=== PATIENT | male | born 1945 | race Caucasian/White ===

== ENCOUNTER → 2017-09-25 15:46 | Outpatient (CLI) | payer MEDICARE, SELFPAY ==
[2017-09-25 15:59] LABS: Hemoglobin 13.1 g/dl (13.0-16.5); Mean Corp Hgb Conc 33.6 g/gl (32-36); Mean Corpuscular Hgb 29.9 pg (27.0-32.0); Mean Platelet Vol. 9.7 fl (6.2-12.0); Platelet Count 153 K/mm3 (150-450); RBC Distribution Width CV 13.4 % (11.6-14.6); RBC Distribution Width SD 43.8 fl (35.1-43.9); Red Blood Count 4.38 M/mm3 (4.6-6.2); White Blood Count 6.1 K/mm3 (4.4-11.0)
[2017-09-25 16:24] LABS: ALB/GLOB Ratio 1.1 RATIO (0.9-2.4); AST(SGOT) 22 U/L (15-37); Alanine Aminotransfer ALT/SGPT 32 U/L (16-61); Albumin, Serum 3.6 g/dL (3.2-5.0); Alkaline Phosphatase 70 U/L (45-117); Anion Gap 6 (5-15); BUN 23 mg/dL (7-18); BUN/Creat Ratio 16.7 RATIO (10-20); Calcium,Total 8.8 mg/dL (8.5-10.1); Chloride 107 mmol/L (98-107); Cholesterol 154 mg/dL (200); Creatinine, Serum 1.38 mg/dL (0.70-1.30); EST Glomerular Filtration Rate 54 mL/min (>60); Est Glom Filt Rate - Afr Amer 65 mL/min (>60); Globulin 3.4 g/dL (2.2-4.2); Glucose 157 mg/dL (74-106); High Density Lipoprotein 36 mg/dL; Potassium 5.2 mmol/L (3.5-5.1); Sodium Level 140 mmol/L (136-145); Triglycerides 241 mg/dL; Very Low Density Lipoprotein 48 mg/dL (5-40)
[2017-09-25 16:25] LABS: Scan Indicated on CBC? Y/N NO
[2017-09-25 16:30] LABS: Hemoglobin A1c 8.5 % (4.2-6.3)
== END ==
PROVIDERS: Family Provider Family Medicine; PCP Family Medicine; Visit Provider Family Medicine
DX: E11.9 Type 2 diabetes mellitus without complications (principal); Z79.899 Other long term (current) drug therapy; E78.5 Hyperlipidemia, unspecified; I10 Essential (primary) hypertension
CPT/HCPCS: 80053; 80061; 83036; 85027

== ENCOUNTER 2017-11-22 11:16 | Emergency (ER) | payer MEDICARE, SELFPAY ==
[2017-11-22 11:18] VITALS: BP 157/93; PULSE 77; RESP 16; TEMP 37.1; O2SAT 98; BMI 28.3
--- NOTE | 2017-11-22 11:32 | CT_ITS ---
STUDY: CT BRAIN WITHOUT CONTRAST REASON FOR EXAM: Male, 72 years old. Altered mental status. Vertigo. Elevated BP. RADIATION DOSAGE (If Supplied By Facility): CTDIvol = ( 44.99 ) mGy, DLP = ( 762.36 ) mGycm TECHNIQUE: Transaxial CT imaging of the brain was performed without administration of intravenous contrast material. Coronal and sagittal reconstructions were performed. Individualized dose optimization techniques were used for this CT. COMPARISON: None. FINDINGS: Normal soft tissue structures. Normal calvarium. Normal size ventricles and extra-axial spaces for the patient's age. Normal white matter tracts of the cerebral hemispheres. Normal basal ganglia and thalami. Normal brainstem. Normal cerebellum. There is no intracranial hemorrhage. There are no findings of an acute ischemic infarction. Normal visualized paranasal sinuses. CT/Brain/Head without Contrast IMPRESSION: Normal unenhanced CT scan of the brain. Electronically Signed: Lebron Medrano MD at 13:28 EDT , Service support ,
--- NOTE | 2017-11-22 11:32 | EKG12_ITS ---
Test Reason : DIZZINESS Blood Pressure : / mmHG Vent. Rate : 067 BPM Atrial Rate : 067 BPM P-R Int : 204 ms QRS Dur : 134 ms QT Int : 400 ms P-R-T Axes : 045 -19 002 degrees QTc Int : 422 ms Normal sinus rhythm Right bundle branch block Abnormal ECG Confirmed by ARIE JUAREZ ([id number]), editor city SHAY MORE ([id number]) on 11/25/2017 10:23:57 AM Referred By: MANUEL Confirmed By:ARIE JUAREZ
[2017-11-22 11:52] LABS: Absolute Lymphocyte Count 1.07 X10^3/ul (0.83-4.51); Absolute Neutrophil Count 3.1 X10^3/uL (2.0-7.7); Basophil# 0.05 X10^3/uL; Eosinophil# 0.31 X10^3/uL; Eosinophils% 6.3 % (0-5); Hematocrit 37.5 % (40-54); Hemoglobin 13.5 g/dl (13.0-16.5); Lymphocyte # 1.07 X10^3/ul (4.0); Lymphocyte % 21.8 % (19-41); Mean Corpuscular Hgb 31.5 pg (27.0-32.0); Mean Corpuscular Volume 87.6 fL (80-94); Mean Platelet Vol. 9.9 fl (6.2-12.0); Monocyte# 0.36 X10^3/uL; Monocyte% 7.3 % (0-10); Neutrophil % 63.4 % (47-70); Platelet Count 172 K/mm3 (150-450); RBC Distribution Width CV 13.6 % (11.6-14.6); RBC Distribution Width SD 42.5 fl (35.1-43.9); Red Blood Count 4.28 M/mm3 (4.6-6.2); White Blood Count 4.9 K/mm3 (4.4-11.0)
[2017-11-22 11:56] LABS: POSITIVE COUNT NO; POSITIVE DIFFERENTIAL NO; POSITIVE MORPHOLOGY NO
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
[2017-11-22] MEDS: Meclizine HCl 25 MG Tablet PO (12:07)
[2017-11-22 12:08] VITALS: BP 142/100; PULSE 72; RESP 14; O2SAT 96
[2017-11-22 12:09] LABS: Anion Gap 8 (5-15); BUN 31 mg/dL (7-18); Calcium,Total 8.5 mg/dL (8.5-10.1); Chloride 104 mmol/L (98-107); Creatinine, Serum 1.72 mg/dL (0.70-1.30); EST Glomerular Filtration Rate 42 mL/min (>60); Est Glom Filt Rate - Afr Amer 50 mL/min (>60); Estimated Creatinine Clearance 40.13 ml/min; Glucose 245 mg/dL (74-106); Potassium 5.3 mmol/L (3.5-5.1); Sodium Level 138 mmol/L (136-145)
[2017-11-22 12:15] VITALS: BP 157/78; PULSE 71; RESP 15; O2SAT 97
--- NOTE | 2017-11-22 12:22 | ED.RN ---
CALLED DR. CADE'S OFFICE TO HAVE THEM FAX OVER A MEDLIST ON PATIENT.
--- NOTE | 2017-11-22 13:45 | ED.DEP ---
ED Disposition - Plan for ED Patient: Disposition: Home or Assisted Living Chief Complaint: Dizziness Instructions: ED BPV Vertigo Prescriptions: Meclizine HCl [Antivert] 25 mg PO 4X/DAY PRN PRN #20 tab PRN Reason: Dizziness Referrals: Eder Lee MD [Primary Care Provider] -
[2017-11-22 13:59] VITALS: BP 132/76; PULSE 68; RESP 18; O2SAT 96
== END 2017-11-22 13:59 | disposition home or self-care (01) ==
PROVIDERS: Emergency Provider Emergency Medicine; Family Provider Family Medicine; PCP Family Medicine
DX: R42 Dizziness and giddiness (principal); Z89.612 Acquired absence of left leg above knee; E11.9 Type 2 diabetes mellitus without complications; I10 Essential (primary) hypertension; Z79.84 Long term (current) use of oral hypoglycemic drugs; Z79.899 Other long term (current) drug therapy
CPT/HCPCS: 70450; 80048; 84484; 85025; 93005; 99284; J7040; A4216

== ENCOUNTER → 2017-12-27 15:53 | Outpatient (CLI) | payer MEDICARE, SELFPAY ==
[2017-12-27 16:38] LABS: Prothrombin Time (Protime)PT. 22.7 SECONDS (11.7-14.9)
== END ==
PROVIDERS: Family Provider Family Medicine; PCP Family Medicine; Visit Provider Family Medicine
DX: R69 Illness, unspecified (principal)
CPT/HCPCS: 85610

== ENCOUNTER → 2018-04-01 17:41 | Outpatient (CLI) | payer MEDICARE, SELFPAY ==
[2018-04-01 18:04] LABS: ALB/GLOB Ratio 1.1 RATIO (0.9-2.4); AST(SGOT) 19 U/L (15-37); Alanine Aminotransfer ALT/SGPT 26 U/L (16-61); Albumin, Serum 3.7 g/dL (3.2-5.0); Alkaline Phosphatase 76 U/L (45-117); Anion Gap 5 (5-15); BUN 26 mg/dL (7-18); BUN/Creat Ratio 17.6 RATIO (10-20); Calcium,Total 8.9 mg/dL (8.5-10.1); Chloride 104 mmol/L (98-107); Cholesterol 165 mg/dL (200); Creatinine, Serum 1.48 mg/dL (0.70-1.30); EST Glomerular Filtration Rate 49 mL/min (>60); Est Glom Filt Rate - Afr Amer 60 mL/min (>60); Globulin 3.4 g/dL (2.2-4.2); Glucose 182 mg/dL (74-106); Hemoglobin A1c 7.3 % (4.2-6.3); High Density Lipoprotein 36 mg/dL; Potassium 5.2 mmol/L (3.5-5.1); Protein, Total 7.1 g/dL (6.4-8.2); Sodium Level 138 mmol/L (136-145); Triglycerides 189 mg/dL; Very Low Density Lipoprotein 38 mg/dL (5-40)
[2018-04-01 18:42] LABS: Microalbumin:Creatinine Ratio 492.3 mg/g CRE (<30 mg/g CRE)
== END ==
PROVIDERS: Family Provider Family Medicine; PCP Family Medicine; Referring Provider Family Medicine; Visit Provider Family Medicine
DX: Z79.899 Other long term (current) drug therapy (principal)
CPT/HCPCS: 80053; 80061; 82043; 82570; 83036

== ENCOUNTER → 2018-07-07 16:06 | Outpatient (CLI) | payer MEDICARE, SELFPAY ==
[2018-07-07 17:02] LABS: ALB/GLOB Ratio 1.1 RATIO (0.9-2.4); AST(SGOT) 18 U/L (15-37); Alanine Aminotransfer ALT/SGPT 28 U/L (16-61); Albumin, Serum 3.6 g/dL (3.2-5.0); Alkaline Phosphatase 73 U/L (45-117); Anion Gap 9 (5-15); BUN 32 mg/dL (7-18); BUN/Creat Ratio 22.4 RATIO (10-20); Calcium,Total 8.7 mg/dL (8.5-10.1); Chloride 106 mmol/L (98-107); Cholesterol 150 mg/dL (200); Creatinine, Serum 1.43 mg/dL (0.70-1.30); EST Glomerular Filtration Rate 51 mL/min (>60); Est Glom Filt Rate - Afr Amer 62 mL/min (>60); Globulin 3.3 g/dL (2.2-4.2); Glucose 232 mg/dL (74-106); High Density Lipoprotein 34 mg/dL; Potassium 4.6 mmol/L (3.5-5.1); Protein, Total 6.9 g/dL (6.4-8.2); Sodium Level 141 mmol/L (136-145); Triglycerides 284 mg/dL; Very Low Density Lipoprotein 57 mg/dL (5-40)
[2018-07-07 17:08] LABS: Hemoglobin A1c 9.2 % (4.2-6.3)
== END ==
PROVIDERS: Family Provider Family Medicine; PCP Family Medicine; Referring Provider Family Medicine; Visit Provider Family Medicine
DX: E11.9 Type 2 diabetes mellitus without complications (principal); E78.5 Hyperlipidemia, unspecified
CPT/HCPCS: 80053; 80061; 83036

== ENCOUNTER → 2018-10-07 | Outpatient (CLI) | payer MEDICARE, SELFPAY ==
[2018-10-07 13:27] LABS: ALB/GLOB Ratio 1.2 RATIO (0.9-2.4); AST(SGOT) 20 U/L (15-37); Alanine Aminotransfer ALT/SGPT 29 U/L (16-61); Albumin, Serum 3.8 g/dL (3.2-5.0); Alkaline Phosphatase 85 U/L (45-117); Anion Gap 7 (5-15); BUN 26 mg/dL (7-18); BUN/Creat Ratio 17.1 RATIO (10-20); Calcium,Total 8.9 mg/dL (8.5-10.1); Chloride 103 mmol/L (98-107); Cholesterol 178 mg/dL (200); Creatinine, Serum 1.52 mg/dL (0.70-1.30); EST Glomerular Filtration Rate 48 mL/min (>60); Est Glom Filt Rate - Afr Amer 58 mL/min (>60); Globulin 3.3 g/dL (2.2-4.2); Glucose 203 mg/dL (74-106); High Density Lipoprotein 38 mg/dL; Potassium 4.7 mmol/L (3.5-5.1); Protein, Total 7.1 g/dL (6.4-8.2); Sodium Level 139 mmol/L (136-145); Triglycerides 330 mg/dL; Very Low Density Lipoprotein 66 mg/dL (5-40)
[2018-10-07 13:33] LABS: Hemoglobin A1c 8.4 % (4.2-6.3)
[2018-10-07 13:38] LABS: Hematocrit 40.5 % (40-54); Hemoglobin 14.1 g/dl (13.0-16.5); Mean Corp Hgb Conc 34.8 g/gl (32-36); Mean Corpuscular Hgb 29.7 pg (27.0-32.0); Mean Corpuscular Volume 85.3 fL (80-94); Platelet Count 171 K/mm3 (150-450); RBC Distribution Width CV 13.6 % (11.6-14.6); RBC Distribution Width SD 41.7 fl (35.1-43.9); Red Blood Count 4.75 M/mm3 (4.6-6.2); White Blood Count 5.4 K/mm3 (4.4-11.0)
[2018-10-07 13:42] LABS: Scan Indicated on CBC? Y/N NO
== END | disposition home or self-care (01) ==
LOC: LABSPEC 12:48
PROVIDERS: Family Provider Family Medicine; PCP Family Medicine; Referring Provider Family Medicine; Visit Provider Family Medicine
DX: E11.9 Type 2 diabetes mellitus without complications (principal); E78.5 Hyperlipidemia, unspecified; I10 Essential (primary) hypertension
CPT/HCPCS: 80053; 80061; 83036; 85027

== ENCOUNTER → 2019-01-15 | Outpatient (CLI) | payer MEDICARE, SELFPAY ==
[2019-01-15 16:46] LABS: AST(SGOT) 19 U/L (15-37); Alanine Aminotransfer ALT/SGPT 31 U/L (16-61); Albumin, Serum 3.5 g/dL (3.2-5.0); Alkaline Phosphatase 76 U/L (45-117); Anion Gap 6 (5-15); BUN 23 mg/dL (7-18); BUN/Creat Ratio 15.9 RATIO (10-20); Calcium,Total 8.8 mg/dL (8.5-10.1); Chloride 108 mmol/L (98-107); Cholesterol 171 mg/dL (200); Creatinine, Serum 1.45 mg/dL (0.70-1.30); EST Glomerular Filtration Rate 50 mL/min (>60); Est Glom Filt Rate - Afr Amer 61 mL/min (>60); Globulin 3.4 g/dL (2.2-4.2); Glucose 161 mg/dL (74-106); High Density Lipoprotein 39 mg/dL; Potassium 5.5 mmol/L (3.5-5.1); Protein, Total 6.9 g/dL (6.4-8.2); Sodium Level 140 mmol/L (136-145); Triglycerides 307 mg/dL; Very Low Density Lipoprotein 61 mg/dL (5-40)
[2019-01-15 18:00] LABS: Hemoglobin A1c 8.2 % (4.2-6.3)
== END | disposition home or self-care (01) ==
PROVIDERS: Family Provider Family Medicine; PCP Family Medicine; Referring Provider Family Medicine; Visit Provider Family Medicine
DX: E11.9 Type 2 diabetes mellitus without complications (principal); E78.5 Hyperlipidemia, unspecified
CPT/HCPCS: 80053; 80061; 83036

== ENCOUNTER 2019-01-29 15:05 | Outpatient (RCR) | payer MEDICARE, SELFPAY ==
[2019-01-29 15:14] VITALS: BP 163/95; PULSE 16; RESP 16; TEMP 37.3; BMI 29.5
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
== END 2019-01-31 23:59 ==
LOC: WC 15:05
PROVIDERS: Family Provider Family Medicine; PCP Family Medicine; Referring Provider Family Medicine; Visit Provider Nurse Practitioner Family
DX: L89.312 Pressure ulcer of right buttock, stage 2 (principal); L89.322 Pressure ulcer of left buttock, stage 2; E78.1 Pure hyperglyceridemia; E11.622 Type 2 diabetes mellitus with other skin ulcer; E11.22 Type 2 diabetes mellitus with diabetic chronic kidney disease; I12.9 Hypertensive chronic kidney disease with stage 1 through stage 4 chronic kidney disease, or unspecified chronic kidney disease; N18.3 Chronic kidney disease, stage 3 (moderate); Z86.718 Personal history of other venous thrombosis and embolism; Z89.619 Acquired absence of unspecified leg above knee; Z79.01 Long term (current) use of anticoagulants; Z79.4 Long term (current) use of insulin; Z79.899 Other long term (current) drug therapy
CPT/HCPCS: 11042; 99213; G0463

== ENCOUNTER 2019-02-19 15:00 | Outpatient (RCR) | payer MEDICARE, SELFPAY ==
[2019-02-01 01:17] VITALS: BP 163/95; PULSE 16; RESP 16; TEMP 37.3
[2019-02-05 15:00] VITALS: BP 164/87; PULSE 72; RESP 16; TEMP 37; BMI 29.5
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
[2019-02-12 14:42] VITALS: BP 149/79; PULSE 72; RESP 16; TEMP 37.2; BMI 29.5
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
[2019-02-19 13:13] VITALS: BP 153/79; PULSE 69; RESP 16; TEMP 37.4; BMI 29.5
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
== END 2019-03-02 23:59 ==
LOC: WC 15:00
PROVIDERS: Family Provider Family Medicine; PCP Family Medicine; Referring Provider Family Medicine; Visit Provider Nurse Practitioner Family
DX: L89.312 Pressure ulcer of right buttock, stage 2 (principal); E11.622 Type 2 diabetes mellitus with other skin ulcer; L89.322 Pressure ulcer of left buttock, stage 2; Z89.619 Acquired absence of unspecified leg above knee; I12.9 Hypertensive chronic kidney disease with stage 1 through stage 4 chronic kidney disease, or unspecified chronic kidney disease; N18.3 Chronic kidney disease, stage 3 (moderate); E11.22 Type 2 diabetes mellitus with diabetic chronic kidney disease; E78.5 Hyperlipidemia, unspecified; Z86.718 Personal history of other venous thrombosis and embolism; Z79.4 Long term (current) use of insulin
CPT/HCPCS: 11042; 99212; G0463

== ENCOUNTER → 2019-04-22 14:13 | Outpatient (CLI) | payer MEDICARE, SELFPAY ==
[2019-04-22 14:57] LABS: AST(SGOT) 19 U/L (15-37); Alanine Aminotransfer ALT/SGPT 27 U/L (16-61); Albumin, Serum 3.6 g/dL (3.2-5.0); Alkaline Phosphatase 71 U/L (45-117); Anion Gap 3 (5-15); BUN 34 mg/dL (7-18); BUN/Creat Ratio 22.7 RATIO (10-20); Calcium,Total 8.9 mg/dL (8.5-10.1); Chloride 108 mmol/L (98-107); Cholesterol 164 mg/dL (200); EST Glomerular Filtration Rate 48 mL/min (>60); Est Glom Filt Rate - Afr Amer 59 mL/min (>60); Globulin 3.5 g/dL (2.2-4.2); Glucose 146 mg/dL (74-106); High Density Lipoprotein 39 mg/dL; Potassium 4.7 mmol/L (3.5-5.1); Protein, Total 7.1 g/dL (6.4-8.2); Sodium Level 139 mmol/L (136-145); Triglycerides 200 mg/dL; Very Low Density Lipoprotein 40 mg/dL (5-40)
[2019-04-22 15:03] LABS: Hemoglobin A1c 8.3 % (4.2-6.3)
== END ==
PROVIDERS: Family Provider Family Medicine; PCP Family Medicine; Referring Provider Family Medicine; Visit Provider Family Medicine
DX: I10 Essential (primary) hypertension (principal); E11.9 Type 2 diabetes mellitus without complications; E78.5 Hyperlipidemia, unspecified
CPT/HCPCS: 80053; 80061; 83036

== ENCOUNTER 2019-07-02 15:00 | Outpatient (RCR) | payer MEDICARE, SELFPAY ==
[2019-06-11 15:21] VITALS: BP 183/91; PULSE 72; RESP 18; TEMP 36.3; BMI 29.7
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
[2019-06-18 15:19] VITALS: BP 148/81; PULSE 68; RESP 16; TEMP 36.4; BMI 29.7
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
[2019-06-25 15:08] VITALS: BP 162/86; PULSE 68; RESP 16; TEMP 36.9; BMI 29.7
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
[2019-07-02 15:29] VITALS: BP 164/92; PULSE 64; RESP 18; TEMP 36.1; BMI 29.7
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
== END 2019-07-03 23:59 ==
LOC: WC 15:00
PROVIDERS: Family Provider Family Medicine; PCP Family Medicine; Visit Provider Nurse Practitioner Family
DX: L89.312 Pressure ulcer of right buttock, stage 2 (principal); L89.322 Pressure ulcer of left buttock, stage 2; I12.9 Hypertensive chronic kidney disease with stage 1 through stage 4 chronic kidney disease, or unspecified chronic kidney disease; E11.22 Type 2 diabetes mellitus with diabetic chronic kidney disease; N18.3 Chronic kidney disease, stage 3 (moderate); Z86.718 Personal history of other venous thrombosis and embolism; E78.5 Hyperlipidemia, unspecified; Z79.01 Long term (current) use of anticoagulants; Z89.612 Acquired absence of left leg above knee; Z79.899 Other long term (current) drug therapy; Z79.84 Long term (current) use of oral hypoglycemic drugs
CPT/HCPCS: 11042; 15271; 99213; Q4160; G0463

== ENCOUNTER 2019-07-16 15:15 | Outpatient (RCR) | payer MEDICARE, SELFPAY ==
[2019-07-04 01:07] VITALS: BP 164/92; PULSE 64; RESP 18; TEMP 36.1
[2019-07-09 15:17] VITALS: BP 155/84; PULSE 66; RESP 16; TEMP 37.1; BMI 29.7
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
[2019-07-16 15:27] VITALS: BP 187/97; PULSE 74; RESP 18; TEMP 36.3; BMI 29.7
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
== END 2019-08-01 23:59 ==
LOC: WC 15:15
PROVIDERS: Family Provider Family Medicine; PCP Family Medicine; Visit Provider Nurse Practitioner Family
DX: L89.312 Pressure ulcer of right buttock, stage 2 (principal); L89.322 Pressure ulcer of left buttock, stage 2; Z89.619 Acquired absence of unspecified leg above knee; E11.22 Type 2 diabetes mellitus with diabetic chronic kidney disease; I12.9 Hypertensive chronic kidney disease with stage 1 through stage 4 chronic kidney disease, or unspecified chronic kidney disease; N18.3 Chronic kidney disease, stage 3 (moderate); Z86.718 Personal history of other venous thrombosis and embolism; E78.5 Hyperlipidemia, unspecified; Z91.19 Patient's noncompliance with other medical treatment and regimen
CPT/HCPCS: 11042; 99212; G0463

== ENCOUNTER → 2019-07-22 | Outpatient (CLI) | payer MEDICARE, SELFPAY ==
[2019-07-16 15:27] VITALS: BMI 29.7
[2019-07-22 16:40] LABS: AST(SGOT) 14 U/L (15-37); Alanine Aminotransfer ALT/SGPT 29 U/L (16-61); Albumin, Serum 3.4 g/dL (3.2-5.0); Alkaline Phosphatase 80 U/L (45-117); Anion Gap 3 (5-15); BUN 26 mg/dL (7-18); BUN/Creat Ratio 16.5 RATIO (10-20); Calcium,Total 8.8 mg/dL (8.5-10.1); Chloride 109 mmol/L (98-107); Cholesterol 166 mg/dL (200); Creatinine, Serum 1.58 mg/dL (0.70-1.30); EST Glomerular Filtration Rate 46 mL/min (>60); Est Glom Filt Rate - Afr Amer 55 mL/min (>60); Globulin 3.5 g/dL (2.2-4.2); Glucose 180 mg/dL (74-106); High Density Lipoprotein 37 mg/dL; Potassium 5.3 mmol/L (3.5-5.1); Protein, Total 6.9 g/dL (6.4-8.2); Sodium Level 139 mmol/L (136-145); Triglycerides 276 mg/dL; Very Low Density Lipoprotein 55 mg/dL (5-40)
[2019-07-22 17:12] LABS: Hemoglobin A1c 9.1 % (4.2-6.3)
[2019-07-22 18:04] LABS: Microalbumin:Creatinine Ratio 1073.4 mg/g CRE (<30 mg/g CRE)
== END | disposition home or self-care (01) ==
LOC: LABSPEC 16:11
PROVIDERS: PCP Family Medicine; Referring Provider Family Medicine; Visit Provider Family Medicine
DX: E11.9 Type 2 diabetes mellitus without complications (principal); I10 Essential (primary) hypertension; E78.5 Hyperlipidemia, unspecified
CPT/HCPCS: 80053; 80061; 82043; 82570; 83036

== ENCOUNTER 2020-08-09 13:38 | Outpatient (RCR) | payer MEDICARE, SELFPAY ==
[2020-08-09] MEDS: COVID-19 VACC, MRNA(PFIZER)/PF 30 MCG/0.3 ML SYRINGE IM (15:31)
[2020-08-30] MEDS: COVID-19 VACC, MRNA(PFIZER)/PF 30 MCG/0.3 ML SYRINGE IM (15:12)
== END 2020-11-08 23:59 ==
LOC: IMMUN 13:38
PROVIDERS: PCP Family Medicine; Visit Provider Family Medicine
DX: Z23 Encounter for immunization (principal)
CPT/HCPCS: 0001A; 0002A; 91300

== ENCOUNTER → 2020-09-20 | Outpatient (CLI) | payer MEDICARE, SELFPAY ==
[2020-09-20 14:59] LABS: Cholesterol 153 mg/dL (200); High Density Lipoprotein 42 mg/dL; Triglycerides 225 mg/dL; Very Low Density Lipoprotein 45 mg/dL (5-40)
[2020-09-20 15:05] LABS: Hemoglobin A1c 8.3 % (3.8-5.6)
== END | disposition home or self-care (01) ==
LOC: LABSPEC 13:56
PROVIDERS: PCP Family Medicine; Referring Provider Family Medicine; Visit Provider Family Medicine
DX: I10 Essential (primary) hypertension (principal)
CPT/HCPCS: 80061; 82043; 82570; 83036

== ENCOUNTER → 2020-12-27 | Outpatient (CLI) | payer MEDICARE, SELFPAY ==
[2020-12-27 16:10] LABS: Cholesterol 145 mg/dL (200); High Density Lipoprotein 38 mg/dL; Triglycerides 213 mg/dL; Very Low Density Lipoprotein 43 mg/dL (5-40)
[2020-12-27 16:15] LABS: Hemoglobin A1c 8.9 % (3.8-5.6)
== END | disposition home or self-care (01) ==
LOC: LABSPEC 15:23
PROVIDERS: PCP Family Medicine; Visit Provider Family Medicine
DX: E11.22 Type 2 diabetes mellitus with diabetic chronic kidney disease (principal); I12.9 Hypertensive chronic kidney disease with stage 1 through stage 4 chronic kidney disease, or unspecified chronic kidney disease; N18.30 Chronic kidney disease, stage 3 unspecified; E78.5 Hyperlipidemia, unspecified
CPT/HCPCS: 80061; 83036

== ENCOUNTER 2021-01-26 10:30 | Outpatient (RCR) | payer MEDICARE, SELFPAY ==
[2021-01-12 10:25] VITALS: BP 107/83; PULSE 91; TEMP 36.9; BMI 29.7
--- NOTE | 2021-01-12 12:58 | HP.PCM_ITS ---
History of Present Illness Date of Service: 01/12/21 Chief Complaint: Recurrent buttock ulcers History of Wound: Mr. 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 Most recent episode said to have started months ago . Has been applying antibiotic and hemorrhoid ointment without significant improvement. Sits and sleeps in his lift chair. Also history of diabetes mellitus type 2 and his most recent A1c was said to be around 8. Fasting blood sugar this morning at 303. He states that he is working with his PCP to get this under better control. History of AKA. He feels well and denies other concerns at this time. [facility] Medical History (Updated 01/12/21 @ 13:[address] Mundo Dye MD) Decubitus ulcer of left buttock, stage 3 Decubitus ulcer of right buttock, stage 3 Home Medications lisinopril [Zestril] 20 mg PO QHS 11/22/17 [History Last Taken Unknown] metoprolol tartrate 50 mg PO BID 11/22/17 [History Last Taken Unknown] Liraglutide [Victoza 2-Reilly] 0.6 mg SQ DAILY 01/29/19 [History Last Taken Unknown] furosemide 40 mg PO BID 01/29/19 [History Last Taken Unknown] lovastatin 40 mg PO DAILY 01/29/19 [History Last Taken Unknown] metformin 1,000 mg PO BID 01/29/19 [History Last Taken Unknown] warfarin 3 mg PO FR 01/29/19 [History Last Taken Unknown] warfarin 5 mg PO SUMOTUWETH 01/29/19 [History Last Taken Unknown] glipizide 25 mg PO BIDAC 06/11/19 [History Last Taken Unknown] hydrocortisone 1 applic TOPICAL TID PRN PRN 06/11/19 [History Last Taken Unknown] nystatin 15 gm TP BID PRN PRN 06/11/19 [History Last Taken Unknown] amlodipine 5 mg PO DAILY 01/12/21 [History Last Taken Unknown] cyclobenzaprine 10 mg PO TID PRN 01/12/21 [History Last Taken Unknown] meclizine 25 mg PO 4X/DAY 01/12/21 [History Last Taken Unknown] Allergy/AdvReac Type Severity Reaction Status Date / Time amoxicillin Allergy Rash Verified 01/29/19 15:51 Social History Smoking Status: Never smoker ROS Constitutional Constitutional: Denies body ache(s), change in weight, chills, fatigue, fever(s) or frequent falls Eyes Eyes: Denies change in eye color, change in vision, discharge from eye(s), discongugate gaze or double vision ENT HEENT: Denies foreign body in nose, headache(s), hearing loss, mouth pain, nasal congestion or nasal discharge Cardiovascular Cardiovascular: Denies chest pain with activity, claudication, clubbing, cold extremities or dyspnea at rest Respiratory/Chest Respiratory/Chest: Denies difficulty clearing secretions, dry cough, dusky skin, excessive phlegm production, hemoptysis or hoarseness Gastrointestinal Gastrointestinal: Denies belching, bloating, chewing difficulty, coffee ground emesis, cramping or dry heaves Genitourinary Genitourinary: Denies burning urination, change in urinary stream, dribbling, dysuria or genital lesions Musculoskeletal Musculoskeletal: Denies atrophy, muscle spasms, muscle weakness, myalgias or numbness Integumentary Integumentary: Denies hirsutism, jaundice, lesions, nail changes or new lesions Neurologic Neurologic: Denies burning sensations, confusion, convulsions, focal weakness or frequent falls Psychiatric Psychiatric: Denies auditory hallucinations, behavioral changes, hallucinations, homicidal ideation or memory loss Endocrine Endocrinology: Denies flushing, heat intolerance, increase in ring/shoe/hat size, palpitations or polydipsia Hematologic/Lymphatic Hematologic/Lymphatic: Denies easy bleeding, easy bruising or lymphadenopathy Allergic/Immunologic Allergic/Immunologic: Denies tongue swelling, hives, urticaria, eczemia or wheezing Vital Signs Vital Signs Vital Signs: 01/12/21 10:25 Temperature 98.5 F Temperature Source Temporal Pulse Rate 91 Blood Pressure 107/83 H Blood Pressure Mean 91 Blood Pressure Source Monitor Weight Body Mass Index (BMI) 29.7 Physical Exam Const alert, oriented x3 and no apparent distress General Appearance: cooperative and comfortable HEENT normocephalic and head/scalp atraumatic Eyes EOMs intact bilaterally Neck full ROM General: normal visual inspection Resp normal respiratory effort Effort and Inspection: able to speak in complete sentences Cardio Rate: regular rate Rhythm: regular rhythm Heart Sounds: S1 normal and S2 normal Skin Wounds: wounds noted Neuro oriented x3, CN's II-XII intact bilaterally and moves all extremities Psych mental status grossly normal Appearance: grossly normal Attitude: calm Speech: normal speech Debridement Note Debridement Note Post-Debridement Measurements and Additional Note: Post-Debridement Measurements/Treatment WC - Nurse 1 - General Ulcer Assessment Start: 01/12/21 10:19 Freq: Status: Active Protocol: WC.LOWEXT Activity Type Activity Date Activity User E-Sign Co-Sign Detail Recorded Client Recorded Date Recorded By Document 01/12/21 10:25 EFREM [id number] 01/12/21 10:54 EFREM 01/12/21 10:25 - Today's Visit Information Type of service Initial Visit Arrival Mode Ambulatory, Crutches Patient Identification Verified (Name & Yes ) Patient Requires Transmission-Based No Precautions Finger Stick Blood Sugar(mg/dl) (if 303 indicated): Blood Sugar Stated by Patient Height and Weight Body Mass Index (BMI) 29.7 BMI Classification Overweight Vital Signs Temperature (97.8 F-99.1 F) 98.5 F Temperature Source Temporal Pulse Rate (60-100) 91 Pulse Location Monitor Blood Pressure (90/60-120/80) 107/83 H Blood Pressure Mean 91 Source Monitor History Since Last Visit- (Skip if this is Patient's initial visit) Have you changed medications since your No last visit? Any new allergies or adverse reactions No Had a fall/change in ADL's that may No increase risk of falls Signs or symptoms of abuse and/or No neglect since last visit Have you been in the hospital since your No last visit? Has dressing in place as prescribed No Has compression in place as prescribed N/A Has offloadiing in place as prescribed N/A Experienced any changes in pain level or No management Left Footwear Regular Shoe Right Footwear Regular Shoe Communication Assessment Preferred language [place] Able to Read Yes Able to Write Yes Communication Tools None Caregiver Communication Skills No Impairment Impairment Right Hearing Abillity Normal Visual Assistive Devices None Teaching Assessment Preferences Verbal,Written Barriers to Learning None Readiness To Learn Good Willingness to Engage in Self Management Med Activies Readiness to Engage in Self Management Med Activities Anxiety Level Calm Cooperation Cooperative Perception Coherent Interest in Health Problem Asks Questions Does Patient Smoke tobacco or other No substances Smoking Status Never smoker Is Patient Diabetic Yes Culture/Mormonism/Bid Manager Cultural/Mormonism Needs that may affect No Treatment Plan Would you allow our hospital filler wiper to Yes meet you for the purpose of spiritual/ emotional support? Bid Manager to contact place of mandaen No Teaching: Wound Center Discharge Instructions -Person Taught Patient -Teaching Method Discussion -Response to teaching Verbalize understanding Offload: Mattress, Cushion, Reposition -Person Taught Patient -Teaching Method Discussion Dressing Your Wound -Person Taught Patient -Teaching Method Discussion *Welcome to the Wound Center -Person Taught Patient -Teaching Method Discussion WC - Nurse 1 - General Ulcer Measurement Start: 01/12/21 10:19 Freq: Status: Active Protocol: Activity Type Activity Date Activity User E-Sign Co-Sign Detail Recorded Client Recorded Date Recorded By Document 01/12/21 10:25 AK [id number] 01/12/21 10:54 AK 01/12/21 10:25 Wound Center Nurse 1 #6 Left buttock cluster -Current Size (cm) - Length 3.5 -Current Size (cm) - Width 1 -Current Size (cm) - Depth 0.1 -Total Square Cm 3.5 -Photo Taken Yes -Classification - Thickness Full Thickness without Exposed Support Structure -Exudate Amt Medium -Exudate Type Serous -Wound Margin Distinct, Outline Attached -Necrosis Amt Medium (34-66%) -Necrotic Tissue Type Adherent Slough -Structure Exposed N/A -Texture (Dai-wound Skin Appearance) Assessed, Scarring -Moisture (Dai-wound Skin Appearance) Assessed,Dry/ Scaly -Color (Dai-wound Skin Appearance) Assessed,Rubor -Temperature (Dai-wound Skin No Abnormality Appearance) (Pt Warm) -Tenderness on Palpation (Dai-wound Yes Skin Appearance) -Ulcer Cleansing Wound Cleanser -Anesthetic Used 4% Lidocaine Solution #5 Right buttock cluster -Current Size (cm) - Length 4 -Current Size (cm) - Width 3 -Current Size (cm) - Depth 0.2 -Total Square Cm 12 -Date of Last Picture (Recall this 01/12/21 field) -Photo Taken Yes -Classification - Thickness Full Thickness without Exposed Support Structure -Exudate Amt Small -Exudate Type Serous -Wound Margin Distinct, Outline Attached -Granulation Amt Large (67-100%) -Granulation Quality [place] -Necrosis Amt Medium (34-66%) -Necrotic Tissue Type Adherent Slough -Structure Exposed N/A -Texture (Dai-wound Skin Appearance) Assessed, Scarring -Moisture (Dai-wound Skin Appearance) Assessed,Dry/ Scaly -Color (Dai-wound Skin Appearance) Assessed,Rubor -Temperature (Dai-wound Skin No Abnormality Appearance) (Pt Warm) -Tenderness on Palpation (Dai-wound Yes Skin Appearance) -Ulcer Cleansing Wound Cleanser -Foul Odor after Cleansing No -Anesthetic Used 4% Lidocaine Solution WC - Nurse 2 - General Ulcer CM Notes Start: 01/12/21 10:19 Freq: Status: Active Protocol: Activity Type Activity Date Activity User E-Sign Co-Sign Detail Recorded Client Recorded Date Recorded By Document 01/12/21 11:12 MW Desktop 01/12/21 11:21 MW 01/12/21 11:12 Wound Center Nurse 2 #6 Left buttock cluster -Time 11:19 -Correct Patient Yes -Correct Side, Site, Position Yes -Correct Procedure Yes -Procedure Performed Yes -Type of Procedure Debridement -Clinical Debridement Subcutaneous -Tissue Removed Subcutaneous -Post Debridement (cm) - Length 4.0 -Post Debridement (cm) - Width 2.0 -Post Debridement (cm) - Depth 0.1 -Total Square (Post) (cm) 8.00 -Area of Debridement (cm) - Length 4.0 -Area of Debridement (cm) - Width 2.0 -Total Square (Area) (cm) 8.00 -Tunneling No -Undermining/Tunneling No -Circular Undermining No -Wound/Ulcer Outcome Not Healed -Ulcer Cleansing Rinsed/ Irrigated with Saline -Foul Odor after Cleansing No -Bioengineered Tissue No -Bleeding Controlled with Pressure -Offloading No -Treatment Response Procedure Tolerated Well -Debridement - Subq, 1st 20sq cm Yes #5 Right buttock cluster -Time 11:19 -Correct Patient Yes -Correct Side, Site, Position Yes -Correct Procedure Yes -Procedure Performed Yes -Type of Procedure Debridement -Clinical Debridement Subcutaneous -Tissue Removed Subcutaneous -Post Debridement (cm) - Length 4.0 -Post Debridement (cm) - Width 3.5 -Post Debridement (cm) - Depth 0.1 -Total Square (Post) (cm) 14.00 -Area of Debridement (cm) - Length 4.0 -Area of Debridement (cm) - Width 3.5 -Total Square (Area) (cm) 14.00 -Tunneling No -Undermining/Tunneling No -Circular Undermining No -Wound/Ulcer Outcome Not Healed -Ulcer Cleansing Rinsed/ Irrigated with Saline -Foul Odor after Cleansing No -Bioengineered Tissue No -Bleeding Controlled with Pressure -Offloading No -Treatment Response Procedure Tolerated Well -Debridement - Subq, 1st 20sq cm No Pain Scale: 0-10 Numeric Is Patient Pain Free? Yes - Nurse 3 - General Ulcer D/C NN Start: 01/12/21 10:19 Freq: Status: Active Protocol: Activity Type Activity Date Activity User E-Sign Co-Sign Detail Recorded Client Recorded Date Recorded By Document 01/12/21 11:45 SD [id number] 01/12/21 11:47 SD 01/12/21 11:45 Wound Care Nurse 3 #6 Left buttock cluster -Primary Dressing Applied Aquacel Extra, Mepilex Border -Aquacel Extra 1 -Mepilex Border 2 - Visit Discharge Discharge Condition Stable Ambulatory Status Ambulatory Transportation Private Auto Medication Reconcilliation completed & No provided to patient/care provider Clinical Summary of Care Provided Yes Notes: Concerned about how to dress his wound. Wound debrided: Left Buttock Cluster Wound Grade/Stage: Stage III Type of Debridement: Excisional debridement Anesthesia Used: 4% Lidocaine Solution Depth: Down to and including healthy tissue and in the subcutaneous layer Percentage of wound debrided: 100 Instrument Used: 5mm curette Tissue Removed: Slough and devitalized tissue Severity: Fat Layer Exposed Amount of bleeding with debridement: Mild Bleeding Controlled with: Pressure Patient tolerated procedure: Patient tolerated procedure well Additional Wound Wound debrided: Right Buttock Cluster Wound Grade/Stage: Stage III Type of Debridement: Excisional debridement Anesthesia Used: 4% Lidocaine Solution Depth: Down to and including healthy tissue and in the subcutaneous layer Percentage of wound debrided: 100 Instrument Used: 5mm curette Tissue Removed: Slough and devitalized tissue Severity: Fat Layer Exposed Amount of bleeding with debridement: Mild Bleeding Controlled with: Pressure Patient tolerated procedure: Patient tolerated procedure well Charges/Coding Visit Charges Office Visits / Consults: [id number] OV L3 New Procedures Integumentary [id number]: [id number] [place] subq tissue 20 sq cm/< Assessment/Plan Assessment/Plan (1) Decubitus ulcer of right buttock, stage 3: CODE(S): L89.313 - Pressure ulcer of right buttock, stage 3 (2) Decubitus ulcer of left buttock, stage 3: CODE(S): L89.323 - Pressure ulcer of left buttock, stage 3 (3) Type II diabetes mellitus: CODE(S): E11.9 - Type 2 diabetes mellitus without complications PLAN: With current bilateral decubitus ulcers. Current episode said to have been present for months. Debridement done as documented above, procedure was well-tolerated. Strongly advised that he would need a hospital bed for pressure relief/offloading. Prescription sent. Prescription also sent for a gel cushion since he spends most of his time in his lift chair. Optimal diabetes control also very strongly recommended. Cultures taken due to chronicity, location and pain. Aquacel extra moistened with saline and covered with Optifoam. Change daily. He will need home health. Optimal protein intake, vitamin C and zinc also discussed. His questions were answered and he was advised to call with any further questions or concerns. Follow-up for courtesy visit next Saturday and with me in 2 weeks. This note was generated with [employer] dictation software. It may contain incorrect words, spelling, and punctuation that were not noted in checking the note before signing.
[2021-01-20 09:59] VITALS: BP 140/65; PULSE 64; TEMP 36.9; BMI 29.7
--- NOTE | 2021-01-20 13:16 | PCM.WC.PN ---
History of Present Illness Date of Service: 01/20/21 Chief Complaint: Recurrent buttock ulcers History of Wound: Mr. 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 Most recent episode said to have started months ago . Has been applying antibiotic and hemorrhoid ointment without significant improvement. Sits and sleeps in his lift chair. Also history of diabetes mellitus type 2 and his most recent A1c was said to be around 8. Fasting blood sugar this morning at 303. He states that he is working with his PCP to get this under better control. History of AKA. He feels well and denies other concerns at this time. Progress of Wound: Courtesy visit for Dr. Dye. The patient's buttock ulcers have improved in size within the last week. He reports compliance with dressing changes. The patient denies fever, chills, general malaise, or poor appetite. The patient has not had purulent/malodorous drainage from affected area. Objective Data Objective Data Vital Signs: Vital Signs Temp Pulse BP 98.4 F 64 140/65 H 01/20/21 09:59 01/20/21 09:59 01/20/21 09:59 Body Mass Index (BMI) 29.7 Lab / Micro Data Micro: Microbiology 01/12/21 11:10 Wound Abcess - Buttock Gram Stain - Final 01/12/21 11:10 Wound Abcess - Buttock Wound Culture - Final Staphylococcus aureus 01/12/21 11:10 Wound Abcess - Buttock Anaerobic Culture - Final Charges/Coding Procedures Integumentary [id number]: [id number] [place] subq tissue 20 sq cm/< Physical Exam Const alert and no apparent distress General Appearance: cooperative and comfortable HEENT Head and Scalp: normocephalic and atraumatic Neck supple Resp normal respiratory effort, normal air movement and no use of accessory muscles Extremity normal capillary refill Peripheral Pulses: Yes dorsalis pedis pulses present bilateral 2+ Skin Wounds: wounds noted Wound Narrative: Bilateral buttock ulcers with subcutaneous layer exposed. No tunneling, undermining, or probing to bone. Moderate erythema and excoriation of periulcer area. No purulent/malodorous drainage. Neuro Sensorium / Orientation: awake and alert Psych mental status grossly normal, cooperative and affect normal Appearance: grossly normal Debridement Note Debridement Note Post-Debridement Measurements and Additional Note: Post-Debridement Measurements/Treatment WC - Nurse 1 - General Ulcer Assessment Start: 01/12/21 10:19 Freq: Status: Active Protocol: FABY Activity Type Activity Date Activity User E-Sign Co-Sign Detail Recorded Client Recorded Date Recorded By Document 01/12/21 10:25 AK [id number] 01/12/21 10:54 AK Document 01/20/21 09:59 AK [id number] 01/20/21 10:08 AK 01/12/21 01/20/21 10:25 09:59 - Today's Visit Information Type of service Initial Visit Follow-up Visit (Physician/PRECISION DANCER ) Arrival Mode Ambulatory, Ambulatory, Crutches Crutches Patient Identification Verified (Name & Yes Yes ) Patient Requires Transmission-Based No Precautions Finger Stick Blood Sugar(mg/dl) (if 303 indicated): Blood Sugar Stated by Patient Height and Weight Body Mass Index (BMI) 29.7 29.7 BMI Classification Overweight Overweight Vital Signs Temperature (97.8 F-99.1 F) 98.5 F 98.4 F Temperature Source Temporal Temporal Pulse Rate (60-100) 91 64 Pulse Location Monitor Monitor Blood Pressure (90/60-120/80) 107/83 H 140/65 H Blood Pressure Mean (mm Hg) 91 90 Source Monitor Monitor History Since Last Visit- (Skip if this is Patient's initial visit) Have you changed medications since your No No last visit? Any new allergies or adverse reactions No No Had a fall/change in ADL's that may No No increase risk of falls Signs or symptoms of abuse and/or No No neglect since last visit Have you been in the hospital since your No No last visit? Has dressing in place as prescribed No Yes Has compression in place as prescribed N/A N/A Has offloadiing in place as prescribed N/A N/A Experienced any changes in pain level or No management Left Footwear Regular Shoe Regular Shoe Right Footwear Regular Shoe Regular Shoe Communication Assessment Preferred language Bahamian Able to Read Yes Able to Write Yes Communication Tools None Caregiver Communication Skills No Impairment Impairment Right Hearing Abillity Normal Visual Assistive Devices None Teaching Assessment Preferences Verbal,Written Barriers to Learning None Readiness To Learn Good Willingness to Engage in Self Management Med Activies Readiness to Engage in Self Management Med Activities Anxiety Level Calm Cooperation Cooperative Perception Coherent Interest in Health Problem Asks Questions Does Patient Smoke tobacco or other No substances Smoking Status Never smoker Is Patient Diabetic Yes Culture/Pentecostalism/Administrative Assistant Front Desk Cultural/Pentecostalism Needs that may affect No Treatment Plan Would you allow our hospital phlebotomy program coordinator to Yes meet you for the purpose of spiritual/ emotional support? Administrative Assistant Front Desk to contact place of scientology No Teaching: Wound Center Discharge Instructions -Person Taught Patient -Teaching Method Discussion -Response to teaching Verbalize understanding Offload: Mattress, Cushion, Reposition -Person Taught Patient -Teaching Method Discussion Dressing Your Wound -Person Taught Patient -Teaching Method Discussion *Welcome to the Wound Center -Person Taught Patient -Teaching Method Discussion WC - Nurse 1 - General Ulcer Measurement Start: 01/12/21 10:19 Freq: Status: Active Protocol: Activity Type Activity Date Activity User E-Sign Co-Sign Detail Recorded Client Recorded Date Recorded By Document 01/12/21 10:25 AK [id number] 01/12/21 10:54 AK Document 01/20/21 09:59 AK [id number] 01/20/21 10:08 AK 01/12/21 01/20/21 10:25 09:59 Wound Center Nurse 1 #6 Left buttock cluster -Combined with other wound No -Current Size (cm) - Length 3.5 0.1 -Current Size (cm) - Width 1 0.1 -Current Size (cm) - Depth 0.1 0.1 -Total Square Cm 3.5 0.01 -Photo Taken Yes -Tunneling No -Undermining/Tunneling No -Circular Undermining No -Classification - Thickness Full Thickness without Exposed Support Structure -Exudate Amt Medium None Present -Exudate Type Serous -Wound Margin Distinct, Flat & Intact Outline Attached -Slough/Fibrin No -Necrosis Amt Medium (34-66%) None Present (0 %) -Necrotic Tissue Type Adherent Slough -Structure Exposed N/A N/A -Texture (Dai-wound Skin Appearance) Assessed, Assessed,Rash Scarring -Moisture (Dai-wound Skin Appearance) Assessed,Dry/ No Abnormality, Scaly Assessed -Color (Dai-wound Skin Appearance) Assessed,Rubor Assessed,Rubor -Temperature (Dai-wound Skin No Abnormality No Abnormality Appearance) (Pt Warm) (Pt Warm) -Tenderness on Palpation (Dai-wound Yes No Skin Appearance) -Ulcer Cleansing Wound Cleanser soap and water -Anesthetic Used 4% Lidocaine 5% Lidocaine Solution Gel #5 Right buttock cluster -Current Size (cm) - Length 4 0.1 -Current Size (cm) - Width 3 0.1 -Current Size (cm) - Depth 0.2 0.1 -Total Square Cm 12 0.01 -Date of Last Picture (Recall this 01/12/21 field) -Photo Taken Yes -Tunneling No -Undermining/Tunneling No -Circular Undermining No -Classification - Thickness Full Thickness without Exposed Support Structure -Exudate Amt Small None Present -Exudate Type Serous -Wound Margin Distinct, Flat & Intact Outline Attached -Granulation Amt Large (67-100%) None Present (0 %) -Granulation Quality [place] -Slough/Fibrin No -Necrosis Amt Medium (34-66%) None Present (0 %) -Necrotic Tissue Type Adherent Slough -Structure Exposed N/A N/A -Texture (Dai-wound Skin Appearance) Assessed, Assessed,Rash Scarring -Moisture (Dai-wound Skin Appearance) Assessed,Dry/ No Abnormality, Scaly Assessed -Color (Dai-wound Skin Appearance) Assessed,Rubor Assessed,Rubor -Temperature (Dai-wound Skin No Abnormality No Abnormality Appearance) (Pt Warm) (Pt Warm) -Tenderness on Palpation (Dai-wound Yes No Skin Appearance) -Ulcer Cleansing Wound Cleanser soap and water -Foul Odor after Cleansing No -Anesthetic Used 4% Lidocaine 5% Lidocaine Solution Gel WC - Nurse 2 - General Ulcer CM Notes Start: 01/12/21 10:19 Freq: Status: Active Protocol: Activity Type Activity Date Activity User E-Sign Co-Sign Detail Recorded Client Recorded Date Recorded By Document 01/12/21 11:12 MW Desktop 01/12/21 11:21 MW 01/12/21 11:12 Wound Center Nurse 2 #6 Left buttock cluster -Time 11:19 -Correct Patient Yes -Correct Side, Site, Position Yes -Correct Procedure Yes -Procedure Performed Yes -Type of Procedure Debridement -Clinical Debridement Subcutaneous -Tissue Removed Subcutaneous -Post Debridement (cm) - Length 4.0 -Post Debridement (cm) - Width 2.0 -Post Debridement (cm) - Depth 0.1 -Total Square (Post) (cm) 8.00 -Area of Debridement (cm) - Length 4.0 -Area of Debridement (cm) - Width 2.0 -Total Square (Area) (cm) 8.00 -Tunneling No -Undermining/Tunneling No -Circular Undermining No -Wound/Ulcer Outcome Not Healed -Ulcer Cleansing Rinsed/ Irrigated with Saline -Foul Odor after Cleansing No -Bioengineered Tissue No -Bleeding Controlled with Pressure -Offloading No -Treatment Response Procedure Tolerated Well -Debridement - Subq, 1st 20sq cm Yes #5 Right buttock cluster -Time 11:19 -Correct Patient Yes -Correct Side, Site, Position Yes -Correct Procedure Yes -Procedure Performed Yes -Type of Procedure Debridement -Clinical Debridement Subcutaneous -Tissue Removed Subcutaneous -Post Debridement (cm) - Length 4.0 -Post Debridement (cm) - Width 3.5 -Post Debridement (cm) - Depth 0.1 -Total Square (Post) (cm) 14.00 -Area of Debridement (cm) - Length 4.0 -Area of Debridement (cm) - Width 3.5 -Total Square (Area) (cm) 14.00 -Tunneling No -Undermining/Tunneling No -Circular Undermining No -Wound/Ulcer Outcome Not Healed -Ulcer Cleansing Rinsed/ Irrigated with Saline -Foul Odor after Cleansing No -Bioengineered Tissue No -Bleeding Controlled with Pressure -Offloading No -Treatment Response Procedure Tolerated Well -Debridement - Subq, 1st 20sq cm No Pain Scale: 0-10 Numeric Is Patient Pain Free? Yes - Nurse 3 - General Ulcer D/C NN Start: 01/12/21 10:19 Freq: Status: Active Protocol: Activity Type Activity Date Activity User E-Sign Co-Sign Detail Recorded Client Recorded Date Recorded By Document 01/12/21 11:45 [place] [id number] 01/12/21 11:47 [place] Document 01/20/21 11:02 KR [id number] 01/20/21 11:03 KR 01/12/21 01/20/21 11:45 11:02 Wound Care Nurse 3 #6 Left buttock cluster -Ulcer Cleansing Rinsed/ Irrigated with Saline -Primary Dressing Applied Aquacel Extra, Aquacel Extra Mepilex Border -Aquacel Extra 1 1 -Mepilex Border 2 Pain Scale: 0-10 Numeric Is Patient Pain Free? Yes - Visit Discharge Discharge Condition Stable Stable Ambulatory Status Ambulatory Ambulatory, Crutches Transportation Private Auto Private Auto Accompanied by Medication Reconcilliation completed & No provided to patient/care provider Clinical Summary of Care Provided Yes Notes: Concerned about how to dress his wound. Wound debrided: Left buttock cluster Laterality: Left Type of Debridement: Excisional debridement Anesthesia Used: 4% Lidocaine Solution Depth: in the subcutaneous layer Percentage of wound debrided: 100 Instrument Used: 3mm curette Tissue Removed: Slough and devitalized tissue Severity: Fat Layer Exposed Amount of bleeding with debridement: Mild Bleeding Controlled with: Pressure Patient tolerated procedure: Patient tolerated procedure well Additional Wound Wound debrided: Right buttock cluster Laterality: Right Type of Debridement: Excisional debridement Anesthesia Used: 4% Lidocaine Solution Depth: in the subcutaneous layer Percentage of wound debrided: 100 Instrument Used: 3mm curette Tissue Removed: Slough and devitalized tissue Severity: Fat Layer Exposed Amount of bleeding with debridement: Mild Bleeding Controlled with: Pressure Patient tolerated procedure: Patient tolerated procedure well Assessment/Plan Assessment/Plan (1) Decubitus ulcer of right buttock, stage 3: CODE(S): L89.313 - Pressure ulcer of right buttock, stage 3 (2) Decubitus ulcer of left buttock, stage 3: CODE(S): L89.323 - Pressure ulcer of left buttock, stage 3 (3) Type II diabetes mellitus: CODE(S): E11.9 - Type 2 diabetes mellitus without complications PLAN: With current bilateral decubitus ulcers. Current episode said to have been present for months. Debridement done as documented above, procedure was well-tolerated. A hospital bed for pressure relief/offloading was ordered by Dr. Dye. Prescription also sent for a gel cushion since he spends most of his time in his lift chair. Optimal diabetes control also very strongly recommended. Cultures from 01/12/2021 showed rare Staph aureus. Antibiotics deferred for the time being due to no clinical signs of infection today. Aquacel extra moistened with saline and covered with Optifoam. Change daily. He has some periulcer excoriation and was recommended to begin daily use of A&D ointment for barrier protection for moisture. Home health was ordered, though the patient states this has not yet been established. Optimal protein intake, vitamin C and zinc also discussed. His questions were answered and he was advised to call with any further questions or concerns. Follow-up with Dr. Dey in 1 week. Should new or concerning symptoms arise, please contact the wound healing center. Note: [employer] speech recognition applied psychology chair software was used to create portions of this document. Sound-alike and misspelled words, as well as other applied psychology chair errors may be contained in the documentation.
[2021-01-26 10:32] VITALS: BP 156/69; PULSE 65; TEMP 36.3; BMI 29.7
--- NOTE | 2021-01-26 13:12 | PN.PCM_ITS ---
History of Present Illness Date of Service: 01/26/21 Chief Complaint: Recurrent buttock ulcers History of Wound: Mr. 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 Most recent episode said to have started months ago . Has been applying antibiotic and hemorrhoid ointment without significant improvement. Sits and sleeps in his lift chair. Also history of diabetes mellitus type 2 and his most recent A1c was said to be around 8. Fasting blood sugar this morning at 303. He states that he is working with his PCP to get this under better control. History of AKA. He feels well and denies other concerns at this time. Progress of Wound: New periwound erythema. He appears to have had some problems with his wound supplies. Home health is not started as well. No chills, fever or feeling of unwell. Objective Data Objective Data Vital Signs: Vital Signs Temp Pulse BP 97.3 F L 65 156/69 H 01/26/21 10:32 01/26/21 10:32 01/26/21 10:32 Body Mass Index (BMI) 29.7 Lab / Micro Data Micro: Microbiology 01/12/21 11:10 Wound Abcess - Buttock Gram Stain - Final 01/12/21 11:10 Wound Abcess - Buttock Wound Culture - Final Staphylococcus aureus 01/12/21 11:10 Wound Abcess - Buttock Anaerobic Culture - Final Charges/Coding Procedures Integumentary [id number]: [id number] [place] subq tissue 20 sq cm/< Physical Exam Const alert, oriented x3 and no apparent distress General Appearance: cooperative and comfortable HEENT normocephalic and head/scalp atraumatic Eyes EOMs intact bilaterally Neck full ROM General: normal visual inspection Resp normal respiratory effort Effort and Inspection: able to speak in complete sentences Skin Wounds: wounds noted Neuro oriented x3, CN's II-XII intact bilaterally and moves all extremities Psych mental status grossly normal Appearance: grossly normal Attitude: calm Speech: normal speech Debridement Note Debridement Note Post-Debridement Measurements and Additional Note: Post-Debridement Measurements/Treatment ANIA - Nurse 1 - General Ulcer Assessment Start: 01/12/21 10:19 Freq: Status: Active Protocol: FABY Activity Type Activity Date Activity User E-Sign Co-Sign Detail Recorded Client Recorded Date Recorded By Document 01/12/21 10:25 AK [id number] 01/12/21 10:54 AK Document 01/20/21 09:59 AK [id number] 01/20/21 10:08 AK Document 01/26/21 10:32 AK [id number] 01/26/21 10:42 AK 01/12/21 01/20/21 01/26/21 10:25 09:59 10:32 WC - Today's Visit Information Type of service Initial Visit Follow-up Visit Follow-up Visit (Physician/TREE CLIMBER (Physician/TREE CLIMBER ) ) Arrival Mode Ambulatory, Ambulatory, Ambulatory, Crutches Crutches Crutches Patient Identification Verified (Name & Yes Yes Yes ) Patient Requires Transmission-Based No No Precautions Finger Stick Blood Sugar(mg/dl) (if 303 indicated): Blood Sugar Stated by Patient Height and Weight Body Mass Index (BMI) 29.7 29.7 29.7 BMI Classification Overweight Overweight Overweight Vital Signs Temperature (97.8 F-99.1 F) 98.5 F 98.4 F 97.3 F L Temperature Source Temporal Temporal Temporal Pulse Rate (60-100) 91 64 65 Pulse Location Monitor Monitor Monitor Blood Pressure (90/60-120/80) 107/83 H 140/65 H 156/69 H Blood Pressure Mean (mm Hg) 91 90 98 Source Monitor Monitor Monitor History Since Last Visit- (Skip if this is Patient's initial visit) Have you changed medications since your No No No last visit? Any new allergies or adverse reactions No No No Had a fall/change in ADL's that may No No No increase risk of falls Signs or symptoms of abuse and/or No No No neglect since last visit Have you been in the hospital since your No No No last visit? Has dressing in place as prescribed No Yes Yes Has compression in place as prescribed N/A N/A N/A Has offloadiing in place as prescribed N/A N/A N/A Experienced any changes in pain level or No management Left Footwear Regular Shoe Regular Shoe Regular Shoe Right Footwear Regular Shoe Regular Shoe Communication Assessment Preferred language Tanz[place] Able to Read Yes Able to Write Yes Communication Tools None Caregiver Communication Skills No Impairment Impairment Right Hearing Abillity Normal Visual Assistive Devices None Teaching Assessment Preferences Verbal,Written Barriers to Learning None Readiness To Learn Good Willingness to Engage in Self Management Med Activies Readiness to Engage in Self Management Med Activities Anxiety Level Calm Cooperation Cooperative Perception Coherent Interest in Health Problem Asks Questions Does Patient Smoke tobacco or other No substances Smoking Status Never smoker Is Patient Diabetic Yes 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 Lighting Fixtures Decorator to contact place of sikh No Teaching: Wound Center Discharge Instructions -Person Taught Patient -Teaching Method Discussion -Response to teaching Verbalize understanding Offload: Mattress, Cushion, Reposition -Person Taught Patient -Teaching Method Discussion Dressing Your Wound -Person Taught Patient -Teaching Method Discussion *Welcome to the Wound Center -Person Taught Patient -Teaching Method Discussion WC - Nurse 1 - General Ulcer Measurement Start: 01/12/21 10:19 Freq: Status: Active Protocol: Activity Type Activity Date Activity User E-Sign Co-Sign Detail Recorded Client Recorded Date Recorded By Document 01/12/21 10:25 AK [id number] 01/12/21 10:54 AK Document 01/20/21 09:59 AK [id number] 01/20/21 10:08 AK Document 01/26/21 10:32 AK [id number] 01/26/21 10:42 AK 01/12/21 01/20/21 01/26/21 10:25 09:59 10:32 Wound Center Nurse 1 #6 Left buttock cluster -Combined with other wound No No -Current Size (cm) - Length 3.5 0.1 3 -Current Size (cm) - Width 1 0.1 4 -Current Size (cm) - Depth 0.1 0.1 0.1 -Total Square Cm 3.5 0.01 12 -Photo Taken Yes -Tunneling No -Undermining/Tunneling No -Circular Undermining No No -Classification - Thickness Full Thickness without Exposed Support Structure -Exudate Amt Medium None Present -Exudate Type Serous Serosanguineous -Wound Margin Distinct, Flat & Intact Well Defined, Outline Not Attached Attached -Granulation Amt Medium (34-66%) -Granulation Quality [place] -Slough/Fibrin No Yes -Necrosis Amt Medium (34-66%) None Present (0 Medium (34-66%) %) -Necrotic Tissue Type Adherent Slough Adherent Slough -Structure Exposed N/A N/A -Texture (Dai-wound Skin Appearance) Assessed, Assessed,Rash Assessed, Scarring Excoriation -Moisture (Dai-wound Skin Appearance) Assessed,Dry/ No Abnormality, No Abnormality, Scaly Assessed Assessed -Color (Dai-wound Skin Appearance) Assessed,Rubor Assessed,Rubor Assessed,Rubor -Temperature (Dai-wound Skin No Abnormality No Abnormality No Abnormality Appearance) (Pt Warm) (Pt Warm) (Pt Warm) -Tenderness on Palpation (Dai-wound Yes No Yes Skin Appearance) -Ulcer Cleansing Wound Cleanser soap and water Rinsed/ Irrigated with Saline -Anesthetic Used 4% Lidocaine 5% Lidocaine 5% Lidocaine Solution Gel Gel #5 Right buttock cluster -Current Size (cm) - Length 4 0.1 3.5 -Current Size (cm) - Width 3 0.1 3.5 -Current Size (cm) - Depth 0.2 0.1 0.1 -Total Square Cm 12 0.01 12.25 -Date of Last Picture (Recall this 01/12/21 field) -Photo Taken Yes No -Tunneling No No -Undermining/Tunneling No No -Circular Undermining No No -Classification - Thickness Full Thickness without Exposed Support Structure -Exudate Amt Small None Present Medium -Exudate Type Serous Serosanguineous -Wound Margin Distinct, Flat & Intact Well Defined, Outline Not Attached Attached -Granulation Amt Large (67-100%) None Present (0 %) -Granulation Quality [place] -Slough/Fibrin No Yes -Necrosis Amt Medium (34-66%) None Present (0 Medium (34-66%) %) -Necrotic Tissue Type Adherent Slough Adherent Slough -Structure Exposed N/A N/A -Texture (Dai-wound Skin Appearance) Assessed, Assessed,Rash Assessed, Scarring Excoriation -Moisture (Dai-wound Skin Appearance) Assessed,Dry/ No Abnormality, No Abnormality, Scaly Assessed Assessed -Color (Dai-wound Skin Appearance) Assessed,Rubor Assessed,Rubor Assessed,Rubor -Temperature (Dai-wound Skin No Abnormality No Abnormality No Abnormality Appearance) (Pt Warm) (Pt Warm) (Pt Warm) -Tenderness on Palpation (Dai-wound Yes No Yes Skin Appearance) -Ulcer Cleansing Wound Cleanser soap and water Rinsed/ Irrigated with Saline -Foul Odor after Cleansing No No -Anesthetic Used 4% Lidocaine 5% Lidocaine 5% Lidocaine Solution Gel Gel WC - Nurse 2 - General Ulcer CM Notes Start: 01/12/21 10:19 Freq: Status: Active Protocol: Activity Type Activity Date Activity User E-Sign Co-Sign Detail Recorded Client Recorded Date Recorded By Document 01/12/21 11:12 MW Desktop 01/12/21 11:21 MW Document 01/20/21 13:26 PL [id number] 01/20/21 13:28 PL Document 01/26/21 11:03 MW [id number] 01/26/21 11:08 MW 01/12/21 01/20/21 01/26/21 11:12 13:26 11:03 Wound Center Nurse 2 #6 Left buttock cluster -Time 11:19 10:36 11:04 -Correct Patient Yes Yes Yes -Correct Side, Site, Position Yes Yes Yes -Correct Procedure Yes Yes Yes -Procedure Performed Yes Yes Yes -Type of Procedure Debridement Debridement Debridement -Clinical Debridement Subcutaneous Subcutaneous Subcutaneous -Tissue Removed Subcutaneous Subcutaneous Subcutaneous -Post Debridement (cm) - Length 4.0 1.5 2.5 -Post Debridement (cm) - Width 2.0 2.0 2.5 -Post Debridement (cm) - Depth 0.1 0.1 0.1 -Total Square (Post) (cm) 8.00 3.00 6.25 -Area of Debridement (cm) - Length 4.0 1.5 2.5 -Area of Debridement (cm) - Width 2.0 2.0 2.5 -Total Square (Area) (cm) 8.00 3.00 6.25 -Tunneling No No No -Undermining/Tunneling No No No -Circular Undermining No No No -Wound/Ulcer Outcome Not Healed Not Healed Not Healed -Ulcer Cleansing Rinsed/ Rinsed/ Rinsed/ Irrigated with Irrigated with Irrigated with Saline Saline Saline -Foul Odor after Cleansing No No No -Bioengineered Tissue No No No -Bleeding Controlled with Pressure Pressure Pressure -Offloading No No -Treatment Response Procedure Procedure Procedure Tolerated Well Tolerated Well Tolerated Well -Debridement - Subq, 1st 20sq cm Yes Yes Yes -Debridement, SubQ, ea addt'l 20sq cm 1 or part thereof #5 Right buttock cluster -Time 11:19 10:36 11:05 -Correct Patient Yes Yes Yes -Correct Side, Site, Position Yes Yes Yes -Correct Procedure Yes Yes Yes -Procedure Performed Yes Yes Yes -Type of Procedure Debridement Debridement Debridement -Clinical Debridement Subcutaneous Subcutaneous Subcutaneous -Tissue Removed Subcutaneous Subcutaneous Subcutaneous -Post Debridement (cm) - Length 4.0 0.2 6.0 -Post Debridement (cm) - Width 3.5 0.7 4.0 -Post Debridement (cm) - Depth 0.1 0.1 0.1 -Total Square (Post) (cm) 14.00 0.14 24.00 -Area of Debridement (cm) - Length 4.0 0.2 6.0 -Area of Debridement (cm) - Width 3.5 0.7 4.0 -Total Square (Area) (cm) 14.00 0.14 24.00 -Tunneling No No No -Undermining/Tunneling No No No -Circular Undermining No No No -Wound/Ulcer Outcome Not Healed Not Healed Not Healed -Ulcer Cleansing Rinsed/ Rinsed/ Rinsed/ Irrigated with Irrigated with Irrigated with Saline Saline Saline -Foul Odor after Cleansing No No No -Bioengineered Tissue No No No -Bleeding Controlled with Pressure Pressure Pressure -Offloading No No -Treatment Response Procedure Procedure Procedure Tolerated Well Tolerated Well Tolerated Well -Debridement - Subq, 1st 20sq cm No No No Pain Scale: 0-10 Numeric Is Patient Pain Free? Yes Yes WC - Nurse 3 - General Ulcer D/C NN Start: 01/12/21 10:19 Freq: Status: Active Protocol: Activity Type Activity Date Activity User E-Sign Co-Sign Detail Recorded Client Recorded Date Recorded By Document 01/12/21 11:45 MT [id number] 01/12/21 11:47 OK Document 01/20/21 11:02 KR [id number] 01/20/21 11:03 KR Document 01/26/21 11:20 AK [id number] 01/26/21 11:22 AK 01/12/21 01/20/21 01/26/21 11:45 11:02 11:20 Wound Care Nurse 3 #6 Left buttock cluster -Ulcer Cleansing Rinsed/ Rinsed/ Irrigated with Irrigated with Saline Saline -Primary Dressing Applied Aquacel Extra, Aquacel Extra Aquacel Extra Mepilex Border -Other Dressing abd -Primary Dressing Covered/Secured with Secured with Tape -Aquacel Extra 1 1 1 -Mepilex Border 2 #5 Right buttock cluster -Ulcer Cleansing Rinsed/ Irrigated with Saline -Foul Odor after Cleansing No -Negative Pressure Wound Therapy N/A -Primary Dressing Applied Aquacel Extra -Other Dressing abd -Primary Dressing Covered/Secured with Secured with Tape -Aquacel Extra 1 Pain Scale: 0-10 Numeric Is Patient Pain Free? Yes WC - Visit Discharge Discharge Condition Stable Stable Ambulatory Status Ambulatory Ambulatory, Crutches Transportation Private Auto Private Auto Accompanied by Medication Reconcilliation completed & No provided to patient/care provider Clinical Summary of Care Provided Yes Notes: Concerned about how to dress his wound. Wound debrided: Left buttock cluster Type of Debridement: Excisional debridement Anesthesia Used: 4% Lidocaine Solution Depth: Down to and including healthy tissue Percentage of wound debrided: 100 Instrument Used: 3mm curette Tissue Removed: Slough and devitalized tissue Severity: Fat Layer Exposed Amount of bleeding with debridement: Mild Bleeding Controlled with: Pressure Patient tolerated procedure: Patient tolerated procedure well Additional Wound Wound debrided: Right buttock cluster Type of Debridement: Excisional debridement Anesthesia Used: 4% Lidocaine Solution Depth: Down to and including healthy tissue and in the subcutaneous layer Percentage of wound debrided: 100 Instrument Used: 5mm curette Severity: Fat Layer Exposed Amount of bleeding with debridement: Mild Bleeding Controlled with: Pressure Patient tolerated procedure: Patient tolerated procedure well Assessment/Plan Assessment/Plan (1) Decubitus ulcer of right buttock, stage 3: CODE(S): L89.313 - Pressure ulcer of right buttock, stage 3 (2) Decubitus ulcer of left buttock, stage 3: CODE(S): L89.323 - Pressure ulcer of left buttock, stage 3 (3) Type II diabetes mellitus: CODE(S): E11.9 - Type 2 diabetes mellitus without complications PLAN: Increase periwound erythema/irritation. Newly started A&E ointment, he was advised to discontinue. Debridement done as documented above, procedure was well-tolerated. Continue Aquacel extra with ABD over top. Change daily to twice daily depending on drainage or soiling. Consistent use of gel cushion in hospital bed very strongly recommended. Optimal diabetes control also very strongly recommended. Optimal protein intake, vitamin C and zinc also discussed. His questions were answered and he was advised to call with any further questions or concerns. Follow-up in a week. This note was generated with [employer] software. It may contain incorrect words, spelling, and punctuation that were not noted in checking the note before signing.
== END 2021-01-31 23:59 ==
LOC: WC 10:30
PROVIDERS: PCP Family Medicine; Visit Provider Internal Medicine
DX: L89.313 Pressure ulcer of right buttock, stage 3 (principal); L89.323 Pressure ulcer of left buttock, stage 3; E11.9 Type 2 diabetes mellitus without complications; E66.3 Overweight; Z68.29 Body mass index [BMI] 29.0-29.9, adult; Z79.01 Long term (current) use of anticoagulants; Z79.84 Long term (current) use of oral hypoglycemic drugs; Z79.899 Other long term (current) drug therapy
CPT/HCPCS: 11042; 11045; 87070; 87075; 87077; 87186; 87205; 99213; G0463

== ENCOUNTER 2021-03-02 10:30 | Outpatient (RCR) | payer MEDICARE, SELFPAY ==
[2021-02-01 00:42] VITALS: BP 156/69; PULSE 65; TEMP 36.3; BMI 29.7
[2021-02-02 09:59] VITALS: BP 148/69; PULSE 70; TEMP 36.6; BMI 29.7
[2021-02-02 11:05] VITALS: BP 174/56; PULSE 65; RESP 18; TEMP 36.6; BMI 29.7
--- NOTE | 2021-02-02 18:59 | PCM.WC.PN ---
History of Present Illness Date of Service: 02/02/21 Chief Complaint: Recurrent buttock ulcers History of Wound: Mr. 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 Most recent episode said to have started months ago . Has been applying antibiotic and hemorrhoid ointment without significant improvement. Sits and sleeps in his lift chair. Also history of diabetes mellitus type 2 and his most recent A1c was said to be around 8. Fasting blood sugar this morning at 303. He states that he is working with his PCP to get this under better control. History of AKA. He feels well and denies other concerns at this time. Subjective Subjective No new concerns at this time. Ulcers are improving. Objective Data Objective Data Vital Signs: Vital Signs Temp Pulse Resp BP 97.8 F 65 18 174/56 H 02/02/21 11:05 02/02/21 11:05 02/02/21 11:05 02/02/21 11:05 Body Mass Index (BMI) 29.7 Charges/Coding Procedures Integumentary 111xxx-113xx: 43[address] [place] subq tissue 20 sq cm/< Physical Exam Const alert, oriented x3 and no apparent distress General Appearance: cooperative and comfortable HEENT normocephalic and head/scalp atraumatic Eyes EOMs intact bilaterally Neck full ROM General: normal visual inspection Resp normal respiratory effort Effort and Inspection: able to speak in complete sentences Skin Wounds: wounds noted Neuro oriented x3, CN's II-XII intact bilaterally and moves all extremities Psych mental status grossly normal Appearance: grossly normal Attitude: calm Speech: normal speech Debridement Note Debridement Note Wound debrided: Left buttock Type of Debridement: Excisional debridement Anesthesia Used: 4% Lidocaine Solution Depth: Down to and including healthy tissue and in the subcutaneous layer Percentage of wound debrided: 100 Instrument Used: 3mm curette Tissue Removed: Slough and devitalized tissue Severity: Fat Layer Exposed Amount of bleeding with debridement: Mild Bleeding Controlled with: Pressure Patient tolerated procedure: Patient tolerated procedure well Post-Debridement Measurements and Additional Note: Post-Debridement Measurements/Treatment ANIA - Nurse 1 - General Ulcer Assessment Start: 02/02/21 09:59 Freq: Status: Active Protocol: FABY Activity Type Activity Date Activity User E-Sign Co-Sign Detail Recorded Client Recorded Date Recorded By Document 02/02/21 09:59 AK [id number] 02/02/21 10:11 AK Document 02/02/21 11:05 DL [id number] 02/02/21 11:15 DL 02/02/21 02/02/21 09:59 11:05 WC - Today's Visit Information Type of service Follow-up Visit Follow-up Visit (Physician/PARTITION SETTER (Physician/PARTITION SETTER ) ) Arrival Mode Ambulatory, Ambulatory Crutches Transfer Assistance None Patient Identification Verified (Name & Yes Yes ) Patient Requires Transmission-Based No No Precautions Height and Weight Body Mass Index (BMI) 29.7 29.7 BMI Classification Overweight Overweight Vital Signs Temperature (97.8 F-99.1 F) 97.9 F 97.8 F Temperature Source Temporal Temporal Pulse Rate (60-100) 70 65 Pulse Location Monitor Monitor Respiratory Rate (12-18) 18 Respiratory rate source Observation Blood Pressure (90/60-120/80) 148/69 H 174/56 H Blood Pressure Mean (mm Hg) 95 95 Source Monitor Monitor History Since Last Visit- (Skip if this is Patient's initial visit) Have you changed medications since your No No last visit? Any new allergies or adverse reactions No No Had a fall/change in ADL's that may No No increase risk of falls Signs or symptoms of abuse and/or No No neglect since last visit Have you been in the hospital since your No Yes last visit? Has dressing in place as prescribed Yes No Has compression in place as prescribed N/A No Has offloadiing in place as prescribed N/A No Experienced any changes in pain level or No management Left Footwear Regular Shoe Pain Scale: 0-10 Numeric Is Patient Pain Free? Yes - Nurse 1 - General Ulcer Measurement Start: 02/02/21 09:59 Freq: Status: Active Protocol: Activity Type Activity Date Activity User E-Sign Co-Sign Detail Recorded Client Recorded Date Recorded By Document 02/02/21 09:59 AK [id number] 02/02/21 10:11 AK Document 02/02/21 11:05 DL [id number] 02/02/21 11:15 DL 02/02/21 02/02/21 09:59 11:05 Wound Center Nurse 1 #6 Left buttock cluster -Combined with other wound No -Current Size (cm) - Length 7 6.2 -Current Size (cm) - Width 2 1.9 -Current Size (cm) - Depth 0.1 0.2 -Total Square Cm 14 11.78 -Photo Taken No No -Tunneling No -Undermining/Tunneling No -Circular Undermining No -Change in Wound Grade/Stage No -Exudate Amt Large Medium -Exudate Type Serosanguineous Serosanguineous -Wound Margin Distinct, Distinct, Outline Outline Attached Attached -Granulation Amt None Present (0 Medium (34-66%) %) -Granulation Quality N/A Red -Slough/Fibrin No -Necrosis Amt Medium (34-66%) -Necrotic Tissue Type Adherent Slough -Structure Exposed N/A N/A -Texture (Dai-wound Skin Appearance) Assessed, Scarring Excoriation -Moisture (Dai-wound Skin Appearance) Assessed,Dry/ No Abnormality Scaly -Color (Dai-wound Skin Appearance) Assessed, No Abnormality Erythema -Temperature (Dai-wound Skin No Abnormality No Abnormality Appearance) (Pt Warm) (Pt Warm) -Tenderness on Palpation (Dai-wound Yes No Skin Appearance) -Ulcer Cleansing Rinsed/ Wound Cleanser Irrigated with Saline -Foul Odor after Cleansing No -Anesthetic Used 5% Lidocaine 4% Lidocaine Gel Solution #5 Right buttock cluster -Combined with other wound No -Current Size (cm) - Length 6.5 -Current Size (cm) - Width 1.5 -Current Size (cm) - Depth 0.1 -Total Square Cm 9.75 -Photo Taken No -Tunneling No -Undermining/Tunneling No -Circular Undermining No -Exudate Amt Large -Exudate Type Serosanguineous -Wound Margin Distinct, Outline Attached -Granulation Amt None Present (0 %) -Granulation Quality Hyper- granulation -Slough/Fibrin No -Necrosis Amt None Present (0 %) -Structure Exposed N/A -Texture (Dai-wound Skin Appearance) Assessed, Excoriation -Moisture (Dai-wound Skin Appearance) Assessed,Dry/ Scaly -Color (Dai-wound Skin Appearance) Assessed, Erythema -Temperature (Dai-wound Skin No Abnormality Appearance) (Pt Warm) -Tenderness on Palpation (Dai-wound Yes Skin Appearance) -Ulcer Cleansing Rinsed/ Irrigated with Saline -Anesthetic Used 5% Lidocaine Gel WC - Nurse 2 - General Ulcer CM Notes Start: 02/02/21 09:59 Freq: Status: Active Protocol: Activity Type Activity Date Activity User E-Sign Co-Sign Detail Recorded Client Recorded Date Recorded By Document 02/02/21 10:28 [place] [id number] 02/02/21 10:33 [place] 02/02/21 10:28 Wound Center Nurse 2 -Time 10:28 -Correct Patient Yes -Correct Side, Site, Position Yes -Correct Procedure Yes -Procedure Performed Yes -Type of Procedure Debridement -Clinical Debridement Subcutaneous -Tissue Removed Subcutaneous -Post Debridement (cm) - Length 2.5 -Post Debridement (cm) - Width 0.3 -Post Debridement (cm) - Depth 0.1 -Total Square (Post) (cm) 0.75 -Area of Debridement (cm) - Length 2.5 -Area of Debridement (cm) - Width 0.3 -Total Square (Area) (cm) 0.75 -Tunneling No -Undermining/Tunneling No -Circular Undermining No -Wound/Ulcer Outcome Not Healed -Ulcer Cleansing Rinsed/ Irrigated with Saline -Foul Odor after Cleansing No -Bioengineered Tissue No -Bleeding Controlled with Pressure -Treatment Response Procedure Tolerated Well -Debridement - Subq, 1st 20sq cm Yes #5 Right buttock cluster -Time 10:29 -Correct Patient Yes -Correct Side, Site, Position Yes -Correct Procedure Yes -Procedure Performed No -Tunneling No -Undermining/Tunneling No -Circular Undermining No -Wound/Ulcer Outcome Not Healed -Ulcer Cleansing Rinsed/ Irrigated with Saline -Foul Odor after Cleansing No -Bioengineered Tissue No -Bleeding Controlled with Pressure -Treatment Response Procedure Tolerated Well Pain Scale: 0-10 Numeric Is Patient Pain Free? Yes WC - Nurse 3 - General Ulcer D/C NN Start: 02/02/21 09:59 Freq: Status: Active Protocol: Activity Type Activity Date Activity User E-Sign Co-Sign Detail Recorded Client Recorded Date Recorded By Document 02/02/21 10:39 [id number] 02/02/21 10:48 DL 02/02/21 10:39 Wound Care Nurse 3 #6 Left buttock cluster -Ulcer Cleansing Rinsed/ Irrigated with Saline -Foul Odor after Cleansing No -Primary Dressing Applied Aquacel Extra, NonAdherent Contact Layer -Primary Dressing Covered/Secured with Dry Gauze, Secured with Tape -Other Covering abd -Aquacel Extra 1 #5 Right buttock cluster -Ulcer Cleansing Rinsed/ Irrigated with Saline -Foul Odor after Cleansing No -Primary Dressing Applied NonAdherent Contact Layer -Other Dressing xerofrom -Primary Dressing Covered/Secured with Dry Gauze, Secured with Tape Treatment Response Procedure Tolerated Well Pain Scale: 0-10 Numeric Is Patient Pain Free? Yes WC - Visit Discharge Discharge Condition Stable Ambulatory Status Ambulatory, Crutches Transportation Private Auto Assessment/Plan Assessment/Plan (1) Decubitus ulcer of right buttock, stage 3: CODE(S): L89.313 - Pressure ulcer of right buttock, stage 3 (2) Decubitus ulcer of left buttock, stage 3: CODE(S): L89.323 - Pressure ulcer of left buttock, stage 3 (3) Type II diabetes mellitus: CODE(S): E11.9 - Type 2 diabetes mellitus without complications PLAN: Improved. Periwound erythema has also improved. Debridement done as documented above, procedure was well-tolerated. Continue Aquacel to the open areas with ABD over top. Xeroform to the reddened areas. Change daily to twice daily depending on drainage or soiling. Consistent use of gel cushion and hospital bed very strongly recommended. Optimal diabetes control also very strongly recommended. Optimal protein intake, vitamin C and zinc also discussed. His questions were answered and he was advised to call with any further questions or concerns. Follow-up in a week. This note was generated with [employer] software. It may contain incorrect words, spelling, and punctuation that were not noted in checking the note before signing.
[2021-02-09 09:53] VITALS: BP 147/67; PULSE 66; TEMP 35.9; BMI 29.7
--- NOTE | 2021-02-09 10:30 | PN.PCM_ITS ---
History of Present Illness Date of Service: 02/09/21 Chief Complaint: Recurrent buttock ulcers History of Wound: Mr. 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 Most recent episode said to have started months ago . Has been applying antibiotic and hemorrhoid ointment without significant improvement. Sits and sleeps in his lift chair. Also history of diabetes mellitus type 2 and his most recent A1c was said to be around 8. Fasting blood sugar this morning at 303. He states that he is working with his PCP to get this under better control. History of AKA. He feels well and denies other concerns at this time. Subjective Subjective Having a lot of difficulty with his wound dressing. Declined home health. Now applying A&D ointment again and today presents with worsening decubitus ulcers. Increased surrounding erythema. He feels well otherwise. Objective Data Objective Data Vital Signs: Vital Signs Temp Pulse Resp BP 96.7 F L 66 18 147/67 H 02/09/21 09:53 02/09/21 09:53 02/02/21 11:05 02/09/21 09:53 Body Mass Index (BMI) 29.7 Charges/Coding Procedures Integumentary 111xxx-113xx: [address] [place] subq tissue 20 sq cm/< Physical Exam Const alert, oriented x3 and no apparent distress General Appearance: cooperative and comfortable HEENT normocephalic and head/scalp atraumatic Eyes EOMs intact bilaterally Neck full ROM General: normal visual inspection Resp normal respiratory effort Effort and Inspection: able to speak in complete sentences Skin Wounds: wounds noted Neuro oriented x3, CN's II-XII intact bilaterally and moves all extremities Psych mental status grossly normal Appearance: grossly normal Attitude: calm Speech: normal speech Debridement Note Debridement Note Wound debrided: Left buttock Type of Debridement: Excisional debridement Anesthesia Used: 4% Lidocaine Solution Depth: Down to and including healthy tissue and in the subcutaneous layer Percentage of wound debrided: 100 Instrument Used: 5mm curette Severity: Fat Layer Exposed Amount of bleeding with debridement: Mild Bleeding Controlled with: Pressure Patient tolerated procedure: Patient tolerated procedure well Post-Debridement Measurements and Additional Note: Post-Debridement Measurements/Treatment WC - Nurse 1 - General Ulcer Assessment Start: 02/02/21 09:59 Freq: Status: Active Protocol: WC.LOWEXT Activity Type Activity Date Activity User E-Sign Co-Sign Detail Recorded Client Recorded Date Recorded By Document 02/02/21 09:59 AK [id number] 02/02/21 10:11 AK Document 02/02/21 11:05 DL [id number] 02/02/21 11:15 DL Document 02/09/21 09:53 AK [id number] 02/09/21 09:59 AK 02/02/21 02/02/21 02/09/21 09:59 11:05 09:53 - Today's Visit Information Type of service Follow-up Visit Follow-up Visit Follow-up Visit (Physician/SUPERVISOR RECEIVING AND PROCESSING (Physician/SUPERVISOR RECEIVING AND PROCESSING (Physician/SUPERVISOR RECEIVING AND PROCESSING ) ) ) Arrival Mode Ambulatory, Ambulatory Ambulatory, Crutches Crutches Transfer Assistance None Patient Identification Verified (Name & Yes Yes Yes ) Patient Requires Transmission-Based No No Precautions Height and Weight Body Mass Index (BMI) 29.7 29.7 29.7 BMI Classification Overweight Overweight Overweight Vital Signs Temperature (97.8 F-99.1 F) 97.9 F 97.8 F 96.7 F L Temperature Source Temporal Temporal Temporal Pulse Rate (60-100) 70 65 66 Pulse Location Monitor Monitor Monitor Respiratory Rate (12-18) 18 Respiratory rate source Observation Blood Pressure (90/60-120/80) 148/69 H 174/56 H 147/67 H Blood Pressure Mean (mm Hg) 95 95 93 Source Monitor Monitor Monitor Position Semi-Fowlers Blood Pressure Location Right Arm History Since Last Visit- (Skip if this is Patient's initial visit) Have you changed medications since your No No No last visit? Any new allergies or adverse reactions No No No Had a fall/change in ADL's that may No No No increase risk of falls Signs or symptoms of abuse and/or No No No neglect since last visit Have you been in the hospital since your No Yes No last visit? Has dressing in place as prescribed Yes No Yes Has compression in place as prescribed N/A No N/A Has offloadiing in place as prescribed N/A No N/A Experienced any changes in pain level or No No management Left Footwear Regular Shoe Regular Shoe Right Footwear Regular Shoe Pain Scale: 0-10 Numeric Is Patient Pain Free? Yes Yes - Nurse 1 - General Ulcer Measurement Start: 02/02/21 09:59 Freq: Status: Active Protocol: Activity Type Activity Date Activity User E-Sign Co-Sign Detail Recorded Client Recorded Date Recorded By Document 02/02/21 09:59 AK [id number] 02/02/21 10:11 AK Document 02/02/21 11:05 DL [id number] 02/02/21 11:15 DL Document 02/09/21 09:53 AK [id number] 02/09/21 09:59 AK Edit Result 02/09/21 09:53 AK (1) [id number] 02/09/21 10:02 KR (1) #6 Left buttock cluster - Current Size (cm) - Length => 3 - Current Size (cm) - Width => 2 - Current Size (cm) - Depth => 0.1 - Total Square Cm => 6 - Exudate Amt => Small - Exudate Type => Serous - Granulation Amt => Large (67-100%) - Granulation Quality => Red #5 Right buttock cluster - Current Size (cm) - Length => 4 - Current Size (cm) - Width => 3 - Current Size (cm) - Depth => 0.1 - Total Square Cm => 12 - Granulation Amt => Large (67-100%) - Granulation Quality => Red - Necrosis Amt => None Present (0%) 02/02/21 02/02/21 02/09/21 09:59 11:05 09:53 Wound Center Nurse 1 #6 Left buttock cluster -Combined with other wound No -Current Size (cm) - Length 7 6.2 3 -Current Size (cm) - Width 2 1.9 2 -Current Size (cm) - Depth 0.1 0.2 0.1 -Total Square Cm 14 11.78 6 -Photo Taken No No -Tunneling No -Undermining/Tunneling No -Circular Undermining No -Change in Wound Grade/Stage No -Exudate Amt Large Medium Small -Exudate Type Serosanguineous Serosanguineous Serous -Wound Margin Distinct, Distinct, Distinct, Outline Outline Outline Attached Attached Attached -Granulation Amt None Present (0 Medium (34-66%) Large (67-100%) %) -Granulation Quality N/A Red Red -Slough/Fibrin No -Necrosis Amt Medium (34-66%) -Necrotic Tissue Type Adherent Slough -Structure Exposed N/A N/A -Texture (Dai-wound Skin Appearance) Assessed, Scarring Assessed, Excoriation Scarring -Moisture (Dai-wound Skin Appearance) Assessed,Dry/ No Abnormality No Ab normality, Scaly Assessed -Color (Dai-wound Skin Appearance) Assessed, No Abnormality No Abnormality, Erythema Assessed -Temperature (Dai-wound Skin No Abnormality No Abnormality No Abnormality Appearance) (Pt Warm) (Pt Warm) (Pt Warm) -Tenderness on Palpation (Dai-wound Yes No No Skin Appearance) -Ulcer Cleansing Rinsed/ Wound Cleanser Rinsed/ Irrigated with Irrigated with Saline Saline -Foul Odor after Cleansing No No -Anesthetic Used 5% Lidocaine 4% Lidocaine 4% Lidocaine Gel Solution Solution #5 Right buttock cluster -Combined with other wound No -Current Size (cm) - Length 6.5 4 -Current Size (cm) - Width 1.5 3 -Current Size (cm) - Depth 0.1 0.1 -Total Square Cm 9.75 12 -Photo Taken No -Tunneling No -Undermining/Tunneling No -Circular Undermining No -Exudate Amt Large -Exudate Type Serosanguineous -Wound Margin Distinct, Distinct, Outline Outline Attached Attached -Granulation Amt None Present (0 Large (67-100%) %) -Granulation Quality Hyper- Red granulation -Slough/Fibrin No -Necrosis Amt None Present (0 None Present (0 %) %) -Structure Exposed N/A N/A -Texture (Dai-wound Skin Appearance) Assessed, Assessed, Excoriation Scarring -Moisture (Dai-wound Skin Appearance) Assessed,Dry/ No Abnormality, Scaly Assessed -Color (Dai-wound Skin Appearance) Assessed, No Abnormality, Erythema Assessed -Temperature (Dai-wound Skin No Abnormality No Abnormality Appearance) (Pt Warm) (Pt Warm) -Tenderness on Palpation (Dai-wound Yes No Skin Appearance) -Ulcer Cleansing Rinsed/ Rinsed/ Irrigated with Irrigated with Saline Saline -Foul Odor after Cleansing No -Anesthetic Used 5% Lidocaine 4% Lidocaine Gel Solution WC - Nurse 2 - General Ulcer CM Notes Start: 02/02/21 09:59 Freq: Status: Active Protocol: Activity Type Activity Date Activity User E-Sign Co-Sign Detail Recorded Client Recorded Date Recorded By Document 02/02/21 10:28 AL [id number] 02/02/21 10:33 MT Document 02/09/21 10:11 AL [id number] 02/09/21 10:20 AL 02/02/21 02/09/21 10:28 10:11 Wound Center Nurse 2 #6 Left buttock cluster -Time 10: 10:12 -Correct Patient Yes Yes -Correct Side, Site, Position Yes Yes -Correct Procedure Yes Yes -Procedure Performed Yes Yes -Type of Procedure Debridement Debridement -Clinical Debridement Subcutaneous Subcutaneous -Tissue Removed Subcutaneous Subcutaneous -Post Debridement (cm) - Length 2.5 4 -Post Debridement (cm) - Width 0.3 2 -Post Debridement (cm) - Depth 0.1 1 -Total Square (Post) (cm) 0.75 8 -Area of Debridement (cm) - Length 2.5 4 -Area of Debridement (cm) - Width 0.3 2 -Total Square (Area) (cm) 0.75 8 -Tunneling No No -Undermining/Tunneling No No -Circular Undermining No No -Wound/Ulcer Outcome Not Healed Not Healed -Ulcer Cleansing Rinsed/ Rinsed/ Irrigated with Irrigated with Saline Saline -Foul Odor after Cleansing No No -Bioengineered Tissue No No -Bleeding Controlled with Pressure Pressure -Offloading No -Treatment Response Procedure Tolerated Well -Debridement - Subq, 1st 20sq cm Yes Yes #5 Right buttock cluster -Time 10:29 10:12 -Correct Patient Yes Yes -Correct Side, Site, Position Yes Yes -Correct Procedure Yes Yes -Procedure Performed No No -Type of Procedure Debridement -Clinical Debridement Subcutaneous -Tissue Removed Subcutaneous -Post Debridement (cm) - Length 5 -Post Debridement (cm) - Width 4 -Post Debridement (cm) - Depth 0.1 -Total Square (Post) (cm) 20 -Area of Debridement (cm) - Length 5 -Area of Debridement (cm) - Width 4 -Total Square (Area) (cm) 20 -Tunneling No No -Undermining/Tunneling No No -Circular Undermining No No -Wound/Ulcer Outcome Not Healed Not Healed -Ulcer Cleansing Rinsed/ Rinsed/ Irrigated with Irrigated with Saline Saline -Foul Odor after Cleansing No No -Bioengineered Tissue No No -Bleeding Controlled with Pressure Pressure -Offloading No -Treatment Response Procedure Procedure Tolerated Well Tolerated Well -Debridement - Subq, 1st 20sq cm No Pain Scale: 0-10 Numeric Is Patient Pain Free? Yes WC - Nurse 3 - General Ulcer D/C NN Start: 02/02/21 09:59 Freq: Status: Active Protocol: Activity Type Activity Date Activity User E-Sign Co-Sign Detail Recorded Client Recorded Date Recorded By Document 02/02/21 10:39 DL [id number] 02/02/21 10:48 DL 02/02/21 10:39 Wound Care Nurse 3 #6 Left buttock cluster -Ulcer Cleansing Rinsed/ Irrigated with Saline -Foul Odor after Cleansing No -Primary Dressing Applied Aquacel Extra, NonAdherent Contact Layer -Primary Dressing Covered/Secured with Dry Gauze, Secured with Tape -Other Covering abd -Aquacel Extra 1 #5 Right buttock cluster -Ulcer Cleansing Rinsed/ Irrigated with Saline -Foul Odor after Cleansing No -Primary Dressing Applied NonAdherent Contact Layer -Other Dressing xerofrom -Primary Dressing Covered/Secured with Dry Gauze, Secured with Tape Treatment Response Procedure Tolerated Well Pain Scale: 0-10 Numeric Is Patient Pain Free? Yes - Visit Discharge Discharge Condition Stable Ambulatory Status Ambulatory, Crutches Transportation Private Auto Additional Wound Wound debrided: Right buttock cluster Type of Debridement: Excisional debridement Anesthesia Used: 4% Lidocaine Solution Depth: in the subcutaneous layer Percentage of wound debrided: 100 Instrument Used: 5mm curette Tissue Removed: Slough and devitalized tissue Severity: Fat Layer Exposed Amount of bleeding with debridement: Mild Bleeding Controlled with: Pressure Patient tolerated procedure: Patient tolerated procedure well Assessment/Plan Assessment/Plan (1) Decubitus ulcer of right buttock, stage 3: CODE(S): L89.313 - Pressure ulcer of right buttock, stage 3 (2) Decubitus ulcer of left buttock, stage 3: CODE(S): L89.323 - Pressure ulcer of left buttock, stage 3 (3) Type II diabetes mellitus: CODE(S): E11.9 - Type 2 diabetes mellitus without complications PLAN: Restarted use of A&E ointment and now worsening periwound erythema. Some worsening of the ulcer also noted. Debridement done as documented above, procedure was well-tolerated. Strongly advised to discontinue use of A&E ointment. Continue Aquacel to the open areas with ABD over top. Xeroform to the reddened areas. Change daily to twice daily depending on drainage or soiling. Consistent use of gel cushion and hospital bed very strongly recommended. Optimal diabetes control also very strongly recommended. Optimal protein intake, vitamin C and zinc also discussed. His questions were answered and he was advised to call with any further questions or concerns. Follow-up on Saturday for nurse visit due to difficulty with dressing himself and with me in a week. This note was generated with [employer] dictation software. It may contain incorrect words, spelling, and punctuation that were not noted in checking the note before signing.
[2021-02-13 15:38] VITALS: BP 149/75; PULSE 70; TEMP 36.2; BMI 29.7
[2021-02-16 10:35] VITALS: BP 135/69; PULSE 62; RESP 16; TEMP 36.2; BMI 29.7
--- NOTE | 2021-02-16 13:47 | PN.PCM_ITS ---
History of Present Illness Date of Service: 02/16/21 Chief Complaint: Recurrent buttock ulcers History of Wound: Mr. 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 Most recent episode said to have started months ago . Has been applying antibiotic and hemorrhoid ointment without significant improvement. Sits and sleeps in his lift chair. Also history of diabetes mellitus type 2 and his most recent A1c was said to be around 8. Fasting blood sugar this morning at 303. He states that he is working with his PCP to get this under better control. History of AKA. He feels well and denies other concerns at this time. Subjective Subjective He denies any new concerns at this time. Has been applying Aquacel to open areas and Xeroform over top. He states that his dressings are staying better. Objective Data Objective Data Vital Signs: Vital Signs Temp Pulse Resp BP 97.2 F L 62 16 135/69 H 02/16/21 10:35 02/16/21 10:35 02/16/21 10:35 02/16/21 10:35 Oxygen Delivery Method Room Air Body Mass Index (BMI) 29.7 Charges/Coding Procedures Integumentary 111xxx-113xx: [id number] Debride infected skin (Superficial bilateral buttock ulcers) Physical Exam Const alert, oriented x3 and no apparent distress General Appearance: cooperative and comfortable HEENT normocephalic and head/scalp atraumatic Eyes EOMs intact bilaterally Neck full ROM General: normal visual inspection Resp normal respiratory effort Effort and Inspection: able to speak in complete sentences Skin Wounds: wounds noted Neuro oriented x3, CN's II-XII intact bilaterally and moves all extremities Psych mental status grossly normal Appearance: grossly normal Attitude: calm Speech: normal speech Debridement Note Debridement Note Wound debrided: Left buttock cluster Type of Debridement: Selective debridement Anesthesia Used: 4% Lidocaine Solution Depth: Down to and including healthy tissue Percentage of wound debrided: 100 Instrument Used: 5mm curette Tissue Removed: Devitalized tissue Severity: Limited To Skin Breakdown Amount of bleeding with debridement: None Patient tolerated procedure: Patient tolerated procedure well Post-Debridement Measurements and Additional Note: Post-Debridement Measurements/Treatment ANIA - Nurse 1 - General Ulcer Assessment Start: 02/02/21 09:59 Freq: Status: Active Protocol: WC.LOWEXT Activity Type Activity Date Activity User E-Sign Co-Sign Detail Recorded Client Recorded Date Recorded By Document 02/02/21 09:59 AK [id number] 02/02/21 10:11 AK Document 02/02/21 11:05 DL [id number] 02/02/21 11:15 DL Document 02/09/21 09:53 AK [id number] 02/09/21 09:59 AK Document 02/13/21 15:38 AK [id number] 02/13/21 15:41 AK Document 02/16/21 10:35 BMF [id number] 02/16/21 10:45 BMF 02/02/21 02/02/21 02/09/21 09:59 11:05 09:53 WC - Today's Visit Information Type of service Follow-up Visit Follow-up Visit Follow-up Visit (Physician/ICT SALES REPRESENTATIVE (Physician/ICT SALES REPRESENTATIVE (Physician/ICT SALES REPRESENTATIVE ) ) ) Arrival Mode Ambulatory, Ambulatory Ambulatory, Crutches Crutches Transfer Assistance None Patient Identification Verified (Name & Yes Yes Yes ) Patient Requires Transmission-Based No No Precautions Safety Precautions Height and Weight Body Mass Index (BMI) 29.7 29.7 29.7 BMI Classification Overweight Overweight Overweight Vital Signs Temperature (97.8 F-99.1 F) 97.9 F 97.8 F 96.7 F L Temperature Source Temporal Temporal Temporal Pulse Rate (60-100) 70 65 66 Pulse Location Monitor Monitor Monitor Respiratory Rate (12-18) 18 Respiratory rate source Observation Oxygen Delivery Method Blood Pressure (90/60-120/80) 148/69 H 174/56 H 147/67 H Blood Pressure Mean (mm Hg) 95 95 93 Source Monitor Monitor Monitor Position Semi-Fowlers Blood Pressure Location Right Arm History Since Last Visit- (Skip if this is Patient's initial visit) Have you changed medications since your No No No last visit? Any new allergies or adverse reactions No No No Had a fall/change in ADL's that may No No No increase risk of falls Signs or symptoms of abuse and/or No No No neglect since last visit Have you been in the hospital since your No Yes No last visit? Has dressing in place as prescribed Yes No Yes Has compression in place as prescribed N/A No N/A Has offloadiing in place as prescribed N/A No N/A Experienced any changes in pain level or No No management Left Footwear Regular Shoe Regular Shoe Right Footwear Regular Shoe Other Footwear Pain Scale: 0-10 Numeric Is Patient Pain Free? Yes Yes 02/13/21 02/16/21 15:38 10:35 - Today's Visit Information Type of service Nurse-only Follow-up Visit Visit (Physician/ICT SALES REPRESENTATIVE ) Arrival Mode Ambulatory, Ambulatory, Crutches Crutches Transfer Assistance None Patient Identification Verified (Name & Yes Yes ) Patient Requires Transmission-Based No No Precautions Safety Precautions NA Height and Weight Body Mass Index (BMI) 29.7 29.7 BMI Classification Overweight Overweight Vital Signs Temperature (97.8 F-99.1 F) 97.1 F L 97.2 F L Temperature Source Temporal Temporal Pulse Rate (60-100) 70 62 Pulse Location Monitor Monitor Respiratory Rate (12-18) 16 Respiratory rate source Observation Oxygen Delivery Method Room Air Blood Pressure (90/60-120/80) 149/75 H 135/69 H Blood Pressure Mean (mm Hg) 99 91 Source Monitor Monitor Position Sitting Blood Pressure Location Right Arm History Since Last Visit- (Skip if this is Patient's initial visit) Have you changed medications since your No No last visit? Any new allergies or adverse reactions No No Had a fall/change in ADL's that may No No increase risk of falls Signs or symptoms of abuse and/or No No neglect since last visit Have you been in the hospital since your No No last visit? Has dressing in place as prescribed Yes Yes Has compression in place as prescribed No N/A Has offloadiing in place as prescribed No N/A Experienced any changes in pain level or No No management Left Footwear Regular Shoe No Footwear Right Footwear Regular Shoe Other Footwear L AKA Pain Scale: 0-10 Numeric Is Patient Pain Free? Yes - Nurse 1 - General Ulcer Measurement Start: 02/02/21 09:59 Freq: Status: Active Protocol: Activity Type Activity Date Activity User E-Sign Co-Sign Detail Recorded Client Recorded Date Recorded By Document 02/02/21 09:59 AK [id number] 02/02/21 10:11 AK Document 02/02/21 11:05 DL [id number] 02/02/21 11:15 DL Document 02/09/21 09:53 AK [id number] 02/09/21 09:59 AK Edit Result 02/09/21 09:53 AK (1) [id number] 02/09/21 10:02 KR Document 02/16/21 10:35 BMF [id number] 02/16/21 10:45 BMF (1) #6 Left buttock cluster - Current Size (cm) - Length => 3 - Current Size (cm) - Width => 2 - Current Size (cm) - Depth => 0.1 - Total Square Cm => 6 - Exudate Amt => Small - Exudate Type => Serous - Granulation Amt => Large (67-100%) - Granulation Quality => Red #5 Right buttock cluster - Current Size (cm) - Length => 4 - Current Size (cm) - Width => 3 - Current Size (cm) - Depth => 0.1 - Total Square Cm => 12 - Granulation Amt => Large (67-100%) - Granulation Quality => Red - Necrosis Amt => None Present (0%) 02/02/21 02/02/21 02/09/21 09:59 11:05 09:53 Wound Center Nurse 1 #6 Left buttock cluster -Combined with other wound No -Current Size (cm) - Length 7 6.2 3 -Current Size (cm) - Width 2 1.9 2 -Current Size (cm) - Depth 0.1 0.2 0.1 -Total Square Cm 14 11.78 6 -Date of Last Picture (Recall this field) -Photo Taken No No -Epithelialization -Tunneling No -Undermining/Tunneling No -Circular Undermining No -Change in Wound Grade/Stage No -Exudate Amt Large Medium Small -Exudate Type Serosanguineous Serosanguineous Serous -Wound Margin Distinct, Distinct, Distinct, Outline Outline Outline Attached Attached Attached -Granulation Amt None Present (0 Medium (34-66%) Large (67-100%) %) -Granulation Quality N/A Red Red -Slough/Fibrin No -Necrosis Amt Medium (34-66%) -Necrotic Tissue Type Adherent Slough -Structure Exposed N/A N/A -Texture (Dai-wound Skin Appearance) Assessed, Scarring Assessed, Excoriation Scarring -Moisture (Dai-wound Skin Appearance) Assessed,Dry/ No Abnormality No Abnormality, Scaly Assessed -Color (Dai-wound Skin Appearance) Assessed, No Abnormality No Abnormality, Erythema Assessed -Temperature (Dai-wound Skin No Abnormality No Abnormality No Abnormality Appearance) (Pt Warm) (Pt Warm) (Pt Warm) -Tenderness on Palpation (Dai-wound Yes No No Skin Appearance) -Ulcer Cleansing Rinsed/ Wound Cleanser Rinsed/ Irrigated with Irrigated with Saline Saline -Foul Odor after Cleansing No No -Anesthetic Used 5% Lidocaine 4% Lidocaine 4% Lidocaine Gel Solution Solution #5 Right buttock cluster -Combined with other wound No -Current Size (cm) - Length 6.5 4 -Current Size (cm) - Width 1.5 3 -Current Size (cm) - Depth 0.1 0.1 -Total Square Cm 9.75 12 -Date of Last Picture (Recall this field) -Photo Taken No -Epithelialization -Tunneling No -Undermining/Tunneling No -Circular Undermining No -Exudate Amt Large -Exudate Type Serosanguineous -Wound Margin Distinct, Distinct, Outline Outline Attached Attached -Granulation Amt None Present (0 Large (67-100%) %) -Granulation Quality Hyper- Red granulation -Slough/Fibrin No -Necrosis Amt None Present (0 None Present (0 %) %) -Necrotic Tissue Type -Structure Exposed N/A N/A -Texture (Dai-wound Skin Appearance) Assessed, Assessed, Excoriation Scarring -Moisture (Dai-wound Skin Appearance) Assessed,Dry/ No Abnormality, Scaly Assessed -Color (Dai-wound Skin Appearance) Assessed, No Abnormality, Erythema Assessed -Temperature (Dai-wound Skin No Abnormality No Abnormality Appearance) (Pt Warm) (Pt Warm) -Tenderness on Palpation (Dai-wound Yes No Skin Appearance) -Ulcer Cleansing Rinsed/ Rinsed/ Irrigated with Irrigated with Saline Saline -Foul Odor after Cleansing No -Anesthetic Used 5% Lidocaine 4% Lidocaine Gel Solution 02/16/21 10:35 Wound Center Nurse 1 #6 Left buttock cluster -Combined with other wound No -Current Size (cm) - Length 5.4 -Current Size (cm) - Width 3 -Current Size (cm) - Depth 0.1 -Total Square Cm 16.2 -Date of Last Picture (Recall this 02/16/21 field) -Photo Taken Yes -Epithelialization None Present -Tunneling No -Undermining/Tunneling No -Circular Undermining No -Change in Wound Grade/Stage -Exudate Amt Medium -Exudate Type Serosanguineous -Wound Margin Distinct, Outline Attached -Granulation Amt Large (67-100%) -Granulation Quality Red -Slough/Fibrin Yes -Necrosis Amt Small (1-33%) -Necrotic Tissue Type Adherent Slough -Structure Exposed -Texture (Dai-wound Skin Appearance) Assessed, Scarring -Moisture (Dai-wound Skin Appearance) Assessed,Dry/ Scaly -Color (Dai-wound Skin Appearance) Assessed, Erythema -Temperature (Dai-wound Skin No Abnormality Appearance) (Pt Warm) -Tenderness on Palpation (Dai-wound No Skin Appearance) -Ulcer Cleansing Rinsed/ Irrigated with Saline -Foul Odor after Cleansing No -Anesthetic Used 5% Lidocaine Gel #5 Right buttock cluster -Combined with other wound No -Current Size (cm) - Length 2 -Current Size (cm) - Width 1.1 -Current Size (cm) - Depth 0.1 -Total Square Cm 2.2 -Date of Last Picture (Recall this 02/16/21 field) -Photo Taken Yes -Epithelialization None Present -Tunneling No -Undermining/Tunneling No -Circular Undermining -Exudate Amt Medium -Exudate Type Serosanguineous -Wound Margin Distinct, Outline Attached -Granulation Amt Large (67-100%) -Granulation Quality Red -Slough/Fibrin Yes -Necrosis Amt Small (1-33%) -Necrotic Tissue Type Adherent Slough -Structure Exposed -Texture (Dai-wound Skin Appearance) Assessed,Rash -Moisture (Dai-wound Skin Appearance) Assessed,Dry/ Scaly -Color (Dai-wound Skin Appearance) Assessed, Erythema -Temperature (Dai-wound Skin No Abnormality Appearance) (Pt Warm) -Tenderness on Palpation (Dai-wound No Skin Appearance) -Ulcer Cleansing Rinsed/ Irrigated with Saline -Foul Odor after Cleansing No -Anesthetic Used 5% Lidocaine Gel WC - Nurse 2 - General Ulcer CM Notes Start: 02/02/21 09:59 Freq: Status: Active Protocol: Activity Type Activity Date Activity User E-Sign Co-Sign Detail Recorded Client Recorded Date Recorded By Document 02/02/21 10:28 OK [id number] 02/02/21 10:33 OK Document 02/09/21 10:11 OK [id number] 02/09/21 10:20 OK Document 02/16/21 10:52 MW [id number] 02/16/21 10:58 MW 02/02/21 02/09/21 02/16/21 10:28 10:11 10:52 Wound Center Nurse 2 #6 Left buttock cluster -Time 10: 10:12 10:53 -Correct Patient Yes Yes Yes -Correct Side, Site, Position Yes Yes Yes -Correct Procedure Yes Yes Yes -Procedure Performed Yes Yes Yes -Type of Procedure Debridement Debridement Debridement -Clinical Debridement Subcutaneous Subcutaneous Epidermis / Dermis -Tissue Removed Subcutaneous Subcutaneous Epidermis -Post Debridement (cm) - Length 2.5 4 5.0 -Post Debridement (cm) - Width 0.3 2 2.0 -Post Debridement (cm) - Depth 0.1 1 0.1 -Total Square (Post) (cm) 0.75 8 10.00 -Area of Debridement (cm) - Length 2.5 4 5.0 -Area of Debridement (cm) - Width 0.3 2 2.0 -Total Square (Area) (cm) 0.75 8 10.00 -Tunneling No No No -Undermining/Tunneling No No No -Circular Undermining No No No -Wound/Ulcer Outcome Not Healed Not Healed Not Healed -Ulcer Cleansing Rinsed/ Rinsed/ Rinsed/ Irrigated with Irrigated with Irrigated with Saline Saline Saline -Foul Odor after Cleansing No No No -Bioengineered Tissue No No No -Bleeding Controlled with Pressure Pressure Pressure -Offloading No No -Treatment Response Procedure Procedure Tolerated Well Tolerated Well -Debridement - Open, 1st 20sq cm Yes -Debridement, Open, ea addt'l 20sq cm 1 or part thereof -Debridement - Subq, 1st 20sq cm Yes Yes #5 Right buttock cluster -Time 10: 10:12 10:53 -Correct Patient Yes Yes Yes -Correct Side, Site, Position Yes Yes Yes -Correct Procedure Yes Yes Yes -Procedure Performed No No Yes -Type of Procedure Debridement Debridement -Clinical Debridement Subcutaneous Epidermis / Dermis -Tissue Removed Subcutaneous Epidermis -Post Debridement (cm) - Length 5 6.0 -Post Debridement (cm) - Width 4 3.0 -Post Debridement (cm) - Depth 0.1 0.1 -Total Square (Post) (cm) 20 18.00 -Area of Debridement (cm) - Length 5 6.0 -Area of Debridement (cm) - Width 4 3.0 -Total Square (Area) (cm) 20 18.00 -Tunneling No No No -Undermining/Tunneling No No No -Circular Undermining No No No -Wound/Ulcer Outcome Not Healed Not Healed Not Healed -Ulcer Cleansing Rinsed/ Rinsed/ Rinsed/ Irrigated with Irrigated with Irrigated with Saline Saline Saline -Foul Odor after Cleansing No No No -Bioengineered Tissue No No No -Bleeding Controlled with Pressure Pressure Pressure -Offloading No No -Treatment Response Procedure Procedure Procedure Tolerated Well Tolerated Well Tolerated Well -Debridement - Open, 1st 20sq cm No -Debridement - Subq, 1st 20sq cm No Pain Scale: 0-10 Numeric Is Patient Pain Free? Yes Yes WC - Nurse 3 - General Ulcer D/C NN Start: 02/02/21 09:59 Freq: Status: Active Protocol: Activity Type Activity Date Activity User E-Sign Co-Sign Detail Recorded Client Recorded Date Recorded By Document 02/02/21 10:39 DL [id number] 02/02/21 10:48 DL Document 02/09/21 10:52 AK [id number] 02/09/21 10:54 AK Document 02/13/21 15:38 AK [id number] 02/13/21 15:41 AK Document 02/16/21 11:19 AK [id number] 02/16/21 11:21 AK 02/02/21 02/09/21 02/13/21 10:39 10:52 15:38 Wound Care Nurse 3 #6 Left buttock cluster -Ulcer Cleansing Rinsed/ Rinsed/ Rinsed/ Irrigated with Irrigated with Irrigated with Saline Saline Saline -Foul Odor after Cleansing No No No -Negative Pressure Wound Therapy N/A N/A -Primary Dressing Applied Aquacel Extra, Aquacel Extra Aquacel Extra NonAdherent Contact Layer -Other Dressing ABD xeroform -Primary Dressing Covered/Secured with Dry Gauze, Secured with Secured with Secured with Tape Tape Tape -Other Covering abd ABD -Aquacel Extra 1 1 1 #5 Right buttock cluster -Ulcer Cleansing Rinsed/ Rinsed/ Rinsed/ Irrigated with Irrigated with Irrigated with Saline Saline Saline -Foul Odor after Cleansing No No No -Negative Pressure Wound Therapy N/A N/A -Primary Dressing Applied NonAdherent Aquacel Extra Aquacel Extra Contact Layer -Other Dressing xerofrom zeroform -Primary Dressing Covered/Secured with Dry Gauze, Secured with Secured with Secured with Tape Tape Tape -Other Covering ABD ABD -Aquacel Extra 0 0 Treatment Response Procedure Tolerated Well Vital Signs Temperature (97.8 F-99.1 F) 97.1 F L Temperature Source Temporal Pulse Rate (60-100) 70 Pulse Location Monitor Blood Pressure (90/60-120/80) 149/75 H Blood Pressure Mean (mm Hg) 99 Source Monitor Pain Scale: 0-10 Numeric Is Patient Pain Free? Yes WC - Visit Discharge Discharge Condition Stable Stable Stable Ambulatory Status Ambulatory, Ambulatory, Ambulatory, Crutches Crutches Crutches Transportation Private Auto Private Auto Private Auto Medication Reconcilliation completed & No No provided to patient/care provider Clinical Summary of Care Provided Yes Yes 02/16/21 11:19 Wound Care Nurse 3 #6 Left buttock cluster -Ulcer Cleansing Rinsed/ Irrigated with Saline -Foul Odor after Cleansing No -Negative Pressure Wound Therapy N/A -Primary Dressing Applied -Other Dressing xeroform ABD -Primary Dressing Covered/Secured with Secured with Tape -Other Covering -Aquacel Extra #5 Right buttock cluster -Ulcer Cleansing Rinsed/ Irrigated with Saline -Foul Odor after Cleansing No -Negative Pressure Wound Therapy N/A -Primary Dressing Applied -Other Dressing Xeroform ABD -Primary Dressing Covered/Secured with Secured with Tape -Other Covering -Aquacel Extra Treatment Response Vital Signs Temperature (97.8 F-99.1 F) Temperature Source Pulse Rate (60-100) Pulse Location Blood Pressure (90/60-120/80) Blood Pressure Mean (mm Hg) Source Pain Scale: 0-10 Numeric Is Patient Pain Free? WC - Visit Discharge Discharge Condition Stable Ambulatory Status Ambulatory, Crutches Transportation Private Auto Medication Reconcilliation completed & No provided to patient/care provider Clinical Summary of Care Provided Yes Additional Wound Wound debrided: Right buttock cluster Type of Debridement: Selective debridement Anesthesia Used: 4% Lidocaine Solution Depth: Down to and including healthy tissue Percentage of wound debrided: 100 Instrument Used: 5mm curette Tissue Removed: Devitalized tissue Severity: Limited To Skin Breakdown Patient tolerated procedure: Patient tolerated procedure well Assessment/Plan Assessment/Plan (1) Decubitus ulcer of right buttock, stage 3: CODE(S): L89.313 - Pressure ulcer of right buttock, stage 3 (2) Decubitus ulcer of left buttock, stage 3: CODE(S): L89.323 - Pressure ulcer of left buttock, stage 3 (3) Type II diabetes mellitus: CODE(S): E11.9 - Type 2 diabetes mellitus without complications PLAN: Ulcers and more superficial. Erythema with some improvement. Debridement done as documented above, procedure was well-tolerated. Xeroform to the reddened areas. Change daily to twice daily depending on drainage or soiling. Consistent use of gel cushion and hospital bed very strongly recommended. Optimal diabetes control also very strongly recommended. Optimal protein intake, vitamin C and zinc also discussed. His questions were answered and he was advised to call with any further questions or concerns. Follow-up on Saturday for nurse visit due to difficulty with dressing himself and with me in a week. This note was generated with [employer] dictation software. It may contain incorrect words, spelling, and punctuation that were not noted in checking the note before signing.
[2021-02-23 10:47] VITALS: BP 162/84; PULSE 66; TEMP 36.1; BMI 29.7
--- NOTE | 2021-02-23 13:06 | PN.PCM_ITS ---
History of Present Illness Date of Service: 02/23/21 Chief Complaint: Recurrent buttock ulcers History of Wound: Mr. 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 Most recent episode said to have started months ago . Has been applying antibiotic and hemorrhoid ointment without significant improvement. Sits and sleeps in his lift chair. Also history of diabetes mellitus type 2 and his most recent A1c was said to be around 8. Fasting blood sugar this morning at 303. He states that he is working with his PCP to get this under better control. History of AKA. He feels well and denies other concerns at this time. Subjective Subjective No new concerns at this time. Has been applying Xeroform as discussed. Denies drainage, chills, fever or feeling unwell. Objective Data Objective Data Vital Signs: Vital Signs Temp Pulse Resp BP 96.9 F L 66 16 162/84 H 02/23/21 10:47 02/23/21 10:47 02/16/21 10:35 02/23/21 10:47 Oxygen Delivery Method Room Air Body Mass Index (BMI) 29.7 Charges/Coding Visit Charges Office Visits / Consults: 55581 OV L3 Est Physical Exam Const alert, oriented x3 and no apparent distress General Appearance: cooperative and comfortable HEENT normocephalic and head/scalp atraumatic Eyes EOMs intact bilaterally Neck full ROM General: normal visual inspection Resp normal respiratory effort Effort and Inspection: able to speak in complete sentences Skin Wounds: wounds noted Neuro oriented x3, CN's II-XII intact bilaterally and moves all extremities Psych mental status grossly normal Appearance: grossly normal Attitude: calm Speech: normal speech Debridement Note Debridement Note Post-Debridement Measurements and Additional Note: Post-Debridement Measurements/Treatment ANIA - Nurse 1 - General Ulcer Assessment Start: 02/02/21 09:59 Freq: Status: Active Protocol: FABY Activity Type Activity Date Activity User E-Sign Co-Sign Detail Recorded Client Recorded Date Recorded By Document 02/02/21 09:59 AK [id number] 02/02/21 10:11 AK Document 02/02/21 11:05 DL [id number] 02/02/21 11:15 DL Document 02/09/21 09:53 AK [id number] 02/09/21 09:59 AK Document 02/13/21 15:38 AK [id number] 02/13/21 15:41 NH Document 02/16/21 10:35 [facility] [id number] 02/16/21 10:45 [facility] Document 02/23/21 10:47 NH [id number] 02/23/21 10:56 NH 02/02/21 02/02/21 02/09/21 09:59 11:05 09:53 WC - Today's Visit Information Type of service Follow-up Visit Follow-up Visit Follow-up Visit (Physician/[employer] (Physician/[employer]CHITECT (Physician/[employer]CHITECT ) ) ) Arrival Mode Ambulatory, Ambulatory Ambulatory, Crutches Crutches Transfer Assistance None Patient Identification Verified (Name & Yes Yes Yes ) Patient Requires Transmission-Based No No Precautions Safety Precautions Height and Weight Body Mass Index (BMI) 29.7 29.7 29.7 BMI Classification Overweight Overweight Overweight Vital Signs Temperature (97.8 F-99.1 F) 97.9 F 97.8 F 96.7 F L Temperature Source Temporal Temporal Temporal Pulse Rate (60-100) 70 65 66 Pulse Location Monitor Monitor Monitor Respiratory Rate (12-18) 18 Respiratory rate source Observation Oxygen Delivery Method Blood Pressure (90/60-120/80) 148/69 H 174/56 H 147/67 H Blood Pressure Mean (mm Hg) 95 95 93 Source Monitor Monitor Monitor Position Semi-Fowlers Blood Pressure Location Right Arm History Since Last Visit- (Skip if this is Patient's initial visit) Have you changed medications since your No No No last visit? Any new allergies or adverse reactions No No No Had a fall/change in ADL's that may No No No increase risk of falls Signs or symptoms of abuse and/or No No No neglect since last visit Have you been in the hospital since your No Yes No last visit? Has dressing in place as prescribed Yes No Yes Has compression in place as prescribed N/A No N/A Has offloadiing in place as prescribed N/A No N/A Experienced any changes in pain level or No No management Left Footwear Regular Shoe Regular Shoe Right Footwear Regular Shoe Other Footwear Pain Scale: 0-10 Numeric Is Patient Pain Free? Yes Yes 02/13/21 02/16/21 02/23/21 15:38 10:35 10:47 WC - Today's Visit Information Type of service Nurse-only Follow-up Visit Follow-up Visit Visit (Physician/[employer]CH[employer]ECT (Physician/[employer]CHITECT ) ) Arrival Mode Ambulatory, Ambulatory, Ambulatory, Crutches Crutches Walker Transfer Assistance None Patient Identification Verified (Name & Yes Yes Yes ) Patient Requires Transmission-Based No No No Precautions Safety Precautions NA Height and Weight Body Mass Index (BMI) 29.7 29.7 29.7 BMI Classification Overweight Overweight Overweight Vital Signs Temperature (97.8 F-99.1 F) 97.1 F L 97.2 F L 96.9 F L Temperature Source Temporal Temporal Temporal Pulse Rate (60-100) 70 62 66 Pulse Location Monitor Monitor Monitor Respiratory Rate (12-18) 16 Respiratory rate source Observation Oxygen Delivery Method Room Air Blood Pressure (90/60-120/80) 149/75 H 135/69 H 162/84 H Blood Pressure Mean (mm Hg) 99 91 110 Source Monitor Monitor Monitor Position Sitting Blood Pressure Location Right Arm History Since Last Visit- (Skip if this is Patient's initial visit) Have you changed medications since your No No No last visit? Any new allergies or adverse reactions No No No Had a fall/change in ADL's that may No No No increase risk of falls Signs or symptoms of abuse and/or No No No neglect since last visit Have you been in the hospital since your No No No last visit? Has dressing in place as prescribed Yes Yes Yes Has compression in place as prescribed No N/A No Has offloadiing in place as prescribed No N/A N/A Experienced any changes in pain level or No No No management Left Footwear Regular Shoe No Footwear Regular Shoe Right Footwear Regular Shoe Slipper Other Footwear L AKA Pain Scale: 0-10 Numeric Is Patient Pain Free? Yes WC - Nurse 1 - General Ulcer Measurement Start: 02/02/21 09:59 Freq: Status: Active Protocol: Activity Type Activity Date Activity User E-Sign Co-Sign Detail Recorded Client Recorded Date Recorded By Document 02/02/21 09:59 AK [id number] 02/02/21 10:11 AK Document 02/02/21 11:05 DL [id number] 02/02/21 11:15 DL Document 02/09/21 09:53 AK [id number] 02/09/21 09:59 AK Edit Result 02/09/21 09:53 AK (1) [id number] 02/09/21 10:02 KR Document 02/16/21 10:35 BMF [id number] 02/16/21 10:45 BMF Document 02/23/21 10:47 AK [id number] 02/23/21 10:56 AK (1) #6 Left buttock cluster - Current Size (cm) - Length => 3 - Current Size (cm) - Width => 2 - Current Size (cm) - Depth => 0.1 - Total Square Cm => 6 - Exudate Amt => Small - Exudate Type => Serous - Granulation Amt => Large (67-100%) - Granulation Quality => Red #5 Right buttock cluster - Current Size (cm) - Length => 4 - Current Size (cm) - Width => 3 - Current Size (cm) - Depth => 0.1 - Total Square Cm => 12 - Granulation Amt => Large (67-100%) - Granulation Quality => Red - Necrosis Amt => None Present (0%) 02/02/21 02/02/21 02/09/21 09:59 11:05 09:53 Wound Center Nurse 1 #6 Left buttock cluster -Combined with other wound No -Current Size (cm) - Length 7 6.2 3 -Current Size (cm) - Width 2 1.9 2 -Current Size (cm) - Depth 0.1 0.2 0.1 -Total Square Cm 14 11.78 6 -Date of Last Picture (Recall this field) -Photo Taken No No -Epithelialization -Tunneling No -Undermining/Tunneling No -Circular Undermining No -Change in Wound Grade/Stage No -Exudate Amt Large Medium Small -Exudate Type Serosanguineous Serosanguineous Serous -Wound Margin Distinct, Distinct, Distinct, Outline Outline Outline Attached Attached Attached -Granulation Amt None Present (0 Medium (34-66%) Large (67-100%) %) -Granulation Quality N/A Red Red -Slough/Fibrin No -Necrosis Amt Medium (34-66%) -Necrotic Tissue Type Adherent Slough -Structure Exposed N/A N/A -Texture (Dai-wound Skin Appearance) Assessed, Scarring Assessed, Excoriation Scarring -Moisture (Dai-wound Skin Appearance) Assessed,Dry/ No Abnormality No Abnormality, Scaly Assessed -Color (Dai-wound Skin Appearance) Assessed, No Abnormality No Abnormality, Erythema Assessed -Temperature (Dai-wound Skin No Abnormality No Abnormality No Abnormality Appearance) (Pt Warm) (Pt Warm) (Pt Warm) -Tenderness on Palpation (Dai-wound Yes No No Skin Appearance) -Ulcer Cleansing Rinsed/ Wound Cleanser Rinsed/ Irrigated with Irrigated with Saline Saline -Foul Odor after Cleansing No No -Anesthetic Used 5% Lidocaine 4% Lidocaine 4% Lidocaine Gel Solution Solution #5 Right buttock cluster -Combined with other wound No -Current Size (cm) - Length 6.5 4 -Current Size (cm) - Width 1.5 3 -Current Size (cm) - Depth 0.1 0.1 -Total Square Cm 9.75 12 -Date of Last Picture (Recall this field) -Photo Taken No -Epithelialization -Tunneling No -Undermining/Tunneling No -Circular Undermining No -Exudate Amt Large -Exudate Type Serosanguineous -Wound Margin Distinct, Distinct, Outline Outline Attached Attached -Granulation Amt None Present (0 Large (67-100%) %) -Granulation Quality Hyper- Red granulation -Slough/Fibrin No -Necrosis Amt None Present (0 None Present (0 %) %) -Necrotic Tissue Type -Structure Exposed N/A N/A -Texture (Dai-wound Skin Appearance) Assessed, Assessed, Excoriation Scarring -Moisture (Dai-wound Skin Appearance) Assessed,Dry/ No Abnormality, Scaly Assessed -Color (Dai-wound Skin Appearance) Assessed, No Abnormality, Erythema Assessed -Temperature (Dai-wound Skin No Abnormality No Abnormality Appearance) (Pt Warm) (Pt Warm) -Tenderness on Palpation (Dai-wound Yes No Skin Appearance) -Ulcer Cleansing Rinsed/ Rinsed/ Irrigated with Irrigated with Saline Saline -Foul Odor after Cleansing No -Anesthetic Used 5% Lidocaine 4% Lidocaine Gel Solution 02/16/21 02/23/21 10:35 10:47 Wound Center Nurse 1 #6 Left buttock cluster -Combined with other wound No -Current Size (cm) - Length 5.4 4 -Current Size (cm) - Width 3 1 -Current Size (cm) - Depth 0.1 0.1 -Total Square Cm 16.2 4 -Date of Last Picture (Recall this 02/16/21 field) -Photo Taken Yes No -Epithelialization None Present -Tunneling No No -Undermining/Tunneling No No -Circular Undermining No No -Change in Wound Grade/Stage No -Exudate Amt Medium None Present -Exudate Type Serosanguineous -Wound Margin Distinct, Distinct, Outline Outline Attached Attached -Granulation Amt Large (67-100%) Medium (34-66%) -Granulation Quality Red Red -Slough/Fibrin Yes No -Necrosis Amt Small (1-33%) None Present (0 %) -Necrotic Tissue Type Adherent Slough -Structure Exposed N/A -Texture (Dai-wound Skin Appearance) Assessed, No Abnormality, Scarring Assessed -Moisture (Dai-wound Skin Appearance) Assessed,Dry/ No Abnormality, Scaly Assessed -Color (Dai-wound Skin Appearance) Assessed, No Abnormality, Erythema Assessed -Temperature (Dai-wound Skin No Abnormality No Abnormality Appearance) (Pt Warm) (Pt Warm) -Tenderness on Palpation (Dai-wound No No Skin Appearance) -Ulcer Cleansing Rinsed/ Rinsed/ Irrigated with Irrigated with Saline Saline -Foul Odor after Cleansing No No -Anesthetic Used 5% Lidocaine 4% Lidocaine Gel Solution #5 Right buttock cluster -Combined with other wound No No -Current Size (cm) - Length 2 2.5 -Current Size (cm) - Width 1.1 3.5 -Current Size (cm) - Depth 0.1 0.1 -Total Square Cm 2.2 8.75 -Date of Last Picture (Recall this 02/16/21 field) -Photo Taken Yes No -Epithelialization None Present None Present -Tunneling No No -Undermining/Tunneling No No -Circular Undermining No -Exudate Amt Medium None Present -Exudate Type Serosanguineous -Wound Margin Distinct, Distinct, Outline Outline Attached Attached -Granulation Amt Large (67-100%) None Present (0 %) -Granulation Quality Red N/A -Slough/Fibrin Yes No -Necrosis Amt Small (1-33%) None Present (0 %) -Necrotic Tissue Type Adherent Slough -Structure Exposed N/A -Texture (Dai-wound Skin Appearance) Assessed,Rash No Abnormality, Assessed -Moisture (Dai-wound Skin Appearance) Assessed,Dry/ No Abnormality, Scaly Assessed -Color (Dai-wound Skin Appearance) Assessed, No Abnormality, Erythema Assessed -Temperature (Dai-wound Skin No Abnormality No Abnormality Appearance) (Pt Warm) (Pt Warm) -Tenderness on Palpation (Dai-wound No No Skin Appearance) -Ulcer Cleansing Rinsed/ Rinsed/ Irrigated with Irrigated with Saline Saline -Foul Odor after Cleansing No No -Anesthetic Used 5% Lidocaine 4% Lidocaine Gel Solution WC - Nurse 2 - General Ulcer CM Notes Start: 02/02/21 09:59 Freq: Status: Active Protocol: Activity Type Activity Date Activity User E-Sign Co-Sign Detail Recorded Client Recorded Date Recorded By Document 02/02/21 10:28 MT [id number] 02/02/21 10:33 MT Document 02/09/21 10:11 MT [id number] 02/09/21 10:20 MT Document 02/16/21 10:52 MW [id number] 02/16/21 10:58 MW Document 02/23/21 11:00 MW [id number] 02/23/21 11:05 MW 02/02/21 02/09/21 02/16/21 10:28 10:11 10:52 Wound Center Nurse 2 #6 Left buttock cluster -Time 10:28 10:12 10:53 -Correct Patient Yes Yes Yes -Correct Side, Site, Position Yes Yes Yes -Correct Procedure Yes Yes Yes -Procedure Performed Yes Yes Yes -Type of Procedure Debridement Debridement Debridement -Clinical Debridement Subcutaneous Subcutaneous Epidermis / Dermis -Tissue Removed Subcutaneous Subcutaneous Epidermis -Post Debridement (cm) - Length 2.5 4 5.0 -Post Debridement (cm) - Width 0.3 2 2.0 -Post Debridement (cm) - Depth 0.1 1 0.1 -Total Square (Post) (cm) 0.75 8 10.00 -Area of Debridement (cm) - Length 2.5 4 5.0 -Area of Debridement (cm) - Width 0.3 2 2.0 -Total Square (Area) (cm) 0.75 8 10.00 -Tunneling No No No -Undermining/Tunneling No No No -Circular Undermining No No No -Wound/Ulcer Outcome Not Healed Not Healed Not Healed -Ulcer Cleansing Rinsed/ Rinsed/ Rinsed/ Irrigated with Irrigated with Irrigated with Saline Saline Saline -Foul Odor after Cleansing No No No -Bioengineered Tissue No No No -Bleeding Controlled with Pressure Pressure Pressure -Offloading No No -Treatment Response Procedure Procedure Tolerated Well Tolerated Well -Debridement - Open, 1st 20sq cm Yes -Debridement, Open, ea addt'l 20sq cm 1 or part thereof -Debridement - Subq, 1st 20sq cm Yes Yes #5 Right buttock cluster -Time 10:29 10:12 10:53 -Correct Patient Yes Yes Yes -Correct Side, Site, Position Yes Yes Yes -Correct Procedure Yes Yes Yes -Procedure Performed No No Yes -Type of Procedure Debridement Debridement -Clinical Debridement Subcutaneous Epidermis / Dermis -Tissue Removed Subcutaneous Epidermis -Post Debridement (cm) - Length 5 6.0 -Post Debridement (cm) - Width 4 3.0 -Post Debridement (cm) - Depth 0.1 0.1 -Total Square (Post) (cm) 20 18.00 -Area of Debridement (cm) - Length 5 6.0 -Area of Debridement (cm) - Width 4 3.0 -Total Square (Area) (cm) 20 18.00 -Tunneling No No No -Undermining/Tunneling No No No -Circular Undermining No No No -Wound/Ulcer Outcome Not Healed Not Healed Not Healed -Ulcer Cleansing Rinsed/ Rinsed/ Rinsed/ Irrigated with Irrigated with Irrigated with Saline Saline Saline -Foul Odor after Cleansing No No No -Bioengineered Tissue No No No -Bleeding Controlled with Pressure Pressure Pressure -Offloading No No -Treatment Response Procedure Procedure Procedure Tolerated Well Tolerated Well Tolerated Well -Debridement - Open, 1st 20sq cm No -Debridement - Subq, 1st 20sq cm No Pain Scale: 0-10 Numeric Is Patient Pain Free? Yes Yes 02/23/21 11:00 Wound Center Nurse 2 #6 Left buttock cluster -Time 11:04 -Correct Patient Yes -Correct Side, Site, Position Yes -Correct Procedure Yes -Procedure Performed No -Type of Procedure -Clinical Debridement -Tissue Removed -Post Debridement (cm) - Length 0.1 -Post Debridement (cm) - Width 0.1 -Post Debridement (cm) - Depth 0.1 -Total Square (Post) (cm) 0.01 -Area of Debridement (cm) - Length -Area of Debridement (cm) - Width -Total Square (Area) (cm) -Tunneling No -Undermining/Tunneling No -Circular Undermining No -Wound/Ulcer Outcome Not Healed -Ulcer Cleansing -Foul Odor after Cleansing -Bioengineered Tissue -Bleeding Controlled with -Offloading -Treatment Response -Debridement - Open, 1st 20sq cm -Debridement, Open, ea addt'l 20sq cm or part thereof -Debridement - Subq, 1st 20sq cm #5 Right buttock cluster -Time 11:04 -Correct Patient Yes -Correct Side, Site, Position Yes -Correct Procedure Yes -Procedure Performed No -Type of Procedure -Clinical Debridement -Tissue Removed -Post Debridement (cm) - Length 0.1 -Post Debridement (cm) - Width 0.1 -Post Debridement (cm) - Depth 0.1 -Total Square (Post) (cm) 0.01 -Area of Debridement (cm) - Length -Area of Debridement (cm) - Width -Total Square (Area) (cm) -Tunneling No -Undermining/Tunneling No -Circular Undermining No -Wound/Ulcer Outcome Not Healed -Ulcer Cleansing Rinsed/ Irrigated with Saline -Foul Odor after Cleansing No -Bioengineered Tissue No -Bleeding Controlled with NA -Offloading No -Treatment Response -Debridement - Open, 1st 20sq cm -Debridement - Subq, 1st 20sq cm Pain Scale: 0-10 Numeric Is Patient Pain Free? Yes WC - Nurse 3 - General Ulcer D/C NN Start: 02/02/21 09:59 Freq: Status: Active Protocol: Activity Type Activity Date Activity User E-Sign Co-Sign Detail Recorded Client Recorded Date Recorded By Document 02/02/21 10:39 DL [id number] 02/02/21 10:48 DL Document 02/09/21 10:52 AK [id number] 02/09/21 10:54 AK Document 02/13/21 15:38 AK [id number] 02/13/21 15:41 AK Document 02/16/21 11:19 AK [id number] 02/16/21 11:21 AK Document 02/23/21 11:55 KR [id number] 02/23/21 11:56 KR 02/02/21 02/09/21 02/13/21 10:39 10:52 15:38 Wound Care Nurse 3 #6 Left buttock cluster -Ulcer Cleansing Rinsed/ Rinsed/ Rinsed/ Irrigated with Irrigated with Irrigated with Saline Saline Saline -Foul Odor after Cleansing No No No -Negative Pressure Wound Therapy N/A N/A -Primary Dressing Applied Aquacel Extra, Aquacel Extra Aquacel Extra NonAdherent Contact Layer -Other Dressing ABD xeroform -Primary Dressing Covered/Secured with Dry Gauze, Secured with Secured with Secured with Tape Tape Tape -Other Covering abd ABD -Aquacel Extra 1 1 1 #5 Right buttock cluster -Ulcer Cleansing Rinsed/ Rinsed/ Rinsed/ Irrigated with Irrigated with Irrigated with Saline Saline Saline -Foul Odor after Cleansing No No No -Negative Pressure Wound Therapy N/A N/A -Primary Dressing Applied NonAdherent Aquacel Extra Aquacel Extra Contact Layer -Other Dressing xerofrom zeroform -Primary Dressing Covered/Secured with Dry Gauze, Secured with Secured with Secured with Tape Tape Tape -Other Covering ABD ABD -Aquacel Extra 0 0 Treatment Response Procedure Tolerated Well Vital Signs Temperature (97.8 F-99.1 F) 97.1 F L Temperature Source Temporal Pulse Rate (60-100) 70 Pulse Location Monitor Blood Pressure (90/60-120/80) 149/75 H Blood Pressure Mean (mm Hg) 99 Source Monitor Pain Scale: 0-10 Numeric Is Patient Pain Free? Yes WC - Visit Discharge Discharge Condition Stable Stable Stable Ambulatory Status Ambulatory, Ambulatory, Ambulatory, Crutches Crutches Crutches Transportation Private Auto Private Auto Private Auto Accompanied by Medication Reconcilliation completed & No No provided to patient/care provider Clinical Summary of Care Provided Yes Yes 02/16/21 02/23/21 11:19 11:55 Wound Care Nurse 3 #6 Left buttock cluster -Ulcer Cleansing Rinsed/ Irrigated with Saline -Foul Odor after Cleansing No -Negative Pressure Wound Therapy N/A -Primary Dressing Applied -Other Dressing xeroform ABD xeroform -Primary Dressing Covered/Secured with Secured with Dry Gauze, Tape Secured with Tape -Other Covering -Aquacel Extra #5 Right buttock cluster -Ulcer Cleansing Rinsed/ Irrigated with Saline -Foul Odor after Cleansing No -Negative Pressure Wound Therapy N/A -Primary Dressing Applied -Other Dressing Xeroform ABD xeroform -Primary Dressing Covered/Secured with Secured with Dry Gauze, Tape Secured with Tape -Other Covering -Aquacel Extra Treatment Response Vital Signs Temperature (97.8 F-99.1 F) Temperature Source Pulse Rate (60-100) Pulse Location Blood Pressure (90/60-120/80) Blood Pressure Mean (mm Hg) Source Pain Scale: 0-10 Numeric Is Patient Pain Free? Yes WC - Visit Discharge Discharge Condition Stable Stable Ambulatory Status Ambulatory, Crutches Crutches Transportation Private Auto Private Auto Accompanied by self Medication Reconcilliation completed & No provided to patient/care provider Clinical Summary of Care Provided Yes Assessment/Plan Assessment/Plan (1) Decubitus ulcer of right buttock, stage 3: CODE(S): L89.313 - Pressure ulcer of right buttock, stage 3 (2) Decubitus ulcer of left buttock, stage 3: CODE(S): L89.323 - Pressure ulcer of left buttock, stage 3 (3) Type II diabetes mellitus: CODE(S): E11.9 - Type 2 diabetes mellitus without complications PLAN: Ulcers remain superficial. No debridement done today. Zinc oxide cream bilaterally with Xeroform to the reddened areas. Change daily to twice daily depending on drainage or soiling. Consistent use of gel cushion and hospital bed very strongly recommended. Optimal diabetes control also very strongly recommended. Optimal protein intake, vitamin C and zinc also discussed. His questions were answered and he was advised to call with any further questions or concerns. Follow-up on Saturday for nurse visit due to difficulty with dressing himself and with me in a week. This note was generated with [employer] software. It may contain incorrect words, spelling, and punctuation that were not noted in checking the note before signing.
[2021-02-27 11:11] VITALS: BP 156/71; PULSE 61; RESP 16; TEMP 36.6; BMI 29.7
[2021-03-02 10:59] VITALS: BP 155/80; PULSE 65; TEMP 36.8; BMI 29.7
--- NOTE | 2021-03-02 13:39 | PCM.WC.PN ---
History of Present Illness Date of Service: 03/02/21 Chief Complaint: Recurrent buttock ulcers History of Wound: Mr. 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 Most recent episode said to have started months ago . Has been applying antibiotic and hemorrhoid ointment without significant improvement. Sits and sleeps in his lift chair. Also history of diabetes mellitus type 2 and his most recent A1c was said to be around 8. Fasting blood sugar this morning at 303. He states that he is working with his PCP to get this under better control. History of AKA. He feels well and denies other concerns at this time. Subjective Subjective He reports increased burning since starting use of Desitin. He also reports increased bleeding. Still remains largely superficial now. Objective Data Objective Data Vital Signs: Vital Signs Temp Pulse Resp BP 98.3 F 65 16 155/80 H 03/02/21 10:59 03/02/21 10:59 02/27/21 11:11 03/02/21 10:59 Oxygen Delivery Method Room Air Body Mass Index (BMI) 29.7 Charges/Coding Procedures Integumentary 111xxx-113xx: 11595 Debride infected skin (Superficial debridement done.) Add On Codes: 09793 [place] subq tissue add-on (Superficial debridement and on.) Physical Exam Const alert, oriented x3 and no apparent distress General Appearance: cooperative and comfortable HEENT normocephalic and head/scalp atraumatic Eyes EOMs intact bilaterally Neck full ROM General: normal visual inspection Resp normal respiratory effort Effort and Inspection: able to speak in complete sentences Skin Wounds: wounds noted Neuro oriented x3, CN's II-XII intact bilaterally and moves all extremities Psych mental status grossly normal Appearance: grossly normal Attitude: calm Speech: normal speech Debridement Note Debridement Note Wound debrided: Left buttock cluster Type of Debridement: Selective debridement Depth: Down to and including healthy tissue Percentage of wound debrided: 100 Tissue Removed: Devitalized tissue Severity: Limited To Skin Breakdown Amount of bleeding with debridement: Mild Bleeding Controlled with: Pressure Patient tolerated procedure: Patient tolerated procedure well Post-Debridement Measurements and Additional Note: Post-Debridement Measurements/Treatment ANIA - Nurse 1 - General Ulcer Assessment Start: 02/02/21 09:59 Freq: Status: Active Protocol: WC.LOWEXT Activity Type Activity Date Activity User E-Sign Co-Sign Detail Recorded Client Recorded Date Recorded By Document 02/02/21 09:59 AK [id number] 02/02/21 10:11 AK Document 02/02/21 11:05 DL [id number] 02/02/21 11:15 DL Document 02/09/21 09:53 AK [id number] 02/09/21 09:59 AK Document 02/13/21 15:38 AK [id number] 02/13/21 15:41 AK Document 02/16/21 10:35 BM [id number] 02/16/21 10:45 BM Document 02/23/21 10:47 AK [id number] 02/23/21 10:56 AK Document 02/27/21 11:11 BMF [id number] 02/27/21 11:24 BM Document 03/02/21 10:59 AK [id number] 03/02/21 11:02 AK 02/02/21 02/02/21 02/09/21 09:59 11:05 09:53 WC - Today's Visit Information Type of service Follow-up Visit Follow-up Visit Follow-up Visit (Physician/SIDE STITCHING MACHINE OPERATOR (Physician/SIDE STITCHING MACHINE OPERATOR (Physician/SIDE STITCHING MACHINE OPERATOR ) ) ) Arrival Mode Ambulatory, Ambulatory Ambulatory, Crutches Crutches Transfer Assistance None Patient Identification Verified (Name & Yes Yes Yes ) Patient Requires Transmission-Based No No Precautions Safety Precautions Height and Weight Body Mass Index (BMI) 29.7 29.7 29.7 BMI Classification Overweight Overweight Overweight Vital Signs Temperature (97.8 F-99.1 F) 97.9 F 97.8 F 96.7 F L Temperature Source Temporal Temporal Temporal Pulse Rate (60-100) 70 65 66 Pulse Location Monitor Monitor Monitor Respiratory Rate (12-18) 18 Respiratory rate source Observation Oxygen Delivery Method Blood Pressure (90/60-120/80) 148/69 H 174/56 H 147/67 H Blood Pressure Mean (mm Hg) 95 95 93 Source Monitor Monitor Monitor Position Semi-Fowlers Blood Pressure Location Right Arm History Since Last Visit- (Skip if this is Patient's initial visit) Have you changed medications since your No No No last visit? Any new allergies or adverse reactions No No No Had a fall/change in ADL's that may No No No increase risk of falls Signs or symptoms of abuse and/or No No No neglect since last visit Have you been in the hospital since your No Yes No last visit? Has dressing in place as prescribed Yes No Yes Has compression in place as prescribed N/A No N/A Has offloadiing in place as prescribed N/A No N/A Experienced any changes in pain level or No No management Left Footwear Regular Shoe Regular Shoe Right Footwear Regular Shoe Other Footwear Pain Scale: 0-10 Numeric Is Patient Pain Free? Yes Yes 02/13/21 02/16/21 02/23/21 15:38 10:35 10:47 WC - Today's Visit Information Type of service Nurse-only Follow-up Visit Follow-up Visit Visit (Physician/SIDE STITCHING MACHINE OPERATOR (Physician/SIDE STITCHING MACHINE OPERATOR ) ) Arrival Mode Ambulatory, Ambulatory, Ambulatory, Crutches Crutches Walker Transfer Assistance None Patient Identification Verified (Name & Yes Yes Yes ) Patient Requires Transmission-Based No No No Precautions Safety Precautions NA Height and Weight Body Mass Index (BMI) 29.7 29.7 29.7 BMI Classification Overweight Overweight Overweight Vital Signs Temperature (97.8 F-99.1 F) 97.1 F L 97.2 F L 96.9 F L Temperature Source Temporal Temporal Temporal Pulse Rate (60-100) 70 62 66 Pulse Location Monitor Monitor Monitor Respiratory Rate (12-18) 16 Respiratory rate source Observation Oxygen Delivery Method Room Air Blood Pressure (90/60-120/80) 149/75 H 135/69 H 162/84 H Blood Pressure Mean (mm Hg) 99 91 110 Source Monitor Monitor Monitor Position Sitting Blood Pressure Location Right Arm History Since Last Visit- (Skip if this is Patient's initial visit) Have you changed medications since your No No No last visit? Any new allergies or adverse reactions No No No Had a fall/change in ADL's that may No No No increase risk of falls Signs or symptoms of abuse and/or No No No neglect since last visit Have you been in the hospital since your No No No last visit? Has dressing in place as prescribed Yes Yes Yes Has compression in place as prescribed No N/A No Has offloadiing in place as prescribed No N/A N/A Experienced any changes in pain level or No No No management Left Footwear Regular Shoe No Footwear Regular Shoe Right Footwear Regular Shoe Slipper Other Footwear L AKA Pain Scale: 0-10 Numeric Is Patient Pain Free? Yes 02/27/21 03/02/21 11:11 10:59 WC - Today's Visit Information Type of service Nurse-only Follow-up Visit Visit (Physician/SIDE STITCHING MACHINE OPERATOR ) Arrival Mode Ambulatory, Ambulatory, Crutches Crutches Transfer Assistance None Patient Identification Verified (Name & Yes Yes ) Patient Requires Transmission-Based No No Precautions Safety Precautions NA Height and Weight Body Mass Index (BMI) 29.7 29.7 BMI Classification Overweight Overweight Vital Signs Temperature (97.8 F-99.1 F) 98 F 98.3 F Temperature Source Temporal Temporal Pulse Rate (60-100) 61 65 Pulse Location Monitor Monitor Respiratory Rate (12-18) 16 Respiratory rate source Observation Oxygen Delivery Method Room Air Blood Pressure (90/60-120/80) 156/71 H 155/80 H Blood Pressure Mean (mm Hg) 99 105 Source Monitor Monitor Position Sitting Blood Pressure Location Right Arm History Since Last Visit- (Skip if this is Patient's initial visit) Have you changed medications since your No No last visit? Any new allergies or adverse reactions No No Had a fall/change in ADL's that may No No increase risk of falls Signs or symptoms of abuse and/or No No neglect since last visit Have you been in the hospital since your No No last visit? Has dressing in place as prescribed No Yes Has compression in place as prescribed N/A N/A Has offloadiing in place as prescribed N/A Yes Experienced any changes in pain level or No No management Left Footwear Right Footwear Regular Shoe Other Footwear Pain Scale: 0-10 Numeric Is Patient Pain Free? WC - Nurse 1 - General Ulcer Measurement Start: 02/02/21 09:59 Freq: Status: Active Protocol: Activity Type Activity Date Activity User E-Sign Co-Sign Detail Recorded Client Recorded Date Recorded By Document 02/02/21 09:59 AK [id number] 02/02/21 10:11 AK Document 02/02/21 11:05 DL [id number] 02/02/21 11:15 DL Document 02/09/21 09:53 AK [id number] 02/09/21 09:59 AK Edit Result 02/09/21 09:53 AK (1) [id number] 02/09/21 10:02 KR Document 02/16/21 10:35 F [id number] 02/16/21 10:45 BMF Document 02/23/21 10:47 AK [id number] 02/23/21 10:56 AK Document 03/02/21 10:59 AK [id number] 03/02/21 11:02 AK (1) #6 Left buttock cluster - Current Size (cm) - Length => 3 - Current Size (cm) - Width => 2 - Current Size (cm) - Depth => 0.1 - Total Square Cm => 6 - Exudate Amt => Small - Exudate Type => Serous - Granulation Amt => Large (67-100%) - Granulation Quality => Red #5 Right buttock cluster - Current Size (cm) - Length => 4 - Current Size (cm) - Width => 3 - Current Size (cm) - Depth => 0.1 - Total Square Cm => 12 - Granulation Amt => Large (67-100%) - Granulation Quality => Red - Necrosis Amt => None Present (0%) 02/02/21 02/02/21 02/09/21 09:59 11:05 09:53 Wound Center Nurse 1 #6 Left buttock cluster -Combined with other wound No -Current Size (cm) - Length 7 6.2 3 -Current Size (cm) - Width 2 1.9 2 -Current Size (cm) - Depth 0.1 0.2 0.1 -Total Square Cm 14 11.78 6 -Date of Last Picture (Recall this field) -Photo Taken No No -Epithelialization -Tunneling No -Undermining/Tunneling No -Circular Undermining No -Classification - Thickness -Change in Wound Grade/Stage No -Exudate Amt Large Medium Small -Exudate Type Serosanguineous Serosanguineous Serous -Wound Margin Distinct, Distinct, Distinct, Outline Outline Outline Attached Attached Attached -Granulation Amt None Present (0 Medium (34-66%) Large (67-100%) %) -Granulation Quality N/A Red Red -Slough/Fibrin No -Necrosis Amt Medium (34-66%) -Necrotic Tissue Type Adherent Slough -Structure Exposed N/A N/A -Texture (Dai-wound Skin Appearance) Assessed, Scarring Assessed, Excoriation Scarring -Moisture (Dai-wound Skin Appearance) Assessed,Dry/ No Abnormality No Abnormality, Scaly Assessed -Color (Dai-wound Skin Appearance) Assessed, No Abnormality No Abnormality, Erythema Assessed -Temperature (Dai-wound Skin No Abnormality No Abnormality No Abnormality Appearance) (Pt Warm) (Pt Warm) (Pt Warm) -Tenderness on Palpation (Dai-wound Yes No No Skin Appearance) -Ulcer Cleansing Rinsed/ Wound Cleanser Rinsed/ Irrigated with Irrigated with Saline Saline -Foul Odor after Cleansing No No -Anesthetic Used 5% Lidocaine 4% Lidocaine 4% Lidocaine Gel Solution Solution #5 Right buttock cluster -Combined with other wound No -Current Size (cm) - Length 6.5 4 -Current Size (cm) - Width 1.5 3 -Current Size (cm) - Depth 0.1 0.1 -Total Square Cm 9.75 12 -Date of Last Picture (Recall this field) -Photo Taken No -Epithelialization -Tunneling No -Undermining/Tunneling No -Circular Undermining No -Classification - Thickness -Change in Wound Grade/Stage -Exudate Amt Large -Exudate Type Serosanguineous -Wound Margin Distinct, Distinct, Outline Outline Attached Attached -Granulation Amt None Present (0 Large (67-100%) %) -Granulation Quality Hyper- Red granulation -Slough/Fibrin No -Necrosis Amt None Present (0 None Present (0 %) %) -Necrotic Tissue Type -Structure Exposed N/A N/A -Texture (Dai-wound Skin Appearance) Assessed, Assessed, Excoriation Scarring -Moisture (Dai-wound Skin Appearance) Assessed,Dry/ No Abnormality, Scaly Assessed -Color (Dai-wound Skin Appearance) Assessed, No Abnormality, Erythema Assessed -Temperature (Dai-wound Skin No Abnormality No Abnormality Appearance) (Pt Warm) (Pt Warm) -Tenderness on Palpation (Dai-wound Yes No Skin Appearance) -Ulcer Cleansing Rinsed/ Rinsed/ Irrigated with Irrigated with Saline Saline -Foul Odor after Cleansing No -Anesthetic Used 5% Lidocaine 4% Lidocaine Gel Solution 02/16/21 02/23/21 03/02/21 10:35 10:47 10:59 Wound Center Nurse 1 #6 Left buttock cluster -Combined with other wound No No -Current Size (cm) - Length 5.4 4 4 -Current Size (cm) - Width 3 1 3 -Current Size (cm) - Depth 0.1 0.1 0.1 -Total Square Cm 16.2 4 12 -Date of Last Picture (Recall this 02/16/21 field) -Photo Taken Yes No No -Epithelialization None Present None Present -Tunneling No No No -Undermining/Tunneling No No No -Circular Undermining No No No -Classification - Thickness Partial Thickness -Change in Wound Grade/Stage No No -Exudate Amt Medium None Present Medium -Exudate Type Serosanguineous Serosanguineous -Wound Margin Distinct, Distinct, Well Defined, Outline Outline Not Attached Attached Attached -Granulation Amt Large (67-100%) Medium (34-66%) -Granulation Quality Red Red -Slough/Fibrin Yes No Yes -Necrosis Amt Small (1-33%) None Present (0 Small (1-33%) %) -Necrotic Tissue Type Adherent Slough Adherent Slough -Structure Exposed N/A N/A -Texture (Dai-wound Skin Appearance) Assessed, No Abnormality, Assessed, Scarring Assessed Excoriation -Moisture (Dai-wound Skin Appearance) Assessed,Dry/ No Abnormality, No Abnormality, Scaly Assessed Assessed -Color (Dai-wound Skin Appearance) Assessed, No Abnormality, Assessed,Rubor Erythema Assessed -Temperature (Dai-wound Skin No Abnormality No Abnormality No Abnormality Appearance) (Pt Warm) (Pt Warm) (Pt Warm) -Tenderness on Palpation (Dai-wound No No Yes Skin Appearance) -Ulcer Cleansing Rinsed/ Rinsed/ Soap and Water Irrigated with Irrigated with Saline Saline -Foul Odor after Cleansing No No No -Anesthetic Used 5% Lidocaine 4% Lidocaine 4% Lidocaine Gel Solution Solution #5 Right buttock cluster -Combined with other wound No No No -Current Size (cm) - Length 2 2.5 5 -Current Size (cm) - Width 1.1 3.5 4 -Current Size (cm) - Depth 0.1 0.1 0.1 -Total Square Cm 2.2 8.75 20 -Date of Last Picture (Recall this 02/16/21 field) -Photo Taken Yes No No -Epithelialization None Present None Present -Tunneling No No No -Undermining/Tunneling No No No -Circular Undermining No No -Classification - Thickness Partial Thickness -Change in Wound Grade/Stage No -Exudate Amt Medium None Present Small -Exudate Type Serosanguineous Serosanguineous -Wound Margin Distinct, Distinct, Well Defined, Outline Outline Not Attached Attached Attached -Granulation Amt Large (67-100%) None Present (0 %) -Granulation Quality Red N/A -Slough/Fibrin Yes No Yes -Necrosis Amt Small (1-33%) None Present (0 Small (1-33%) %) -Necrotic Tissue Type Adherent Slough Adherent Slough -Structure Exposed N/A N/A -Texture (Dai-wound Skin Appearance) Assessed,Rash No Abnormality, Assessed, Assessed Excoriation -Moisture (Dai-wound Skin Appearance) Assessed,Dry/ No Abnormality, No Abnormality, Scaly Assessed Assessed -Color (Dai-wound Skin Appearance) Assessed, No Abnormality, Assessed,Rubor Erythema Assessed -Temperature (Dai-wound Skin No Abnormality No Abnormality No Abnormality Appearance) (Pt Warm) (Pt Warm) (Pt Warm) -Tenderness on Palpation (Dai-wound No No No Skin Appearance) -Ulcer Cleansing Rinsed/ Rinsed/ Soap and Water Irrigated with Irrigated with Saline Saline -Foul Odor after Cleansing No No No -Anesthetic Used 5% Lidocaine 4% Lidocaine 4% Lidocaine Gel Solution Solution WC - Nurse 2 - General Ulcer CM Notes Start: 02/02/21 09:59 Freq: Status: Active Protocol: Activity Type Activity Date Activity User E-Sign Co-Sign Detail Recorded Client Recorded Date Recorded By Document 02/02/21 10:28 MT [id number] 02/02/21 10:33 MT Document 02/09/21 10:11 MT [id number] 02/09/21 10:20 MT Document 02/16/21 10:52 MW [id number] 02/16/21 10:58 MW Document 02/23/21 11:00 MW [id number] 02/23/21 11:05 MW Document 03/02/21 11:36 MW [id number] 03/02/21 11:45 MW 02/02/21 02/09/21 02/16/21 10:28 10:11 10:52 Wound Center Nurse 2 #6 Left buttock cluster -Time 10:28 10:12 10:53 -Correct Patient Yes Yes Yes -Correct Side, Site, Position Yes Yes Yes -Correct Procedure Yes Yes Yes -Procedure Performed Yes Yes Yes -Type of Procedure Debridement Debridement Debridement -Clinical Debridement Subcutaneous Subcutaneous Epidermis / Dermis -Tissue Removed Subcutaneous Subcutaneous Epidermis -Post Debridement (cm) - Length 2.5 4 5.0 -Post Debridement (cm) - Width 0.3 2 2.0 -Post Debridement (cm) - Depth 0.1 1 0.1 -Total Square (Post) (cm) 0.75 8 10.00 -Area of Debridement (cm) - Length 2.5 4 5.0 -Area of Debridement (cm) - Width 0.3 2 2.0 -Total Square (Area) (cm) 0.75 8 10.00 -Tunneling No No No -Undermining/Tunneling No No No -Circular Undermining No No No -Wound/Ulcer Outcome Not Healed Not Healed Not Healed -Ulcer Cleansing Rinsed/ Rinsed/ Rinsed/ Irrigated with Irrigated with Irrigated with Saline Saline Saline -Foul Odor after Cleansing No No No -Bioengineered Tissue No No No -Bleeding Controlled with Pressure Pressure Pressure -Offloading No No -Treatment Response Procedure Procedure Tolerated Well Tolerated Well -Debridement - Open, 1st 20sq cm Yes -Debridement, Open, ea addt'l 20sq cm 1 or part thereof -Debridement - Subq, 1st 20sq cm Yes Yes #5 Right buttock cluster -Time 10:29 10:12 10:53 -Correct Patient Yes Yes Yes -Correct Side, Site, Position Yes Yes Yes -Correct Procedure Yes Yes Yes -Procedure Performed No No Yes -Type of Procedure Debridement Debridement -Clinical Debridement Subcutaneous Epidermis / Dermis -Tissue Removed Subcutaneous Epidermis -Post Debridement (cm) - Length 5 6.0 -Post Debridement (cm) - Width 4 3.0 -Post Debridement (cm) - Depth 0.1 0.1 -Total Square (Post) (cm) 20 18.00 -Area of Debridement (cm) - Length 5 6.0 -Area of Debridement (cm) - Width 4 3.0 -Total Square (Area) (cm) 20 18.00 -Tunneling No No No -Undermining/Tunneling No No No -Circular Undermining No No No -Wound/Ulcer Outcome Not Healed Not Healed Not Healed -Ulcer Cleansing Rinsed/ Rinsed/ Rinsed/ Irrigated with Irrigated with Irrigated with Saline Saline Saline -Foul Odor after Cleansing No No No -Bioengineered Tissue No No No -Bleeding Controlled with Pressure Pressure Pressure -Offloading No No -Treatment Response Procedure Procedure Procedure Tolerated Well Tolerated Well Tolerated Well -Debridement - Open, 1st 20sq cm No -Debridement - Subq, 1st 20sq cm No Pain Scale: 0-10 Numeric Is Patient Pain Free? Yes Yes 02/23/21 03/02/21 11:00 11:36 Wound Center Nurse 2 #6 Left buttock cluster -Time 11:04 11:36 -Correct Patient Yes Yes -Correct Side, Site, Position Yes Yes -Correct Procedure Yes Yes -Procedure Performed No Yes -Type of Procedure Debridement -Clinical Debridement Epidermis / Dermis -Tissue Removed Epidermis -Post Debridement (cm) - Length 0.1 6.5 -Post Debridement (cm) - Width 0.1 3.0 -Post Debridement (cm) - Depth 0.1 0.1 -Total Square (Post) (cm) 0.01 19.50 -Area of Debridement (cm) - Length 6.5 -Area of Debridement (cm) - Width 3.0 -Total Square (Area) (cm) 19.50 -Tunneling No No -Undermining/Tunneling No No -Circular Undermining No No -Wound/Ulcer Outcome Not Healed Not Healed -Ulcer Cleansing Rinsed/ Irrigated with Saline -Foul Odor after Cleansing No -Bioengineered Tissue No -Bleeding Controlled with Pressure -Offloading No -Treatment Response Procedure Tolerated Well -Debridement - Open, 1st 20sq cm Yes -Debridement, Open, ea addt'l 20sq cm or part thereof -Debridement - Subq, 1st 20sq cm #5 Right buttock cluster -Time 11:04 11:37 -Correct Patient Yes Yes -Correct Side, Site, Position Yes Yes -Correct Procedure Yes Yes -Procedure Performed No Yes -Type of Procedure Debridement -Clinical Debridement Epidermis / Dermis -Tissue Removed Epidermis -Post Debridement (cm) - Length 0.1 7.5 -Post Debridement (cm) - Width 0.1 5.0 -Post Debridement (cm) - Depth 0.1 0.1 -Total Square (Post) (cm) 0.01 37.50 -Area of Debridement (cm) - Length 7.5 -Area of Debridement (cm) - Width 5.0 -Total Square (Area) (cm) 37.50 -Tunneling No No -Undermining/Tunneling No No -Circular Undermining No No -Wound/Ulcer Outcome Not Healed Not Healed -Ulcer Cleansing Rinsed/ Rinsed/ Irrigated with Irrigated with Saline Saline -Foul Odor after Cleansing No No -Bioengineered Tissue No No -Bleeding Controlled with NA Pressure -Offloading No No -Treatment Response Procedure Tolerated Well -Debridement - Open, 1st 20sq cm No -Debridement - Subq, 1st 20sq cm Pain Scale: 0-10 Numeric Is Patient Pain Free? Yes Yes WC - Nurse 3 - General Ulcer D/C NN Start: 02/02/21 09:59 Freq: Status: Active Protocol: Activity Type Activity Date Activity User E-Sign Co-Sign Detail Recorded Client Recorded Date Recorded By Document 02/02/21 10:39 DL [id number] 02/02/21 10:48 DL Document 02/09/21 10:52 AK [id number] 02/09/21 10:54 AK Document 02/13/21 15:38 AK [id number] 02/13/21 15:41 AK Document 02/16/21 11:19 AK [id number] 02/16/21 11:21 AK Document 02/23/21 11:55 KR [id number] 02/23/21 11:56 KR Document 02/27/21 11:11 BMF [id number] 02/27/21 11:24 BMF Document 03/02/21 11:50 AK [id number] 03/02/21 11:54 AK 02/02/21 02/09/21 02/13/21 10:39 10:52 15:38 Wound Care Nurse 3 #6 Left buttock cluster -Ulcer Cleansing Rinsed/ Rinsed/ Rinsed/ Irrigated with Irrigated with Irrigated with Saline Saline Saline -Foul Odor after Cleansing No No No -Negative Pressure Wound Therapy N/A N/A -Primary Dressing Applied Aquacel Extra, Aquacel Extra Aquacel Extra NonAdherent Contact Layer -Other Dressing ABD xeroform -Primary Dressing Covered/Secured with Dry Gauze, Secured with Secured with Secured with Tape Tape Tape -Other Covering abd ABD -Aquacel Extra 1 1 1 #5 Right buttock cluster -Ulcer Cleansing Rinsed/ Rinsed/ Rinsed/ Irrigated with Irrigated with Irrigated with Saline Saline Saline -Foul Odor after Cleansing No No No -Negative Pressure Wound Therapy N/A N/A -Primary Dressing Applied NonAdherent Aquacel Extra Aquacel Extra Contact Layer -Other Dressing xerofrom zeroform -Primary Dressing Covered/Secured with Dry Gauze, Secured with Secured with Secured with Tape Tape Tape -Other Covering ABD ABD -Aquacel Extra 0 0 Treatment Response Procedure Tolerated Well Vital Signs Temperature (97.8 F-99.1 F) 97.1 F L Temperature Source Temporal Pulse Rate (60-100) 70 Pulse Location Monitor Respiratory Rate (12-18) Respiratory rate source Oxygen Delivery Method Blood Pressure (90/60-120/80) 149/75 H Blood Pressure Mean (mm Hg) 99 Source Monitor Position Blood Pressure Location Pain Scale: 0-10 Numeric Is Patient Pain Free? Yes WC - Visit Discharge Discharge Condition Stable Stable Stable Ambulatory Status Ambulatory, Ambulatory, Ambulatory, Crutches Crutches Crutches Transportation Private Auto Private Auto Private Auto Accompanied by Medication Reconcilliation completed & No No provided to patient/care provider Clinical Summary of Care Provided Yes Yes 02/16/21 02/23/21 02/27/21 11:19 11:55 11:11 Wound Care Nurse 3 #6 Left buttock cluster -Ulcer Cleansing Rinsed/ Rinsed/ Irrigated with Irrigated with Saline Saline -Foul Odor after Cleansing No No -Negative Pressure Wound Therapy N/A -Primary Dressing Applied NonAdherent Contact Layer -Other Dressing xeroform ABD xeroform xeroform -Primary Dressing Covered/Secured with Secured with Dry Gauze, Secured with Tape Secured with Tape,Other Tape -Other Covering abd, pt did not bring desetin -Aquacel Extra #5 Right buttock cluster -Ulcer Cleansing Rinsed/ Rinsed/ Irrigated with Irrigated with Saline Saline -Foul Odor after Cleansing No No -Negative Pressure Wound Therapy N/A -Primary Dressing Applied NonAdherent Contact Layer -Other Dressing Xeroform ABD xeroform xeroform -Primary Dressing Covered/Secured with Secured with Dry Gauze, Secured with Tape Secured with Tape,Other Tape -Other Covering abd, pt did not bring desetin -Aquacel Extra Treatment Response Procedure Tolerated Well Vital Signs Temperature (97.8 F-99.1 F) 98 F Temperature Source Temporal Pulse Rate (60-100) 61 Pulse Location Monitor Respiratory Rate (12-18) 16 Respiratory rate source Observation Oxygen Delivery Method Room Air Blood Pressure (90/60-120/80) 156/71 H Blood Pressure Mean (mm Hg) 99 Source Monitor Position Sitting Blood Pressure Location Right Arm Pain Scale: 0-10 Numeric Is Patient Pain Free? Yes WC - Visit Discharge Discharge Condition Stable Stable Stable Ambulatory Status Ambulatory, Crutches Ambulatory, Crutches Crutches Transportation Private Auto Private Auto Accompanied by self Medication Reconcilliation completed & No provided to patient/care provider Clinical Summary of Care Provided Yes 03/02/21 11:50 Wound Care Nurse 3 #6 Left buttock cluster -Ulcer Cleansing Rinsed/ Irrigated with Saline -Foul Odor after Cleansing No -Negative Pressure Wound Therapy N/A -Primary Dressing Applied Aquacel Extra, NonAdherent Contact Layer -Other Dressing abd -Primary Dressing Covered/Secured with Secured with Tape -Other Covering -Aquacel Extra 1 #5 Right buttock cluster -Ulcer Cleansing Rinsed/ Irrigated with Saline -Foul Odor after Cleansing No -Negative Pressure Wound Therapy N/A -Primary Dressing Applied Aquacel Extra -Other Dressing abd -Primary Dressing Covered/Secured with Secured with Tape -Other Covering -Aquacel Extra 0 Treatment Response Vital Signs Temperature (97.8 F-99.1 F) Temperature Source Pulse Rate (60-100) Pulse Location Respiratory Rate (12-18) Respiratory rate source Oxygen Delivery Method Blood Pressure (90/60-120/80) Blood Pressure Mean (mm Hg) Source Position Blood Pressure Location Pain Scale: 0-10 Numeric Is Patient Pain Free? WC - Visit Discharge Discharge Condition Stable Ambulatory Status Ambulatory, Crutches Transportation Private Auto Accompanied by Medication Reconcilliation completed & No provided to patient/care provider Clinical Summary of Care Provided Yes Additional Wound Wound debrided: Right buttock cluster Type of Debridement: Selective debridement Anesthesia Used: 4% Lidocaine Solution Depth: Down to and including healthy tissue Percentage of wound debrided: 100 Tissue Removed: Devitalized tissue Severity: Limited To Skin Breakdown Amount of bleeding with debridement: Mild Bleeding Controlled with: Pressure Patient tolerated procedure: Patient tolerated procedure well Assessment/Plan Assessment/Plan (1) Decubitus ulcer of right buttock, stage 3: CODE(S): L89.313 - Pressure ulcer of right buttock, stage 3 (2) Decubitus ulcer of left buttock, stage 3: CODE(S): L89.323 - Pressure ulcer of left buttock, stage 3 (3) Type II diabetes mellitus: CODE(S): E11.9 - Type 2 diabetes mellitus without complications PLAN: Ulcers remain superficial. Debridement done as documented above, procedure was well-tolerated. Discontinue Desitin use for now. Aquacel extra to open areas with Adaptic over top. Change daily to twice daily depending on drainage or soiling. Consistent use of gel cushion and hospital bed very strongly recommended. Optimal diabetes control also very strongly recommended. Optimal protein intake, vitamin C and zinc also discussed. His questions were answered and he was advised to call with any further questions or concerns. Follow-up on Saturday for nurse visit due to difficulty with dressing himself and with me in a week. This note was generated with [employer] software. It may contain incorrect words, spelling, and punctuation that were not noted in checking the note before signing.
== END 2021-03-02 23:59 ==
LOC: WC 10:30
PROVIDERS: PCP Family Medicine; Visit Provider Internal Medicine
DX: L89.313 Pressure ulcer of right buttock, stage 3 (principal); L89.323 Pressure ulcer of left buttock, stage 3; E11.9 Type 2 diabetes mellitus without complications; E66.3 Overweight; Z68.29 Body mass index [BMI] 29.0-29.9, adult; Z79.01 Long term (current) use of anticoagulants; Z79.84 Long term (current) use of oral hypoglycemic drugs; Z79.899 Other long term (current) drug therapy
CPT/HCPCS: 11042; 97597; 97598; 99212; 99213; G0463

== ENCOUNTER 2021-03-03 18:07 | Emergency (ER) | payer MEDICARE, SELFPAY ==
[2021-03-03 18:09] VITALS: BP 145/86; PULSE 70; RESP 16; TEMP 36.8; O2SAT 99; BMI 28.7
[2021-03-03 18:13] VITALS: O2SAT 99
--- NOTE | 2021-03-03 18:44 | RAD_ITS ---
STUDY: X-RAY CHEST REASON FOR EXAM: Male, 75 years old. CHEST PAIN left rib cage injury TECHNIQUE: XR Chest 2 Views COMPARISON: 11/28/2012 FINDINGS: There is no demonstrated pleural abnormality. Normal size heart. Normal mediastinum and sadaf. Normal visualized pulmonary arteries. There is atherosclerotic calcification of the aortic arch with tortuosity. There are diffuse degenerative changes of the visualized thoracic spine. There is degenerative osteoarthritis of the bilateral shoulders. There is no demonstrated abnormality of the visualized soft tissue structures of the upper abdomen. RAD/Chest PA and Lateral IMPRESSION: There are no acute findings. Electronically Signed: Sha Guevara MD at 19:29 EDT , Service support ,
--- NOTE | 2021-03-03 18:45 | EX.ED.GENINJ ---
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 Patient states he was cleaning up the floor at his home he slipped on his crutches fell injuring his left rib cage and hitting the back of his head. Denies LOC. Denies any neck pain or other complaints. Prior similar symptoms: Yes Recent Illness/Hospitalization: No PFSH PFSH Medical History Decubitus ulcer of left buttock, stage 3 Decubitus ulcer of right buttock, stage 3 Home Medications lisinopril [Zestril] 20 mg PO QHS 11/22/17 [History Last Taken Unknown] metoprolol tartrate 50 mg PO BID 11/22/17 [History Last Taken Unknown] Liraglutide [Victoza 2-Reilly] 0.6 mg SQ DAILY 01/29/19 [History Last Taken Unknown] furosemide 40 mg PO BID 01/29/19 [History Last Taken Unknown] lovastatin 40 mg PO DAILY 01/29/19 [History Last Taken Unknown] metformin 1,000 mg PO BID 01/29/19 [History Last Taken Unknown] warfarin 3 mg PO MO 01/29/19 [History Last Taken Unknown] warfarin 5 mg PO SUTUWETHFR 01/29/19 [History Last Taken Unknown] glipizide 25 mg PO BIDAC 06/11/19 [History Last Taken Unknown] hydrocortisone 1 applic TOPICAL TID PRN PRN 06/11/19 [History Last Taken Unknown] nystatin 15 gm TP BID PRN PRN 06/11/19 [History Last Taken Unknown] amlodipine 5 mg PO DAILY 01/12/21 [History Last Taken Unknown] cyclobenzaprine 10 mg PO TID PRN 01/12/21 [History Last Taken Unknown] meclizine 25 mg PO 4X/DAY 01/12/21 [History Last Taken Unknown] Allergy/AdvReac Type Severity Reaction Status Date / Time amoxicillin Allergy Rash Verified 03/03/21 18:15 Social History Smoking Status: Never smoker ROS ROS ED ROS Narrative Denies recent illness. Loose stools today. Review of Systems ROS Unobtainable: Denies due to encephalopathy Constitutional Constitutional ED: Denies chills or fever(s) Eyes Eyes: Denies change in vision ENT ENT ED: Denies ear pain or sore throat Cardiovascular Cardiovascular: Denies chest pain Respiratory/Chest Respiratory/Chest: Denies cough or dyspnea Gastrointestinal Gastrointestinal: Reports diarrhea; Denies abdominal pain, nausea or vomiting Genitourinary Genitourinary ED: Denies dysuria Musculoskeletal Musculoskeletal: Denies myalgias Integumentary Denies rash Neurologic Neurologic: Denies headache(s) Psychiatric Psychiatric: Denies depression Endocrine Endocrinology: Denies polyuria Hematologic/Lymphatic Hematologic/Lymphatic: Denies easy bruising Allergic/Immunologic Allergic/Immunologic ED: Denies urticaria EXAM Physical Exam Narrative Exam Narrative: Male no acute distress vital signs stable afebrile. Pulse is 99 % room air no signs hypoxia. HEENT exam posterior scalp he does have a quarter sized hematoma. No laceration. Mildly tender. Pupils round reactive light no facial trauma. C-spine nontender trachea midline. Lungs clear to auscultation bilaterally. Left lower lateral posterior rib centrifugal casting machine tender. No ecchymosis or bruising no subcu air crepitance. Heart regular rhythm no murmur. Anterior chest were nontender. Abdomen soft obese nontender normal bowel sounds no peritoneal signs. Pelvic girdle intact. Left lower extremity amputation. Right lower extremity nontender normal range of motion. No deformity. Upper extremities are nontender. Neurologically awake and alert with no focal motor deficits. Acting appropriately. Const Vital Signs: 03/03/21 18:09 03/03/21 18:13 Temperature 98.2 F Temperature Source Oral Pulse Rate 70 Respiratory Rate 16 Respiratory Effort Normal Non-Labored Respiratory Depth Normal Respiratory Pattern Normal Blood Pressure 145/86 H Blood Pressure Mean 105 Pulse Ox 99 99 Oxygen Delivery Method Room Air Room Air Positive well nourished, well developed and obese; Negative for cachectic, contractures or unkempt General Appearance ED: well developed and NAD; Negative for unkempt, cachectic or contractures Nutritional Appearance: obese; Negative for cachectic HEENT HEENT Narrative: Contusion posterior scalp. Tender. No laceration. trauma and tenderness; Negative for atraumatic Eyes PERRL Neck full ROM General: Negative for tenderness Chest Wall inspection of chest normal and palpation of chest normal Chest Narrative: Left posterior lateral ribs tender patient. No crepitance. No subcu air. Currently no bruising. Resp normal respiratory effort and clear to auscultation bilaterally Auscultation: Negative for rales, rhonchi or wheezes Cardio regular rhythm, S1 normal heart sound, S2 normal heart sound and no murmurs Rate: regular rate GI normal to inspection, nondistended, normoactive bowel sounds, non-tender, non-distended and no masses Inspection: Negative for abdominal distention Auscultation: normoactive bowel sounds Palpation: soft; Negative for tender, guarding or rebound tenderness present Back/Spine normal to inspection and no thoracic nor lumbar tenderness Back/Spine Narrative: Tender in his left posterior lateral ribs. General Back: Negative for CVA tenderness Thoracic Spine / Upper Back: Negative for thoracic spinal tenderness Extremity normal to inspection and full ROM General Extremety ED: Negative for deformity, edema or tenderness General Extremity: Negative for deformity or edema Neuro oriented x3, moves all extremities and no focal motor deficits Sensorium / Orientation: alert, oriented to person, oriented to place and oriented to time; Negative for orientation impaired, lethargic or stuporous Motor Exam: strength 5/5 throughout Psych mental status grossly normal Appearance: Negative for unkempt Skin no wounds MDM MDM MDM Narrative Medical decision making narrative: 75-year-old male on Coumadin slipped and fell on his crutches due to a wet spot on the floor hit his head and left posterior neck stage. He has scan, INR and chest x-ray pending. Repeat exam patient is doing well at 10 PM will be discharged home. Lab Data Attestation: I reviewed the patient's lab results. Lab results narrative: INR 2.0. Labs: Laboratory Results - last 24 hr 03/03/21 19:00 PT 21.7 H INR 2.0 Radiography Diagnostic Testing: Radiology Impression Chest X-Ray 03/03/21 18:44 IMPRESSION: There are no acute findings. Electronically Signed: Sha Guevara MD at 19:29 EDT , Service support , Brain CT 03/03/21 19:06 IMPRESSION: There are no acute intracranial findings. Electronically Signed: Sha Guevara MD at 19:23 EDT , Service support , Chest x-ray single view no acute abnormality. No obvious rib fractures. CAT scans read by the radiologist and reviewed by me showed no acute abnormality. Discharge Plan Triage Chief Complaint: Fall ED Provider: Miguel Angel Ram Dx/Rx/DC Orders Clinical Impression: Fall, Head injury, Contusion of rib Instructions: ED Head Injury (Adult), ED Rib Contusion or Minor Fracture Prescriptions: No Action lisinopril [Zestril] 20 MG tablet 20 mg PO QHS RF: 0 metoprolol tartrate 50 MG tablet 50 mg PO BID RF: 0 lovastatin 40 MG tablet 40 mg PO DAILY RF: 0 warfarin 3 MG tablet 3 mg PO MO RF: 0 metformin 1,000 MG tablet 1,000 mg PO BID RF: 0 warfarin 5 MG tablet 5 mg PO SUTUWETHFR RF: 0 furosemide 20 MG tablet 40 mg PO BID RF: 0 Liraglutide [Victoza 2-Reilly] 0.6 MG/0.1 ML Ml 0.6 mg SQ DAILY RF: 0 glipizide 10 MG tablet 25 mg PO BIDAC RF: 0 nystatin 15 GM cream 15 gm TP BID PRN PRN (Reason: Rash/Topical Irritation) RF: 0 hydrocortisone 1 APPLIC cream 1 applic topical TID PRN PRN (Reason: Rash/Topical Irritation) RF: 0 cyclobenzaprine 10 mg Tablet 10 mg PO TID PRN (Reason: Muscle Pain) RF: 0 amlodipine 5 mg Tablet 5 mg PO DAILY RF: 0 meclizine 25 mg Tablet 25 mg PO 4X/DAY RF: 0 Primary Care Provider: Eder Lee Referrals: Eder Lee MD [Primary Care Provider] - 1 Week if not improving Activity Restrictions/Additional Instructions: Ice all sore areas including your back your head injury rib cage. Tylenol for pain. Follow-up with your doctor if not improving. Both your CAT scan was unremarkable and your chest x-ray showed no obvious rib fractures. You could have a small cracks in your ribs that were not picked up on the x-ray. Use a pillow to brace the rib cage. Disposition Disposition: Home, Self Care
--- NOTE | 2021-03-03 19:06 | CT_ITS ---
STUDY: CT BRAIN WITHOUT CONTRAST REASON FOR EXAM: Male, 75 years old. HEADACHE head trauma TECHNIQUE: Transaxial CT imaging of the brain was performed without administration of intravenous contrast material. Individualized dose optimization techniques were used for this CT. COMPARISON: 11.22.17 FINDINGS: Normal soft tissues. Normal calvarium. There is moderate cerebral atrophy with widening of the extra-axial spaces and ventricular dilatation. There are areas of decreased attenuation within the white matter tracts of the supratentorial brain, consistent with microvascular disease changes. Normal basal ganglia and thalami. Normal brainstem. Normal cerebellum. There is no intracranial hemorrhage. There are no findings of an acute ischemic infarction. Normal visualized paranasal sinuses. ASPECTS 10 CT/Brain/Head without Contrast IMPRESSION: There are no acute intracranial findings. Electronically Signed: Sha Guevara MD at 19:23 EDT , Service support ,
[2021-03-03 19:41] LABS: Prothrombin Time (Protime)PT. 21.7 SECONDS (11.7-14.9)
[2021-03-03 22:07] VITALS: BP 124/77; PULSE 82; RESP 16; O2SAT 97
[2021-03-03] MEDS: HYDROcodone Bitartrate/Apap 5/325 Tablet PO (22:13)
[2021-03-03 22:14] VITALS: BP 148/81; PULSE 73; RESP 16; O2SAT 98
== END 2021-03-03 22:28 | disposition home or self-care (01) ==
PROVIDERS: Emergency Provider Emergency Medicine; PCP Family Medicine
DX: S00.03XA Contusion of scalp, initial encounter (principal); S20.219A Contusion of unspecified front wall of thorax, initial encounter; W01.0XXA Fall on same level from slipping, tripping and stumbling without subsequent striking against object, initial encounter; Y93.9 Activity, unspecified; Y92.009 Unspecified place in unspecified non-institutional (private) residence as the place of occurrence of the external cause; E11.9 Type 2 diabetes mellitus without complications; I48.91 Unspecified atrial fibrillation; Z89.612 Acquired absence of left leg above knee; Z86.718 Personal history of other venous thrombosis and embolism; Z86.711 Personal history of pulmonary embolism; Z79.01 Long term (current) use of anticoagulants; Z79.84 Long term (current) use of oral hypoglycemic drugs; Z79.899 Other long term (current) drug therapy
CPT/HCPCS: 36415; 70450; 71046; 85610; 99284

== ENCOUNTER 2021-03-30 10:00 | Outpatient (RCR) | payer MEDICARE, SELFPAY ==
[2021-03-03 00:32] VITALS: BP 155/80; PULSE 65; RESP 16; TEMP 36.8; BMI 29.7
[2021-03-16 11:29] VITALS: BP 145/79; PULSE 64; TEMP 36.3; BMI 29.7
--- NOTE | 2021-03-16 13:50 | PCM.WC.PN ---
History of Present Illness Date of Service: 03/16/21 Chief Complaint: Recurrent buttock ulcers History of Wound: Mr. 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 Most recent episode said to have started months ago . Has been applying antibiotic and hemorrhoid ointment without significant improvement. Sits and sleeps in his lift chair. Also history of diabetes mellitus type 2 and his most recent A1c was said to be around 8. Fasting blood sugar this morning at 303. He states that he is working with his PCP to get this under better control. History of AKA. He feels well and denies other concerns at this time. Subjective Subjective No significant change. Patient has been applying different things including hemorrhoid cream to his buttocks because he states that it helps it feel better. He states that he sits a lot because that is all he can do. Objective Data Objective Data Vital Signs: Vital Signs Temp Pulse Resp BP 97.4 F L 64 16 145/79 H 03/16/21 11:29 03/16/21 11:29 03/03/21 00:32 03/16/21 11:29 Body Mass Index (BMI) 29.7 Charges/Coding Visit Charges Office Visits / Consults: [id number] OV L3 Est Physical Exam Const alert, oriented x3 and no apparent distress General Appearance: cooperative and comfortable HEENT normocephalic and head/scalp atraumatic Eyes EOMs intact bilaterally Neck full ROM General: normal visual inspection Resp normal respiratory effort Effort and Inspection: able to speak in complete sentences Skin Wounds: wounds noted Neuro oriented x3, CN's II-XII intact bilaterally and moves all extremities Psych mental status grossly normal Appearance: grossly normal Attitude: calm Speech: normal speech Debridement Note Debridement Note Post-Debridement Measurements and Additional Note: Post-Debridement Measurements/Treatment ANIA - Nurse 1 - General Ulcer Assessment Start: 03/16/21 11:28 Freq: Status: Active Protocol: FABY Activity Type Activity Date Activity User E-Sign Co-Sign Detail Recorded Client Recorded Date Recorded By Document 03/16/21 11:29 BIBI [id number] 03/16/21 11:41 BIBI 03/16/21 11:29 - Today's Visit Information Type of service 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 Any new allergies or adverse reactions No Had a fall/change in ADL's that may Yes increase risk of falls Signs or symptoms of abuse and/or No neglect since last visit Have you been in the hospital since your No last visit? Has dressing in place as prescribed Yes Has compression in place as prescribed N/A Has offloadiing in place as prescribed N/A Experienced any changes in pain level or No management Left Footwear Regular Shoe Right Footwear Regular Shoe Pain Scale: 0-10 Numeric Is Patient Pain Free? Yes WC - Nurse 1 - General Ulcer Measurement Start: 03/16/21 11:28 Freq: Status: Active Protocol: Activity Type Activity Date Activity User E-Sign Co-Sign Detail Recorded Client Recorded Date Recorded By Document 03/16/21 11:29 BIBI [id number] 03/16/21 11:41 BIBI 03/16/21 11:29 Wound Center Nurse 1 #6 Left buttock cluster -Current Size (cm) - Length 6 -Current Size (cm) - Width 3 -Current Size (cm) - Depth 0.1 -Total Square Cm 18 -Exudate Amt Small -Exudate Type Serosanguineous -Wound Margin Distinct, Outline Attached -Granulation Amt Medium (34-66%) -Granulation Quality Red -Texture (Dai-wound Skin Appearance) Assessed, Scarring -Moisture (Dai-wound Skin Appearance) Assessed,Dry/ Scaly -Color (Dai-wound Skin Appearance) No Abnormality, Assessed -Temperature (Dai-wound Skin No Abnormality Appearance) (Pt Warm) -Tenderness on Palpation (Dai-wound No Skin Appearance) -Ulcer Cleansing Soap and Water -Foul Odor after Cleansing No -Anesthetic Used 5% Lidocaine Gel #5 Right buttock cluster -Current Size (cm) - Length 6 -Current Size (cm) - Width 3 -Current Size (cm) - Depth 0.1 -Total Square Cm 18 -Exudate Amt Small -Exudate Type Serosanguineous -Wound Margin Distinct, Outline Attached -Granulation Amt Medium (34-66%) -Granulation Quality Red -Texture (Dai-wound Skin Appearance) Assessed, Scarring -Moisture (Dai-wound Skin Appearance) Assessed,Dry/ Scaly -Color (Dai-wound Skin Appearance) No Abnormality, Assessed -Temperature (Dai-wound Skin No Abnormality Appearance) (Pt Warm) -Tenderness on Palpation (Dai-wound No Skin Appearance) -Ulcer Cleansing Soap and Water -Anesthetic Used 5% Lidocaine Gel WC - Nurse 2 - General Ulcer CM Notes Start: 03/16/21 11:28 Freq: Status: Active Protocol: Activity Type Activity Date Activity User E-Sign Co-Sign Detail Recorded Client Recorded Date Recorded By Document 03/16/21 11:59 MW [id number] 03/16/21 12:07 MW 03/16/21 11:59 Wound Center Nurse 2 #6 Left buttock cluster -Time 12:02 -Correct Patient Yes -Correct Side, Site, Position Yes -Correct Procedure Yes -Procedure Performed No -Post Debridement (cm) - Length 6.0 -Post Debridement (cm) - Width 3.0 -Post Debridement (cm) - Depth 0.1 -Total Square (Post) (cm) 18.00 -Tunneling No -Undermining/Tunneling No -Circular Undermining No -Wound/Ulcer Outcome Not Healed #5 Right buttock cluster -Time 12:02 -Correct Patient Yes -Correct Side, Site, Position Yes -Correct Procedure Yes -Procedure Performed No -Post Debridement (cm) - Length 6.0 -Post Debridement (cm) - Width 3.0 -Post Debridement (cm) - Depth 0.1 -Total Square (Post) (cm) 18.00 -Tunneling No -Undermining/Tunneling No -Circular Undermining No -Wound/Ulcer Outcome Not Healed -Ulcer Cleansing Rinsed/ Irrigated with Saline -Foul Odor after Cleansing No -Bioengineered Tissue No -Bleeding Controlled with NA -Offloading No -Treatment Response Procedure Tolerated Well Pain Scale: 0-10 Numeric Is Patient Pain Free? Yes WC - Nurse 3 - General Ulcer D/C NN Start: 03/16/21 11:28 Freq: Status: Active Protocol: Activity Type Activity Date Activity User E-Sign Co-Sign Detail Recorded Client Recorded Date Recorded By Document 03/16/21 12:14 BIBI [id number] 03/16/21 12:15 BIBI 03/16/21 12:14 Wound Care Nurse 3 #6 Left buttock cluster -Primary Dressing Applied Aquacel Extra -Other Dressing abd -Primary Dressing Covered/Secured with Secured with Tape -Aquacel Extra 2 #5 Right buttock cluster -Other Dressing abd -Primary Dressing Covered/Secured with Secured with Tape Pain Scale: 0-10 Numeric Is Patient Pain Free? Yes WC - Visit Discharge Discharge Condition Stable Ambulatory Status Ambulatory, Crutches Transportation Private Auto Assessment/Plan Assessment/Plan (1) Decubitus ulcer of right buttock, stage 3: CODE(S): L89.313 - Pressure ulcer of right buttock, stage 3 (2) Decubitus ulcer of left buttock, stage 3: CODE(S): L89.323 - Pressure ulcer of left buttock, stage 3 (3) Type II diabetes mellitus: CODE(S): E11.9 - Type 2 diabetes mellitus without complications PLAN: No change. Has not been here in about 2 weeks. Not doing dressings as discussed/recommended. As above, sitting a lot as well. Continue Aquacel extra to open areas with Adaptic over top. Change 3-4 times daily depending on drainage/soilage. Consistent use of gel cushion and hospital bed very strongly recommended. Offloading again discussed. Optimal diabetes control also very strongly recommended. Optimal protein intake, vitamin C and zinc also discussed. His questions were answered and he was advised to call with any further questions or concerns. Order for home health signed. Patient is unable to care for himself adequately. This note was generated with [employer] software. It may contain incorrect words, spelling, and punctuation that were not noted in checking the note before signing.
[2021-03-23 09:30] VITALS: BP 140/69; PULSE 75; TEMP 36.9; BMI 29.7
--- NOTE | 2021-03-23 11:17 | PCM.WC.PN ---
History of Present Illness Date of Service: 03/23/21 Chief Complaint: Recurrent buttock ulcers History of Wound: Mr. 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 Most recent episode said to have started months ago . Has been applying antibiotic and hemorrhoid ointment without significant improvement. Sits and sleeps in his lift chair. Also history of diabetes mellitus type 2 and his most recent A1c was said to be around 8. Fasting blood sugar this morning at 303. He states that he is working with his PCP to get this under better control. History of AKA. He feels well and denies other concerns at this time. Subjective Subjective No significant change, still sleeps in the recliner. Also sits a lot. Objective Data Objective Data Vital Signs: Vital Signs Temp Pulse Resp BP 98.5 F 75 16 140/69 H 03/23/21 09:30 03/23/21 09:30 03/03/21 00:32 03/23/21 09:30 Body Mass Index (BMI) 29.7 Charges/Coding Procedures Integumentary 111xxx-113xx: [id number] [place] subq tissue 20 sq cm/< Physical Exam Const alert, oriented x3 and no apparent distress General Appearance: cooperative and comfortable HEENT normocephalic and head/scalp atraumatic Eyes EOMs intact bilaterally Neck full ROM General: normal visual inspection Resp normal respiratory effort Effort and Inspection: able to speak in complete sentences Skin Wounds: wounds noted Neuro oriented x3, CN's II-XII intact bilaterally and moves all extremities Psych mental status grossly normal Appearance: grossly normal Attitude: calm Speech: normal speech Debridement Note Debridement Note Wound debrided: Right buttock cluster Type of Debridement: Excisional debridement Anesthesia Used: 4% Lidocaine Solution Depth: Down to and including healthy tissue Percentage of wound debrided: 100 Instrument Used: 5mm curette Tissue Removed: Slough and devitalized tissue Severity: Fat Layer Exposed Amount of bleeding with debridement: Mild Bleeding Controlled with: Pressure Patient tolerated procedure: Patient tolerated procedure well Post-Debridement Measurements and Additional Note: Post-Debridement Measurements/Treatment ANIA - Nurse 1 - General Ulcer Assessment Start: 03/16/21 11:28 Freq: Status: Active Protocol: FABY Activity Type Activity Date Activity User E-Sign Co-Sign Detail Recorded Client Recorded Date Recorded By Document 10/14/21 11:29 KR [id number] 03/16/21 11:41 KR Document 03/23/21 09:30 KR [id number] 03/23/21 09:35 KR 03/16/21 03/23/21 11:29 09:30 - Today's Visit Information Type of service Follow-up Visit Follow-up Visit (Physician/TERRITORY SERVICE REPRESENTATIVE (Physician/TERRITORY SERVICE REPRESENTATIVE ) ) Arrival Mode Ambulatory Crutches Patient Identification Verified (Name & Yes Yes ) Height and Weight Body Mass Index (BMI) 29.7 29.7 BMI Classification Overweight Overweight Vital Signs Temperature (97.8 F-99.1 F) 97.4 F L 98.5 F Temperature Source Temporal Temporal Pulse Rate (60-100) 64 75 Pulse Location Monitor Monitor Blood Pressure (90/60-120/80) 145/79 H 140/69 H Blood Pressure Mean (mm Hg) 101 92 Source Monitor Monitor Position Semi-Fowlers Semi-Fowlers Blood Pressure Location Right Arm Right Arm History Since Last Visit- (Skip if this is Patient's initial visit) Have you changed medications since your No No last visit? Any new allergies or adverse reactions No No Had a fall/change in ADL's that may Yes No increase risk of falls Signs or symptoms of abuse and/or No No neglect since last visit Have you been in the hospital since your No No last visit? Has dressing in place as prescribed Yes Yes Has compression in place as prescribed N/A N/A Has offloadiing in place as prescribed N/A N/A Experienced any changes in pain level or No No management Left Footwear Regular Shoe Regular Shoe Right Footwear Regular Shoe Regular Shoe Pain Scale: 0-10 Numeric Is Patient Pain Free? Yes Yes - Nurse 1 - General Ulcer Measurement Start: 03/16/21 11:28 Freq: Status: Active Protocol: Activity Type Activity Date Activity User E-Sign Co-Sign Detail Recorded Client Recorded Date Recorded By Document 03/16/21 11:29 KR [id number] 03/16/21 11:41 KR Document 03/23/21 09:30 KR [id number] 03/23/21 09:35 KR 03/16/21 03/23/21 11:29 09:30 Wound Center Nurse 1 #6 Left buttock cluster -Current Size (cm) - Length 6 3.5 -Current Size (cm) - Width 3 1.6 -Current Size (cm) - Depth 0.1 0.1 -Total Square Cm 18 5.60 -Exudate Amt Small Small -Exudate Type Serosanguineous Serosanguineous -Wound Margin Distinct, Distinct, Outline Outline Attached Attached -Granulation Amt Medium (34-66%) Medium (34-66%) -Granulation Quality Red Red -Slough/Fibrin No -Necrosis Amt None Present (0 %) -Texture (Dai-wound Skin Appearance) Assessed, Assessed, Scarring Scarring -Moisture (Dai-wound Skin Appearance) Assessed,Dry/ Assessed,Dry/ Scaly Scaly -Color (Dai-wound Skin Appearance) No Abnormality, No Abnormality, Assessed Assessed -Temperature (Dai-wound Skin No Abnormality No Abnormality Appearance) (Pt Warm) (Pt Warm) -Tenderness on Palpation (Dai-wound No No Skin Appearance) -Ulcer Cleansing Soap and Water Rinsed/ Irrigated with Saline -Foul Odor after Cleansing No No -Anesthetic Used 5% Lidocaine 5% Lidocaine Gel Gel #5 Right buttock cluster -Current Size (cm) - Length 6 6.5 -Current Size (cm) - Width 3 3 -Current Size (cm) - Depth 0.1 0.1 -Total Square Cm 18 19.5 -Exudate Amt Small Small -Exudate Type Serosanguineous Serosanguineous -Wound Margin Distinct, Distinct, Outline Outline Attached Attached -Granulation Amt Medium (34-66%) Medium (34-66%) -Granulation Quality Red Red -Necrosis Amt None Present (0 %) -Texture (Dai-wound Skin Appearance) Assessed, Assessed, Scarring Scarring -Moisture (Dai-wound Skin Appearance) Assessed,Dry/ Assessed,Dry/ Scaly Scaly -Color (Dai-wound Skin Appearance) No Abnormality, No Abnormality, Assessed Assessed -Temperature (Dai-wound Skin No Abnormality No Abnormality Appearance) (Pt Warm) (Pt Warm) -Tenderness on Palpation (Dai-wound No No Skin Appearance) -Ulcer Cleansing Soap and Water Rinsed/ Irrigated with Saline -Foul Odor after Cleansing No -Anesthetic Used 5% Lidocaine 5% Lidocaine Gel Gel WC - Nurse 2 - General Ulcer CM Notes Start: 03/16/21 11:28 Freq: Status: Active Protocol: Activity Type Activity Date Activity User E-Sign Co-Sign Detail Recorded Client Recorded Date Recorded By Document 03/16/21 11:59 MW [id number] 03/16/21 12:07 MW Document 03/23/21 09:59 MW [id number] 03/23/21 10:03 MW 03/16/21 03/23/21 11:59 09:59 Wound Center Nurse 2 #6 Left buttock cluster -Time 12:02 09:59 -Correct Patient Yes Yes -Correct Side, Site, Position Yes Yes -Correct Procedure Yes Yes -Procedure Performed No Yes -Type of Procedure Debridement -Clinical Debridement Subcutaneous -Tissue Removed Subcutaneous -Post Debridement (cm) - Length 6.0 3.5 -Post Debridement (cm) - Width 3.0 1.0 -Post Debridement (cm) - Depth 0.1 0.1 -Total Square (Post) (cm) 18.00 3.50 -Area of Debridement (cm) - Length 3.5 -Area of Debridement (cm) - Width 1.0 -Total Square (Area) (cm) 3.50 -Tunneling No No -Undermining/Tunneling No No -Circular Undermining No No -Wound/Ulcer Outcome Not Healed Not Healed -Ulcer Cleansing Rinsed/ Irrigated with Saline -Foul Odor after Cleansing No -Bioengineered Tissue No -Bleeding Controlled with Pressure -Offloading No -Treatment Response Procedure Tolerated Well -Debridement - Subq, 1st 20sq cm Yes -Debridement, SubQ, ea addt'l 20sq cm 1 or part thereof #5 Right buttock cluster -Time 12:02 10:01 -Correct Patient Yes Yes -Correct Side, Site, Position Yes Yes -Correct Procedure Yes Yes -Procedure Performed No Yes -Type of Procedure Debridement -Clinical Debridement Subcutaneous -Tissue Removed Subcutaneous -Post Debridement (cm) - Length 6.0 7.5 -Post Debridement (cm) - Width 3.0 4.0 -Post Debridement (cm) - Depth 0.1 0.1 -Total Square (Post) (cm) 18.00 30.00 -Area of Debridement (cm) - Length 7.5 -Area of Debridement (cm) - Width 4.0 -Total Square (Area) (cm) 30.00 -Tunneling No No -Undermining/Tunneling No No -Circular Undermining No No -Wound/Ulcer Outcome Not Healed Not Healed -Ulcer Cleansing Rinsed/ Rinsed/ Irrigated with Irrigated with Saline Saline -Foul Odor after Cleansing No No -Bioengineered Tissue No No -Bleeding Controlled with NA Pressure -Offloading No No -Treatment Response Procedure Procedure Tolerated Well Tolerated Well -Debridement - Subq, 1st 20sq cm No Pain Scale: 0-10 Numeric Is Patient Pain Free? Yes Yes - Nurse 3 - General Ulcer D/C NN Start: 03/16/21 11:28 Freq: Status: Active Protocol: Activity Type Activity Date Activity User E-Sign Co-Sign Detail Recorded Client Recorded Date Recorded By Document 03/16/21 12:14 KR [id number] 03/16/21 12:15 KR Document 03/23/21 10:13 DL [id number] 03/23/21 10:14 DL 03/16/21 03/23/21 12:14 10:13 Wound Care Nurse 3 #6 Left buttock cluster -Ulcer Cleansing Rinsed/ Irrigated with Saline -Foul Odor after Cleansing No -Primary Dressing Applied Aquacel Extra Aquacel Extra, NonAdherent Contact Layer -Other Dressing abd -Primary Dressing Covered/Secured with Secured with Dry Gauze, Tape Secured with Tape -Aquacel Extra 2 1 #5 Right buttock cluster -Ulcer Cleansing Rinsed/ Irrigated with Saline -Foul Odor after Cleansing No -Primary Dressing Applied NonAdherent Contact Layer -Other Dressing abd aqaucel Extra -Primary Dressing Covered/Secured with Secured with Dry Gauze, Tape Secured with Tape Treatment Response Procedure Tolerated Well Pain Scale: 0-10 Numeric Is Patient Pain Free? Yes Yes - Visit Discharge Discharge Condition Stable Stable Ambulatory Status Ambulatory, Ambulatory Crutches Transportation Private Auto Private Auto Additional Wound Wound debrided: Left buttock cluster Type of Debridement: Excisional debridement Anesthesia Used: 4% Lidocaine Solution Depth: Down to and including healthy tissue and in the subcutaneous layer Percentage of wound debrided: 100 Instrument Used: 5mm curette Tissue Removed: Slough and devitalized tissue Severity: Fat Layer Exposed Amount of bleeding with debridement: Mild Bleeding Controlled with: Pressure Patient tolerated procedure: Patient tolerated procedure well Assessment/Plan Assessment/Plan (1) Decubitus ulcer of right buttock, stage 3: CODE(S): L89.313 - Pressure ulcer of right buttock, stage 3 (2) Decubitus ulcer of left buttock, stage 3: CODE(S): L89.323 - Pressure ulcer of left buttock, stage 3 (3) Type II diabetes mellitus: CODE(S): E11.9 - Type 2 diabetes mellitus without complications PLAN: Debridement done as documented above, procedure was well-tolerated. As above, sleeping in his recliner and sitting a lot as well. He does not appear ready to make changes. Not been able to find home health that accepts his insurance. Continue Aquacel extra to open areas with Adaptic over top. Change 3-4 times daily depending on drainage/soilage. Consistent use of gel cushion and hospital bed very strongly recommended. Offloading again discussed. Optimal diabetes control also very strongly recommended. Optimal protein intake, vitamin C and zinc also discussed. His questions were answered and he was advised to call with any further questions or concerns. Follow-up in a week. This note was generated with [employer] dictation software. It may contain incorrect words, spelling, and punctuation that were not noted in checking the note before signing.
[2021-03-30 10:05] VITALS: BP 147/80; PULSE 75; RESP 18; TEMP 36.9; BMI 29.7
--- NOTE | 2021-03-30 13:21 | PCM.WC.PN ---
History of Present Illness Date of Service: 03/30/21 Chief Complaint: Recurrent buttock ulcers History of Wound: Mr. 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 Most recent episode said to have started months ago . Has been applying antibiotic and hemorrhoid ointment without significant improvement. Sits and sleeps in his lift chair. Also history of diabetes mellitus type 2 and his most recent A1c was said to be around 8. Fasting blood sugar this morning at 303. He states that he is working with his PCP to get this under better control. History of AKA. He feels well and denies other concerns at this time. Subjective Subjective No new concerns at this time. No significant change, still sleeps in the recliner. Also sits a lot. Objective Data Objective Data Vital Signs: Vital Signs Temp Pulse Resp BP 98.4 F 75 18 147/80 H 03/30/21 10:05 03/30/21 10:05 03/30/21 10:05 03/30/21 10:05 Body Mass Index (BMI) 29.7 Charges/Coding Procedures Integumentary 111xxx-113xx: 11364 [place] subq tissue 20 sq cm/< Physical Exam Const alert, oriented x3 and no apparent distress General Appearance: cooperative and comfortable HEENT normocephalic and head/scalp atraumatic Eyes EOMs intact bilaterally Neck full ROM General: normal visual inspection Resp normal respiratory effort Effort and Inspection: able to speak in complete sentences Skin Wounds: wounds noted Neuro oriented x3, CN's II-XII intact bilaterally and moves all extremities Psych mental status grossly normal Appearance: grossly normal Attitude: calm Speech: normal speech Debridement Note Debridement Note Wound debrided: Left buttock cluster Type of Debridement: Excisional debridement Anesthesia Used: 4% Lidocaine Solution Depth: Down to and including healthy tissue and in the subcutaneous layer Percentage of wound debrided: 100 Instrument Used: 5mm curette Severity: Fat Layer Exposed Amount of bleeding with debridement: Mild Bleeding Controlled with: Pressure Patient tolerated procedure: Patient tolerated procedure well Post-Debridement Measurements and Additional Note: Post-Debridement Measurements/Treatment ANIA - Nurse 1 - General Ulcer Assessment Start: 03/16/21 11:28 Freq: Status: Active Protocol: FABY Activity Type Activity Date Activity User E-Sign Co-Sign Detail Recorded Client Recorded Date Recorded By Document 03/16/21 11:29 KR [id number] 03/16/21 11:41 KR Document 03/23/21 09:30 KR [id number] 03/23/21 09:35 KR Document 03/30/21 10:05 AK [id number] 03/30/21 10:12 AK 03/16/21 03/23/21 03/30/21 11:29 09:30 10:05 WC - Today's Visit Information Type of service Follow-up Visit Follow-up Visit Follow-up Visit (Physician/ASSOCIATE AUTOMATION ENGINEER (Physician/ASSOCIATE AUTOMATION ENGINEER (Physician/ASSOCIATE AUTOMATION ENGINEER ) ) ) Arrival Mode Ambulatory Crutches Ambulatory, Crutches Transfer Assistance None Patient Identification Verified (Name & Yes Yes Yes ) Patient Requires Transmission-Based No Precautions Safety Precautions NA Height and Weight Body Mass Index (BMI) 29.7 29.7 29.7 BMI Classification Overweight Overweight Overweight Vital Signs Temperature (97.8 F-99.1 F) 97.4 F L 98.5 F 98.4 F Temperature Source Temporal Temporal Temporal Pulse Rate (60-100) 64 75 75 Pulse Location Monitor Monitor Monitor Respiratory Rate (12-18) 18 Respiratory rate source Observation Blood Pressure (90/60-120/80) 145/79 H 140/69 H 147/80 H Blood Pressure Mean (mm Hg) 101 92 102 Source Monitor Monitor Monitor Position Semi-Fowlers Semi-Fowlers Sitting Blood Pressure Location Right Arm Right Arm Left Arm History Since Last Visit- (Skip if this is Patient's initial visit) Have you changed medications since your No No No last visit? Any new allergies or adverse reactions No No No Had a fall/change in ADL's that may Yes No No increase risk of falls Signs or symptoms of abuse and/or No No No neglect since last visit Have you been in the hospital since your No No No last visit? Has dressing in place as prescribed Yes Yes Yes Has compression in place as prescribed N/A N/A N/A Has offloadiing in place as prescribed N/A N/A N/A Experienced any changes in pain level or No No No management Left Footwear Regular Shoe Regular Shoe No Footwear Right Footwear Regular Shoe Regular Shoe Regular Shoe Pain Scale: 0-10 Numeric Is Patient Pain Free? Yes Yes Yes WC - Nurse 1 - General Ulcer Measurement Start: 03/16/21 11:28 Freq: Status: Active Protocol: Activity Type Activity Date Activity User E-Sign Co-Sign Detail Recorded Client Recorded Date Recorded By Document 03/16/21 11:29 KR [id number] 03/16/21 11:41 KR Document 03/23/21 09:30 KR [id number] 03/23/21 09:35 KR Document 03/30/21 10:05 AK [id number] 03/30/21 10:12 AK 03/16/21 03/23/21 03/30/21 11:29 09:30 10:05 Wound Center Nurse 1 #6 Left buttock cluster -Current Size (cm) - Length 6 3.5 7 -Current Size (cm) - Width 3 1.6 2.5 -Current Size (cm) - Depth 0.1 0.1 0.1 -Total Square Cm 18 5.60 17.5 -Exudate Amt Small Small Medium -Exudate Type Serosanguineous Serosanguineous Serosanguineous -Wound Margin Distinct, Distinct, Distinct, Outline Outline Outline Attached Attached Attached -Granulation Amt Medium (34-66%) Medium (34-66%) Medium (34-66%) -Granulation Quality Red Red -Slough/Fibrin No Yes -Necrosis Amt None Present (0 Medium (34-66%) %) -Texture (Dai-wound Skin Appearance) Assessed, Assessed, Assessed Scarring Scarring -Moisture (Dai-wound Skin Appearance) Assessed,Dry/ Assessed,Dry/ Scaly Scaly -Color (Dai-wound Skin Appearance) No Abnormality, No Abnormality, Assessed, Assessed Assessed Erythema -Temperature (Dai-wound Skin No Abnormality No Abnormality Appearance) (Pt Warm) (Pt Warm) -Tenderness on Palpation (Dai-wound No No Skin Appearance) -Ulcer Cleansing Soap and Water Rinsed/ Soap and Water Irrigated with Saline -Foul Odor after Cleansing No No No -Anesthetic Used 5% Lidocaine 5% Lidocaine 4% Lidocaine Gel Gel Solution #5 Right buttock cluster -Current Size (cm) - Length 6 6.5 4.4 -Current Size (cm) - Width 3 3 3.5 -Current Size (cm) - Depth 0.1 0.1 0.1 -Total Square Cm 18 19.5 15.40 -Exudate Amt Small Small Medium -Exudate Type Serosanguineous Serosanguineous Serosanguineous -Wound Margin Distinct, Distinct, Distinct, Outline Outline Outline Attached Attached Attached -Granulation Amt Medium (34-66%) Medium (34-66%) Medium (34-66%) -Granulation Quality Red Red -Necrosis Amt None Present (0 Medium (34-66%) %) -Necrotic Tissue Type Adherent Slough -Texture (Dai-wound Skin Appearance) Assessed, Assessed, Assessed Scarring Scarring -Moisture (Dai-wound Skin Appearance) Assessed,Dry/ Assessed,Dry/ Assessed Scaly Scaly -Color (Dai-wound Skin Appearance) No Abnormality, No Abnormality, Erythema Assessed Assessed -Temperature (Dai-wound Skin No Abnormality No Abnormality No Abnormality Appearance) (Pt Warm) (Pt Warm) (Pt Warm) -Tenderness on Palpation (Dai-wound No No No Skin Appearance) -Ulcer Cleansing Soap and Water Rinsed/ Soap and Water Irrigated with Saline -Foul Odor after Cleansing No No -Anesthetic Used 5% Lidocaine 5% Lidocaine 4% Lidocaine Gel Gel Solution WC - Nurse 2 - General Ulcer CM Notes Start: 03/16/21 11:28 Freq: Status: Active Protocol: Activity Type Activity Date Activity User E-Sign Co-Sign Detail Recorded Client Recorded Date Recorded By Document 03/16/21 11:59 MW [id number] 03/16/21 12:07 MW Document 03/23/21 09:59 MW [id number] 03/23/21 10:03 MW Document 03/30/21 10:45 MW [id number] 03/30/21 10:50 MW 03/16/21 03/23/21 03/30/21 11:59 09:59 10:45 Wound Center Nurse 2 #6 Left buttock cluster -Time 12:02 09:59 10:46 -Correct Patient Yes Yes Yes -Correct Side, Site, Position Yes Yes Yes -Correct Procedure Yes Yes Yes -Procedure Performed No Yes Yes -Type of Procedure Debridement Debridement -Clinical Debridement Subcutaneous Subcutaneous -Tissue Removed Subcutaneous Subcutaneous -Post Debridement (cm) - Length 6.0 3.5 3.0 -Post Debridement (cm) - Width 3.0 1.0 1.5 -Post Debridement (cm) - Depth 0.1 0.1 0.1 -Total Square (Post) (cm) 18.00 3.50 4.50 -Area of Debridement (cm) - Length 3.5 3.0 -Area of Debridement (cm) - Width 1.0 1.5 -Total Square (Area) (cm) 3.50 4.50 -Tunneling No No No -Undermining/Tunneling No No No -Circular Undermining No No No -Wound/Ulcer Outcome Not Healed Not Healed -Ulcer Cleansing Rinsed/ Rinsed/ Irrigated with Irrigated with Saline Saline -Foul Odor after Cleansing No No -Bioengineered Tissue No No -Bleeding Controlled with Pressure Pressure -Offloading No No -Treatment Response Procedure Procedure Tolerated Well Tolerated Well -Debridement - Subq, 1st 20sq cm Yes Yes -Debridement, SubQ, ea addt'l 20sq cm 1 or part thereof #5 Right buttock cluster -Time 12:02 10:01 10:46 -Correct Patient Yes Yes Yes -Correct Side, Site, Position Yes Yes Yes -Correct Procedure Yes Yes Yes -Procedure Performed No Yes Yes -Type of Procedure Debridement Debridement -Clinical Debridement Subcutaneous Subcutaneous -Tissue Removed Subcutaneous Subcutaneous -Post Debridement (cm) - Length 6.0 7.5 2.0 -Post Debridement (cm) - Width 3.0 4.0 3.0 -Post Debridement (cm) - Depth 0.1 0.1 0.1 -Total Square (Post) (cm) 18.00 30.00 6.00 -Area of Debridement (cm) - Length 7.5 2.0 -Area of Debridement (cm) - Width 4.0 3.0 -Total Square (Area) (cm) 30.00 6.00 -Tunneling No No No -Undermining/Tunneling No No No -Circular Undermining No No No -Wound/Ulcer Outcome Not Healed Not Healed Not Healed -Ulcer Cleansing Rinsed/ Rinsed/ Rinsed/ Irrigated with Irrigated with Irrigated with Saline Saline Saline -Foul Odor after Cleansing No No No -Bioengineered Tissue No No No -Bleeding Controlled with NA Pressure Pressure -Offloading No No No -Treatment Response Procedure Procedure Procedure Tolerated Well Tolerated Well Tolerated Well -Debridement - Subq, 1st 20sq cm No No Pain Scale: 0-10 Numeric Is Patient Pain Free? Yes Yes Yes WC - Nurse 3 - General Ulcer D/C NN Start: 03/16/21 11:28 Freq: Status: Active Protocol: Activity Type Activity Date Activity User E-Sign Co-Sign Detail Recorded Client Recorded Date Recorded By Document 03/16/21 12:14 KR [id number] 03/16/21 12:15 KR Document 03/23/21 10:13 DL [id number] 03/23/21 10:14 DL Document 03/30/21 11:11 AK [id number] 03/30/21 11:12 AK 03/16/21 03/23/21 03/30/21 12:14 10:13 11:11 Wound Care Nurse 3 #6 Left buttock cluster -Ulcer Cleansing Rinsed/ Rinsed/ Irrigated with Irrigated with Saline Saline -Foul Odor after Cleansing No -Primary Dressing Applied Aquacel Extra Aquacel Extra, Aquacel AG 4x4, NonAdherent NonAdherent Contact Layer Contact Layer -Other Dressing abd ABD -Primary Dressing Covered/Secured with Secured with Dry Gauze, Secured with Tape Secured with Tape Tape -Aquacel Extra 2 1 -Aquacel AG 4x4 1 #5 Right buttock cluster -Ulcer Cleansing Rinsed/ Rinsed/ Irrigated with Irrigated with Saline Saline -Foul Odor after Cleansing No No -Negative Pressure Wound Therapy N/A -Primary Dressing Applied NonAdherent Aquacel AG 4x4, Contact Layer NonAdherent Contact Layer -Other Dressing abd aqaucel Extra ABD -Primary Dressing Covered/Secured with Secured with Dry Gauze, Secured with Tape Secured with Tape Tape -Aquacel AG 4x4 0 Treatment Response Procedure Tolerated Well Pain Scale: 0-10 Numeric Is Patient Pain Free? Yes Yes WC - Visit Discharge Discharge Condition Stable Stable Stable Ambulatory Status Ambulatory, Ambulatory Ambulatory, Crutches Crutches Transportation Private Auto Private Auto Private Auto Medication Reconcilliation completed & No provided to patient/care provider Clinical Summary of Care Provided Yes Additional Wound Wound debrided: Right buttock cluster Type of Debridement: Excisional debridement Anesthesia Used: 4% Lidocaine Solution Depth: Down to and including healthy tissue and in the subcutaneous layer Percentage of wound debrided: 100 Instrument Used: 5mm curette Tissue Removed: Slough and devitalized tissue Severity: Fat Layer Exposed Amount of bleeding with debridement: Mild Bleeding Controlled with: Pressure Patient tolerated procedure: Patient tolerated procedure well Assessment/Plan Assessment/Plan (1) Decubitus ulcer of right buttock, stage 3: CODE(S): L89.313 - Pressure ulcer of right buttock, stage 3 (2) Decubitus ulcer of left buttock, stage 3: CODE(S): L89.323 - Pressure ulcer of left buttock, stage 3 (3) Type II diabetes mellitus: CODE(S): E11.9 - Type 2 diabetes mellitus without complications PLAN: Debridement done as documented above, procedure was well-tolerated. As above, sleeping in his recliner and sitting a lot as well. He does not appear ready to make changes. Not been able to find home health that accepts his insurance. We will attempt again. Continue Aquacel extra to open areas with Adaptic over top. Change 3-4 times daily depending on drainage/soilage. Consistent use of gel cushion and hospital bed very strongly recommended. Offloading again discussed. Optimal diabetes control also very strongly recommended. Optimal protein intake, vitamin C and zinc also discussed. His questions were answered and he was advised to call with any further questions or concerns. Follow-up in a week. This note was generated with [employer] dictation software. It may contain incorrect words, spelling, and punctuation that were not noted in checking the note before signing.
== END 2021-04-02 23:59 ==
LOC: WC 10:00
PROVIDERS: PCP Family Medicine; Visit Provider Internal Medicine
DX: L89.313 Pressure ulcer of right buttock, stage 3 (principal); L89.323 Pressure ulcer of left buttock, stage 3; E11.9 Type 2 diabetes mellitus without complications; E66.3 Overweight; Z68.29 Body mass index [BMI] 29.0-29.9, adult; Z79.01 Long term (current) use of anticoagulants; Z79.84 Long term (current) use of oral hypoglycemic drugs; Z89.619 Acquired absence of unspecified leg above knee
CPT/HCPCS: 11042; 11045; 99213; G0463

== ENCOUNTER → 2021-03-31 | Outpatient (CLI) | payer MEDICARE, SELFPAY ==
[2021-03-31 12:13] LABS: International Normalized Ratio 2.1; Prothrombin Time (Protime)PT. 22.9 SECONDS (11.7-14.9)
== END | disposition home or self-care (01) ==
PROVIDERS: PCP Family Medicine; Referring Provider Family Medicine; Visit Provider Family Medicine
DX: I48.20 Chronic atrial fibrillation, unspecified (principal)
CPT/HCPCS: 85610

== ENCOUNTER 2021-04-20 08:30 | Outpatient (RCR) | payer MEDICARE, SELFPAY ==
[2021-04-03 00:26] VITALS: BP 147/80; PULSE 75; RESP 18; TEMP 36.9; BMI 29.7
[2021-04-06 10:42] VITALS: BP 146/71; PULSE 64; RESP 18; TEMP 36.7; BMI 29.7
--- NOTE | 2021-04-06 12:49 | PCM.WC.PN ---
History of Present Illness Date of Service: 04/06/21 Chief Complaint: Recurrent buttock ulcers History of Wound: Mr. 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 Most recent episode said to have started months ago . Has been applying antibiotic and hemorrhoid ointment without significant improvement. Sits and sleeps in his lift chair. Also history of diabetes mellitus type 2 and his most recent A1c was said to be around 8. Fasting blood sugar this morning at 303. He states that he is working with his PCP to get this under better control. History of AKA. He feels well and denies other concerns at this time. Progress of Wound: No new concerns at this time. Some improvement noted. Patient declined home health. Subjective Subjective He denies any new concerns. Objective Data Objective Data Vital Signs: Vital Signs Temp Pulse Resp BP 98.1 F 64 18 146/71 H 04/06/21 10:42 04/06/21 10:42 04/06/21 10:42 04/06/21 10:42 Body Mass Index (BMI) 29.7 Charges/Coding Procedures Integumentary 111xxx-113xx: 407[address] [place] subq tissue 20 sq cm/< Physical Exam Const alert, oriented x3 and no apparent distress General Appearance: cooperative and comfortable HEENT normocephalic and head/scalp atraumatic Eyes EOMs intact bilaterally Neck full ROM General: normal visual inspection Resp normal respiratory effort Effort and Inspection: able to speak in complete sentences Skin Wounds: wounds noted Neuro oriented x3, CN's II-XII intact bilaterally and moves all extremities Psych mental status grossly normal Appearance: grossly normal Attitude: calm Speech: normal speech Debridement Note Debridement Note Wound debrided: Right buttock Type of Debridement: Excisional debridement Anesthesia Used: 4% Lidocaine Solution Depth: Down to and including healthy tissue and in the subcutaneous layer Percentage of wound debrided: 100 Instrument Used: 3mm curette Tissue Removed: Slough and devitalized tissue Severity: Fat Layer Exposed Amount of bleeding with debridement: Mild Bleeding Controlled with: Pressure Patient tolerated procedure: Patient tolerated procedure well Post-Debridement Measurements and Additional Note: Post-Debridement Measurements/Treatment ANIA - Nurse 1 - General Ulcer Assessment Start: 04/06/21 10:42 Freq: Status: Active Protocol: WC.LOWEXT Activity Type Activity Date Activity User E-Sign Co-Sign Detail Recorded Client Recorded Date Recorded By Document 04/06/21 10:42 HAO [id number] 04/06/21 10:47 DL 04/06/21 10:42 WC - Today's Visit Information Type of service Follow-up Visit (Physician/CONTINUOUS PROCESS TANNER R[employer]ARY DRUM ) Arrival Mode Ambulatory, Crutches Transfer Assistance None Patient Identification Verified (Name & Yes ) Patient Requires Transmission-Based No Precautions Height and Weight Body Mass Index (BMI) 29.7 BMI Classification Overweight Vital Signs Temperature (97.8 F-99.1 F) 98.1 F Temperature Source Temporal Pulse Rate (60-100) 64 Pulse Location Monitor Respiratory Rate (12-18) 18 Respiratory rate source Observation Blood Pressure (90/60-120/80) 146/71 H Blood Pressure Mean (mm Hg) 96 Source Monitor History Since Last Visit- (Skip if this is Patient's initial visit) Have you changed medications since your No last visit? Any new allergies or adverse reactions No Had a fall/change in ADL's that may No increase risk of falls Signs or symptoms of abuse and/or No neglect since last visit Have you been in the hospital since your No last visit? Has dressing in place as prescribed Yes Has compression in place as prescribed N/A Has offloadiing in place as prescribed Yes Experienced any changes in pain level or No management Pain Scale: 0-10 Numeric Is Patient Pain Free? Yes - Nurse 1 - General Ulcer Measurement Start: 04/06/21 10:42 Freq: Status: Active Protocol: Activity Type Activity Date Activity User E-Sign Co-Sign Detail Recorded Client Recorded Date Recorded By Document 04/06/21 10:42 HAO [id number] 04/06/21 10:47 DL 04/06/21 10:42 Wound Center Nurse 1 #6 Left buttock cluster -Current Size (cm) - Length 1.9 -Current Size (cm) - Width 0.3 -Current Size (cm) - Depth 0.1 -Total Square Cm 0.57 -Photo Taken No -Exudate Amt None Present -Wound Margin Indistinct, Non -Visible -Granulation Amt Large (67-100%) -Granulation Quality [place] -Necrosis Amt None Present (0 %) -Structure Exposed N/A -Texture (Dai-wound Skin Appearance) Scarring -Moisture (Dai-wound Skin Appearance) Dry/Scaly -Color (Dai-wound Skin Appearance) No Abnormality -Temperature (Dai-wound Skin No Abnormality Appearance) (Pt Warm) -Tenderness on Palpation (Dai-wound No Skin Appearance) -Ulcer Cleansing Soap and Water -Foul Odor after Cleansing No -Anesthetic Used 4% Lidocaine Solution #5 Right buttock cluster -Current Size (cm) - Length 0.8 -Current Size (cm) - Width 2.1 -Current Size (cm) - Depth 0.1 -Total Square Cm 1.68 -Photo Taken No -Exudate Amt None Present -Wound Margin Indistinct, Non -Visible -Granulation Amt Large (67-100%) -Granulation Quality [place] -Necrosis Amt None Present (0 %) -Structure Exposed N/A -Texture (Dai-wound Skin Appearance) Scarring -Moisture (Dai-wound Skin Appearance) Dry/Scaly -Color (Dai-wound Skin Appearance) Assessed -Temperature (Dai-wound Skin No Abnormality Appearance) (Pt Warm) -Ulcer Cleansing Soap and Water -Foul Odor after Cleansing No -Anesthetic Used 4% Lidocaine Solution WC - Nurse 2 - General Ulcer CM Notes Start: 04/06/21 10:42 Freq: Status: Active Protocol: Activity Type Activity Date Activity User E-Sign Co-Sign Detail Recorded Client Recorded Date Recorded By Document 04/06/21 12:10 KRISTA [id number] 04/06/21 12:13 KRISTA 04/06/21 12:10 Wound Center Nurse 2 #6 Left buttock cluster -Time 10:45 -Correct Patient Yes -Correct Side, Site, Position Yes -Correct Procedure Yes -Procedure Performed Yes -Type of Procedure Debridement -Clinical Debridement Subcutaneous -Tissue Removed Subcutaneous -Post Debridement (cm) - Length 2.3 -Post Debridement (cm) - Width 0.3 -Post Debridement (cm) - Depth 0.1 -Total Square (Post) (cm) 0.69 -Area of Debridement (cm) - Length 2.3 -Area of Debridement (cm) - Width 0.3 -Total Square (Area) (cm) 0.69 -Tunneling No -Undermining/Tunneling No -Circular Undermining No -Wound/Ulcer Outcome Not Healed -Ulcer Cleansing Rinsed/ Irrigated with Saline -Foul Odor after Cleansing No -Bioengineered Tissue No -Bleeding Controlled with Pressure -Treatment Response Procedure Tolerated Well -Debridement - Subq, 1st 20sq cm Yes #5 Right buttock cluster -Time 10:45 -Correct Patient Yes -Correct Side, Site, Position Yes -Correct Procedure Yes -Procedure Performed Yes -Type of Procedure Debridement -Clinical Debridement Subcutaneous -Tissue Removed Subcutaneous -Post Debridement (cm) - Length 0.6 -Post Debridement (cm) - Width 2.3 -Post Debridement (cm) - Depth 0.1 -Total Square (Post) (cm) 1.38 -Area of Debridement (cm) - Length 0.6 -Area of Debridement (cm) - Width 2.3 -Total Square (Area) (cm) 1.38 -Tunneling No -Undermining/Tunneling No -Circular Undermining No -Wound/Ulcer Outcome Not Healed -Ulcer Cleansing Rinsed/ Irrigated with Saline -Foul Odor after Cleansing No -Bioengineered Tissue No -Bleeding Controlled with Pressure -Treatment Response Procedure Tolerated Well -Debridement - Subq, 1st 20sq cm No WC - Nurse 3 - General Ulcer D/C NN Start: 04/06/21 10:42 Freq: Status: Active Protocol: Activity Type Activity Date Activity User E-Sign Co-Sign Detail Recorded Client Recorded Date Recorded By Document 04/06/21 11:45 BIBI [id number] 04/06/21 11:46 BIBI 04/06/21 11:45 Wound Care Nurse 3 #6 Left buttock cluster -Primary Dressing Applied Aquacel AG 4x4, Mepilex Border, NonAdherent Contact Layer -Aquacel AG 4x4 1 -Mepilex Border 1 #5 Right buttock cluster -Primary Dressing Applied Mepilex Border -Mepilex Border 1 Pain Scale: 0-10 Numeric Is Patient Pain Free? Yes WC - Visit Discharge Discharge Condition Stable Ambulatory Status Ambulatory, Crutches Transportation Private Auto Additional Wound Wound debrided: Left buttock Type of Debridement: Excisional debridement Anesthesia Used: 4% Lidocaine Solution Depth: Down to and including healthy tissue and in the subcutaneous layer Percentage of wound debrided: 100 Instrument Used: 3mm curette Tissue Removed: Slough and devitalized tissue Severity: Fat Layer Exposed Amount of bleeding with debridement: Mild Bleeding Controlled with: Pressure Patient tolerated procedure: Patient tolerated procedure well Assessment/Plan Assessment/Plan (1) Decubitus ulcer of right buttock, stage 3: CODE(S): L89.313 - Pressure ulcer of right buttock, stage 3 (2) Decubitus ulcer of left buttock, stage 3: CODE(S): L89.323 - Pressure ulcer of left buttock, stage 3 (3) Type II diabetes mellitus: CODE(S): E11.9 - Type 2 diabetes mellitus without complications PLAN: Debridement done as documented above, procedure was well-tolerated. Some improvement noted this week. Patient declined home health. Continue Aquacel extra to open areas with Adaptic over top. Change 3-4 times daily depending on drainage/soilage. Consistent use of gel cushion and hospital bed very strongly recommended. Offloading again discussed. Optimal diabetes control also very strongly recommended. Optimal protein intake, vitamin C and zinc also discussed. His questions were answered and he was advised to call with any further questions or concerns. Follow-up in a week. This note was generated with [employer] dictation software. It may contain incorrect words, spelling, and punctuation that were not noted in checking the note before signing.
[2021-04-13 10:17] VITALS: BP 150/74; PULSE 68; TEMP 36.7; BMI 29.7
--- NOTE | 2021-04-13 10:43 | PN.PCM_ITS ---
History of Present Illness Date of Service: 04/13/21 Chief Complaint: Recurrent buttock ulcers History of Wound: Mr. 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 Most recent episode said to have started months ago . Has been applying antibiotic and hemorrhoid ointment without significant improvement. Sits and sleeps in his lift chair. Also history of diabetes mellitus type 2 and his most recent A1c was said to be around 8. Fasting blood sugar this morning at 303. He states that he is working with his PCP to get this under better control. History of AKA. He feels well and denies other concerns at this time. Progress of Wound: No new changes today. Applying Aquacel and Adaptic Subjective Subjective He denies any new concerns. Objective Data Objective Data Vital Signs: Vital Signs Temp Pulse Resp BP 98.0 F 68 18 150/74 H 04/13/21 10:17 04/13/21 10:17 04/06/21 10:42 04/13/21 10:17 Body Mass Index (BMI) 29.7 Charges/Coding Procedures Integumentary 111xxx-113xx: [id number] [place] subq tissue 20 sq cm/< Physical Exam Const alert, oriented x3 and no apparent distress General Appearance: cooperative and comfortable HEENT normocephalic and head/scalp atraumatic Eyes EOMs intact bilaterally Neck full ROM General: normal visual inspection Resp normal respiratory effort Effort and Inspection: able to speak in complete sentences Skin Wounds: wounds noted Neuro oriented x3, CN's II-XII intact bilaterally and moves all extremities Psych mental status grossly normal Appearance: grossly normal Attitude: calm Speech: normal speech Debridement Note Debridement Note Wound debrided: Left Buttock Type of Debridement: Excisional debridement Anesthesia Used: 4% Lidocaine Solution Depth: Down to and including healthy tissue and in the subcutaneous layer Percentage of wound debrided: 100 Instrument Used: 3mm curette Tissue Removed: Slough and devitalized tissue Severity: Fat Layer Exposed Amount of bleeding with debridement: Mild Bleeding Controlled with: Pressure Patient tolerated procedure: Patient tolerated procedure well Post-Debridement Measurements and Additional Note: Post-Debridement Measurements/Treatment ANIA - Nurse 1 - General Ulcer Assessment Start: 04/06/21 10:42 Freq: Status: Active Protocol: FABY Activity Type Activity Date Activity User E-Sign Co-Sign Detail Recorded Client Recorded Date Recorded By Document 04/06/21 10:42 DL [id number] 04/06/21 10:47 DL Document 04/13/21 10:17 KR [id number] 04/13/21 10:19 KR 04/06/21 04/13/21 10:42 10:17 - Today's Visit Information Type of service Follow-up Visit Follow-up Visit (Physician/FLIGHT DIRECTOR (Physician/FLIGHT DIRECTOR ) ) Arrival Mode Ambulatory, Ambulatory, Crutches Crutches Transfer Assistance None Patient Identification Verified (Name & Yes Yes ) Patient Requires Transmission-Based No Precautions Height and Weight Body Mass Index (BMI) 29.7 29.7 BMI Classification Overweight Overweight Vital Signs Temperature (97.8 F-99.1 F) 98.1 F 98.0 F Temperature Source Temporal Temporal Pulse Rate (60-100) 64 68 Pulse Location Monitor Monitor Respiratory Rate (12-18) 18 Respiratory rate source Observation Blood Pressure (90/60-120/80) 146/71 H 150/74 H Blood Pressure Mean (mm Hg) 96 99 Source Monitor Monitor Position Semi-Fowlers Blood Pressure Location Right Arm History Since Last Visit- (Skip if this is Patient's initial visit) Have you changed medications since your No No last visit? Any new allergies or adverse reactions No No Had a fall/change in ADL's that may No No increase risk of falls Signs or symptoms of abuse and/or No No neglect since last visit Have you been in the hospital since your No No last visit? Has dressing in place as prescribed Yes Yes Has compression in place as prescribed N/A N/A Has offloadiing in place as prescribed Yes N/A Experienced any changes in pain level or No No management Left Footwear Regular Shoe Right Footwear Regular Shoe Pain Scale: 0-10 Numeric Is Patient Pain Free? Yes Yes - Nurse 1 - General Ulcer Measurement Start: 04/06/21 10:42 Freq: Status: Active Protocol: Activity Type Activity Date Activity User E-Sign Co-Sign Detail Recorded Client Recorded Date Recorded By Document 04/06/21 10:42 DL [id number] 04/06/21 10:47 DL Document 04/13/21 10:17 KR [id number] 04/13/21 10:19 KR 04/06/21 04/13/21 10:42 10:17 Wound Center Nurse 1 #6 Left buttock cluster -Current Size (cm) - Length 1.9 0.3 -Current Size (cm) - Width 0.3 0.2 -Current Size (cm) - Depth 0.1 0.1 -Total Square Cm 0.57 0.06 -Photo Taken No -Exudate Amt None Present None Present -Wound Margin Indistinct, Non Distinct, -Visible Outline Attached -Granulation Amt Large (67-100%) Small (1-33%) -Granulation Quality [place] Red -Necrosis Amt None Present (0 None Present (0 %) %) -Structure Exposed N/A -Texture (Dai-wound Skin Appearance) Scarring Assessed, Excoriation, Scarring -Moisture (Dai-wound Skin Appearance) Dry/Scaly Assessed,Dry/ Scaly -Color (Dai-wound Skin Appearance) No Abnormality No Abnormality, Assessed -Temperature (Dai-wound Skin No Abnormality No Abnormality Appearance) (Pt Warm) (Pt Warm) -Tenderness on Palpation (Dai-wound No No Skin Appearance) -Ulcer Cleansing Soap and Water Soap and Water -Foul Odor after Cleansing No No -Anesthetic Used 4% Lidocaine 4% Lidocaine Solution Solution #5 Right buttock cluster -Current Size (cm) - Length 0.8 0.7 -Current Size (cm) - Width 2.1 2.3 -Current Size (cm) - Depth 0.1 0.1 -Total Square Cm 1.68 1.61 -Photo Taken No -Exudate Amt None Present -Wound Margin Indistinct, Non Distinct, -Visible Outline Attached -Granulation Amt Large (67-100%) Small (1-33%) -Granulation Quality [place] Red -Necrosis Amt None Present (0 None Present (0 %) %) -Structure Exposed N/A -Texture (Dai-wound Skin Appearance) Scarring Assessed, Excoriation, Scarring -Moisture (Dai-wound Skin Appearance) Dry/Scaly Assessed,Dry/ Scaly -Color (Dai-wound Skin Appearance) Assessed No Abnormality, Assessed -Temperature (Dai-wound Skin No Abnormality No Abnormality Appearance) (Pt Warm) (Pt Warm) -Tenderness on Palpation (Dai-wound No Skin Appearance) -Ulcer Cleansing Soap and Water Soap and Water -Foul Odor after Cleansing No No -Anesthetic Used 4% Lidocaine 4% Lidocaine Solution Solution WC - Nurse 2 - General Ulcer CM Notes Start: 04/06/21 10:42 Freq: Status: Active Protocol: Activity Type Activity Date Activity User E-Sign Co-Sign Detail Recorded Client Recorded Date Recorded By Document 04/06/21 12:10 PL [id number] 04/06/21 12:13 PL Document 04/13/21 10:27 MW [id number] 04/13/21 10:30 MW 04/06/21 04/13/21 12:10 10:27 Wound Center Nurse 2 #6 Left buttock cluster -Time 10:45 10:27 -Correct Patient Yes Yes -Correct Side, Site, Position Yes Yes -Correct Procedure Yes Yes -Procedure Performed Yes Yes -Type of Procedure Debridement Debridement -Clinical Debridement Subcutaneous Subcutaneous -Tissue Removed Subcutaneous Subcutaneous -Post Debridement (cm) - Length 2.3 2.0 -Post Debridement (cm) - Width 0.3 1.0 -Post Debridement (cm) - Depth 0.1 0.1 -Total Square (Post) (cm) 0.69 2.00 -Area of Debridement (cm) - Length 2.3 2.0 -Area of Debridement (cm) - Width 0.3 1.0 -Total Square (Area) (cm) 0.69 2.00 -Tunneling No No -Undermining/Tunneling No No -Circular Undermining No No -Wound/Ulcer Outcome Not Healed Not Healed -Ulcer Cleansing Rinsed/ Rinsed/ Irrigated with Irrigated with Saline Saline -Foul Odor after Cleansing No No -Bioengineered Tissue No No -Bleeding Controlled with Pressure Pressure -Offloading No -Treatment Response Procedure Procedure Tolerated Well Tolerated Well -Debridement - Subq, 1st 20sq cm Yes Yes #5 Right buttock cluster -Time 10:45 10:28 -Correct Patient Yes Yes -Correct Side, Site, Position Yes Yes -Correct Procedure Yes Yes -Procedure Performed Yes Yes -Type of Procedure Debridement Debridement -Clinical Debridement Subcutaneous Subcutaneous -Tissue Removed Subcutaneous Subcutaneous -Post Debridement (cm) - Length 0.6 2.5 -Post Debridement (cm) - Width 2.3 2.2 -Post Debridement (cm) - Depth 0.1 0.1 -Total Square (Post) (cm) 1.38 5.50 -Area of Debridement (cm) - Length 0.6 2.5 -Area of Debridement (cm) - Width 2.3 2.2 -Total Square (Area) (cm) 1.38 5.50 -Tunneling No No -Undermining/Tunneling No No -Circular Undermining No No -Wound/Ulcer Outcome Not Healed Not Healed -Ulcer Cleansing Rinsed/ Rinsed/ Irrigated with Irrigated with Saline Saline -Foul Odor after Cleansing No No -Bioengineered Tissue No No -Bleeding Controlled with Pressure Pressure -Offloading No -Treatment Response Procedure Procedure Tolerated Well Tolerated Well -Debridement - Subq, 1st 20sq cm No No Pain Scale: 0-10 Numeric Is Patient Pain Free? Yes - Nurse 3 - General Ulcer D/C NN Start: 04/06/21 10:42 Freq: Status: Active Protocol: Activity Type Activity Date Activity User E-Sign Co-Sign Detail Recorded Client Recorded Date Recorded By Document 04/06/21 11:45 BIBI [id number] 04/06/21 11:46 BIBI Document 04/13/21 10:37 ANTONIO [id number] 04/13/21 10:38 ANTONIO 04/06/21 04/13/21 11:45 10:37 Wound Care Nurse 3 #6 Left buttock cluster -Ulcer Cleansing Rinsed/ Irrigated with Saline -Foul Odor after Cleansing No -Primary Dressing Applied Aquacel AG 4x4, Aquacel Extra, Mepilex Border, NonAdherent NonAdherent Contact Layer Contact Layer -Primary Dressing Covered/Secured with Dry Gauze, Secured with Tape -Aquacel Extra 0 -Aquacel AG 4x4 1 -Mepilex Border 1 #5 Right buttock cluster -Ulcer Cleansing Rinsed/ Irrigated with Saline -Foul Odor after Cleansing No -Primary Dressing Applied Mepilex Border Aquacel Extra, NonAdherent Contact Layer -Primary Dressing Covered/Secured with Dry Gauze, Secured with Tape -Aquacel Extra 1 -Mepilex Border 1 Pain Scale: 0-10 Numeric Is Patient Pain Free? Yes Yes WC - Visit Discharge Discharge Condition Stable Stable Ambulatory Status Ambulatory, Ambulatory, Crutches Crutches Transportation Private Auto Private Auto Medication Reconcilliation completed & Yes provided to patient/care provider Clinical Summary of Care Provided Yes Additional Wound Wound debrided: Right Buttock Type of Debridement: Excisional debridement Anesthesia Used: 4% Lidocaine Solution Depth: Down to and including healthy tissue and in the subcutaneous layer Percentage of wound debrided: 100 Instrument Used: 3mm curette Tissue Removed: Slough and devitalized Severity: Fat Layer Exposed Amount of bleeding with debridement: Mild Bleeding Controlled with: Pressure Patient tolerated procedure: Patient tolerated procedure well Assessment/Plan Assessment/Plan (1) Decubitus ulcer of right buttock, stage 3: CODE(S): L89.313 - Pressure ulcer of right buttock, stage 3 (2) Decubitus ulcer of left buttock, stage 3: CODE(S): L89.323 - Pressure ulcer of left buttock, stage 3 (3) Type II diabetes mellitus: CODE(S): E11.9 - Type 2 diabetes mellitus without complications PLAN: Debridement done as documented above, procedure was well-tolerated. Some improvement noted this week. Patient declined home health. Continue Aquacel extra to open areas with Adaptic over top. Change 3-4 times daily depending on drainage/soilage. Consistent use of gel cushion and hospital bed very strongly recommended. Offloading again discussed. Optimal diabetes control also very strongly recommended. Optimal protein intake, vitamin C and zinc also discussed. His questions were answered and he was advised to call with any further questions or concerns. Follow-up in a week. This note was generated with [employer] dictation software. It may contain incorrect words, spelling, and punctuation that were not noted in checking the note before signing.
[2021-04-20 08:38] VITALS: BP 150/72; PULSE 68; RESP 20; TEMP 36.6; BMI 29.7
--- NOTE | 2021-04-20 08:58 | PN.PCM_ITS ---
History of Present Illness Date of Service: 04/20/21 Chief Complaint: Recurrent buttock ulcers History of Wound: Mr. 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 Most recent episode said to have started months ago . Has been applying antibiotic and hemorrhoid ointment without significant improvement. Sits and sleeps in his lift chair. Also history of diabetes mellitus type 2 and his most recent A1c was said to be around 8. Fasting blood sugar this morning at 303. He states that he is working with his PCP to get this under better control. History of AKA. He feels well and denies other concerns at this time. Progress of Wound: Some improvement noted. has been applying Aquacel and adaptic. Appears more superficial Subjective Subjective No new concerns at this time. Objective Data Objective Data Vital Signs: Vital Signs Temp Pulse Resp BP 97.9 F 68 20 H 150/72 H 04/20/21 08:38 04/20/21 08:38 04/20/21 08:38 04/20/21 08:38 Body Mass Index (BMI) 29.7 Charges/Coding Visit Charges Office Visits / Consults: [id number] OV L3 Est Physical Exam Const alert, oriented x3 and no apparent distress General Appearance: cooperative and comfortable HEENT normocephalic and head/scalp atraumatic Eyes EOMs intact bilaterally Neck full ROM General: normal visual inspection Resp normal respiratory effort Effort and Inspection: able to speak in complete sentences Skin Wounds: wounds noted Neuro oriented x3, CN's II-XII intact bilaterally and moves all extremities Psych mental status grossly normal Appearance: grossly normal Attitude: calm Speech: normal speech Debridement Note Debridement Note Post-Debridement Measurements and Additional Note: Post-Debridement Measurements/Treatment WC - Nurse 1 - General Ulcer Assessment Start: 04/06/21 10:42 Freq: Status: Active Protocol: FABY Activity Type Activity Date Activity User E-Sign Co-Sign Detail Recorded Client Recorded Date Recorded By Document 04/06/21 10:42 DL [id number] 04/06/21 10:47 DL Document 04/13/21 10:17 KR [id number] 04/13/21 10:19 KR Document 04/20/21 08:38 DL [id number] 04/20/21 08:46 DL 04/06/21 04/13/21 04/20/21 10:42 10:17 08:38 WC - Today's Visit Information Type of service Follow-up Visit Follow-up Visit Follow-up Visit (Physician/TRAIN MASTER (Physician/TRAIN MASTER (Physician/TRAIN MASTER ) ) ) Arrival Mode Ambulatory, Ambulatory, Ambulatory, Crutches Crutches Crutches Transfer Assistance None None Patient Identification Verified (Name & Yes Yes Yes ) Patient Requires Transmission-Based No No Precautions Finger Stick Blood Sugar(mg/dl) (if didnt check indicated): Blood Sugar Stated by Patient Height and Weight Body Mass Index (BMI) 29.7 29.7 29.7 BMI Classification Overweight Overweight Overweight Vital Signs Temperature (97.8 F-99.1 F) 98.1 F 98.0 F 97.9 F Temperature Source Temporal Temporal Temporal Pulse Rate (60-100) 64 68 68 Pulse Location Monitor Monitor Monitor Respiratory Rate (12-18) 18 20 H Respiratory rate source Observation Blood Pressure (90/60-120/80) 146/71 H 150/74 H 150/72 H Blood Pressure Mean (mm Hg) 96 99 98 Source Monitor Monitor Monitor Position Semi-Fowlers Blood Pressure Location Right Arm History Since Last Visit- (Skip if this is Patient's initial visit) Have you changed medications since your No No No last visit? Any new allergies or adverse reactions No No No Had a fall/change in ADL's that may No No No increase risk of falls Signs or symptoms of abuse and/or No No No neglect since last visit Have you been in the hospital since your No No No last visit? Has dressing in place as prescribed Yes Yes Yes Has compression in place as prescribed N/A N/A N/A Has offloadiing in place as prescribed Yes N/A Yes Experienced any changes in pain level or No No No management Left Footwear Regular Shoe Right Footwear Regular Shoe Pain Scale: 0-10 Numeric Is Patient Pain Free? Yes Yes Yes - Nurse 1 - General Ulcer Measurement Start: 04/06/21 10:42 Freq: Status: Active Protocol: Activity Type Activity Date Activity User E-Sign Co-Sign Detail Recorded Client Recorded Date Recorded By Document 04/06/21 10:42 DL [id number] 04/06/21 10:47 DL Document 04/13/21 10:17 KR [id number] 04/13/21 10:19 KR Document 04/20/21 08:38 DL [id number] 04/20/21 08:46 DL 04/06/21 04/13/21 04/20/21 10:42 10:17 08:38 Wound Center Nurse 1 #6 Left buttock cluster -Current Size (cm) - Length 1.9 0.3 4.2 -Current Size (cm) - Width 0.3 0.2 0.8 -Current Size (cm) - Depth 0.1 0.1 0.1 -Total Square Cm 0.57 0.06 3.36 -Photo Taken No No -Exudate Amt None Present None Present Small -Exudate Type Serosanguineous -Wound Margin Indistinct, Non Distinct, Indistinct, Non -Visible Outline -Visible Attached -Granulation Amt Large (67-100%) Small (1-33%) Large (67-100%) -Granulation Quality [place] Red [place],Red -Necrosis Amt None Present (0 None Present (0 None Present (0 %) %) %) -Structure Exposed N/A N/A -Texture (Dai-wound Skin Appearance) Scarring Assessed, Scarring Excoriation, Scarring -Moisture (Dai-wound Skin Appearance) Dry/Scaly Assessed,Dry/ Dry/Scaly Scaly -Color (Dai-wound Skin Appearance) No Abnormality No Abnormality, Rubor Assessed -Temperature (Dai-wound Skin No Abnormality No Abnormality No Abnormality Appearance) (Pt Warm) (Pt Warm) (Pt Warm) -Tenderness on Palpation (Dai-wound No No No Skin Appearance) -Ulcer Cleansing Soap and Water Soap and Water Rinsed/ Irrigated with Saline -Foul Odor after Cleansing No No No -Anesthetic Used 4% Lidocaine 4% Lidocaine 4% Lidocaine Solution Solution Solution #5 Right buttock cluster -Current Size (cm) - Length 0.8 0.7 0.8 -Current Size (cm) - Width 2.1 2.3 0.8 -Current Size (cm) - Depth 0.1 0.1 0.1 -Total Square Cm 1.68 1.61 0.64 -Photo Taken No No -Exudate Amt None Present None Present -Wound Margin Indistinct, Non Distinct, Indistinct, Non -Visible Outline -Visible Attached -Granulation Amt Large (67-100%) Small (1-33%) Large (67-100%) -Granulation Quality [place] -Necrosis Amt None Present (0 None Present (0 None Present (0 %) %) %) -Structure Exposed N/A N/A -Texture (Dai-wound Skin Appearance) Scarring Assessed, Scarring Excoriation, Scarring -Moisture (Dai-wound Skin Appearance) Dry/Scaly Assessed,Dry/ No Abnormality Scaly -Color (Dai-wound Skin Appearance) Assessed No Abnormality, Rubor Assessed -Temperature (Dai-wound Skin No Abnormality No Abnormality No Abnormality Appearance) (Pt Warm) (Pt Warm) (Pt Warm) -Tenderness on Palpation (Dai-wound No No Skin Appearance) -Ulcer Cleansing Soap and Water Soap and Water Rinsed/ Irrigated with Saline -Foul Odor after Cleansing No No No -Anesthetic Used 4% Lidocaine 4% Lidocaine 4% Lidocaine Solution Solution Solution WC - Nurse 2 - General Ulcer CM Notes Start: 04/06/21 10:42 Freq: Status: Active Protocol: Activity Type Activity Date Activity User E-Sign Co-Sign Detail Recorded Client Recorded Date Recorded By Document 04/06/21 12:10 PL [id number] 04/06/21 12:13 PL Document 04/13/21 10:27 MW [id number] 04/13/21 10:30 MW 04/06/21 04/13/21 12:10 10:27 Wound Center Nurse 2 #6 Left buttock cluster -Time 10:45 10:27 -Correct Patient Yes Yes -Correct Side, Site, Position Yes Yes -Correct Procedure Yes Yes -Procedure Performed Yes Yes -Type of Procedure Debridement Debridement -Clinical Debridement Subcutaneous Subcutaneous -Tissue Removed Subcutaneous Subcutaneous -Post Debridement (cm) - Length 2.3 2.0 -Post Debridement (cm) - Width 0.3 1.0 -Post Debridement (cm) - Depth 0.1 0.1 -Total Square (Post) (cm) 0.69 2.00 -Area of Debridement (cm) - Length 2.3 2.0 -Area of Debridement (cm) - Width 0.3 1.0 -Total Square (Area) (cm) 0.69 2.00 -Tunneling No No -Undermining/Tunneling No No -Circular Undermining No No -Wound/Ulcer Outcome Not Healed Not Healed -Ulcer Cleansing Rinsed/ Rinsed/ Irrigated with Irrigated with Saline Saline -Foul Odor after Cleansing No No -Bioengineered Tissue No No -Bleeding Controlled with Pressure Pressure -Offloading No -Treatment Response Procedure Procedure Tolerated Well Tolerated Well -Debridement - Subq, 1st 20sq cm Yes Yes #5 Right buttock cluster -Time 10:45 10:28 -Correct Patient Yes Yes -Correct Side, Site, Position Yes Yes -Correct Procedure Yes Yes -Procedure Performed Yes Yes -Type of Procedure Debridement Debridement -Clinical Debridement Subcutaneous Subcutaneous -Tissue Removed Subcutaneous Subcutaneous -Post Debridement (cm) - Length 0.6 2.5 -Post Debridement (cm) - Width 2.3 2.2 -Post Debridement (cm) - Depth 0.1 0.1 -Total Square (Post) (cm) 1.38 5.50 -Area of Debridement (cm) - Length 0.6 2.5 -Area of Debridement (cm) - Width 2.3 2.2 -Total Square (Area) (cm) 1.38 5.50 -Tunneling No No -Undermining/Tunneling No No -Circular Undermining No No -Wound/Ulcer Outcome Not Healed Not Healed -Ulcer Cleansing Rinsed/ Rinsed/ Irrigated with Irrigated with Saline Saline -Foul Odor after Cleansing No No -Bioengineered Tissue No No -Bleeding Controlled with Pressure Pressure -Offloading No -Treatment Response Procedure Procedure Tolerated Well Tolerated Well -Debridement - Subq, 1st 20sq cm No No Pain Scale: 0-10 Numeric Is Patient Pain Free? Yes WC - Nurse 3 - General Ulcer D/C NN Start: 04/06/21 10:42 Freq: Status: Active Protocol: Activity Type Activity Date Activity User E-Sign Co-Sign Detail Recorded Client Recorded Date Recorded By Document 04/06/21 11:45 BIBI [id number] 04/06/21 11:46 KR Document 04/13/21 10:37 ANTONIO [id number] 04/13/21 10:38 ANTONIO 04/06/21 04/13/21 11:45 10:37 Wound Care Nurse 3 #6 Left buttock cluster -Ulcer Cleansing Rinsed/ Irrigated with Saline -Foul Odor after Cleansing No -Primary Dressing Applied Aquacel AG 4x4, Aquacel Extra, Mepilex Border, NonAdherent NonAdherent Contact Layer Contact Layer -Primary Dressing Covered/Secured with Dry Gauze, Secured with Tape -Aquacel Extra 0 -Aquacel AG 4x4 1 -Mepilex Border 1 #5 Right buttock cluster -Ulcer Cleansing Rinsed/ Irrigated with Saline -Foul Odor after Cleansing No -Primary Dressing Applied Mepilex Border Aquacel Extra, NonAdherent Contact Layer -Primary Dressing Covered/Secured with Dry Gauze, Secured with Tape -Aquacel Extra 1 -Mepilex Border 1 Pain Scale: 0-10 Numeric Is Patient Pain Free? Yes Yes WC - Visit Discharge Discharge Condition Stable Stable Ambulatory Status Ambulatory, Ambulatory, Crutches Crutches Transportation Private Auto Private Auto Medication Reconcilliation completed & Yes provided to patient/care provider Clinical Summary of Care Provided Yes Assessment/Plan Assessment/Plan (1) Decubitus ulcer of right buttock, stage 3: CODE(S): L89.313 - Pressure ulcer of right buttock, stage 3 (2) Decubitus ulcer of left buttock, stage 3: CODE(S): L89.323 - Pressure ulcer of left buttock, stage 3 (3) Type II diabetes mellitus: CODE(S): E11.9 - Type 2 diabetes mellitus without complications PLAN: No debridement completed this week. Some improvement noted. Continue Aquacel extra to open areas with Adaptic over top. Change 3-4 times daily depending on drainage/soilage. Consistent use of gel cushion and hospital bed very strongly recommended. Offloading again discussed. Optimal diabetes control also very strongly recommended. Optimal protein intake, vitamin C and zinc also discussed. His questions were answered and he was advised to call with any further questions or concerns. Follow-up in a week. This note was generated with [employer] dictation software. It may contain incorrect words, spelling, and punctuation that were not noted in checking the note before signing.
== END 2021-05-02 23:59 ==
LOC: WC 08:30
PROVIDERS: PCP Family Medicine; Visit Provider Internal Medicine
DX: L89.313 Pressure ulcer of right buttock, stage 3 (principal); L89.323 Pressure ulcer of left buttock, stage 3; E11.9 Type 2 diabetes mellitus without complications; E66.3 Overweight; Z68.29 Body mass index [BMI] 29.0-29.9, adult; Z79.01 Long term (current) use of anticoagulants; Z79.84 Long term (current) use of oral hypoglycemic drugs
CPT/HCPCS: 11042; 99213; G0463

== ENCOUNTER 2021-06-01 10:00 | Outpatient (RCR) | payer MEDICARE, SELFPAY ==
[2021-05-03 00:30] VITALS: BP 150/72; PULSE 68; RESP 20; TEMP 36.6; BMI 29.7
[2021-05-04 10:06] VITALS: BP 142/70; PULSE 70; TEMP 36.9; BMI 29.7
--- NOTE | 2021-05-04 12:47 | PCM.WC.PN ---
History of Present Illness Date of Service: 05/04/21 Chief Complaint: Recurrent buttock ulcers History of Wound: Mr. 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 Most recent episode said to have started months ago . Has been applying antibiotic and hemorrhoid ointment without significant improvement. Sits and sleeps in his lift chair. Also history of diabetes mellitus type 2 and his most recent A1c was said to be around 8. Fasting blood sugar this morning at 303. He states that he is working with his PCP to get this under better control. History of AKA. He feels well and denies other concerns at this time. Progress of Wound: Over all stable, no new concerns at this time. Subjective Subjective No new concerns at this time. Objective Data Objective Data Vital Signs: Vital Signs Temp Pulse Resp BP 98.5 F 70 20 H 142/70 H 05/04/21 10:06 05/04/21 10:06 05/03/21 00:30 05/04/21 10:06 Body Mass Index (BMI) 29.7 Charges/Coding Procedures Integumentary 111xxx-113xx: 36022 [place] subq tissue 20 sq cm/< Physical Exam Const alert, oriented x3 and no apparent distress General Appearance: cooperative and comfortable HEENT normocephalic and head/scalp atraumatic Eyes EOMs intact bilaterally Neck full ROM General: normal visual inspection Resp normal respiratory effort Effort and Inspection: able to speak in complete sentences Skin Wounds: wounds noted Neuro oriented x3, CN's II-XII intact bilaterally and moves all extremities Psych mental status grossly normal Appearance: grossly normal Attitude: calm Speech: normal speech Debridement Note Debridement Note Wound debrided: Left Buttock Cluster Type of Debridement: Excisional debridement Anesthesia Used: 4% Lidocaine Solution Depth: Down to and including healthy tissue and in the subcutaneous layer Percentage of wound debrided: 100 Instrument Used: 3mm curette Tissue Removed: Slough and devitalized tissue Severity: Fat Layer Exposed Amount of bleeding with debridement: Mild Bleeding Controlled with: Pressure Patient tolerated procedure: Patient tolerated procedure well Post-Debridement Measurements and Additional Note: Post-Debridement Measurements/Treatment ANIA - Nurse 1 - General Ulcer Assessment Start: 05/04/21 10:06 Freq: Status: Active Protocol: FABY Activity Type Activity Date Activity User E-Sign Co-Sign Detail Recorded Client Recorded Date Recorded By Document 05/04/21 10:06 BIBI [id number] 05/04/21 10:12 BIBI 05/04/21 10:06 - Today's Visit Information Type of service Follow-up Visit (Physician/MANAGER OF SELECTION AND ASSESSMENT ) Arrival Mode Ambulatory,Cane Patient Identification Verified (Name & Yes ) Height and Weight Body Mass Index (BMI) 29.7 BMI Classification Overweight Vital Signs Temperature (97.8 F-99.1 F) 98.5 F Temperature Source Temporal Pulse Rate (60-100) 70 Pulse Location Monitor Blood Pressure (90/60-120/80) 142/70 H Blood Pressure Mean (mm Hg) 94 Source Monitor Position Semi-Fowlers Blood Pressure Location Left Arm History Since Last Visit- (Skip if this is Patient's initial visit) Have you changed medications since your No last visit? Any new allergies or adverse reactions No Had a fall/change in ADL's that may No increase risk of falls Signs or symptoms of abuse and/or No neglect since last visit Have you been in the hospital since your No last visit? Has dressing in place as prescribed Yes Has compression in place as prescribed N/A Has offloadiing in place as prescribed N/A Experienced any changes in pain level or No management Left Footwear Regular Shoe Right Footwear Regular Shoe Pain Scale: 0-10 Numeric Is Patient Pain Free? Yes - Nurse 1 - General Ulcer Measurement Start: 05/04/21 10:06 Freq: Status: Active Protocol: Activity Type Activity Date Activity User E-Sign Co-Sign Detail Recorded Client Recorded Date Recorded By Document 05/04/21 10:06 BIBI [id number] 05/04/21 10:12 BIBI 05/04/21 10:06 Wound Center Nurse 1 #6 Left buttock cluster -Current Size (cm) - Length 0.1 -Current Size (cm) - Width 0.1 -Current Size (cm) - Depth 0.1 -Total Square Cm 0.01 -Wound Margin Distinct, Outline Attached -Granulation Amt Small (1-33%) -Granulation Quality Red -Necrosis Amt None Present (0 %) -Texture (Dai-wound Skin Appearance) Assessed, Scarring -Moisture (Dai-wound Skin Appearance) Assessed,Dry/ Scaly -Color (Dai-wound Skin Appearance) No Abnormality, Assessed -Temperature (Dai-wound Skin No Abnormality Appearance) (Pt Warm) -Tenderness on Palpation (Dai-wound No Skin Appearance) -Ulcer Cleansing Rinsed/ Irrigated with Saline -Foul Odor after Cleansing No -Anesthetic Used 4% Lidocaine Solution #5 Right buttock cluster -Current Size (cm) - Length 0.1 -Current Size (cm) - Width 0.1 -Current Size (cm) - Depth 0.1 -Total Square Cm 0.01 -Exudate Amt Small -Exudate Type Serosanguineous -Wound Margin Distinct, Outline Attached -Granulation Amt Small (1-33%) -Granulation Quality Red -Necrosis Amt None Present (0 %) -Texture (Dai-wound Skin Appearance) Assessed, Scarring -Moisture (Dai-wound Skin Appearance) Assessed,Dry/ Scaly -Color (Dai-wound Skin Appearance) No Abnormality, Assessed -Temperature (Dai-wound Skin No Abnormality Appearance) (Pt Warm) -Tenderness on Palpation (Dai-wound No Skin Appearance) -Ulcer Cleansing Rinsed/ Irrigated with Saline -Foul Odor after Cleansing No -Anesthetic Used 4% Lidocaine Solution WC - Nurse 2 - General Ulcer CM Notes Start: 05/04/21 10:06 Freq: Status: Active Protocol: Activity Type Activity Date Activity User E-Sign Co-Sign Detail Recorded Client Recorded Date Recorded By Document 05/04/21 10:37 MW [id number] 05/04/21 10:41 MW 05/04/21 10:37 Wound Center Nurse 2 #6 Left buttock cluster -Time 10:37 -Correct Patient Yes -Correct Side, Site, Position Yes -Correct Procedure Yes -Procedure Performed Yes -Type of Procedure Debridement -Clinical Debridement Subcutaneous -Tissue Removed Subcutaneous -Post Debridement (cm) - Length 3.0 -Post Debridement (cm) - Width 2.5 -Post Debridement (cm) - Depth 0.1 -Total Square (Post) (cm) 7.50 -Area of Debridement (cm) - Length 3.0 -Area of Debridement (cm) - Width 2.5 -Total Square (Area) (cm) 7.50 -Tunneling No -Undermining/Tunneling No -Circular Undermining No -Wound/Ulcer Outcome Not Healed -Ulcer Cleansing Rinsed/ Irrigated with Saline -Foul Odor after Cleansing No -Bioengineered Tissue No -Bleeding Controlled with Pressure -Offloading No -Treatment Response Procedure Tolerated Well -Debridement - Subq, 1st 20sq cm Yes #5 Right buttock cluster -Time 10:37 -Correct Patient Yes -Correct Side, Site, Position Yes -Correct Procedure Yes -Procedure Performed Yes -Type of Procedure Debridement -Clinical Debridement Subcutaneous -Tissue Removed Subcutaneous -Post Debridement (cm) - Length 1.0 -Post Debridement (cm) - Width 2.0 -Post Debridement (cm) - Depth 0.1 -Total Square (Post) (cm) 2.00 -Area of Debridement (cm) - Length 1.0 -Area of Debridement (cm) - Width 2.0 -Total Square (Area) (cm) 2.00 -Tunneling No -Undermining/Tunneling No -Circular Undermining No -Wound/Ulcer Outcome Not Healed -Ulcer Cleansing Rinsed/ Irrigated with Saline -Foul Odor after Cleansing No -Bioengineered Tissue No -Bleeding Controlled with Pressure -Offloading No -Treatment Response Procedure Tolerated Well -Debridement - Subq, 1st 20sq cm No Pain Scale: 0-10 Numeric Is Patient Pain Free? Yes - Nurse 3 - General Ulcer D/C NN Start: 05/04/21 10:06 Freq: Status: Active Protocol: Activity Type Activity Date Activity User E-Sign Co-Sign Detail Recorded Client Recorded Date Recorded By Document 05/04/21 10:44 ANTONIO [id number] 05/04/21 10:45 ANTONIO 05/04/21 10:44 Wound Care Nurse 3 #6 Left buttock cluster -Ulcer Cleansing Rinsed/ Irrigated with Saline -Foul Odor after Cleansing No -Primary Dressing Applied Aquacel Extra, NonAdherent Contact Layer -Primary Dressing Covered/Secured with Dry Gauze, Secured with Tape -Aquacel Extra 1 #5 Right buttock cluster -Ulcer Cleansing Rinsed/ Irrigated with Saline -Foul Odor after Cleansing No -Primary Dressing Applied Aquacel Extra, NonAdherent Contact Layer -Primary Dressing Covered/Secured with Dry Gauze, Secured with Tape -Aquacel Extra 0 Pain Scale: 0-10 Numeric Is Patient Pain Free? Yes - Visit Discharge Discharge Condition Stable Ambulatory Status Ambulatory, Crutches Transportation Private Auto Medication Reconcilliation completed & Yes provided to patient/care provider Clinical Summary of Care Provided Yes Additional Wound Wound debrided: Right Buttock Cluster Type of Debridement: Excisional debridement Anesthesia Used: 4% Lidocaine Solution Depth: Down to and including healthy tissue and in the subcutaneous layer Percentage of wound debrided: 100 Instrument Used: 3mm curette Tissue Removed: Slough and devitalized tissue Severity: Fat Layer Exposed Amount of bleeding with debridement: Mild Bleeding Controlled with: Pressure Patient tolerated procedure: Patient tolerated procedure well Assessment/Plan Assessment/Plan (1) Decubitus ulcer of right buttock, stage 3: CODE(S): L89.313 - Pressure ulcer of right buttock, stage 3 (2) Decubitus ulcer of left buttock, stage 3: CODE(S): L89.323 - Pressure ulcer of left buttock, stage 3 (3) Type II diabetes mellitus: CODE(S): E11.9 - Type 2 diabetes mellitus without complications PLAN: Debridement done as documented above, procedure was well-tolerated. Continue Aquacel extra to open areas with Adaptic over top. Change 3-4 times daily depending on drainage/soilage. Consistent use of gel cushion and hospital bed very strongly recommended. Offloading again discussed. Optimal diabetes control also very strongly recommended. Optimal protein intake, vitamin C and zinc also discussed. His questions were answered and he was advised to call with any further questions or concerns. Follow-up in 2 weeks. This note was generated with [employer] dictation software. It may contain incorrect words, spelling, and punctuation that were not noted in checking the note before signing.
[2021-05-18 10:12] VITALS: BP 140/72; PULSE 64; RESP 16; TEMP 37.1; BMI 29.7
--- NOTE | 2021-05-18 12:41 | PCM.WC.PN ---
History of Present Illness Date of Service: 05/18/21 Chief Complaint: Recurrent buttock ulcers History of Wound: Mr. 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 Most recent episode said to have started months ago . Has been applying antibiotic and hemorrhoid ointment without significant improvement. Sits and sleeps in his lift chair. Also history of diabetes mellitus type 2 and his most recent A1c was said to be around 8. Fasting blood sugar this morning at 303. He states that he is working with his PCP to get this under better control. History of AKA. He feels well and denies other concerns at this time. Progress of Wound: Left Buttock is healed. Right Improving. No new concerns. Subjective Subjective No new concerns at this time. Objective Data Objective Data Vital Signs: Vital Signs Temp Pulse Resp BP 98.8 F 64 16 140/72 H 05/18/21 10:12 05/18/21 10:12 05/18/21 10:12 05/18/21 10:12 Body Mass Index (BMI) 29.7 Charges/Coding Procedures Integumentary 111xxx-113xx: 36[address] [place] subq tissue 20 sq cm/< Physical Exam Const alert, oriented x3 and no apparent distress General Appearance: cooperative and comfortable HEENT normocephalic and head/scalp atraumatic Eyes EOMs intact bilaterally Neck full ROM General: normal visual inspection Resp normal respiratory effort Effort and Inspection: able to speak in complete sentences Skin Wounds: wounds noted Neuro oriented x3, CN's II-XII intact bilaterally and moves all extremities Psych mental status grossly normal Appearance: grossly normal Attitude: calm Speech: normal speech Debridement Note Debridement Note Wound debrided: Right Buttock Type of Debridement: Excisional debridement Anesthesia Used: 4% Lidocaine Solution Depth: Down to and including healthy tissue and in the subcutaneous layer Percentage of wound debrided: 100 Instrument Used: 3mm curette Tissue Removed: Slough and devitalized tissue Severity: Fat Layer Exposed Amount of bleeding with debridement: Mild Bleeding Controlled with: Pressure Patient tolerated procedure: Patient tolerated procedure well Post-Debridement Measurements and Additional Note: Post-Debridement Measurements/Treatment ANIA - Nurse 1 - General Ulcer Assessment Start: 05/04/21 10:06 Freq: Status: Active Protocol: FABY Activity Type Activity Date Activity User E-Sign Co-Sign Detail Recorded Client Recorded Date Recorded By Document 05/04/21 10:06 BIBI [id number] 05/04/21 10:12 BIBI Document 05/18/21 10:12 ANTONIO [id number] 05/18/21 10:20 ANTONIO 05/04/21 05/18/21 10:06 10:12 - Today's Visit Information Type of service Follow-up Visit Follow-up Visit (Physician/STATION INSTALLATION SUPERVISOR (Physician/STATION INSTALLATION SUPERVISOR ) ) Arrival Mode Ambulatory,Cane Ambulatory, Crutches Patient Identification Verified (Name & Yes Yes ) Patient Requires Transmission-Based No Precautions Finger Stick Blood Sugar(mg/dl) (if 112 indicated): Blood Sugar Stated by Patient Height and Weight Body Mass Index (BMI) 29.7 29.7 BMI Classification Overweight Overweight Vital Signs Temperature (97.8 F-99.1 F) 98.5 F 98.8 F Temperature Source Temporal Temporal Pulse Rate (60-100) 70 64 Pulse Location Monitor Monitor Respiratory Rate (12-18) 16 Respiratory rate source Observation Blood Pressure (90/60-120/80) 142/70 H 140/72 H Blood Pressure Mean (mm Hg) 94 94 Source Monitor Monitor Position Semi-Fowlers Sitting Blood Pressure Location Left Arm Left Arm History Since Last Visit- (Skip if this is Patient's initial visit) Have you changed medications since your No No last visit? Any new allergies or adverse reactions No No Had a fall/change in ADL's that may No No increase risk of falls Signs or symptoms of abuse and/or No No neglect since last visit Have you been in the hospital since your No No last visit? Has dressing in place as prescribed Yes Yes Has compression in place as prescribed N/A N/A Has offloadiing in place as prescribed N/A N/A Experienced any changes in pain level or No No management Left Footwear Regular Shoe No Footwear Right Footwear Regular Shoe Regular Shoe Pain Scale: 0-10 Numeric Is Patient Pain Free? Yes Yes - Nurse 1 - General Ulcer Measurement Start: 05/04/21 10:06 Freq: Status: Active Protocol: Activity Type Activity Date Activity User E-Sign Co-Sign Detail Recorded Client Recorded Date Recorded By Document 05/04/21 10:06 BIBI [id number] 05/04/21 10:12 KR Document 05/18/21 10:12 [id number] 05/18/21 10:20 JF 05/04/21 05/18/21 10:06 10:12 Wound Center Nurse 1 #6 Left buttock cluster -Combined with other wound No -Current Size (cm) - Length 0.1 0 -Current Size (cm) - Width 0.1 0 -Current Size (cm) - Depth 0.1 0 -Total Square Cm 0.01 0 -Photo Taken Yes -Epithelialization Large 67-100% -Tunneling No -Undermining/Tunneling No -Circular Undermining No -Wound Margin Distinct, Outline Attached -Granulation Amt Small (1-33%) -Granulation Quality Red -Necrosis Amt None Present (0 %) -Texture (Dai-wound Skin Appearance) Assessed, Scarring -Moisture (Dai-wound Skin Appearance) Assessed,Dry/ Scaly -Color (Dai-wound Skin Appearance) No Abnormality, Assessed -Temperature (Dai-wound Skin No Abnormality Appearance) (Pt Warm) -Tenderness on Palpation (Dai-wound No Skin Appearance) -Ulcer Cleansing Rinsed/ Irrigated with Saline -Foul Odor after Cleansing No -Anesthetic Used 4% Lidocaine Solution #5 Right buttock cluster -Combined with other wound No -Current Size (cm) - Length 0.1 3.8 -Current Size (cm) - Width 0.1 1 -Current Size (cm) - Depth 0.1 0.1 -Total Square Cm 0.01 3.8 -Photo Taken No -Epithelialization Medium 34-66% -Tunneling No -Circular Undermining No -Exudate Amt Small Small -Exudate Type Serosanguineous Serosanguineous -Wound Margin Distinct, Flat & Intact Outline Attached -Granulation Amt Small (1-33%) Large (67-100%) -Granulation Quality Red Red -Slough/Fibrin Yes -Necrosis Amt None Present (0 Small (1-33%) %) -Necrotic Tissue Type Adherent Slough -Structure Exposed N/A -Texture (Dai-wound Skin Appearance) Assessed, Assessed, Scarring Excoriation -Moisture (Dai-wound Skin Appearance) Assessed,Dry/ Assessed,Dry/ Scaly Scaly -Color (Dai-wound Skin Appearance) No Abnormality, Assessed Assessed -Temperature (Dai-wound Skin No Abnormality No Abnormality Appearance) (Pt Warm) (Pt Warm) -Tenderness on Palpation (Dai-wound No No Skin Appearance) -Ulcer Cleansing Rinsed/ Rinsed/ Irrigated with Irrigated with Saline Saline -Foul Odor after Cleansing No No -Anesthetic Used 4% Lidocaine 5% Lidocaine Solution Gel Lower Limb Edema Present NA WC - Nurse 2 - General Ulcer CM Notes Start: 05/04/21 10:06 Freq: Status: Active Protocol: Activity Type Activity Date Activity User E-Sign Co-Sign Detail Recorded Client Recorded Date Recorded By Document 05/04/21 10:37 MW [id number] 05/04/21 10:41 MW Document 05/18/21 10:26 MW [id number] 05/18/21 10:30 MW 05/04/21 05/18/21 10:37 10:26 Wound Center Nurse 2 #6 Left buttock cluster -Time 10:37 10:27 -Correct Patient Yes Yes -Correct Side, Site, Position Yes Yes -Correct Procedure Yes Yes -Procedure Performed Yes No -Type of Procedure Debridement -Clinical Debridement Subcutaneous -Tissue Removed Subcutaneous -Post Debridement (cm) - Length 3.0 0 -Post Debridement (cm) - Width 2.5 0 -Post Debridement (cm) - Depth 0.1 0 -Total Square (Post) (cm) 7.50 0 -Area of Debridement (cm) - Length 3.0 -Area of Debridement (cm) - Width 2.5 -Total Square (Area) (cm) 7.50 -Tunneling No -Undermining/Tunneling No -Circular Undermining No -Wound/Ulcer Outcome Not Healed Healed- Epithelialized -Ulcer Cleansing Rinsed/ Irrigated with Saline -Foul Odor after Cleansing No -Bioengineered Tissue No -Bleeding Controlled with Pressure -Offloading No -Treatment Response Procedure Tolerated Well -Debridement - Subq, 1st 20sq cm Yes #5 Right buttock cluster -Time 10:37 10:28 -Correct Patient Yes Yes -Correct Side, Site, Position Yes Yes -Correct Procedure Yes Yes -Procedure Performed Yes Yes -Type of Procedure Debridement Debridement -Clinical Debridement Subcutaneous Subcutaneous -Tissue Removed Subcutaneous Subcutaneous -Post Debridement (cm) - Length 1.0 3.5 -Post Debridement (cm) - Width 2.0 3.5 -Post Debridement (cm) - Depth 0.1 0.1 -Total Square (Post) (cm) 2.00 12.25 -Area of Debridement (cm) - Length 1.0 3.5 -Area of Debridement (cm) - Width 2.0 3.5 -Total Square (Area) (cm) 2.00 12.25 -Tunneling No No -Undermining/Tunneling No No -Circular Undermining No No -Wound/Ulcer Outcome Not Healed Not Healed -Ulcer Cleansing Rinsed/ Rinsed/ Irrigated with Irrigated with Saline Saline -Foul Odor after Cleansing No No -Bioengineered Tissue No No -Bleeding Controlled with Pressure Pressure -Offloading No No -Treatment Response Procedure Procedure Tolerated Well Tolerated Well -Debridement - Subq, 1st 20sq cm No Yes Pain Scale: 0-10 Numeric Is Patient Pain Free? Yes Yes - Nurse 3 - General Ulcer D/C NN Start: 05/04/21 10:06 Freq: Status: Active Protocol: Activity Type Activity Date Activity User E-Sign Co-Sign Detail Recorded Client Recorded Date Recorded By Document 05/04/21 10:44 [id number] 05/04/21 10:45 Document 05/18/21 10:39 [id number] 05/18/21 10:40 05/04/21 05/18/21 10:44 10:39 Wound Care Nurse 3 #6 Left buttock cluster -Ulcer Cleansing Rinsed/ Irrigated with Saline -Foul Odor after Cleansing No -Primary Dressing Applied Aquacel Extra, NonAdherent Contact Layer -Primary Dressing Covered/Secured with Dry Gauze, Secured with Tape -Aquacel Extra 1 #5 Right buttock cluster -Ulcer Cleansing Rinsed/ Rinsed/ Irrigated with Irrigated with Saline Saline -Foul Odor after Cleansing No No -Primary Dressing Applied Aquacel Extra, Aquacel Extra, NonAdherent NonAdherent Contact Layer Contact Layer -Primary Dressing Covered/Secured with Dry Gauze, Dry Gauze, Secured with Secured with Tape Tape -Aquacel Extra 0 1 Pain Scale: 0-10 Numeric Is Patient Pain Free? Yes Yes - Visit Discharge Discharge Condition Stable Stable Ambulatory Status Ambulatory, Ambulatory,Cane Crutches Transportation Private Auto Private Auto Medication Reconcilliation completed & Yes Yes provided to patient/care provider Clinical Summary of Care Provided Yes Yes Assessment/Plan Assessment/Plan (1) Decubitus ulcer of right buttock, stage 3: CODE(S): L89.313 - Pressure ulcer of right buttock, stage 3 (2) Decubitus ulcer of left buttock, stage 3: CODE(S): L89.323 - Pressure ulcer of left buttock, stage 3 (3) Type II diabetes mellitus: CODE(S): E11.9 - Type 2 diabetes mellitus without complications PLAN: Debridement done as documented above, procedure was well-tolerated. Continue Aquacel extra to open areas with Adaptic over top. Change 3-4 times daily depending on drainage/soilage. Consistent use of gel cushion and hospital bed very strongly recommended. Offloading again discussed. Optimal diabetes control also very strongly recommended. Optimal protein intake, vitamin C and zinc also discussed. His questions were answered and he was advised to call with any further questions or concerns. Follow-up in 2 weeks. This note was generated with [employer] dictation software. It may contain incorrect words, spelling, and punctuation that were not noted in checking the note before signing.
[2021-06-01 10:01] VITALS: RESP 16; TEMP 36.7; BMI 29.7
--- NOTE | 2021-06-01 11:15 | PN.PCM_ITS ---
History of Present Illness Date of Service: 06/01/21 Chief Complaint: Recurrent buttock ulcers History of Wound: Mr. 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 Most recent episode said to have started months ago . Has been applying antibiotic and hemorrhoid ointment without significant improvement. Sits and sleeps in his lift chair. Also history of diabetes mellitus type 2 and his most recent A1c was said to be around 8. Fasting blood sugar this morning at 303. He states that he is working with his PCP to get this under better control. History of AKA. He feels well and denies other concerns at this time. Progress of Wound: Left buttock remains slightly healed however right with significant worsening. Patient states that he has been sitting a lot more over the last couple of weeks. Subjective Subjective No new/ acute concerns at this time. Objective Data Objective Data Vital Signs: Vital Signs Temp Pulse Resp BP 98.1 F 64 16 140/72 H 06/01/21 10:01 05/18/21 10:12 06/01/21 10:01 05/18/21 10:12 Body Mass Index (BMI) 29.7 Charges/Coding Procedures Integumentary 111xxx-113xx: 52870 [place] subq tissue 20 sq cm/< Add On Codes: 88829 [place] subq tissue add-on (x1. Additional square centimeter debrided, please return to clinic.) Physical Exam Const alert, oriented x3 and no apparent distress General Appearance: cooperative and comfortable HEENT normocephalic and head/scalp atraumatic Eyes EOMs intact bilaterally Neck full ROM General: normal visual inspection Resp normal respiratory effort Effort and Inspection: able to speak in complete sentences Skin Wounds: wounds noted Neuro oriented x3, CN's II-XII intact bilaterally and moves all extremities Psych mental status grossly normal Appearance: grossly normal Attitude: calm Speech: normal speech Debridement Note Debridement Note Wound debrided: Right Buttock ( Cluster ) Type of Debridement: Excisional debridement Anesthesia Used: 4% Lidocaine Solution Depth: Down to and including healthy tissue and in the subcutaneous layer Percentage of wound debrided: 100 Instrument Used: 3mm curette Tissue Removed: Slough and devitalized tissue Severity: Fat Layer Exposed Amount of bleeding with debridement: Mild Bleeding Controlled with: Pressure Patient tolerated procedure: Patient tolerated procedure well Post-Debridement Measurements and Additional Note: Post-Debridement Measurements/Treatment WC - Nurse 1 - General Ulcer Assessment Start: 05/04/21 10:06 Freq: Status: Active Protocol: FABY Activity Type Activity Date Activity User E-Sign Co-Sign Detail Recorded Client Recorded Date Recorded By Document 05/04/21 10:06 KR [id number] 05/04/21 10:12 KR Document 05/18/21 10:12 JF [id number] 05/18/21 10:20 JF Document 06/01/21 10:01 AK [id number] 06/01/21 10:06 AK 05/04/21 05/18/21 06/01/21 10:06 10:12 10:01 WC - Today's Visit Information Type of service Follow-up Visit Follow-up Visit Follow-up Visit (Physician/RESEARCH PROJECT MANAGER (Physician/RESEARCH PROJECT MANAGER (Physician/RESEARCH PROJECT MANAGER ) ) ) Arrival Mode Ambulatory,Cane Ambulatory, Ambulatory, Crutches Crutches Patient Identification Verified (Name & Yes Yes Yes ) Patient Requires Transmission-Based No No Precautions Finger Stick Blood Sugar(mg/dl) (if 112 indicated): Blood Sugar Stated by Patient Height and Weight Body Mass Index (BMI) 29.7 29.7 29.7 BMI Classification Overweight Overweight Overweight Vital Signs Temperature (97.8 F-99.1 F) 98.5 F 98.8 F 98.1 F Temperature Source Temporal Temporal Temporal Pulse Rate (60-100) 70 64 Pulse Location Monitor Monitor Respiratory Rate (12-18) 16 16 Respiratory rate source Observation Observation Blood Pressure (90/60-120/80) 142/70 H 140/72 H Blood Pressure Mean (mm Hg) 94 94 Source Monitor Monitor Position Semi-Fowlers Sitting Blood Pressure Location Left Arm Left Arm History Since Last Visit- (Skip if this is Patient's initial visit) Have you changed medications since your No No No last visit? Any new allergies or adverse reactions No No No Had a fall/change in ADL's that may No No No increase risk of falls Signs or symptoms of abuse and/or No No No neglect since last visit Have you been in the hospital since your No No No last visit? Has dressing in place as prescribed Yes Yes Yes Has compression in place as prescribed N/A N/A N/A Has offloadiing in place as prescribed N/A N/A Yes Experienced any changes in pain level or No No No management Left Footwear Regular Shoe No Footwear No Footwear Right Footwear Regular Shoe Regular Shoe Regular Shoe Pain Scale: 0-10 Numeric Is Patient Pain Free? Yes Yes Yes WC - Nurse 1 - General Ulcer Measurement Start: 05/04/21 10:06 Freq: Status: Active Protocol: Activity Type Activity Date Activity User E-Sign Co-Sign Detail Recorded Client Recorded Date Recorded By Document 05/04/21 10:06 KR [id number] 05/04/21 10:12 KR Document 05/18/21 10:12 JF [id number] 05/18/21 10:20 JF Document 06/01/21 10:01 AK [id number] 06/01/21 10:06 AK 05/04/21 05/18/21 06/01/21 10:06 10:12 10:01 Wound Center Nurse 1 #6 Left buttock cluster -Combined with other wound No -Current Size (cm) - Length 0.1 0 -Current Size (cm) - Width 0.1 0 -Current Size (cm) - Depth 0.1 0 -Total Square Cm 0.01 0 -Photo Taken Yes -Epithelialization Large 67-100% -Tunneling No -Undermining/Tunneling No -Circular Undermining No -Wound Margin Distinct, Outline Attached -Granulation Amt Small (1-33%) -Granulation Quality Red -Necrosis Amt None Present (0 %) -Texture (Dai-wound Skin Appearance) Assessed, Scarring -Moisture (Dai-wound Skin Appearance) Assessed,Dry/ Scaly -Color (Dai-wound Skin Appearance) No Abnormality, Assessed -Temperature (Dai-wound Skin No Abnormality Appearance) (Pt Warm) -Tenderness on Palpation (Dai-wound No Skin Appearance) -Ulcer Cleansing Rinsed/ Irrigated with Saline -Foul Odor after Cleansing No -Anesthetic Used 4% Lidocaine Solution #5 Right buttock cluster -Combined with other wound No No -Current Size (cm) - Length 0.1 3.8 4 -Current Size (cm) - Width 0.1 1 1 -Current Size (cm) - Depth 0.1 0.1 0.1 -Total Square Cm 0.01 3.8 4 -Photo Taken No No -Epithelialization Medium 34-66% None Present -Tunneling No No -Undermining/Tunneling No -Circular Undermining No No -Change in Wound Grade/Stage No -Exudate Amt Small Small Medium -Exudate Type Serosanguineous Serosanguineous Serosanguineous -Wound Margin Distinct, Flat & Intact Distinct, Outline Outline Attached Attached -Granulation Amt Small (1-33%) Large (67-100%) Medium (34-66%) -Granulation Quality Red Red Red -Slough/Fibrin Yes No -Necrosis Amt None Present (0 Small (1-33%) None Present (0 %) %) -Necrotic Tissue Type Adherent Slough -Structure Exposed N/A N/A -Texture (Dai-wound Skin Appearance) Assessed, Assessed, Assessed, Scarring Excoriation Excoriation -Moisture (Dai-wound Skin Appearance) Assessed,Dry/ Assessed,Dry/ No Abnormality, Scaly Scaly Assessed -Color (Dai-wound Skin Appearance) No Abnormality, Assessed No Abnormality, Assessed Assessed -Temperature (Dai-wound Skin No Abnormality No Abnormality No Abnormality Appearance) (Pt Warm) (Pt Warm) (Pt Warm) -Tenderness on Palpation (Dai-wound No No Yes Skin Appearance) -Ulcer Cleansing Rinsed/ Rinsed/ Rinsed/ Irrigated with Irrigated with Irrigated with Saline Saline Saline -Foul Odor after Cleansing No No No -Anesthetic Used 4% Lidocaine 5% Lidocaine 4% Lidocaine Solution Gel Solution Lower Limb Edema Present NA NA WC - Nurse 2 - General Ulcer CM Notes Start: 05/04/21 10:06 Freq: Status: Active Protocol: Activity Type Activity Date Activity User E-Sign Co-Sign Detail Recorded Client Recorded Date Recorded By Document 05/04/21 10:37 MW [id number] 05/04/21 10:41 MW Document 05/18/21 10:26 MW [id number] 05/18/21 10:30 MW Document 06/01/21 10:18 MW [id number] 06/01/21 10:22 MW 05/04/21 05/18/21 06/01/21 10:37 10:26 10:18 Wound Center Nurse 2 #6 Left buttock cluster -Time 10:37 10:27 -Correct Patient Yes Yes -Correct Side, Site, Position Yes Yes -Correct Procedure Yes Yes -Procedure Performed Yes No -Type of Procedure Debridement -Clinical Debridement Subcutaneous -Tissue Removed Subcutaneous -Post Debridement (cm) - Length 3.0 0 -Post Debridement (cm) - Width 2.5 0 -Post Debridement (cm) - Depth 0.1 0 -Total Square (Post) (cm) 7.50 0 -Area of Debridement (cm) - Length 3.0 -Area of Debridement (cm) - Width 2.5 -Total Square (Area) (cm) 7.50 -Tunneling No -Undermining/Tunneling No -Circular Undermining No -Wound/Ulcer Outcome Not Healed Healed- Epithelialized -Ulcer Cleansing Rinsed/ Irrigated with Saline -Foul Odor after Cleansing No -Bioengineered Tissue No -Bleeding Controlled with Pressure -Offloading No -Treatment Response Procedure Tolerated Well -Debridement - Subq, 1st 20sq cm Yes #5 Right buttock cluster -Time 10:37 10:28 10:19 -Correct Patient Yes Yes Yes -Correct Side, Site, Position Yes Yes Yes -Correct Procedure Yes Yes Yes -Procedure Performed Yes Yes Yes -Type of Procedure Debridement Debridement Debridement -Clinical Debridement Subcutaneous Subcutaneous Subcutaneous -Tissue Removed Subcutaneous Subcutaneous Subcutaneous -Post Debridement (cm) - Length 1.0 3.5 7.0 -Post Debridement (cm) - Width 2.0 3.5 5.0 -Post Debridement (cm) - Depth 0.1 0.1 0.1 -Total Square (Post) (cm) 2.00 12.25 35.00 -Area of Debridement (cm) - Length 1.0 3.5 7.0 -Area of Debridement (cm) - Width 2.0 3.5 5.0 -Total Square (Area) (cm) 2.00 12.25 35.00 -Tunneling No No No -Undermining/Tunneling No No No -Circular Undermining No No No -Wound/Ulcer Outcome Not Healed Not Healed Not Healed -Ulcer Cleansing Rinsed/ Rinsed/ Rinsed/ Irrigated with Irrigated with Irrigated with Saline Saline Saline -Foul Odor after Cleansing No No No -Bioengineered Tissue No No No -Bleeding Controlled with Pressure Pressure Pressure -Offloading No No No -Treatment Response Procedure Procedure Procedure Tolerated Well Tolerated Well Tolerated Well -Debridement - Subq, 1st 20sq cm No Yes Yes -Debridement, SubQ, ea addt'l 20sq cm 1 or part thereof Pain Scale: 0-10 Numeric Is Patient Pain Free? Yes Yes Yes - Nurse 3 - General Ulcer D/C NN Start: 05/04/21 10:06 Freq: Status: Active Protocol: Activity Type Activity Date Activity User E-Sign Co-Sign Detail Recorded Client Recorded Date Recorded By Document 05/04/21 10:44 [id number] 05/04/21 10:45 Document 05/18/21 10:39 [id number] 05/18/21 10:40 Document 06/01/21 10:33 [id number] 06/01/21 10:34 05/04/21 05/18/21 06/01/21 10:44 10:39 10:33 Wound Care Nurse 3 #6 Left buttock cluster -Ulcer Cleansing Rinsed/ Irrigated with Saline -Foul Odor after Cleansing No -Primary Dressing Applied Aquacel Extra, NonAdherent Contact Layer -Primary Dressing Covered/Secured with Dry Gauze, Secured with Tape -Aquacel Extra 1 #5 Right buttock cluster -Ulcer Cleansing Rinsed/ Rinsed/ Rinsed/ Irrigated with Irrigated with Irrigated with Saline Saline Saline -Foul Odor after Cleansing No No No -Primary Dressing Applied Aquacel Extra, Aquacel Extra, Aquacel Extra, NonAdherent NonAdherent NonAdherent Contact Layer Contact Layer Contact Layer -Primary Dressing Covered/Secured with Dry Gauze, Dry Gauze, Secured with Secured with Tape Tape -Other Covering abd pad -Aquacel Extra 0 1 1 Pain Scale: 0-10 Numeric Is Patient Pain Free? Yes Yes Yes - Visit Discharge Discharge Condition Stable Stable Stable Ambulatory Status Ambulatory, Ambulatory,Cane Ambulatory, Crutches Crutches Transportation Private Auto Private Auto Private Auto Medication Reconcilliation completed & Yes Yes Yes provided to patient/care provider Clinical Summary of Care Provided Yes Yes Yes Assessment/Plan Assessment/Plan (1) Decubitus ulcer of right buttock, stage 3: CODE(S): L89.313 - Pressure ulcer of right buttock, stage 3 (2) Decubitus ulcer of left buttock, stage 3: CODE(S): L89.323 - Pressure ulcer of left buttock, stage 3 (3) Type II diabetes mellitus: CODE(S): E11.9 - Type 2 diabetes mellitus without complications PLAN: Worsening noted.Clustered. Debridement done as documented above, procedure was well-tolerated. Continue Aquacel extra to open areas with Adaptic over top. Change 3-4 times daily depending on drainage/soilage. Lengthy discussion had with patient, he is not compliant with offloading. Consistent use of gel cushion and hospital bed very strongly recommended. Offloading again discussed. Optimal diabetes control also very strongly recommended. Optimal protein intake, vitamin C and zinc also discussed. His questions were answered and he was advised to call with any further questions or concerns. Follow-up in 1 week. This note was generated with [employer] dictation software. It may contain incorrect words, spelling, and punctuation that were not noted in checking the note before signing.
== END 2021-06-02 23:59 ==
LOC: WC 10:00
PROVIDERS: PCP Family Medicine; Visit Provider Internal Medicine
DX: L89.313 Pressure ulcer of right buttock, stage 3 (principal); L89.323 Pressure ulcer of left buttock, stage 3; E11.9 Type 2 diabetes mellitus without complications; E66.3 Overweight; Z68.29 Body mass index [BMI] 29.0-29.9, adult; Z79.84 Long term (current) use of oral hypoglycemic drugs; Z79.01 Long term (current) use of anticoagulants; Z79.899 Other long term (current) drug therapy; Z89.619 Acquired absence of unspecified leg above knee
CPT/HCPCS: 11042; 11045

== ENCOUNTER 2021-06-29 10:15 | Outpatient (RCR) | payer MEDICARE, SELFPAY ==
[2021-06-03 00:28] VITALS: BP 140/72; PULSE 64; RESP 16; TEMP 36.7; BMI 29.7
[2021-06-08 10:23] VITALS: BP 144/80; PULSE 67; TEMP 35.9; BMI 29.7
--- NOTE | 2021-06-08 12:56 | PCM.WC.PN ---
History of Present Illness Date of Service: 06/08/21 Chief Complaint: Recurrent buttock ulcers History of Wound: Mr. 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 Most recent episode said to have started months ago . Has been applying antibiotic and hemorrhoid ointment without significant improvement. Sits and sleeps in his lift chair. Also history of diabetes mellitus type 2 and his most recent A1c was said to be around 8. Fasting blood sugar this morning at 303. He states that he is working with his PCP to get this under better control. History of AKA. He feels well and denies other concerns at this time. Progress of Wound: Overall stable. Right buttock with some improvement this week however still has a lot of periulcer erythema. Subjective Subjective No new/ acute concerns at this time. Objective Data Objective Data Vital Signs: Vital Signs Temp Pulse Resp BP 96.7 F L 67 16 144/80 H 06/08/21 10:23 06/08/21 10:23 06/03/21 00:28 06/08/21 10:23 Body Mass Index (BMI) 29.7 Charges/Coding Procedures Integumentary 111xxx-113xx: 01685 [place] subq tissue 20 sq cm/< Physical Exam Const alert, oriented x3 and no apparent distress General Appearance: cooperative and comfortable HEENT normocephalic and head/scalp atraumatic Eyes EOMs intact bilaterally Neck full ROM General: normal visual inspection Resp normal respiratory effort Effort and Inspection: able to speak in complete sentences Skin Wounds: wounds noted Neuro oriented x3, CN's II-XII intact bilaterally and moves all extremities Psych mental status grossly normal Appearance: grossly normal Attitude: calm Speech: normal speech Debridement Note Debridement Note Wound debrided: Right Buttock Type of Debridement: Excisional debridement Anesthesia Used: 4% Lidocaine Solution Depth: Down to and including healthy tissue and in the subcutaneous layer Percentage of wound debrided: 100 Instrument Used: 3mm curette Tissue Removed: Slough and devitalized tissue Severity: Fat Layer Exposed Amount of bleeding with debridement: Mild Bleeding Controlled with: Pressure Patient tolerated procedure: Patient tolerated procedure well Post-Debridement Measurements and Additional Note: Post-Debridement Measurements/Treatment ANIA - Nurse 1 - General Ulcer Assessment Start: 06/08/21 10:23 Freq: Status: Active Protocol: NAINAStephen Activity Type Activity Date Activity User E-Sign Co-Sign Detail Recorded Client Recorded Date Recorded By Document 06/08/21 10:23 BIBI [id number] 06/08/21 10:26 BIBI 06/08/21 10:23 - Today's Visit Information Type of service Follow-up Visit (Physician/DRUG SAFETY DATA MANAGEMENT SPECIALIST ) Arrival Mode Ambulatory, Crutches Patient Identification Verified (Name & Yes ) Height and Weight Body Mass Index (BMI) 29.7 BMI Classification Overweight Vital Signs Temperature (97.8 F-99.1 F) 96.7 F L Temperature Source Temporal Pulse Rate (60-100) 67 Pulse Location Monitor Blood Pressure (90/60-120/80) 144/80 H Blood Pressure Mean (mm Hg) 101 Source Monitor Position Sitting Blood Pressure Location Right Arm History Since Last Visit- (Skip if this is Patient's initial visit) Have you changed medications since your No last visit? Any new allergies or adverse reactions No Had a fall/change in ADL's that may No increase risk of falls Signs or symptoms of abuse and/or No neglect since last visit Have you been in the hospital since your No last visit? Has dressing in place as prescribed Yes Has compression in place as prescribed N/A Has offloadiing in place as prescribed N/A Experienced any changes in pain level or No management Left Footwear Regular Shoe Pain Scale: 0-10 Numeric Is Patient Pain Free? Yes - Nurse 1 - General Ulcer Measurement Start: 06/08/21 10:23 Freq: Status: Active Protocol: Activity Type Activity Date Activity User E-Sign Co-Sign Detail Recorded Client Recorded Date Recorded By Document 06/08/21 10:23 BIBI [id number] 06/08/21 10:26 BIBI 06/08/21 10:23 Wound Center Nurse 1 #5 Right buttock cluster -Current Size (cm) - Length 2.7 -Current Size (cm) - Width 2 -Current Size (cm) - Depth 0.1 -Total Square Cm 5.4 -Exudate Amt Small -Exudate Type Serosanguineous -Wound Margin Distinct, Outline Attached -Granulation Amt Medium (34-66%) -Granulation Quality Red -Necrosis Amt Small (1-33%) -Necrotic Tissue Type Adherent Slough -Texture (Dai-wound Skin Appearance) Assessed, Scarring -Moisture (Dai-wound Skin Appearance) Assessed,Dry/ Scaly -Color (Dai-wound Skin Appearance) Assessed -Temperature (Dai-wound Skin No Abnormality Appearance) (Pt Warm) -Tenderness on Palpation (Dai-wound No Skin Appearance) -Ulcer Cleansing Rinsed/ Irrigated with Saline -Foul Odor after Cleansing No -Anesthetic Used 5% Lidocaine Gel WC - Nurse 2 - General Ulcer CM Notes Start: 06/08/21 10:23 Freq: Status: Active Protocol: Activity Type Activity Date Activity User E-Sign Co-Sign Detail Recorded Client Recorded Date Recorded By Document 06/08/21 10:36 MW [id number] 06/08/21 10:48 MW 06/08/21 10:36 Wound Center Nurse 2 -Time 10:37 -Correct Patient Yes -Correct Side, Site, Position Yes -Correct Procedure Yes -Procedure Performed Yes -Type of Procedure Debridement -Clinical Debridement Subcutaneous -Tissue Removed Subcutaneous -Post Debridement (cm) - Length 1.0 -Post Debridement (cm) - Width 1.5 -Post Debridement (cm) - Depth 0.1 -Total Square (Post) (cm) 1.50 -Area of Debridement (cm) - Length 1.0 -Area of Debridement (cm) - Width 1.5 -Total Square (Area) (cm) 1.50 -Tunneling No -Undermining/Tunneling No -Circular Undermining No -Wound/Ulcer Outcome Not Healed -Ulcer Cleansing Rinsed/ Irrigated with Saline -Foul Odor after Cleansing No -Bioengineered Tissue No -Bleeding Controlled with Pressure -Offloading No -Treatment Response Procedure Tolerated Well -Debridement - Subq, 1st 20sq cm Yes Pain Scale: 0-10 Numeric Is Patient Pain Free? Yes WC - Nurse 3 - General Ulcer D/C NN Start: 06/08/21 10:23 Freq: Status: Active Protocol: Activity Type Activity Date Activity User E-Sign Co-Sign Detail Recorded Client Recorded Date Recorded By Document 06/08/21 10:52 KR [id number] 06/08/21 10:52 BIBI 06/08/21 10:52 Wound Care Nurse 3 #5 Right buttock cluster -Primary Dressing Applied Aquacel Extra -Aquacel Extra 1 Pain Scale: 0-10 Numeric Is Patient Pain Free? Yes WC - Visit Discharge Discharge Condition Stable Ambulatory Status Crutches Transportation Private Auto Assessment/Plan Assessment/Plan (1) Decubitus ulcer of right buttock, stage 3: CODE(S): L89.313 - Pressure ulcer of right buttock, stage 3 (2) Decubitus ulcer of left buttock, stage 3: CODE(S): L89.323 - Pressure ulcer of left buttock, stage 3 (3) Type II diabetes mellitus: CODE(S): E11.9 - Type 2 diabetes mellitus without complications PLAN: Better this week. Debridement done as documented above, procedure was well-tolerated. Continue Aquacel extra to open areas with Adaptic over top. Change 3-4 times daily depending on drainage/soilage. Lengthy discussion had with patient, he is not compliant with offloading. Consistent use of gel cushion and hospital bed very strongly recommended. Offloading again discussed. Optimal diabetes control also very strongly recommended. Optimal protein intake, vitamin C and zinc also discussed. His questions were answered and he was advised to call with any further questions or concerns. Follow-up in 1 week. This note was generated with [employer] dictation software. It may contain incorrect words, spelling, and punctuation that were not noted in checking the note before signing.
[2021-06-15 09:53] VITALS: BP 141/71; PULSE 68; RESP 18; TEMP 36.6; BMI 29.7
--- NOTE | 2021-06-15 10:29 | PCM.WC.PN ---
History of Present Illness Date of Service: 06/15/21 Chief Complaint: Recurrent buttock ulcers History of Wound: Mr. 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 Most recent episode said to have started months ago . Has been applying antibiotic and hemorrhoid ointment without significant improvement. Sits and sleeps in his lift chair. Also history of diabetes mellitus type 2 and his most recent A1c was said to be around 8. Fasting blood sugar this morning at 303. He states that he is working with his PCP to get this under better control. History of AKA. He feels well and denies other concerns at this time. Progress of Wound: Overall stable. Again, still has a lot of periosteal erythema/stage I ulceration. Subjective Subjective No new/ acute concerns at this time. Objective Data Objective Data Vital Signs: Vital Signs Temp Pulse Resp BP 97.8 F 68 18 141/71 H 06/15/21 09:53 06/15/21 09:53 06/15/21 09:53 06/15/21 09:53 Body Mass Index (BMI) 29.7 Charges/Coding Procedures Integumentary 111xxx-113xx: 59215 [place] subq tissue 20 sq cm/< Physical Exam Const alert, oriented x3 and no apparent distress General Appearance: cooperative and comfortable HEENT normocephalic and head/scalp atraumatic Eyes EOMs intact bilaterally Neck full ROM General: normal visual inspection Resp normal respiratory effort Effort and Inspection: able to speak in complete sentences Skin Wounds: wounds noted Neuro oriented x3, CN's II-XII intact bilaterally and moves all extremities Psych mental status grossly normal Appearance: grossly normal Attitude: calm Speech: normal speech Debridement Note Debridement Note Wound debrided: Right Buttock Type of Debridement: Excisional debridement Anesthesia Used: 4% Lidocaine Solution Depth: Down to and including healthy tissue and in the subcutaneous layer Percentage of wound debrided: 100 Instrument Used: 5mm curette Tissue Removed: Slough and devitalized tissue Severity: Fat Layer Exposed Amount of bleeding with debridement: Mild Bleeding Controlled with: Pressure Patient tolerated procedure: Patient tolerated procedure well Post-Debridement Measurements and Additional Note: Post-Debridement Measurements/Treatment ANIA - Nurse 1 - General Ulcer Assessment Start: 06/08/21 10:23 Freq: Status: Active Protocol: FABY Activity Type Activity Date Activity User E-Sign Co-Sign Detail Recorded Client Recorded Date Recorded By Document 06/08/21 10:23 BIBI [id number] 06/08/21 10:26 BIBI Document 06/15/21 09:53 ANTONIO [id number] 06/15/21 10:00 ANTONIO 06/08/21 06/15/21 10:23 09:53 WC - Today's Visit Information Type of service Follow-up Visit Follow-up Visit (Physician/ELECTRICAL SYSTEMS DESIGN ENGINEER (Physician/ELECTRICAL SYSTEMS DESIGN ENGINEER ) ) Arrival Mode Ambulatory, Ambulatory, Crutches Crutches Patient Identification Verified (Name & Yes No ) Patient Requires Transmission-Based No Precautions Height and Weight Body Mass Index (BMI) 29.7 29.7 BMI Classification Overweight Overweight Vital Signs Temperature (97.8 F-99.1 F) 96.7 F L 97.8 F Temperature Source Temporal Temporal Pulse Rate (60-100) 67 68 Pulse Location Monitor Monitor Respiratory Rate (12-18) 18 Respiratory rate source Observation Blood Pressure (90/60-120/80) 144/80 H 141/71 H Blood Pressure Mean (mm Hg) 101 94 Source Monitor Monitor Position Sitting Sitting Blood Pressure Location Right Arm Right Arm History Since Last Visit- (Skip if this is Patient's initial visit) Have you changed medications since your No No last visit? Any new allergies or adverse reactions No No Had a fall/change in ADL's that may No No increase risk of falls Signs or symptoms of abuse and/or No No neglect since last visit Have you been in the hospital since your No No last visit? Has dressing in place as prescribed Yes Yes Has compression in place as prescribed N/A N/A Has offloadiing in place as prescribed N/A N/A Experienced any changes in pain level or No management Left Footwear Regular Shoe No Footwear Right Footwear Regular Shoe Pain Scale: 0-10 Numeric Is Patient Pain Free? Yes Yes - Nurse 1 - General Ulcer Measurement Start: 06/08/21 10:23 Freq: Status: Active Protocol: Activity Type Activity Date Activity User E-Sign Co-Sign Detail Recorded Client Recorded Date Recorded By Document 06/08/21 10:23 BIBI [id number] 06/08/21 10:26 BIBI Document 06/15/21 09:53 [id number] 06/15/21 10:00 JF 06/08/21 06/15/21 10:23 09:53 Wound Center Nurse 1 #5 Right buttock cluster -Combined with other wound No -Current Size (cm) - Length 2.7 0.3 -Current Size (cm) - Width 2 0.4 -Current Size (cm) - Depth 0.1 0.1 -Total Square Cm 5.4 0.12 -Photo Taken No -Epithelialization Medium 34-66% -Tunneling No -Undermining/Tunneling No -Circular Undermining No -Exudate Amt Small Small -Exudate Type Serosanguineous Serosanguineous -Wound Margin Distinct, Flat & Intact Outline Attached -Granulation Amt Medium (34-66%) Medium (34-66%) -Granulation Quality Red Red -Slough/Fibrin Yes -Necrosis Amt Small (1-33%) Medium (34-66%) -Necrotic Tissue Type Adherent Slough Adherent Slough -Structure Exposed N/A -Texture (Dai-wound Skin Appearance) Assessed, Assessed, Scarring Excoriation -Moisture (Dai-wound Skin Appearance) Assessed,Dry/ Assessed,Dry/ Scaly Scaly -Color (Dai-wound Skin Appearance) Assessed Assessed -Temperature (Dai-wound Skin No Abnormality No Abnormality Appearance) (Pt Warm) (Pt Warm) -Tenderness on Palpation (Dai-wound No No Skin Appearance) -Ulcer Cleansing Rinsed/ Rinsed/ Irrigated with Irrigated with Saline Saline -Foul Odor after Cleansing No No -Anesthetic Used 5% Lidocaine 5% Lidocaine Gel Gel Lower Limb Edema Present NA WC - Nurse 2 - General Ulcer CM Notes Start: 06/08/21 10:23 Freq: Status: Active Protocol: Activity Type Activity Date Activity User E-Sign Co-Sign Detail Recorded Client Recorded Date Recorded By Document 06/08/21 10:36 MW [id number] 06/08/21 10:48 MW Document 06/15/21 10:06 MW [id number] 06/15/21 10:14 MW 06/08/21 06/15/21 10:36 10:06 Wound Center Nurse 2 #7 left buttock -Time 10:12 -Correct Patient Yes -Correct Side, Site, Position Yes -Correct Procedure Yes -Procedure Performed Yes -Type of Procedure Debridement -Clinical Debridement Subcutaneous -Tissue Removed Subcutaneous -Post Debridement (cm) - Length 1.0 -Post Debridement (cm) - Width 1.5 -Post Debridement (cm) - Depth 0.1 -Total Square (Post) (cm) 1.50 -Area of Debridement (cm) - Length 1.0 -Area of Debridement (cm) - Width 1.5 -Total Square (Area) (cm) 1.50 -Tunneling No -Undermining/Tunneling No -Circular Undermining No -Wound/Ulcer Outcome Not Healed -Ulcer Cleansing Rinsed/ Irrigated with Saline -Foul Odor after Cleansing No -Bioengineered Tissue No -Bleeding Controlled with Pressure -Offloading No -Treatment Response Procedure Tolerated Well -Debridement - Subq, 1st 20sq cm No #5 Right buttock cluster -Time 10:37 10:07 -Correct Patient Yes Yes -Correct Side, Site, Position Yes Yes -Correct Procedure Yes Yes -Procedure Performed Yes Yes -Type of Procedure Debridement Debridement -Clinical Debridement Subcutaneous Subcutaneous -Tissue Removed Subcutaneous Subcutaneous -Post Debridement (cm) - Length 1.0 0.7 -Post Debridement (cm) - Width 1.5 0.5 -Post Debridement (cm) - Depth 0.1 0.1 -Total Square (Post) (cm) 1.50 0.35 -Area of Debridement (cm) - Length 1.0 0.7 -Area of Debridement (cm) - Width 1.5 0.5 -Total Square (Area) (cm) 1.50 0.35 -Tunneling No No -Undermining/Tunneling No No -Circular Undermining No No -Wound/Ulcer Outcome Not Healed Not Healed -Ulcer Cleansing Rinsed/ Rinsed/ Irrigated with Irrigated with Saline Saline -Foul Odor after Cleansing No No -Bioengineered Tissue No No -Bleeding Controlled with Pressure Pressure -Offloading No No -Treatment Response Procedure Procedure Tolerated Well Tolerated Well -Debridement - Subq, 1st 20sq cm Yes Yes Pain Scale: 0-10 Numeric Is Patient Pain Free? Yes Yes WC - Nurse 3 - General Ulcer D/C NN Start: 06/08/21 10:23 Freq: Status: Active Protocol: Activity Type Activity Date Activity User E-Sign Co-Sign Detail Recorded Client Recorded Date Recorded By Document 06/08/21 10:52 [id number] 06/08/21 10:52 KR Document 06/15/21 10:26 [id number] 06/15/21 10:26 06/08/21 06/15/21 10:52 10:26 Wound Care Nurse 3 #7 left buttock -Ulcer Cleansing Rinsed/ Irrigated with Saline -Foul Odor after Cleansing No -Other Dressing vaseline -Primary Dressing Covered/Secured with Dry Gauze, Secured with Tape #5 Right buttock cluster -Ulcer Cleansing Rinsed/ Irrigated with Saline -Foul Odor after Cleansing No -Primary Dressing Applied Aquacel Extra -Other Dressing vaseline -Primary Dressing Covered/Secured with Dry Gauze, Secured with Tape -Aquacel Extra 1 Pain Scale: 0-10 Numeric Is Patient Pain Free? Yes Yes WC - Visit Discharge Discharge Condition Stable Stable Ambulatory Status Crutches Ambulatory, Crutches Transportation Private Auto Private Auto Medication Reconcilliation completed & Yes provided to patient/care provider Clinical Summary of Care Provided Yes Additional Wound Wound debrided: Left Buttock Type of Debridement: Excisional debridement Anesthesia Used: 4% Lidocaine Solution Depth: Down to and including healthy tissue and in the subcutaneous layer Percentage of wound debrided: 100 Instrument Used: 5mm curette Tissue Removed: Slough and devitalized tissue Severity: Fat Layer Exposed Amount of bleeding with debridement: Mild Bleeding Controlled with: Pressure Patient tolerated procedure: Patient tolerated procedure well Assessment/Plan Assessment/Plan (1) Decubitus ulcer of right buttock, stage 3: CODE(S): L89.313 - Pressure ulcer of right buttock, stage 3 (2) Decubitus ulcer of left buttock, stage 3: CODE(S): L89.323 - Pressure ulcer of left buttock, stage 3 (3) Type II diabetes mellitus: CODE(S): E11.9 - Type 2 diabetes mellitus without complications PLAN: Stage III ulcerations on both buttocks are minimal, has a lot of surrounding erythema/stage I ulceration. Hold off Aquacel for this week, switch to Vaseline. He was advised to apply copious amount of Vaseline/petroleum jelly 2-3 times daily. Cover with ABD. Consistent use of gel cushion and hospital bed very strongly recommended. Offloading again discussed. Optimal diabetes control also very strongly recommended. Optimal protein intake, vitamin C and zinc also discussed. His questions were answered and he was advised to call with any further questions or concerns. Follow-up in 1 week. This note was generated with [employer] dictation software. It may contain incorrect words, spelling, and punctuation that were not noted in checking the note before signing.
[2021-06-22 10:23] VITALS: TEMP 36.2; BMI 29.7
--- NOTE | 2021-06-22 12:12 | PN.PCM_ITS ---
History of Present Illness Date of Service: 06/22/21 Chief Complaint: Recurrent buttock ulcers History of Wound: Mr. 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 Most recent episode said to have started months ago . Has been applying antibiotic and hemorrhoid ointment without significant improvement. Sits and sleeps in his lift chair. Also history of diabetes mellitus type 2 and his most recent A1c was said to be around 8. Fasting blood sugar this morning at 303. He states that he is working with his PCP to get this under better control. History of AKA. He feels well and denies other concerns at this time. Progress of Wound: Left Buttock is stable and largely a stage 1. Right buttock with some worsening this week. Subjective Subjective No new/ acute concerns at this time. Objective Data Objective Data Vital Signs: Vital Signs Temp Pulse Resp BP 97.2 F L 68 18 141/71 H 06/22/21 10:23 06/15/21 09:53 06/15/21 09:53 06/15/21 09:53 Body Mass Index (BMI) 29.7 Charges/Coding Procedures Integumentary 111xxx-113xx: 620[address] [place] subq tissue 20 sq cm/< Physical Exam Const alert, oriented x3 and no apparent distress General Appearance: cooperative and comfortable HEENT normocephalic and head/scalp atraumatic Eyes EOMs intact bilaterally Neck full ROM General: normal visual inspection Resp normal respiratory effort Effort and Inspection: able to speak in complete sentences Skin Wounds: wounds noted Neuro oriented x3, CN's II-XII intact bilaterally and moves all extremities Psych mental status grossly normal Appearance: grossly normal Attitude: calm Speech: normal speech Debridement Note Debridement Note Wound debrided: Right Buttock Type of Debridement: Excisional debridement Anesthesia Used: 4% Lidocaine Solution Depth: Down to and including healthy tissue and in the subcutaneous layer Percentage of wound debrided: 100 Instrument Used: 3mm curette Tissue Removed: Slough and devitalized tissue Severity: Fat Layer Exposed Amount of bleeding with debridement: Mild Bleeding Controlled with: Pressure Patient tolerated procedure: Patient tolerated procedure well Post-Debridement Measurements and Additional Note: Post-Debridement Measurements/Treatment WC - Nurse 1 - General Ulcer Assessment Start: 06/08/21 10:23 Freq: Status: Active Protocol: WC.LOWEXT Activity Type Activity Date Activity User E-Sign Co-Sign Detail Recorded Client Recorded Date Recorded By Document 06/08/21 10:23 KR [id number] 06/08/21 10:26 KR Document 06/15/21 09:53 ANTONIO [id number] 06/15/21 10:00 JF Document 06/22/21 10:23 AK [id number] 06/22/21 10:30 AK 06/08/21 06/15/21 06/22/21 10:23 09:53 10:23 WC - Today's Visit Information Type of service Follow-up Visit Follow-up Visit Follow-up Visit (Physician/SR. STRATEGIC SOURCING MANAGER (Physician/SR. STRATEGIC SOURCING MANAGER (Physician/SR. STRATEGIC SOURCING MANAGER ) ) ) Arrival Mode Ambulatory, Ambulatory, Ambulatory, Crutches Crutches Crutches Patient Identification Verified (Name & Yes No Yes ) Patient Requires Transmission-Based No No Precautions Safety Precautions NA Height and Weight Body Mass Index (BMI) 29.7 29.7 29.7 BMI Classification Overweight Overweight Overweight Vital Signs Temperature (97.8 F-99.1 F) 96.7 F L 97.8 F 97.2 F L Temperature Source Temporal Temporal Temporal Pulse Rate (60-100) 67 68 Pulse Location Monitor Monitor Respiratory Rate (12-18) 18 Respiratory rate source Observation Blood Pressure (90/60-120/80) 144/80 H 141/71 H Blood Pressure Mean (mm Hg) 101 94 Source Monitor Monitor Position Sitting Sitting Blood Pressure Location Right Arm Right Arm History Since Last Visit- (Skip if this is Patient's initial visit) Have you changed medications since your No No No last visit? Any new allergies or adverse reactions No No No Had a fall/change in ADL's that may No No No increase risk of falls Signs or symptoms of abuse and/or No No No neglect since last visit Have you been in the hospital since your No No No last visit? Has dressing in place as prescribed Yes Yes Yes Has compression in place as prescribed N/A N/A N/A Has offloadiing in place as prescribed N/A N/A N/A Experienced any changes in pain level or No No management Left Footwear Regular Shoe No Footwear Regular Shoe Right Footwear Regular Shoe Pain Scale: 0-10 Numeric Is Patient Pain Free? Yes Yes Yes - Nurse 1 - General Ulcer Measurement Start: 06/08/21 10:23 Freq: Status: Active Protocol: Activity Type Activity Date Activity User E-Sign Co-Sign Detail Recorded Client Recorded Date Recorded By Document 06/08/21 10:23 KR [id number] 06/08/21 10:26 KR Document 06/15/21 09:53 JF [id number] 06/15/21 10:00 JF Document 06/22/21 10:23 AK [id number] 06/22/21 10:30 AK 06/08/21 06/15/21 06/22/21 10:23 09:53 10:23 Wound Center Nurse 1 #7 left buttock -Combined with other wound No -Current Size (cm) - Length 0.1 -Current Size (cm) - Width 0.1 -Current Size (cm) - Depth 0.1 -Total Square Cm 0.01 -Photo Taken No -Tunneling No -Undermining/Tunneling No -Circular Undermining No -Classification - Thickness Partial Thickness -Exudate Amt Small -Exudate Type Serosanguineous -Granulation Amt None Present (0 %) -Granulation Quality N/A -Slough/Fibrin No -Necrosis Amt None Present (0 %) -Structure Exposed N/A -Texture (Dai-wound Skin Appearance) Assessed, Excoriation -Moisture (Dai-wound Skin Appearance) Assessed,Dry/ Scaly -Color (Dai-wound Skin Appearance) No Abnormality, Assessed -Temperature (Dai-wound Skin No Abnormality Appearance) (Pt Warm) -Tenderness on Palpation (Dai-wound No Skin Appearance) -Ulcer Cleansing Rinsed/ Irrigated with Saline -Foul Odor after Cleansing No -Anesthetic Used 4% Lidocaine Solution #5 Right buttock cluster -Combined with other wound No No -Current Size (cm) - Length 2.7 0.3 0.4 -Current Size (cm) - Width 2 0.4 0.5 -Current Size (cm) - Depth 0.1 0.1 0.1 -Total Square Cm 5.4 0.12 0.20 -Photo Taken No No -Epithelialization Medium 34-66% -Tunneling No No -Undermining/Tunneling No No -Circular Undermining No No -Change in Wound Grade/Stage No -Exudate Amt Small Small None Present -Exudate Type Serosanguineous Serosanguineous -Wound Margin Distinct, Flat & Intact Outline Attached -Granulation Amt Medium (34-66%) Medium (34-66%) None Present (0 %) -Granulation Quality Red Red N/A -Slough/Fibrin Yes No -Necrosis Amt Small (1-33%) Medium (34-66%) None Present (0 %) -Necrotic Tissue Type Adherent Slough Adherent Slough -Structure Exposed N/A N/A -Texture (Dai-wound Skin Appearance) Assessed, Assessed, Assessed, Scarring Excoriation Excoriation -Moisture (Dai-wound Skin Appearance) Assessed,Dry/ Assessed,Dry/ Assessed,Dry/ Scaly Scaly Scaly -Color (Dai-wound Skin Appearance) Assessed Assessed No Abnormality, Assessed -Temperature (Dai-wound Skin No Abnormality No Abnormality No Abnormality Appearance) (Pt Warm) (Pt Warm) (Pt Warm) -Tenderness on Palpation (Dai-wound No No No Skin Appearance) -Ulcer Cleansing Rinsed/ Rinsed/ Rinsed/ Irrigated with Irrigated with Irrigated with Saline Saline Saline -Foul Odor after Cleansing No No -Anesthetic Used 5% Lidocaine 5% Lidocaine 4% Lidocaine Gel Gel Solution Lower Limb Edema Present NA WC - Nurse 2 - General Ulcer CM Notes Start: 06/08/21 10:23 Freq: Status: Active Protocol: Activity Type Activity Date Activity User E-Sign Co-Sign Detail Recorded Client Recorded Date Recorded By Document 06/08/21 10:36 MW [id number] 06/08/21 10:48 MW Document 06/15/21 10:06 MW [id number] 06/15/21 10:14 MW Document 06/22/21 10:46 MW [id number] 06/22/21 10:54 MW 06/08/21 06/15/21 06/22/21 10:36 10:06 10:46 Wound Center Nurse 2 #7 left buttock -Time 10:12 10:48 -Correct Patient Yes Yes -Correct Side, Site, Position Yes Yes -Correct Procedure Yes Yes -Procedure Performed Yes Yes -Type of Procedure Debridement Debridement -Clinical Debridement Subcutaneous Subcutaneous -Tissue Removed Subcutaneous Subcutaneous -Post Debridement (cm) - Length 1.0 0.1 -Post Debridement (cm) - Width 1.5 0.1 -Post Debridement (cm) - Depth 0.1 0.1 -Total Square (Post) (cm) 1.50 0.01 -Area of Debridement (cm) - Length 1.0 0.1 -Area of Debridement (cm) - Width 1.5 0.1 -Total Square (Area) (cm) 1.50 0.01 -Tunneling No No -Undermining/Tunneling No No -Circular Undermining No No -Wound/Ulcer Outcome Not Healed Not Healed -Ulcer Cleansing Rinsed/ Rinsed/ Irrigated with Irrigated with Saline Saline -Foul Odor after Cleansing No No -Bioengineered Tissue No No -Bleeding Controlled with Pressure Pressure -Offloading No No -Treatment Response Procedure Procedure Tolerated Well Tolerated Well -Debridement - Subq, 1st 20sq cm No No #5 Right buttock cluster -Time 10:37 10:07 10:48 -Correct Patient Yes Yes Yes -Correct Side, Site, Position Yes Yes Yes -Correct Procedure Yes Yes Yes -Procedure Performed Yes Yes Yes -Type of Procedure Debridement Debridement Debridement -Clinical Debridement Subcutaneous Subcutaneous Subcutaneous -Tissue Removed Subcutaneous Subcutaneous Subcutaneous -Post Debridement (cm) - Length 1.0 0.7 1.2 -Post Debridement (cm) - Width 1.5 0.5 0.7 -Post Debridement (cm) - Depth 0.1 0.1 0.1 -Total Square (Post) (cm) 1.50 0.35 0.84 -Area of Debridement (cm) - Length 1.0 0.7 1.2 -Area of Debridement (cm) - Width 1.5 0.5 0.7 -Total Square (Area) (cm) 1.50 0.35 0.84 -Tunneling No No No -Undermining/Tunneling No No No -Circular Undermining No No No -Wound/Ulcer Outcome Not Healed Not Healed Not Healed -Ulcer Cleansing Rinsed/ Rinsed/ Rinsed/ Irrigated with Irrigated with Irrigated with Saline Saline Saline -Foul Odor after Cleansing No No No -Bioengineered Tissue No No No -Bleeding Controlled with Pressure Pressure Pressure -Offloading No No No -Treatment Response Procedure Procedure Procedure Tolerated Well Tolerated Well Tolerated Well -Debridement - Subq, 1st 20sq cm Yes Yes Yes Pain Scale: 0-10 Numeric Is Patient Pain Free? Yes Yes Yes WC - Nurse 3 - General Ulcer D/C NN Start: 06/08/21 10:23 Freq: Status: Active Protocol: Activity Type Activity Date Activity User E-Sign Co-Sign Detail Recorded Client Recorded Date Recorded By Document 06/08/21 10:52 BIBI [id number] 06/08/21 10:52 KR Document 06/15/21 10:26 JF [id number] 06/15/21 10:26 JF Document 06/22/21 11:07 AK [id number] 06/22/21 11:09 AK 06/08/21 06/15/21 06/22/21 10:52 10:26 11:07 Wound Care Nurse 3 #7 left buttock -Ulcer Cleansing Rinsed/ Rinsed/ Irrigated with Irrigated with Saline Saline -Foul Odor after Cleansing No No -Negative Pressure Wound Therapy N/A -Other Dressing vaseline bacitracin ABD -Primary Dressing Covered/Secured with Dry Gauze, Secured with Secured with Tape Tape #5 Right buttock cluster -Ulcer Cleansing Rinsed/ Rinsed/ Irrigated with Irrigated with Saline Saline -Foul Odor after Cleansing No No -Negative Pressure Wound Therapy N/A -Primary Dressing Applied Aquacel Extra Aquacel Extra -Other Dressing vaseline bacitracin ABD -Primary Dressing Covered/Secured with Dry Gauze, Secured with Secured with Tape Tape -Aquacel Extra 1 2 Pain Scale: 0-10 Numeric Is Patient Pain Free? Yes Yes Yes - Visit Discharge Discharge Condition Stable Stable Stable Ambulatory Status Crutches Ambulatory, Ambulatory, Crutches Crutches Transportation Private Auto Private Auto Private Auto Medication Reconcilliation completed & Yes No provided to patient/care provider Clinical Summary of Care Provided Yes Yes Assessment/Plan Assessment/Plan (1) Decubitus ulcer of right buttock, stage 3: CODE(S): L89.313 - Pressure ulcer of right buttock, stage 3 (2) Decubitus ulcer of left buttock, stage 3: CODE(S): L89.323 - Pressure ulcer of left buttock, stage 3 (3) Type II diabetes mellitus: CODE(S): E11.9 - Type 2 diabetes mellitus without complications PLAN: Stage III ulcerations on left remains minimal however, right buttock with some worsening. Still has a lot of surrounding erythema/stage I ulceration. Aquacel extra to ope area on the right. Continue Vaseline to other areas on the left and right. He was advised to apply copious amount of Vaselin e/petroleum jelly 2-3 times daily. Cover with ABD. Consistent use of gel cushion and hospital bed very strongly recommended. Offloading again discussed. Optimal diabetes control also very strongly recommended. Optimal protein intake, vitamin C and zinc also discussed. He declined home health again. I do not believe he is able to apply wound care to the area adequately due to location. He has no family members to help. His questions were answered and he was advised to call with any further questions or concerns. Follow-up in 1 week. This note was generated with [employer] dictation software. It may contain incorrect words, spelling, and punctuation that were not noted in checking the note before signing.
[2021-06-29 10:31] VITALS: BP 136/65; PULSE 60; TEMP 36.4; BMI 29.7
--- NOTE | 2021-06-29 11:46 | PN.PCM_ITS ---
History of Present Illness Date of Service: 06/29/21 Chief Complaint: Recurrent buttock ulcers History of Wound: Mr. 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 Most recent episode said to have started months ago . Has been applying antibiotic and hemorrhoid ointment without significant improvement. Sits and sleeps in his lift chair. Also history of diabetes mellitus type 2 and his most recent A1c was said to be around 8. Fasting blood sugar this morning at 303. He states that he is working with his PCP to get this under better control. History of AKA. He feels well and denies other concerns at this time. Progress of Wound: New open areas on the left. Right with no significant change. Subjective Subjective No new/ acute concerns at this time. Objective Data Objective Data Vital Signs: Vital Signs Temp Pulse Resp BP 97.6 F L 60 18 136/65 H 06/29/21 10:31 06/29/21 10:31 06/15/21 09:53 06/29/21 10:31 Body Mass Index (BMI) 29.7 Charges/Coding Procedures Integumentary 111xxx-113xx: [id number] [place] subq tissue 20 sq cm/< Physical Exam Const alert, oriented x3 and no apparent distress General Appearance: cooperative and comfortable HEENT normocephalic and head/scalp atraumatic Eyes EOMs intact bilaterally Neck full ROM General: normal visual inspection Resp normal respiratory effort Effort and Inspection: able to speak in complete sentences Skin Wounds: wounds noted Neuro oriented x3, CN's II-XII intact bilaterally and moves all extremities Psych mental status grossly normal Appearance: grossly normal Attitude: calm Speech: normal speech Debridement Note Debridement Note Wound debrided: Left buttock cluster Type of Debridement: Excisional debridement Anesthesia Used: 4% Lidocaine Solution Depth: Down to and including healthy tissue and in the subcutaneous layer Percentage of wound debrided: 100 Instrument Used: 3mm curette Tissue Removed: Slough and devitalized tissue Severity: Fat Layer Exposed Amount of bleeding with debridement: Mild Bleeding Controlled with: Pressure Patient tolerated procedure: Patient tolerated procedure well Post-Debridement Measurements and Additional Note: Post-Debridement Measurements/Treatment ANIA - Nurse 1 - General Ulcer Assessment Start: 06/08/21 10:23 Freq: Status: Active Protocol: WC.LOWEXT Activity Type Activity Date Activity User E-Sign Co-Sign Detail Recorded Client Recorded Date Recorded By Document 06/08/21 10:23 KR [id number] 06/08/21 10:26 KR Document 06/15/21 09:53 ANTONIO [id number] 06/15/21 10:00 JF Document 06/22/21 10:23 AK [id number] 06/22/21 10:30 AK Document 06/29/21 10:31 AK [id number] 06/29/21 10:34 AK 06/08/21 06/15/21 06/22/21 10:23 09:53 10:23 WC - Today's Visit Information Type of service Follow-up Visit Follow-up Visit Follow-up Visit (Physician/YOUNG ADULT LIBRARIAN (Physician/YOUNG ADULT LIBRARIAN (Physician/YOUNG ADULT LIBRARIAN ) ) ) Arrival Mode Ambulatory, Ambulatory, Ambulatory, Crutches Crutches Crutches Patient Identification Verified (Name & Yes No Yes ) Patient Requires Transmission-Based No No Precautions Safety Precautions NA Height and Weight Body Mass Index (BMI) 29.7 29.7 29.7 BMI Classification Overweight Overweight Overweight Vital Signs Temperature (97.8 F-99.1 F) 96.7 F L 97.8 F 97.2 F L Temperature Source Temporal Temporal Temporal Pulse Rate (60-100) 67 68 Pulse Location Monitor Monitor Respiratory Rate (12-18) 18 Respiratory rate source Observation Blood Pressure (90/60-120/80) 144/80 H 141/71 H Blood Pressure Mean (mm Hg) 101 94 Source Monitor Monitor Position Sitting Sitting Blood Pressure Location Right Arm Right Arm History Since Last Visit- (Skip if this is Patient's initial visit) Have you changed medications since your No No No last visit? Any new allergies or adverse reactions No No No Had a fall/change in ADL's that may No No No increase risk of falls Signs or symptoms of abuse and/or No No No neglect since last visit Have you been in the hospital since your No No No last visit? Has dressing in place as prescribed Yes Yes Yes Has compression in place as prescribed N/A N/A N/A Has offloadiing in place as prescribed N/A N/A N/A Experienced any changes in pain level or No No management Left Footwear Regular Shoe No Footwear Regular Shoe Right Footwear Regular Shoe Pain Scale: 0-10 Numeric Is Patient Pain Free? Yes Yes Yes 06/29/21 10:31 WC - Today's Visit Information Type of service Follow-up Visit (Physician/YOUNG ADULT LIBRARIAN ) Arrival Mode Ambulatory, Crutches Patient Identification Verified (Name & Yes ) Patient Requires Transmission-Based No Precautions Safety Precautions NA Height and Weight Body Mass Index (BMI) 29.7 BMI Classification Overweight Vital Signs Temperature (97.8 F-99.1 F) 97.6 F L Temperature Source Temporal Pulse Rate (60-100) 60 Pulse Location Monitor Respiratory Rate (12-18) Respiratory rate source Blood Pressure (90/60-120/80) 136/65 H Blood Pressure Mean (mm Hg) 88 Source Monitor Position Blood Pressure Location History Since Last Visit- (Skip if this is Patient's initial visit) Have you changed medications since your No last visit? Any new allergies or adverse reactions No Had a fall/change in ADL's that may No increase risk of falls Signs or symptoms of abuse and/or No neglect since last visit Have you been in the hospital since your No last visit? Has dressing in place as prescribed Yes Has compression in place as prescribed N/A Has offloadiing in place as prescribed N/A Experienced any changes in pain level or No management Left Footwear Regular Shoe Right Footwear Pain Scale: 0-10 Numeric Is Patient Pain Free? No WC - Nurse 1 - General Ulcer Measurement Start: 06/08/21 10:23 Freq: Status: Active Protocol: Activity Type Activity Date Activity User E-Sign Co-Sign Detail Recorded Client Recorded Date Recorded By Document 06/08/21 10:23 BIBI [id number] 06/08/21 10:26 KR Document 06/15/21 09:53 JF [id number] 06/15/21 10:00 JF Document 06/22/21 10:23 AK [id number] 06/22/21 10:30 AK Document 06/29/21 10:31 AK [id number] 06/29/21 10:34 AK 06/08/21 06/15/21 06/22/21 10:23 09:53 10:23 Wound Center Nurse 1 #7 left buttock -Combined with other wound No -Current Size (cm) - Length 0.1 -Current Size (cm) - Width 0.1 -Current Size (cm) - Depth 0.1 -Total Square Cm 0.01 -Photo Taken No -Tunneling No -Undermining/Tunneling No -Circular Undermining No -Classification - Thickness Partial Thickness -Exudate Amt Small -Exudate Type Serosanguineous -Wound Margin -Granulation Amt None Present (0 %) -Granulation Quality N/A -Slough/Fibrin No -Necrosis Amt None Present (0 %) -Necrotic Tissue Type -Structure Exposed N/A -Texture (Dai-wound Skin Appearance) Assessed, Excoriation -Moisture (Dai-wound Skin Appearance) Assessed,Dry/ Scaly -Color (Dai-wound Skin Appearance) No Abnormality, Assessed -Temperature (Dai-wound Skin No Abnormality Appearance) (Pt Warm) -Tenderness on Palpation (Dai-wound No Skin Appearance) -Ulcer Cleansing Rinsed/ Irrigated with Saline -Foul Odor after Cleansing No -Anesthetic Used 4% Lidocaine Solution #5 Right buttock cluster -Combined with other wound No No -Current Size (cm) - Length 2.7 0.3 0.4 -Current Size (cm) - Width 2 0.4 0.5 -Current Size (cm) - Depth 0.1 0.1 0.1 -Total Square Cm 5.4 0.12 0.20 -Photo Taken No No -Epithelialization Medium 34-66% -Tunneling No No -Undermining/Tunneling No No -Circular Undermining No No -Change in Wound Grade/Stage No -Exudate Amt Small Small None Present -Exudate Type Serosanguineous Serosanguineous -Wound Margin Distinct, Flat & Intact Outline Attached -Granulation Amt Medium (34-66%) Medium (34-66%) None Present (0 %) -Granulation Quality Red Red N/A -Slough/Fibrin Yes No -Necrosis Amt Small (1-33%) Medium (34-66%) None Present (0 %) -Necrotic Tissue Type Adherent Slough Adherent Slough -Structure Exposed N/A N/A -Texture (Dai-wound Skin Appearance) Assessed, Assessed, Assessed, Scarring Excoriation Excoriation -Moisture (Dai-wound Skin Appearance) Assessed,Dry/ Assessed,Dry/ Assessed,Dry/ Scaly Scaly Scaly -Color (Dai-wound Skin Appearance) Assessed Assessed No Abnormality, Assessed -Temperature (Dai-wound Skin No Abnormality No Abnormality No Abnormality Appearance) (Pt Warm) (Pt Warm) (Pt Warm) -Tenderness on Palpation (Dai-wound No No No Skin Appearance) -Ulcer Cleansing Rinsed/ Rinsed/ Rinsed/ Irrigated with Irrigated with Irrigated with Saline Saline Saline -Foul Odor after Cleansing No No -Anesthetic Used 5% Lidocaine 5% Lidocaine 4% Lidocaine Gel Gel Solution Lower Limb Edema Present NA 06/29/21 10:31 Wound Center Nurse 1 #7 left buttock -Combined with other wound No -Current Size (cm) - Length 5 -Current Size (cm) - Width 1.4 -Current Size (cm) - Depth 0.1 -Total Square Cm 7.0 -Photo Taken No -Tunneling No -Undermining/Tunneling No -Circular Undermining No -Classification - Thickness -Exudate Amt Medium -Exudate Type Serosanguineous -Wound Margin Distinct, Outline Attached -Granulation Amt Medium (34-66%) -Granulation Quality Red -Slough/Fibrin Yes -Necrosis Amt Small (1-33%) -Necrotic Tissue Type Adherent Slough -Structure Exposed N/A -Texture (Dai-wound Skin Appearance) Assessed, Excoriation, Scarring -Moisture (Dai-wound Skin Appearance) Assessed, Maceration -Color (Dai-wound Skin Appearance) Assessed, Erythema -Temperature (Dai-wound Skin No Abnormality Appearance) (Pt Warm) -Tenderness on Palpation (Dai-wound Yes Skin Appearance) -Ulcer Cleansing Soap and Water -Foul Odor after Cleansing No -Anesthetic Used 4% Lidocaine Solution #5 Right buttock cluster -Combined with other wound No -Current Size (cm) - Length 2.5 -Current Size (cm) - Width 0.6 -Current Size (cm) - Depth 0.1 -Total Square Cm 1.50 -Photo Taken No -Epithelialization None Present -Tunneling No -Undermining/Tunneling No -Circular Undermining No -Change in Wound Grade/Stage No -Exudate Amt Medium -Exudate Type Serosanguineous -Wound Margin Distinct, Outline Attached -Granulation Amt None Present (0 %) -Granulation Quality N/A -Slough/Fibrin No -Necrosis Amt Small (1-33%) -Necrotic Tissue Type Adherent Slough -Structure Exposed N/A -Texture (Dai-wound Skin Appearance) Assessed, Excoriation, Scarring -Moisture (Dai-wound Skin Appearance) No Abnormality, Assessed -Color (Dai-wound Skin Appearance) Assessed, Erythema -Temperature (Dai-wound Skin No Abnormality Appearance) (Pt Warm) -Tenderness on Palpation (Dai-wound No Skin Appearance) -Ulcer Cleansing Rinsed/ Irrigated with Saline -Foul Odor after Cleansing No -Anesthetic Used 4% Lidocaine Solution Lower Limb Edema Present WC - Nurse 2 - General Ulcer CM Notes Start: 06/08/21 10:23 Freq: Status: Active Protocol: Activity Type Activity Date Activity User E-Sign Co-Sign Detail Recorded Client Recorded Date Recorded By Document 06/08/21 10:36 MW [id number] 06/08/21 10:48 MW Document 06/15/21 10:06 MW [id number] 06/15/21 10:14 MW Document 06/22/21 10:46 MW [id number] 06/22/21 10:54 MW Document 06/29/21 10:40 MW [id number] 06/29/21 10:50 MW 06/08/21 06/15/21 06/22/21 10:36 10:06 10:46 Wound Center Nurse 2 #7 left buttock -Time 10:12 10:48 -Correct Patient Yes Yes -Correct Side, Site, Position Yes Yes -Correct Procedure Yes Yes -Procedure Performed Yes Yes -Type of Procedure Debridement Debridement -Clinical Debridement Subcutaneous Subcutaneous -Tissue Removed Subcutaneous Subcutaneous -Post Debridement (cm) - Length 1.0 0.1 -Post Debridement (cm) - Width 1.5 0.1 -Post Debridement (cm) - Depth 0.1 0.1 -Total Square (Post) (cm) 1.50 0.01 -Area of Debridement (cm) - Length 1.0 0.1 -Area of Debridement (cm) - Width 1.5 0.1 -Total Square (Area) (cm) 1.50 0.01 -Tunneling No No -Undermining/Tunneling No No -Circular Undermining No No -Wound/Ulcer Outcome Not Healed Not Healed -Ulcer Cleansing Rinsed/ Rinsed/ Irrigated with Irrigated with Saline Saline -Foul Odor after Cleansing No No -Bioengineered Tissue No No -Bleeding Controlled with Pressure Pressure -Offloading No No -Treatment Response Procedure Procedure Tolerated Well Tolerated Well -Debridement - Subq, 1st 20sq cm No No #5 Right buttock cluster -Time 10:37 10:07 10:48 -Correct Patient Yes Yes Yes -Correct Side, Site, Position Yes Yes Yes -Correct Procedure Yes Yes Yes -Procedure Performed Yes Yes Yes -Type of Procedure Debridement Debridement Debridement -Clinical Debridement Subcutaneous Subcutaneous Subcutaneous -Tissue Removed Subcutaneous Subcutaneous Subcutaneous -Post Debridement (cm) - Length 1.0 0.7 1.2 -Post Debridement (cm) - Width 1.5 0.5 0.7 -Post Debridement (cm) - Depth 0.1 0.1 0.1 -Total Square (Post) (cm) 1.50 0.35 0.84 -Area of Debridement (cm) - Length 1.0 0.7 1.2 -Area of Debridement (cm) - Width 1.5 0.5 0.7 -Total Square (Area) (cm) 1.50 0.35 0.84 -Tunneling No No No -Undermining/Tunneling No No No -Circular Undermining No No No -Wound/Ulcer Outcome Not Healed Not Healed Not Healed -Ulcer Cleansing Rinsed/ Rinsed/ Rinsed/ Irrigated with Irrigated with Irrigated with Saline Saline Saline -Foul Odor after Cleansing No No No -Bioengineered Tissue No No No -Bleeding Controlled with Pressure Pressure Pressure -Offloading No No No -Treatment Response Procedure Procedure Procedure Tolerated Well Tolerated Well Tolerated Well -Debridement - Subq, 1st 20sq cm Yes Yes Yes Pain Scale: 0-10 Numeric Is Patient Pain Free? Yes Yes Yes 06/29/21 10:40 Wound Center Nurse 2 #7 left buttock -Time 10:41 -Correct Patient Yes -Correct Side, Site, Position Yes -Correct Procedure Yes -Procedure Performed Yes -Type of Procedure Debridement -Clinical Debridement Subcutaneous -Tissue Removed Subcutaneous -Post Debridement (cm) - Length 3.0 -Post Debridement (cm) - Width 1.0 -Post Debridement (cm) - Depth 0.1 -Total Square (Post) (cm) 3.00 -Area of Debridement (cm) - Length 3.0 -Area of Debridement (cm) - Width 1.0 -Total Square (Area) (cm) 3.00 -Tunneling No -Undermining/Tunneling No -Circular Undermining No -Wound/Ulcer Outcome Not Healed -Ulcer Cleansing Rinsed/ Irrigated with Saline -Foul Odor after Cleansing No -Bioengineered Tissue No -Bleeding Controlled with Pressure -Offloading No -Treatment Response Procedure Tolerated Well -Debridement - Subq, 1st 20sq cm Yes #5 Right buttock cluster -Time 10:42 -Correct Patient Yes -Correct Side, Site, Position Yes -Correct Procedure Yes -Procedure Performed Yes -Type of Procedure Debridement -Clinical Debridement Subcutaneous -Tissue Removed Subcutaneous -Post Debridement (cm) - Length 2.5 -Post Debridement (cm) - Width 1.0 -Post Debridement (cm) - Depth 0.1 -Total Square (Post) (cm) 2.50 -Area of Debridement (cm) - Length 2.5 -Area of Debridement (cm) - Width 1.0 -Total Square (Area) (cm) 2.50 -Tunneling No -Undermining/Tunneling No -Circular Undermining No -Wound/Ulcer Outcome Not Healed -Ulcer Cleansing Rinsed/ Irrigated with Saline -Foul Odor after Cleansing No -Bioengineered Tissue No -Bleeding Controlled with Pressure -Offloading No -Treatment Response Procedure Tolerated Well -Debridement - Subq, 1st 20sq cm No Pain Scale: 0-10 Numeric Is Patient Pain Free? Yes WC - Nurse 3 - General Ulcer D/C NN Start: 06/08/21 10:23 Freq: Status: Active Protocol: Activity Type Activity Date Activity User E-Sign Co-Sign Detail Recorded Client Recorded Date Recorded By Document 06/08/21 10:52 BIBI [id number] 06/08/21 10:52 KR Document 06/15/21 10:26 [id number] 06/15/21 10:26 JF Document 06/22/21 11:07 AK [id number] 06/22/21 11:09 AK Document 06/29/21 10:59 BMF [id number] 06/29/21 11:00 BMF 06/08/21 06/15/21 06/22/21 10:52 10:26 11:07 Wound Care Nurse 3 #7 left buttock -Ulcer Cleansing Rinsed/ Rinsed/ Irrigated with Irrigated with Saline Saline -Foul Odor after Cleansing No No -Negative Pressure Wound Therapy N/A -Primary Dressing Applied -Other Dressing vaseline bacitracin ABD -Primary Dressing Covered/Secured with Dry Gauze, Secured with Secured with Tape Tape -Other Covering -Aquacel Extra #5 Right buttock cluster -Ulcer Cleansing Rinsed/ Rinsed/ Irrigated with Irrigated with Saline Saline -Foul Odor after Cleansing No No -Negative Pressure Wound Therapy N/A -Primary Dressing Applied Aquacel Extra Aquacel Extra -Other Dressing vaseline bacitracin ABD -Primary Dressing Covered/Secured with Dry Gauze, Secured with Secured with Tape Tape -Other Covering -Aquacel Extra 1 2 Treatment Response Pain Scale: 0-10 Numeric Is Patient Pain Free? Yes Yes Yes WC - Visit Discharge Discharge Condition Stable Stable Stable Ambulatory Status Crutches Ambulatory, Ambulatory, Crutches Crutches Transportation Private Auto Private Auto Private Auto Medication Reconcilliation completed & Yes No provided to patient/care provider Clinical Summary of Care Provided Yes Yes 06/29/21 10:59 Wound Care Nurse 3 #7 left buttock -Ulcer Cleansing Rinsed/ Irrigated with Saline -Foul Odor after Cleansing No -Negative Pressure Wound Therapy -Primary Dressing Applied Aquacel Extra, NonAdherent Contact Layer -Other Dressing -Primary Dressing Covered/Secured with Secured with Tape,Other -Other Covering abd -Aquacel Extra 1 #5 Right buttock cluster -Ulcer Cleansing Rinsed/ Irrigated with Saline -Foul Odor after Cleansing No -Negative Pressure Wound Therapy -Primary Dressing Applied Aquacel Extra, NonAdherent Contact Layer -Other Dressing -Primary Dressing Covered/Secured with Secured with Tape,Other -Other Covering abd -Aquacel Extra 0 Treatment Response Procedure Tolerated Well Pain Scale: 0-10 Numeric Is Patient Pain Free? Yes WC - Visit Discharge Discharge Condition Stable Ambulatory Status Ambulatory, Crutches Transportation Private Auto Medication Reconcilliation completed & provided to patient/care provider Clinical Summary of Care Provided Additional Wound Wound debrided: Right buttock cluster Type of Debridement: Excisional debridement Anesthesia Used: 4% Lidocaine Solution Depth: Down to and including healthy tissue and in the subcutaneous layer Percentage of wound debrided: 100 Instrument Used: 3mm curette Tissue Removed: Slough and devitalized tissue Severity: Fat Layer Exposed Amount of bleeding with debridement: Mild Bleeding Controlled with: Pressure Patient tolerated procedure: Patient tolerated procedure well Assessment/Plan Assessment/Plan (1) Decubitus ulcer of right buttock, stage 3: CODE(S): L89.313 - Pressure ulcer of right buttock, stage 3 (2) Decubitus ulcer of left buttock, stage 3: CODE(S): L89.323 - Pressure ulcer of left buttock, stage 3 (3) Type II diabetes mellitus: CODE(S): E11.9 - Type 2 diabetes mellitus without complications PLAN: Debridement done as documented above, procedure was well-tolerated. Very lengthy discussion had with patient, he has been no significant change in months. I do not believe patient is adequately able to care for himself and he has refused home health on several occasions. For now, continue Aquacel extra to open areas with Adaptic over top. Cover with ABD. Consistent use of gel cushion and hospital bed very strongly recommended. Offloading again discussed. Optimal diabetes control also very strongly recommended. Optimal protein intake, vitamin C and zinc also discussed. We will attempt to get home health again, if patient declines he was advised that we will be unable to continue care for him. His questions were answered and he was advised to call with any further questions or concerns. Follow-up in 1 week. This note was generated with [employer] dictation software. It may contain incorrect words, spelling, and punctuation that were not noted in checking the note before signing.
== END 2021-07-03 23:59 ==
LOC: WC 10:15
PROVIDERS: PCP Family Medicine; Visit Provider Internal Medicine
DX: L89.313 Pressure ulcer of right buttock, stage 3 (principal); L89.323 Pressure ulcer of left buttock, stage 3; E11.9 Type 2 diabetes mellitus without complications; E66.3 Overweight; Z68.29 Body mass index [BMI] 29.0-29.9, adult; Z79.01 Long term (current) use of anticoagulants; Z79.84 Long term (current) use of oral hypoglycemic drugs; Z79.899 Other long term (current) drug therapy
CPT/HCPCS: 11042

== ENCOUNTER 2021-07-14 13:39 | Outpatient (CLI) | payer MEDICARE, SELFPAY ==
[2021-07-14 14:00] LABS: International Normalized Ratio 2.5; Prothrombin Time (Protime)PT. 25.9 SECONDS (11.7-14.9)
== END 2021-07-14 23:59 | disposition home or self-care (01) ==
LOC: LABSPEC 13:42
PROVIDERS: PCP Family Medicine; Visit Provider Family Medicine
DX: I48.20 Chronic atrial fibrillation, unspecified (principal); Z86.718 Personal history of other venous thrombosis and embolism
CPT/HCPCS: 85610

== ENCOUNTER 2021-07-27 10:15 | Outpatient (RCR) | payer MEDICARE, SELFPAY ==
[2021-07-04 00:36] VITALS: BP 136/65; PULSE 60; RESP 18; TEMP 36.4; BMI 29.7
[2021-07-13 10:30] VITALS: BP 160/87; PULSE 73; RESP 18; TEMP 36.6; BMI 29.7
--- NOTE | 2021-07-13 12:32 | PN.PCM_ITS ---
History of Present Illness Date of Service: 07/13/21 Chief Complaint: Recurrent buttock ulcers History of Wound: Mr. 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 Most recent episode said to have started months ago . Has been applying antibiotic and hemorrhoid ointment without significant improvement. Sits and sleeps in his lift chair. Also history of diabetes mellitus type 2 and his most recent A1c was said to be around 8. Fasting blood sugar this morning at 303. He states that he is working with his PCP to get this under better control. History of AKA. He feels well and denies other concerns at this time. Progress of Wound: Significant improvement in the last 2 weeks. Now has home health coming in. Subjective Subjective No new/ acute concerns at this time. Objective Data Objective Data Vital Signs: Vital Signs Temp Pulse Resp BP 97.9 F 73 18 160/87 H 07/13/21 10:30 07/13/21 10:30 07/13/21 10:30 07/13/21 10:30 Body Mass Index (BMI) 29.7 Charges/Coding Procedures Integumentary 111xxx-113xx: [address] [place] subq tissue 20 sq cm/< Physical Exam Const alert, oriented x3 and no apparent distress General Appearance: cooperative and comfortable HEENT normocephalic and head/scalp atraumatic Eyes EOMs intact bilaterally Neck full ROM General: normal visual inspection Resp normal respiratory effort Effort and Inspection: able to speak in complete sentences Skin Wounds: wounds noted Neuro oriented x3, CN's II-XII intact bilaterally and moves all extremities Psych mental status grossly normal Appearance: grossly normal Attitude: calm Speech: normal speech Debridement Note Debridement Note Wound debrided: Left buttock Type of Debridement: Excisional debridement Anesthesia Used: 4% Lidocaine Solution Depth: Down to and including healthy tissue and in the subcutaneous layer Percentage of wound debrided: 100 Instrument Used: 3mm curette Tissue Removed: Slough and devitalized tissue Severity: Fat Layer Exposed Amount of bleeding with debridement: Mild Bleeding Controlled with: Pressure Patient tolerated procedure: Patient tolerated procedure well Post-Debridement Measurements and Additional Note: Post-Debridement Measurements/Treatment ANIA - Nurse 1 - General Ulcer Assessment Start: 07/13/21 10:30 Freq: Status: Active Protocol: WC.LOWEXT Activity Type Activity Date Activity User E-Sign Co-Sign Detail Recorded Client Recorded Date Recorded By Document 07/13/21 10:30 ALICE [id number] 07/13/21 10:48 RB 07/13/21 10:30 WC - Today's Visit Information Type of service Follow-up Visit (Physician/BRANCH COORDINATOR ) Arrival Mode Ambulatory Transfer Assistance None Patient Identification Verified (Name & Yes ) Patient Requires Transmission-Based No Precautions Finger Stick Blood Sugar(mg/dl) (if 147 07/12/21 noon indicated): Blood Sugar Stated by Patient Height and Weight Body Mass Index (BMI) 29.7 BMI Classification Overweight Vital Signs Temperature (97.8 F-99.1 F) 97.9 F Temperature Source Temporal Pulse Rate (60-100) 73 Pulse Location Monitor Respiratory Rate (12-18) 18 Respiratory rate source Observation Blood Pressure (90/60-120/80) 160/87 H Blood Pressure Mean (mm Hg) 111 Source Monitor Position Semi-Fowlers Blood Pressure Location Left Arm History Since Last Visit- (Skip if this is Patient's initial visit) Have you changed medications since your No last visit? Any new allergies or adverse reactions No Had a fall/change in ADL's that may No increase risk of falls Signs or symptoms of abuse and/or No neglect since last visit Have you been in the hospital since your No last visit? Has dressing in place as prescribed Yes Has compression in place as prescribed No Has offloadiing in place as prescribed Yes Experienced any changes in pain level or No management Pain Scale: 0-10 Numeric Is Patient Pain Free? Yes - Nurse 1 - General Ulcer Measurement Start: 07/13/21 10:30 Freq: Status: Active Protocol: Activity Type Activity Date Activity User E-Sign Co-Sign Detail Recorded Client Recorded Date Recorded By Document 07/13/21 10:30 ALICE [id number] 07/13/21 10:48 RB 07/13/21 10:30 Wound Center Nurse 1 #7 left buttock -Combined with other wound No -Current Size (cm) - Length 1.5 -Current Size (cm) - Width 0.5 -Current Size (cm) - Depth 0.1 -Total Square Cm 0.75 -Tunneling No -Undermining/Tunneling No -Circular Undermining No -Exudate Amt Medium -Exudate Type Serosanguineous -Wound Margin Distinct, Outline Attached -Granulation Amt Medium (34-66%) -Granulation Quality Red -Slough/Fibrin Yes -Necrosis Amt Medium (34-66%) -Necrotic Tissue Type Adherent Slough -Structure Exposed N/A -Texture (Dai-wound Skin Appearance) Assessed, Excoriation -Moisture (Dai-wound Skin Appearance) Assessed -Color (Dai-wound Skin Appearance) Hemosiderin Staining -Temperature (Dai-wound Skin No Abnormality Appearance) (Pt Warm) -Tenderness on Palpation (Dai-wound No Skin Appearance) -Ulcer Cleansing Wound Cleanser -Foul Odor after Cleansing No -Anesthetic Used 5% Lidocaine Gel #5 Right buttock cluster -Combined with other wound No -Current Size (cm) - Length 1.5 -Current Size (cm) - Width 1.7 -Current Size (cm) - Depth 0.2 -Total Square Cm 2.55 -Tunneling No -Undermining/Tunneling No -Circular Undermining No -Exudate Amt Medium -Exudate Type Serosanguineous -Wound Margin Distinct, Outline Attached -Granulation Amt Medium (34-66%) -Granulation Quality Pale,Red -Slough/Fibrin Yes -Necrosis Amt Small (1-33%) -Necrotic Tissue Type Adherent Slough -Structure Exposed N/A -Texture (Dai-wound Skin Appearance) Assessed, Excoriation -Moisture (Dai-wound Skin Appearance) Assessed -Color (Dai-wound Skin Appearance) Hemosiderin Staining -Temperature (Dai-wound Skin No Abnormality Appearance) (Pt Warm) -Tenderness on Palpation (Dai-wound No Skin Appearance) -Ulcer Cleansing Wound Cleanser -Foul Odor after Cleansing No -Anesthetic Used 5% Lidocaine Gel WC - Nurse 2 - General Ulcer CM Notes Start: 07/13/21 10:30 Freq: Status: Active Protocol: Activity Type Activity Date Activity User E-Sign Co-Sign Detail Recorded Client Recorded Date Recorded By Document 07/13/21 10:53 MW [id number] 07/13/21 10:58 MW 07/13/21 10:53 Wound Center Nurse 2 #7 left buttock -Time 10:53 -Correct Patient Yes -Correct Side, Site, Position Yes -Correct Procedure Yes -Procedure Performed Yes -Type of Procedure Debridement -Clinical Debridement Subcutaneous -Tissue Removed Subcutaneous -Post Debridement (cm) - Length 0.4 -Post Debridement (cm) - Width 0.6 -Post Debridement (cm) - Depth 0.1 -Total Square (Post) (cm) 0.24 -Area of Debridement (cm) - Length 0.4 -Area of Debridement (cm) - Width 0.6 -Total Square (Area) (cm) 0.24 -Tunneling No -Undermining/Tunneling No -Circular Undermining No -Wound/Ulcer Outcome Not Healed -Ulcer Cleansing Rinsed/ Irrigated with Saline -Foul Odor after Cleansing No -Bioengineered Tissue No -Bleeding Controlled with Pressure -Offloading No -Treatment Response Procedure Tolerated Well -Debridement - Subq, 1st 20sq cm Yes #5 Right buttock cluster -Time 10:55 -Correct Patient Yes -Correct Side, Site, Position Yes -Correct Procedure Yes -Procedure Performed Yes -Type of Procedure Debridement -Clinical Debridement Subcutaneous -Tissue Removed Subcutaneous -Post Debridement (cm) - Length 1.2 -Post Debridement (cm) - Width 1.5 -Post Debridement (cm) - Depth 0.1 -Total Square (Post) (cm) 1.80 -Area of Debridement (cm) - Length 1.2 -Area of Debridement (cm) - Width 1.5 -Total Square (Area) (cm) 1.80 -Tunneling No -Undermining/Tunneling No -Circular Undermining No -Wound/Ulcer Outcome Not Healed -Ulcer Cleansing Rinsed/ Irrigated with Saline -Foul Odor after Cleansing No -Bioengineered Tissue No -Bleeding Controlled with Pressure -Offloading No -Treatment Response Procedure Tolerated Well -Debridement - Subq, 1st 20sq cm No Pain Scale: 0-10 Numeric Is Patient Pain Free? Yes - Nurse 3 - General Ulcer D/C NN Start: 07/13/21 10:30 Freq: Status: Active Protocol: Activity Type Activity Date Activity User E-Sign Co-Sign Detail Recorded Client Recorded Date Recorded By Document 07/13/21 11:11 ML [id number] 07/13/21 11:12 ML 07/13/21 11:11 Wound Care Nurse 3 #7 left buttock -Ulcer Cleansing Soap and Water -Primary Dressing Applied Aquacel Extra -Other Dressing adaptic -Primary Dressing Covered/Secured with Dry Gauze, Secured with Tape -Aquacel Extra 1 #5 Right buttock cluster -Ulcer Cleansing Rinsed/ Irrigated with Saline -Foul Odor after Cleansing No -Primary Dressing Applied Aquacel Extra -Other Dressing adaptic -Primary Dressing Covered/Secured with Dry Gauze, Secured with Tape -Aquacel Extra 0 Pain Scale: 0-10 Numeric Is Patient Pain Free? Yes Additional Wound Wound debrided: Right buttock Type of Debridement: Excisional debridement Anesthesia Used: 4% Lidocaine Solution Depth: Down to and including healthy tissue and in the subcutaneous layer Percentage of wound debrided: 100 Instrument Used: 3mm curette Tissue Removed: Slough and devitalized tissue Severity: Fat Layer Exposed Amount of bleeding with debridement: None Bleeding Controlled with: Pressure Patient tolerated procedure: Patient tolerated procedure well Assessment/Plan Assessment/Plan (1) Decubitus ulcer of right buttock, stage 3: CODE(S): L89.313 - Pressure ulcer of right buttock, stage 3 (2) Decubitus ulcer of left buttock, stage 3: CODE(S): L89.323 - Pressure ulcer of left buttock, stage 3 (3) Type II diabetes mellitus: CODE(S): E11.9 - Type 2 diabetes mellitus without complications PLAN: As above, significant improvement in the last 2 weeks. Debridement done as documented above, procedure was well-tolerated. Doing really well with home care, continue Aquacel extra to open areas with Adaptic over top. Cover with ABD. Consistent use of gel cushion and hospital bed very strongly recommended. Offloading again discussed. Optimal diabetes control also very strongly recommended. Optimal protein intake, vitamin C and zinc also discussed. His questions were answered and he was advised to call with any further questions or concerns. Follow-up in 1 week. This note was generated with [employer] software. It may contain incorrect words, spelling, and punctuation that were not noted in checking the note before signing.
[2021-07-20 10:31] VITALS: BP 129/66; PULSE 69; RESP 18; TEMP 37.1; BMI 29.7
--- NOTE | 2021-07-20 13:13 | PN.PCM_ITS ---
History of Present Illness Date of Service: 07/20/21 Chief Complaint: Recurrent buttock ulcers History of Wound: Mr. 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 Most recent episode said to have started months ago . Has been applying antibiotic and hemorrhoid ointment without significant improvement. Sits and sleeps in his lift chair. Also history of diabetes mellitus type 2 and his most recent A1c was said to be around 8. Fasting blood sugar this morning at 303. He states that he is working with his PCP to get this under better control. History of AKA. He feels well and denies other concerns at this time. Progress of Wound: Left buttock with minimal area left. Right improving. Subjective Subjective No new concerns at this time. Objective Data Objective Data Vital Signs: Vital Signs Temp Pulse Resp BP 98.7 F 69 18 129/66 H 07/20/21 10:31 07/20/21 10:31 07/20/21 10:31 07/20/21 10:31 Body Mass Index (BMI) 29.7 Charges/Coding Procedures Integumentary 111xxx-113xx: 614[address] [place] subq tissue 20 sq cm/< Physical Exam Const alert, oriented x3 and no apparent distress General Appearance: cooperative and comfortable HEENT normocephalic and head/scalp atraumatic Eyes EOMs intact bilaterally Neck full ROM General: normal visual inspection Resp normal respiratory effort Effort and Inspection: able to speak in complete sentences Skin Wounds: wounds noted Neuro oriented x3, CN's II-XII intact bilaterally and moves all extremities Psych mental status grossly normal Appearance: grossly normal Attitude: calm Speech: normal speech Debridement Note Debridement Note Wound debrided: Right buttock Type of Debridement: Excisional debridement Anesthesia Used: 4% Lidocaine Solution Depth: Down to and including healthy tissue and in the subcutaneous layer Percentage of wound debrided: 100 Instrument Used: 3mm curette Tissue Removed: Slough and devitalized tissue Severity: Fat Layer Exposed Amount of bleeding with debridement: Mild Bleeding Controlled with: Pressure Patient tolerated procedure: Patient tolerated procedure well Post-Debridement Measurements and Additional Note: Post-Debridement Measurements/Treatment ANIA - Nurse 1 - General Ulcer Assessment Start: 07/13/21 10:30 Freq: Status: Active Protocol: FABY Activity Type Activity Date Activity User E-Sign Co-Sign Detail Recorded Client Recorded Date Recorded By Document 07/13/21 10:30 RB [id number] 07/13/21 10:48 RB Document 07/20/21 10:31 RB [id number] 07/20/21 10:33 RB 07/13/21 07/20/21 10:30 10:31 - Today's Visit Information Type of service Follow-up Visit Follow-up Visit (Physician/REINSURANCE ACCOUNTANT (Physician/REINSURANCE ACCOUNTANT ) ) Arrival Mode Ambulatory Ambulatory, Crutches Transfer Assistance None None Patient Identification Verified (Name & Yes Yes ) Patient Requires Transmission-Based No Precautions Finger Stick Blood Sugar(mg/dl) (if 147 07/12/21 noon indicated): Blood Sugar Stated by Patient Height and Weight Body Mass Index (BMI) 29.7 29.7 BMI Classification Overweight Overweight Vital Signs Temperature (97.8 F-99.1 F) 97.9 F 98.7 F Temperature Source Temporal Temporal Pulse Rate (60-100) 73 69 Pulse Location Monitor Monitor Respiratory Rate (12-18) 18 18 Respiratory rate source Observation Observation Blood Pressure (90/60-120/80) 160/87 H 129/66 H Blood Pressure Mean (mm Hg) 111 87 Source Monitor Monitor Position Semi-Fowlers Semi-Fowlers Blood Pressure Location Left Arm Left Arm History Since Last Visit- (Skip if this is Patient's initial visit) Have you changed medications since your No No last visit? Any new allergies or adverse reactions No No Had a fall/change in ADL's that may No No increase risk of falls Signs or symptoms of abuse and/or No No neglect since last visit Have you been in the hospital since your No No last visit? Has dressing in place as prescribed Yes Yes Has compression in place as prescribed No No Has offloadiing in place as prescribed Yes Yes Experienced any changes in pain level or No No management Pain Scale: 0-10 Numeric Is Patient Pain Free? Yes Yes - Nurse 1 - General Ulcer Measurement Start: 07/13/21 10:30 Freq: Status: Active Protocol: Activity Type Activity Date Activity User E-Sign Co-Sign Detail Recorded Client Recorded Date Recorded By Document 07/13/21 10:30 RB [id number] 07/13/21 10:48 RB Document 07/20/21 10:31 RB [id number] 07/20/21 10:33 RB 07/13/21 07/20/21 10:30 10:31 Wound Center Nurse 1 #7 left buttock -Combined with other wound No No -Current Size (cm) - Length 1.5 0.1 -Current Size (cm) - Width 0.5 0.1 -Current Size (cm) - Depth 0.1 0.1 -Total Square Cm 0.75 0.01 -Tunneling No No -Undermining/Tunneling No No -Circular Undermining No No -Exudate Amt Medium Small -Exudate Type Serosanguineous Serosanguineous -Wound Margin Distinct, Distinct, Outline Outline Attached Attached -Granulation Amt Medium (34-66%) Medium (34-66%) -Granulation Quality Red [place],Red -Slough/Fibrin Yes Yes -Necrosis Amt Medium (34-66%) Large (67-100%) -Necrotic Tissue Type Adherent Slough Adherent Slough -Structure Exposed N/A N/A -Texture (Dai-wound Skin Appearance) Assessed, Assessed, Excoriation Excoriation -Moisture (Dai-wound Skin Appearance) Assessed Assessed -Color (Dai-wound Skin Appearance) Hemosiderin Assessed Staining -Temperature (Dai-wound Skin No Abnormality No Abnormality Appearance) (Pt Warm) (Pt Warm) -Tenderness on Palpation (Dai-wound No No Skin Appearance) -Ulcer Cleansing Wound Cleanser Wound Cleanser -Foul Odor after Cleansing No No -Anesthetic Used 5% Lidocaine 5% Lidocaine Gel Gel #5 Right buttock cluster -Combined with other wound No No -Current Size (cm) - Length 1.5 1.1 -Current Size (cm) - Width 1.7 0.5 -Current Size (cm) - Depth 0.2 0.1 -Total Square Cm 2.55 0.55 -Tunneling No No -Undermining/Tunneling No No -Circular Undermining No No -Exudate Amt Medium Medium -Exudate Type Serosanguineous Serosanguineous -Wound Margin Distinct, Distinct, Outline Outline Attached Attached -Granulation Amt Medium (34-66%) Medium (34-66%) -Granulation Quality Pale,Red Red -Slough/Fibrin Yes Yes -Necrosis Amt Small (1-33%) Medium (34-66%) -Necrotic Tissue Type Adherent Slough Adherent Slough -Structure Exposed N/A N/A -Texture (Dai-wound Skin Appearance) Assessed, Assessed, Excoriation Crepitus -Moisture (Dai-wound Skin Appearance) Assessed Assessed -Color (Dai-wound Skin Appearance) Hemosiderin Assessed Staining -Temperature (Dai-wound Skin No Abnormality No Abnormality Appearance) (Pt Warm) (Pt Warm) -Tenderness on Palpation (Dai-wound No No Skin Appearance) -Ulcer Cleansing Wound Cleanser Wound Cleanser -Foul Odor after Cleansing No No -Anesthetic Used 5% Lidocaine 5% Lidocaine Gel Gel WC - Nurse 2 - General Ulcer CM Notes Start: 07/13/21 10:30 Freq: Status: Active Protocol: Activity Type Activity Date Activity User E-Sign Co-Sign Detail Recorded Client Recorded Date Recorded By Document 07/13/21 10:53 MW [id number] 07/13/21 10:58 MW Document 07/20/21 11:11 MW [id number] 07/20/21 11:16 MW 07/13/21 07/20/21 10:53 11:11 Wound Center Nurse 2 #7 left buttock -Time 10:53 11:11 -Correct Patient Yes Yes -Correct Side, Site, Position Yes Yes -Correct Procedure Yes Yes -Procedure Performed Yes Yes -Type of Procedure Debridement Debridement -Clinical Debridement Subcutaneous Subcutaneous -Tissue Removed Subcutaneous Subcutaneous -Post Debridement (cm) - Length 0.4 0.1 -Post Debridement (cm) - Width 0.6 0.1 -Post Debridement (cm) - Depth 0.1 0.1 -Total Square (Post) (cm) 0.24 0.01 -Area of Debridement (cm) - Length 0.4 0.1 -Area of Debridement (cm) - Width 0.6 0.1 -Total Square (Area) (cm) 0.24 0.01 -Tunneling No No -Undermining/Tunneling No No -Circular Undermining No No -Wound/Ulcer Outcome Not Healed Not Healed -Ulcer Cleansing Rinsed/ Rinsed/ Irrigated with Irrigated with Saline Saline -Foul Odor after Cleansing No No -Bioengineered Tissue No No -Bleeding Controlled with Pressure Pressure -Offloading No No -Treatment Response Procedure Procedure Tolerated Well Tolerated Well -Debridement - Subq, 1st 20sq cm Yes Yes #5 Right buttock cluster -Time 10:55 11:13 -Correct Patient Yes Yes -Correct Side, Site, Position Yes Yes -Correct Procedure Yes Yes -Procedure Performed Yes Yes -Type of Procedure Debridement Debridement -Clinical Debridement Subcutaneous Subcutaneous -Tissue Removed Subcutaneous Subcutaneous -Post Debridement (cm) - Length 1.2 1.2 -Post Debridement (cm) - Width 1.5 0.5 -Post Debridement (cm) - Depth 0.1 0.1 -Total Square (Post) (cm) 1.80 0.60 -Area of Debridement (cm) - Length 1.2 1.2 -Area of Debridement (cm) - Width 1.5 0.5 -Total Square (Area) (cm) 1.80 0.60 -Tunneling No No -Undermining/Tunneling No No -Circular Undermining No No -Wound/Ulcer Outcome Not Healed Not Healed -Ulcer Cleansing Rinsed/ Rinsed/ Irrigated with Irrigated with Saline Saline -Foul Odor after Cleansing No No -Bioengineered Tissue No No -Bleeding Controlled with Pressure Pressure -Offloading No No -Treatment Response Procedure Procedure Tolerated Well Tolerated Well -Debridement - Subq, 1st 20sq cm No No Pain Scale: 0-10 Numeric Is Patient Pain Free? Yes Yes WC - Nurse 3 - General Ulcer D/C NN Start: 07/13/21 10:30 Freq: Status: Active Protocol: Activity Type Activity Date Activity User E-Sign Co-Sign Detail Recorded Client Recorded Date Recorded By Document 07/13/21 11:11 ML [id number] 07/13/21 11:12 ML Document 07/20/21 11:27 DL [id number] 07/20/21 11:32 DL 07/13/21 07/20/21 11:11 11:27 Wound Care Nurse 3 #7 left buttock -Ulcer Cleansing Soap and Water Rinsed/ Irrigated with Saline -Primary Dressing Applied Aquacel Extra NonAdherent Contact Layer -Other Dressing adaptic -Primary Dressing Covered/Secured with Dry Gauze, Dry Gauze, Secured with Secured with Tape Tape -Aquacel Extra 1 #5 Right buttock cluster -Ulcer Cleansing Rinsed/ Rinsed/ Irrigated with Irrigated with Saline Saline -Foul Odor after Cleansing No No -Primary Dressing Applied Aquacel Extra Aquacel Extra, NonAdherent Contact Layer -Other Dressing adaptic -Primary Dressing Covered/Secured with Dry Gauze, Dry Gauze, Secured with Secured with Tape Tape -Aquacel Extra 0 1 Treatment Response Procedure Tolerated Well Pain Scale: 0-10 Numeric Is Patient Pain Free? Yes Yes WC - Visit Discharge Discharge Condition Stable Ambulatory Status Ambulatory, Crutches Facility Type Home Health Orders Sent Yes Assessment/Plan Assessment/Plan (1) Decubitus ulcer of right buttock, stage 3: CODE(S): L89.313 - Pressure ulcer of right buttock, stage 3 (2) Decubitus ulcer of left buttock, stage 3: CODE(S): L89.323 - Pressure ulcer of left buttock, stage 3 (3) Type II diabetes mellitus: CODE(S): E11.9 - Type 2 diabetes mellitus without complications PLAN: Improving. Debridement done as documented above, procedure was well-tolerated. Doing really well with home care, continue Aquacel extra to open areas with Adaptic over top. Cover with ABD. Consistent use of gel cushion and hospital bed very strongly recommended. Offloading again discussed. Optimal diabetes control also very strongly recommended. Optimal protein intake, vitamin C and zinc also discussed. His questions were answered and he was advised to call with any further questions or concerns. Follow-up in 1 week. This note was generated with [employer]ation software. It may contain incorrect words, spelling, and punctuation that were not noted in checking the note before signing.
[2021-07-27 10:19] VITALS: BP 148/84; PULSE 65; RESP 20; TEMP 36.1; BMI 29.7
--- NOTE | 2021-07-27 12:26 | PCM.WC.PN ---
History of Present Illness Date of Service: 07/27/21 Chief Complaint: Recurrent buttock ulcers History of Wound: Mr. 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 Most recent episode said to have started months ago . Has been applying antibiotic and hemorrhoid ointment without significant improvement. Sits and sleeps in his lift chair. Also history of diabetes mellitus type 2 and his most recent A1c was said to be around 8. Fasting blood sugar this morning at 303. He states that he is working with his PCP to get this under better control. History of AKA. He feels well and denies other concerns at this time. Progress of Wound: Left Buttock with no open area.. Right Buttock with persistent Ulceration. No significant change in size Subjective Subjective No new concerns at this time. Objective Data Objective Data Vital Signs: Vital Signs Temp Pulse Resp BP 97 F L 65 20 H 148/84 H 07/27/21 10:19 07/27/21 10:19 07/27/21 10:19 07/27/21 10:19 Body Mass Index (BMI) 29.7 Charges/Coding Procedures Integumentary 111xxx-113xx: 10440 [place] subq tissue 20 sq cm/< Physical Exam Const alert, oriented x3 and no apparent distress General Appearance: cooperative and comfortable HEENT normocephalic and head/scalp atraumatic Eyes EOMs intact bilaterally Neck full ROM General: normal visual inspection Resp normal respiratory effort Effort and Inspection: able to speak in complete sentences Skin Wounds: wounds noted Neuro oriented x3, CN's II-XII intact bilaterally and moves all extremities Psych mental status grossly normal Appearance: grossly normal Attitude: calm Speech: normal speech Debridement Note Debridement Note Wound debrided: Right Buttock Type of Debridement: Excisional debridement Anesthesia Used: 4% Lidocaine Solution Depth: Down to and including healthy tissue and in the subcutaneous layer Percentage of wound debrided: 100 Instrument Used: 3mm curette Severity: Fat Layer Exposed Amount of bleeding with debridement: Mild Bleeding Controlled with: Pressure Patient tolerated procedure: Patient tolerated procedure well Post-Debridement Measurements and Additional Note: Post-Debridement Measurements/Treatment ANIA - Nurse 1 - General Ulcer Assessment Start: 07/13/21 10:30 Freq: Status: Active Protocol: FABY Activity Type Activity Date Activity User E-Sign Co-Sign Detail Recorded Client Recorded Date Recorded By Document 07/13/21 10:30 RB [id number] 07/13/21 10:48 RB Document 07/20/21 10:31 RB [id number] 07/20/21 10:33 RB Document 07/27/21 10:19 DL [id number] 07/27/21 10:29 DL 07/13/21 07/20/21 07/27/21 10:30 10:31 10:19 WC - Today's Visit Information Type of service Follow-up Visit Follow-up Visit Follow-up Visit (Physician/SENIOR ENERGY ANALYST (Physician/SENIOR ENERGY ANALYST (Physician/SENIOR ENERGY ANALYST ) ) ) Arrival Mode Ambulatory Ambulatory, Ambulatory Crutches Transfer Assistance None None None Patient Identification Verified (Name & Yes Yes Yes ) Patient Requires Transmission-Based No No Precautions Finger Stick Blood Sugar(mg/dl) (if 147 07/12/21 noon didnt check indicated): Blood Sugar Stated by Stated by Patient Patient Height and Weight Body Mass Index (BMI) 29.7 29.7 29.7 BMI Classification Overweight Overweight Overweight Vital Signs Temperature (97.8 F-99.1 F) 97.9 F 98.7 F 97 F L Temperature Source Temporal Temporal Temporal Pulse Rate (60-100) 73 69 65 Pulse Location Monitor Monitor Monitor Respiratory Rate (12-18) 18 18 20 H Respiratory rate source Observation Observation Observation Blood Pressure (90/60-120/80) 160/87 H 129/66 H 148/84 H Blood Pressure Mean (mm Hg) 111 87 105 Source Monitor Monitor Monitor Position Semi-Fowlers Semi-Fowlers Blood Pressure Location Left Arm Left Arm History Since Last Visit- (Skip if this is Patient's initial visit) Have you changed medications since your No No No last visit? Any new allergies or adverse reactions No No No Had a fall/change in ADL's that may No No No increase risk of falls Signs or symptoms of abuse and/or No No No neglect since last visit Have you been in the hospital since your No No No last visit? Has dressing in place as prescribed Yes Yes No Has compression in place as prescribed No No N/A Has offloadiing in place as prescribed Yes Yes Yes Experienced any changes in pain level or No No No management Left Footwear Surgical Shoe with pressure relief insole Right Footwear Regular Shoe Pain Scale: 0-10 Numeric Is Patient Pain Free? Yes Yes Yes WC - Nurse 1 - General Ulcer Measurement Start: 07/13/21 10:30 Freq: Status: Active Protocol: Activity Type Activity Date Activity User E-Sign Co-Sign Detail Recorded Client Recorded Date Recorded By Document 07/13/21 10:30 RB [id number] 07/13/21 10:48 RB Document 07/20/21 10:31 RB [id number] 07/20/21 10:33 RB Document 07/27/21 10:19 DL [id number] 07/27/21 10:29 DL 07/13/21 07/20/21 07/27/21 10:30 10:31 10:19 Wound Center Nurse 1 #7 left buttock -Combined with other wound No No -Current Size (cm) - Length 1.5 0.1 0.1 -Current Size (cm) - Width 0.5 0.1 0.1 -Current Size (cm) - Depth 0.1 0.1 0.1 -Total Square Cm 0.75 0.01 0.01 -Photo Taken No -Tunneling No No -Undermining/Tunneling No No -Circular Undermining No No -Exudate Amt Medium Small None Present -Exudate Type Serosanguineous Serosanguineous -Wound Margin Distinct, Distinct, Distinct, Outline Outline Outline Attached Attached Attached -Granulation Amt Medium (34-66%) Medium (34-66%) Large (67-100%) -Granulation Quality Red [place],Red [place] -Slough/Fibrin Yes Yes -Necrosis Amt Medium (34-66%) Large (67-100%) Small (1-33%) -Necrotic Tissue Type Adherent Slough Adherent Slough Adherent Slough -Structure Exposed N/A N/A N/A -Texture (Dai-wound Skin Appearance) Assessed, Assessed, Scarring Excoriation Excoriation -Moisture (Dai-wound Skin Appearance) Assessed Assessed Dry/Scaly -Color (Dai-wound Skin Appearance) Hemosiderin Assessed No Abnormality Staining -Temperature (Dai-wound Skin No Abnormality No Abnormality No Abnormality Appearance) (Pt Warm) (Pt Warm) (Pt Warm) -Tenderness on Palpation (Dai-wound No No No Skin Appearance) -Ulcer Cleansing Wound Cleanser Wound Cleanser Soap and Water -Foul Odor after Cleansing No No No -Anesthetic Used 5% Lidocaine 5% Lidocaine 4% Lidocaine Gel Gel Solution #5 Right buttock cluster -Combined with other wound No No -Current Size (cm) - Length 1.5 1.1 1.7 -Current Size (cm) - Width 1.7 0.5 0.6 -Current Size (cm) - Depth 0.2 0.1 0.2 -Total Square Cm 2.55 0.55 1.02 -Photo Taken No -Tunneling No No -Undermining/Tunneling No No -Circular Undermining No No -Exudate Amt Medium Medium Small -Exudate Type Serosanguineous Serosanguineous Serosanguineous -Wound Margin Distinct, Distinct, Distinct, Outline Outline Outline Attached Attached Attached -Granulation Amt Medium (34-66%) Medium (34-66%) Medium (34-66%) -Granulation Quality Pale,Red Red Red -Slough/Fibrin Yes Yes -Necrosis Amt Small (1-33%) Medium (34-66%) Medium (34-66%) -Necrotic Tissue Type Adherent Slough Adherent Slough Adherent Slough -Structure Exposed N/A N/A N/A -Texture (Dai-wound Skin Appearance) Assessed, Assessed, Scarring Excoriation Crepitus -Moisture (Dai-wound Skin Appearance) Assessed Assessed Dry/Scaly -Color (Dai-wound Skin Appearance) Hemosiderin Assessed No Abnormality Staining -Temperature (Dai-wound Skin No Abnormality No Abnormality No Abnormality Appearance) (Pt Warm) (Pt Warm) (Pt Warm) -Tenderness on Palpation (Dai-wound No No No Skin Appearance) -Ulcer Cleansing Wound Cleanser Wound Cleanser Soap and Water -Foul Odor after Cleansing No No No -Anesthetic Used 5% Lidocaine 5% Lidocaine 4% Lidocaine Gel Gel Solution WC - Nurse 2 - General Ulcer CM Notes Start: 07/13/21 10:30 Freq: Status: Active Protocol: Activity Type Activity Date Activity User E-Sign Co-Sign Detail Recorded Client Recorded Date Recorded By Document 07/13/21 10:53 MW [id number] 07/13/21 10:58 MW Document 07/20/21 11:11 MW [id number] 07/20/21 11:16 MW Document 07/27/21 10:44 MW [id number] 07/27/21 10:47 MW 07/13/21 07/20/21 07/27/21 10:53 11:11 10:44 Wound Center Nurse 2 #7 left buttock -Time 10:53 11:11 10:44 -Correct Patient Yes Yes Yes -Correct Side, Site, Position Yes Yes Yes -Correct Procedure Yes Yes Yes -Procedure Performed Yes Yes No -Type of Procedure Debridement Debridement -Clinical Debridement Subcutaneous Subcutaneous -Tissue Removed Subcutaneous Subcutaneous -Post Debridement (cm) - Length 0.4 0.1 0 -Post Debridement (cm) - Width 0.6 0.1 0 -Post Debridement (cm) - Depth 0.1 0.1 0 -Total Square (Post) (cm) 0.24 0.01 0 -Area of Debridement (cm) - Length 0.4 0.1 -Area of Debridement (cm) - Width 0.6 0.1 -Total Square (Area) (cm) 0.24 0.01 -Tunneling No No -Undermining/Tunneling No No -Circular Undermining No No -Wound/Ulcer Outcome Not Healed Not Healed Healed- Epithelialized -Ulcer Cleansing Rinsed/ Rinsed/ Irrigated with Irrigated with Saline Saline -Foul Odor after Cleansing No No -Bioengineered Tissue No No -Bleeding Controlled with Pressure Pressure -Offloading No No -Treatment Response Procedure Procedure Tolerated Well Tolerated Well -Debridement - Subq, 1st 20sq cm Yes Yes #5 Right buttock cluster -Time 10:55 11:13 10:44 -Correct Patient Yes Yes Yes -Correct Side, Site, Position Yes Yes Yes -Correct Procedure Yes Yes Yes -Procedure Performed Yes Yes Yes -Type of Procedure Debridement Debridement Debridement -Clinical Debridement Subcutaneous Subcutaneous Subcutaneous -Tissue Removed Subcutaneous Subcutaneous Subcutaneous -Post Debridement (cm) - Length 1.2 1.2 1.2 -Post Debridement (cm) - Width 1.5 0.5 0.3 -Post Debridement (cm) - Depth 0.1 0.1 0.1 -Total Square (Post) (cm) 1.80 0.60 0.36 -Area of Debridement (cm) - Length 1.2 1.2 1.2 -Area of Debridement (cm) - Width 1.5 0.5 0.3 -Total Square (Area) (cm) 1.80 0.60 0.36 -Tunneling No No No -Undermining/Tunneling No No No -Circular Undermining No No No -Wound/Ulcer Outcome Not Healed Not Healed Not Healed -Ulcer Cleansing Rinsed/ Rinsed/ Rinsed/ Irrigated with Irrigated with Irrigated with Saline Saline Saline -Foul Odor after Cleansing No No No -Bioengineered Tissue No No No -Bleeding Controlled with Pressure Pressure Pressure -Offloading No No No -Treatment Response Procedure Procedure Procedure Tolerated Well Tolerated Well Tolerated Well -Debridement - Subq, 1st 20sq cm No No Yes Pain Scale: 0-10 Numeric Is Patient Pain Free? Yes Yes Yes - Nurse 3 - General Ulcer D/C NN Start: 07/13/21 10:30 Freq: Status: Active Protocol: Activity Type Activity Date Activity User E-Sign Co-Sign Detail Recorded Client Recorded Date Recorded By Document 07/13/21 11:11 ML [id number] 07/13/21 11:12 ML Document 07/20/21 11:27 DL [id number] 07/20/21 11:32 DL 07/13/21 07/20/21 11:11 11:27 Wound Care Nurse 3 #7 left buttock -Ulcer Cleansing Soap and Water Rinsed/ Irrigated with Saline -Primary Dressing Applied Aquacel Extra NonAdherent Contact Layer -Other Dressing adaptic -Primary Dressing Covered/Secured with Dry Gauze, Dry Gauze, Secured with Secured with Tape Tape -Aquacel Extra 1 #5 Right buttock cluster -Ulcer Cleansing Rinsed/ Rinsed/ Irrigated with Irrigated with Saline Saline -Foul Odor after Cleansing No No -Primary Dressing Applied Aquacel Extra Aquacel Extra, NonAdherent Contact Layer -Other Dressing adaptic -Primary Dressing Covered/Secured with Dry Gauze, Dry Gauze, Secured with Secured with Tape Tape -Aquacel Extra 0 1 Treatment Response Procedure Tolerated Well Pain Scale: 0-10 Numeric Is Patient Pain Free? Yes Yes - Visit Discharge Discharge Condition Stable Ambulatory Status Ambulatory, Crutches Facility Type Home Health Orders Sent Yes Assessment/Plan Assessment/Plan (1) Decubitus ulcer of right buttock, stage 3: CODE(S): L89.313 - Pressure ulcer of right buttock, stage 3 (2) Decubitus ulcer of left buttock, stage 3: CODE(S): L89.323 - Pressure ulcer of left buttock, stage 3 (3) Type II diabetes mellitus: CODE(S): E11.9 - Type 2 diabetes mellitus without complications PLAN: Left is healed. Right with no significant change. Debridement done as documented above, procedure was well-tolerated. Continue Aquacel extra to open areas with Adaptic over top. Cover with ABD. Vaseline and gauze to left buttock. Consistent use of gel cushion and hospital bed very strongly recommended. Patient not using the hospital bed. He also states that he sleeps on his back because it hurts to sleep on his side. Offloading again discussed. Optimal diabetes control also very strongly recommended. Optimal protein intake, vitamin C and zinc also discussed. His questions were answered and he was advised to call with any further questions or concerns. Follow-up in 1 week. This note was generated with [employer] dictation software. It may contain incorrect words, spelling, and punctuation that were not noted in checking the note before signing.
== END 2021-07-31 23:59 | disposition home or self-care (01) ==
LOC: WC 10:15
PROVIDERS: PCP Family Medicine; Visit Provider Internal Medicine
DX: L89.313 Pressure ulcer of right buttock, stage 3 (principal); L89.323 Pressure ulcer of left buttock, stage 3; E11.9 Type 2 diabetes mellitus without complications; Z79.01 Long term (current) use of anticoagulants; Z79.84 Long term (current) use of oral hypoglycemic drugs; Z79.899 Other long term (current) drug therapy; E66.3 Overweight; Z68.29 Body mass index [BMI] 29.0-29.9, adult
CPT/HCPCS: 11042

== ENCOUNTER 2021-08-31 10:30 | Outpatient (RCR) | payer MEDICARE, SELFPAY ==
[2021-08-01 00:29] VITALS: BP 148/84; PULSE 65; RESP 20; TEMP 36.1; BMI 29.7
--- NOTE | 2021-08-03 13:00 | PN.PCM_ITS ---
History of Present Illness Date of Service: 08/03/21 Chief Complaint: Recurrent buttock ulcers History of Wound: Mr. 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 Most recent episode said to have started months ago . Has been applying antibiotic and hemorrhoid ointment without significant improvement. Sits and sleeps in his lift chair. Also history of diabetes mellitus type 2 and his most recent A1c was said to be around 8. Fasting blood sugar this morning at 303. He states that he is working with his PCP to get this under better control. History of AKA. He feels well and denies other concerns at this time. Progress of Wound: Left buttock stays healed. Still a lot of erythema. Right buttock ulcer with modest improvement. Again significant jonny ulcer erythema. Subjective Subjective No new concerns at this time. Objective Data Objective Data Vital Signs: Vital Signs Temp Pulse Resp BP 97 F L 65 20 H 148/84 H 08/01/21 00:29 08/01/21 00:29 08/01/21 00:29 08/01/21 00:29 Body Mass Index (BMI) 29.7 Charges/Coding Procedures Integumentary 111xxx-113xx: 14[address] [place] subq tissue 20 sq cm/< Physical Exam Const alert, oriented x3 and no apparent distress General Appearance: cooperative and comfortable HEENT normocephalic and head/scalp atraumatic Eyes EOMs intact bilaterally Neck full ROM General: normal visual inspection Resp normal respiratory effort Effort and Inspection: able to speak in complete sentences Skin Wounds: wounds noted Neuro oriented x3, CN's II-XII intact bilaterally and moves all extremities Psych mental status grossly normal Appearance: grossly normal Attitude: calm Speech: normal speech Debridement Note Debridement Note Wound debrided: Right buttock Type of Debridement: Excisional debridement Anesthesia Used: 4% Lidocaine Solution Depth: Down to and including healthy tissue and in the subcutaneous layer Percentage of wound debrided: 100 Instrument Used: 3mm curette Tissue Removed: Slough and devitalized tissue Severity: Fat Layer Exposed Amount of bleeding with debridement: Mild Bleeding Controlled with: Pressure Patient tolerated procedure: Patient tolerated procedure well Post-Debridement Measurements and Additional Note: Post-Debridement Measurements/Treatment WC - Nurse 2 - General Ulcer CM Notes Start: 08/03/21 11:35 Freq: Status: Active Protocol: Activity Type Activity Date Activity User E-Sign Co-Sign Detail Recorded Client Recorded Date Recorded By Document 08/03/21 11:15 MW [id number] 08/03/21 11:36 MW 08/03/21 11:15 Wound Center Nurse 2 #5 Right buttock cluster -Time 11:15 -Correct Patient Yes -Correct Side, Site, Position Yes -Correct Procedure Yes -Procedure Performed Yes -Type of Procedure Debridement -Clinical Debridement Subcutaneous -Tissue Removed Subcutaneous -Post Debridement (cm) - Length 0.9 -Post Debridement (cm) - Width 0.4 -Post Debridement (cm) - Depth 0.2 -Total Square (Post) (cm) 0.36 -Area of Debridement (cm) - Length 0.9 -Area of Debridement (cm) - Width 0.4 -Total Square (Area) (cm) 0.36 -Tunneling No -Undermining/Tunneling No -Circular Undermining No -Wound/Ulcer Outcome Not Healed -Ulcer Cleansing Rinsed/ Irrigated with Saline -Foul Odor after Cleansing No -Bioengineered Tissue No -Bleeding Controlled with Pressure -Offloading No -Treatment Response Procedure Tolerated Well -Debridement - Subq, 1st 20sq cm Yes Pain Scale: 0-10 Numeric Is Patient Pain Free? Yes - Nurse 3 - General Ulcer D/C NN Start: 08/03/21 11:35 Freq: Status: Active Protocol: Activity Type Activity Date Activity User E-Sign Co-Sign Detail Recorded Client Recorded Date Recorded By Document 08/03/21 12:28 DL [id number] 08/03/21 12:29 DL 08/03/21 12:28 Wound Care Nurse 3 #5 Right buttock cluster -Ulcer Cleansing Not Cleansed -Primary Dressing Applied NonAdherent Contact Layer, Promogran -Primary Dressing Covered/Secured with Dry Gauze, Secured with Tape -Promogran 1 Treatment Response Procedure Tolerated Well Pain Scale: 0-10 Numeric Is Patient Pain Free? Yes WC - Visit Discharge Discharge Condition Stable Ambulatory Status Ambulatory, Crutches Transportation Private Auto Facility Type Home Health Orders Sent Yes Assessment/Plan Assessment/Plan (1) Decubitus ulcer of right buttock, stage 3: CODE(S): L89.313 - Pressure ulcer of right buttock, stage 3 (2) Decubitus ulcer of left buttock, stage 3: CODE(S): L89.323 - Pressure ulcer of left buttock, stage 3 (3) Type II diabetes mellitus: CODE(S): E11.9 - Type 2 diabetes mellitus without complications PLAN: Left stays healed. Right minimal change. Debridement done as documented above, procedure was well-tolerated. Continue Aquacel extra to open areas with Adaptic over top. Cover with ABD x 2. Vaseline and gauze to left buttock. Consistent use of gel cushion and hospital bed very strongly recommended. Patient not using the hospital bed. He also states that he sleeps on his back because it hurts to sleep on his side. Very lengthy discussion on offloading had with patient. Is a lot of sheering going on during his movements. He was advised to lift up completely prior to turning to avoid sheering. Take breaks from siting several times during the day. He truly does not appear receptive. Optimal diabetes control also very strongly recommended. Optimal protein intake, vitamin C and zinc also discussed. His questions were answered and he was advised to call with any further questions or concerns. Follow-up in 1 week. This note was generated with [employer] dictation software. It may contain incorrect words, spelling, and punctuation that were not noted in checking the note before signing.
[2021-08-03 13:36] VITALS: BP 138/72; PULSE 70; TEMP 36.8; BMI 29.7
[2021-08-10 11:37] VITALS: BP 154/79; PULSE 63; RESP 19; TEMP 35.8; BMI 29.7
--- NOTE | 2021-08-10 13:05 | PCM.WC.PN ---
History of Present Illness Date of Service: 08/10/21 Chief Complaint: Recurrent buttock ulcers History of Wound: Mr. 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 Most recent episode said to have started months ago . Has been applying antibiotic and hemorrhoid ointment without significant improvement. Sits and sleeps in his lift chair. Also history of diabetes mellitus type 2 and his most recent A1c was said to be around 8. Fasting blood sugar this morning at 303. He states that he is working with his PCP to get this under better control. History of AKA. He feels well and denies other concerns at this time. Progress of Wound: Some improvement in buttock ulcer. He however states that he had a bleeding incident while trying to change his dressing on Saturday. This was being done by home health. Currently on Coumadin and last INR check was in July. New right lower extremity wounds which patient states happened after he tried to take off his stocking which had dried on blood. Has been applying Aquacel to it. Subjective Subjective No new concerns at this time Objective Data Objective Data Vital Signs: Vital Signs Temp Pulse Resp BP 96.4 F L 63 19 H 154/79 H 08/10/21 11:37 08/10/21 11:37 08/10/21 11:37 08/10/21 11:37 Body Mass Index (BMI) 29.7 Charges/Coding Procedures Integumentary 111xxx-113xx: [id number] [place] subq tissue 20 sq cm/< Physical Exam Const alert, oriented x3 and no apparent distress General Appearance: cooperative and comfortable HEENT normocephalic and head/scalp atraumatic Eyes EOMs intact bilaterally Neck full ROM General: normal visual inspection Resp normal respiratory effort Effort and Inspection: able to speak in complete sentences Skin Wounds: wounds noted Neuro oriented x3, CN's II-XII intact bilaterally and moves all extremities Psych mental status grossly normal Appearance: grossly normal Attitude: calm Speech: normal speech Debridement Note Debridement Note Wound debrided: Right buttock Type of Debridement: Excisional debridement Anesthesia Used: 4% Lidocaine Solution Depth: Down to and including healthy tissue and in the subcutaneous layer Percentage of wound debrided: 100 Instrument Used: - (1mm) Tissue Removed: Slough and devitalized tissue Severity: Fat Layer Exposed Amount of bleeding with debridement: Mild Bleeding Controlled with: Pressure Patient tolerated procedure: Patient tolerated procedure well Post-Debridement Measurements and Additional Note: Post-Debridement Measurements/Treatment ANIA - Nurse 1 - General Ulcer Assessment Start: 08/03/21 11:35 Freq: Status: Active Protocol: FABY Activity Type Activity Date Activity User E-Sign Co-Sign Detail Recorded Client Recorded Date Recorded By Document 08/03/21 13:36 AK [id number] 08/03/21 13:39 AK Document 08/10/21 11:37 ML [id number] 08/10/21 11:56 ML 08/03/21 08/10/21 13:36 11:37 WC - Today's Visit Information Type of service Follow-up Visit Follow-up Visit (Physician/SWIMMING POOL SERVICEPERSON (Physician/SWIMMING POOL SERVICEPERSON ) ) Arrival Mode Ambulatory, Crutches Crutches Transfer Assistance None Patient Identification Verified (Name & Yes Yes ) Patient Requires Transmission-Based No No Precautions Safety Precautions NA NA Height and Weight Body Mass Index (BMI) 29.7 29.7 BMI Classification Overweight Overweight Vital Signs Temperature (97.8 F-99.1 F) 98.2 F 96.4 F L Temperature Source Temporal Temporal Pulse Rate (60-100) 70 63 Pulse Location Monitor Respiratory Rate (12-18) 19 H Respiratory rate source Observation Blood Pressure (90/60-120/80) 138/72 H 154/79 H Blood Pressure Mean (mm Hg) 94 104 Source Monitor Monitor Position Sitting Blood Pressure Location Right Arm History Since Last Visit- (Skip if this is Patient's initial visit) Have you changed medications since your No No last visit? Any new allergies or adverse reactions No No Had a fall/change in ADL's that may No No increase risk of falls Signs or symptoms of abuse and/or No No neglect since last visit Have you been in the hospital since your No No last visit? Has dressing in place as prescribed Yes Yes Has compression in place as prescribed N/A Yes Has offloadiing in place as prescribed N/A No Experienced any changes in pain level or No No management Left Footwear Regular Shoe No Footwear Right Footwear Regular Shoe Pain Scale: 0-10 Numeric Is Patient Pain Free? Yes Yes ANIA - Nurse 1 - General Ulcer Measurement Start: 08/03/21 11:35 Freq: Status: Active Protocol: Activity Type Activity Date Activity User E-Sign Co-Sign Detail Recorded Client Recorded Date Recorded By Document 08/03/21 13:36 AK [id number] 08/03/21 13:39 AK Document 08/10/21 11:37 ML [id number] 08/10/21 11:56 ML 08/03/21 08/10/21 13:36 11:37 Wound Center Nurse 1 #9 r sup lower leg -Current Size (cm) - Length 0.5 -Current Size (cm) - Width 0.5 -Current Size (cm) - Depth 0.1 -Total Square Cm 0.25 -Exudate Amt Small -Exudate Type Serosanguineous -Wound Margin Distinct, Outline Attached -Granulation Amt Small (1-33%) -Slough/Fibrin Yes -Necrosis Amt Small (1-33%) -Texture (Dai-wound Skin Appearance) Assessed -Moisture (Dai-wound Skin Appearance) Assessed -Color (Dai-wound Skin Appearance) Assessed -Temperature (Dai-wound Skin No Abnormality Appearance) (Pt Warm) -Tenderness on Palpation (Dai-wound No Skin Appearance) -Ulcer Cleansing Rinsed/ Irrigated with Saline -Foul Odor after Cleansing No -Anesthetic Used 4% Lidocaine Solution #8 r lower leg -Current Size (cm) - Length 1 -Current Size (cm) - Width 2 -Current Size (cm) - Depth 0.1 -Total Square Cm 2 -Exudate Amt Small -Exudate Type Serosanguineous -Wound Margin Distinct, Outline Attached -Granulation Amt Small (1-33%) -Slough/Fibrin Yes -Necrosis Amt Small (1-33%) -Necrotic Tissue Type Adherent Slough -Texture (Dai-wound Skin Appearance) Assessed -Moisture (Dai-wound Skin Appearance) Assessed -Color (Dai-wound Skin Appearance) Assessed -Temperature (Dai-wound Skin No Abnormality Appearance) (Pt Warm) -Tenderness on Palpation (Dai-wound No Skin Appearance) -Ulcer Cleansing Rinsed/ Irrigated with Saline -Foul Odor after Cleansing No -Anesthetic Used 4% Lidocaine Solution #5 Right buttock cluster -Combined with other wound No -Current Size (cm) - Length 4 2 -Current Size (cm) - Width 5 3 -Current Size (cm) - Depth 0.1 0.1 -Total Square Cm 20 6 -Photo Taken No -Epithelialization None Present -Tunneling No -Undermining/Tunneling No -Circular Undermining No -Exudate Amt Medium Small -Exudate Type Serous Serosanguineous -Wound Margin Distinct, Outline Attached -Granulation Amt None Present (0 Large (67-100%) %) -Granulation Quality N/A -Slough/Fibrin No -Necrosis Amt None Present (0 Small (1-33%) %) -Necrotic Tissue Type Adherent Slough -Texture (Dai-wound Skin Appearance) Assessed, Assessed Excoriation -Moisture (Dai-wound Skin Appearance) No Abnormality, Assessed,Dry/ Assessed Scaly -Color (Dai-wound Skin Appearance) Assessed, Assessed Erythema -Temperature (Dai-wound Skin No Abnormality No Abnormality Appearance) (Pt Warm) (Pt Warm) -Tenderness on Palpation (Dai-wound No No Skin Appearance) -Ulcer Cleansing Rinsed/ Rinsed/ Irrigated with Irrigated with Saline Saline -Foul Odor after Cleansing No No -Anesthetic Used 4% Lidocaine 4% Lidocaine Solution Solution WC - Nurse 2 - General Ulcer CM Notes Start: 08/03/21 11:35 Freq: Status: Active Protocol: Activity Type Activity Date Activity User E-Sign Co-Sign Detail Recorded Client Recorded Date Recorded By Document 08/03/21 11:15 MW [id number] 08/03/21 11:36 MW Document 08/10/21 12:05 MW [id number] 08/10/21 12:14 MW 08/03/21 08/10/21 11:15 12:05 Wound Center Nurse 2 #9 r sup lower leg -Time 12:08 -Correct Patient Yes -Correct Side, Site, Position Yes -Correct Procedure Yes -Procedure Performed Yes -Type of Procedure Debridement -Clinical Debridement Subcutaneous -Tissue Removed Subcutaneous -Post Debridement (cm) - Length 0.8 -Post Debridement (cm) - Width 0.8 -Post Debridement (cm) - Depth 0.1 -Total Square (Post) (cm) 0.64 -Area of Debridement (cm) - Length 0.8 -Area of Debridement (cm) - Width 0.8 -Total Square (Area) (cm) 0.64 -Tunneling No -Undermining/Tunneling No -Circular Undermining No -Wound/Ulcer Outcome Not Healed -Ulcer Cleansing Rinsed/ Irrigated with Saline -Foul Odor after Cleansing No -Bioengineered Tissue No -Bleeding Controlled with Pressure -Offloading No -Treatment Response Procedure Tolerated Well -Debridement - Subq, 1st 20sq cm Yes #8 r lower leg -Time 12:08 -Correct Patient Yes -Correct Side, Site, Position Yes -Correct Procedure Yes -Procedure Performed Yes -Type of Procedure Debridement -Clinical Debridement Subcutaneous -Tissue Removed Subcutaneous -Post Debridement (cm) - Length 3.0 -Post Debridement (cm) - Width 1.0 -Post Debridement (cm) - Depth 0.1 -Total Square (Post) (cm) 3.00 -Area of Debridement (cm) - Length 3.0 -Area of Debridement (cm) - Width 1.0 -Total Square (Area) (cm) 3.00 -Tunneling No -Undermining/Tunneling No -Circular Undermining No -Wound/Ulcer Outcome Not Healed -Ulcer Cleansing Rinsed/ Irrigated with Saline -Foul Odor after Cleansing No -Bioengineered Tissue No -Bleeding Controlled with Pressure -Offloading No -Treatment Response Procedure Tolerated Well -Debridement - Subq, 20sq cm No #5 Right buttock cluster -Time 11:15 12:09 -Correct Patient Yes Yes -Correct Side, Site, Position Yes Yes -Correct Procedure Yes Yes -Procedure Performed Yes Yes -Type of Procedure Debridement Debridement -Clinical Debridement Subcutaneous Subcutaneous -Tissue Removed Subcutaneous Subcutaneous -Post Debridement (cm) - Length 0.9 0.2 -Post Debridement (cm) - Width 0.4 0.2 -Post Debridement (cm) - Depth 0.2 0.1 -Total Square (Post) (cm) 0.36 0.04 -Area of Debridement (cm) - Length 0.9 0.2 -Area of Debridement (cm) - Width 0.4 0.2 -Total Square (Area) (cm) 0.36 0.04 -Tunneling No No -Undermining/Tunneling No No -Circular Undermining No No -Wound/Ulcer Outcome Not Healed Not Healed -Ulcer Cleansing Rinsed/ Rinsed/ Irrigated with Irrigated with Saline Saline -Foul Odor after Cleansing No No -Bioengineered Tissue No No -Bleeding Controlled with Pressure Pressure -Offloading No No -Treatment Response Procedure Tolerated Well -Debridement - Subq, 1st 20sq cm Yes No Pain Scale: 0-10 Numeric Is Patient Pain Free? Yes Yes - Nurse 3 - General Ulcer D/C NN Start: 08/03/21 11:35 Freq: Status: Active Protocol: Activity Type Activity Date Activity User E-Sign Co-Sign Detail Recorded Client Recorded Date Recorded By Document 08/03/21 12:28 DL [id number] 08/03/21 12:29 DL Document 08/10/21 12:28 AK [id number] 08/10/21 12:30 AK 08/03/21 08/10/21 12:28 12:28 Wound Care Nurse 3 #9 r sup lower leg -Ulcer Cleansing Rinsed/ Irrigated with Saline -Foul Odor after Cleansing No -Negative Pressure Wound Therapy N/A -Primary Dressing Applied Promogran -Primary Dressing Covered/Secured with Dry Gauze & Roll Gauze, Secured with Tape -Promogran 1 #8 r lower leg -Ulcer Cleansing Rinsed/ Irrigated with Saline -Foul Odor after Cleansing No -Negative Pressure Wound Therapy N/A -Primary Dressing Applied Promogran -Primary Dressing Covered/Secured with Dry Gauze & Roll Gauze, Secured with Tape -Promogran 0 #5 Right buttock cluster -Ulcer Cleansing Not Cleansed Rinsed/ Irrigated with Saline -Primary Dressing Applied NonAdherent NonAdherent Contact Layer, Contact Layer, Promogran Promogran -Other Dressing ABD -Primary Dressing Covered/Secured with Dry Gauze, Secured with Secured with Tape Tape -Promogran 1 0 Treatment Response Procedure Tolerated Well Pain Scale: 0-10 Numeric Is Patient Pain Free? Yes Yes - Visit Discharge Discharge Condition Stable Stable Ambulatory Status Ambulatory, Ambulatory, Crutches Crutches Transportation Private Auto Private Auto Medication Reconcilliation completed & Yes provided to patient/care provider Clinical Summary of Care Provided Yes Facility Type Home Health Orders Sent Yes Additional Wound Wound debrided: Right lower extremity inferior Type of Debridement: Excisional debridement Anesthesia Used: 4% Lidocaine Solution Depth: Down to and including healthy tissue and in the subcutaneous layer Percentage of wound debrided: 100 Instrument Used: 3mm curette Tissue Removed: Slough and devitalized tissue Severity: Fat Layer Exposed Amount of bleeding with debridement: Mild Bleeding Controlled with: Pressure Patient tolerated procedure: Patient tolerated procedure well Additional Wound Wound debrided: Right lower extremity superior Type of Debridement: Excisional debridement Anesthesia Used: 4% Lidocaine Solution Depth: Down to and including healthy tissue and in the subcutaneous layer Percentage of wound debrided: 100 Instrument Used: 3mm curette Tissue Removed: Slough and devitalized tissue Severity: Fat Layer Exposed Amount of bleeding with debridement: Mild Bleeding Controlled with: Pressure Patient tolerated procedure: Patient tolerated procedure well Assessment/Plan Assessment/Plan (1) Decubitus ulcer of right buttock, stage 3: CODE(S): L89.313 - Pressure ulcer of right buttock, stage 3 (2) Decubitus ulcer of left buttock, stage 3: CODE(S): L89.323 - Pressure ulcer of left buttock, stage 3 (3) Type II diabetes mellitus: CODE(S): E11.9 - Type 2 diabetes mellitus without complications (4) Open wound of right lower extremity: CODE(S): S81.801A - Unspecified open wound, right lower leg, initial encounter QUALIFIERS: Encounter type: initial encounter Qualified Code(s): S81.801A - Unspecified open wound, right lower leg, initial encounter PLAN: New. Inferior right lower extremity wound. Abrasion/tear. buttock ulcers with less erythema. Debridement done as documented above, procedure was well-tolerated. Switch to Promogran to all open areas with Adaptic over top. Cover with ABD x 2. Vaseline and gauze to left buttock. Consistent use of gel cushion and hospital bed very strongly recommended. He appears to have had better use this week. He was commended. He was advised to lift up completely prior to turning to avoid sheering. Take breaks from siting several times during the day. Optimal diabetes control also very strongly recommended. Optimal protein intake, vitamin C and zinc also discussed. His questions were answered and he was advised to call with any further questions or concerns. Follow-up in 1 week. This note was generated with [employer] dictation software. It may contain incorrect words, spelling, and punctuation that were not noted in checking the note before signing.
[2021-08-17 11:16] VITALS: BP 153/84; PULSE 65; RESP 20; TEMP 36.3; BMI 29.7
--- NOTE | 2021-08-17 12:32 | PN.PCM_ITS ---
History of Present Illness Date of Service: 08/17/21 Chief Complaint: Recurrent buttock ulcers History of Wound: Mr. 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 Most recent episode said to have started months ago . Has been applying antibiotic and hemorrhoid ointment without significant improvement. Sits and sleeps in his lift chair. Also history of diabetes mellitus type 2 and his most recent A1c was said to be around 8. Fasting blood sugar this morning at 303. He states that he is working with his PCP to get this under better control. History of AKA. He feels well and denies other concerns at this time. Progress of Wound: Left buttock stays healed. Right with some improvement. Both still with erythema. Right lower extremity with minimal change. Lower extremity edema. Subjective Subjective No new concerns at this time. Objective Data Objective Data Vital Signs: Vital Signs Temp Pulse Resp BP 97.4 F L 65 20 H 153/84 H 08/17/21 11:16 08/17/21 11:16 08/17/21 11:16 08/17/21 11:16 Body Mass Index (BMI) 29.7 Charges/Coding Procedures Integumentary 111xxx-113xx: [id number] [place] subq tissue 20 sq cm/< Physical Exam Const alert, oriented x3 and no apparent distress General Appearance: cooperative and comfortable HEENT normocephalic and head/scalp atraumatic Eyes EOMs intact bilaterally Neck full ROM General: normal visual inspection Resp normal respiratory effort Effort and Inspection: able to speak in complete sentences Skin Wounds: wounds noted Neuro oriented x3, CN's II-XII intact bilaterally and moves all extremities Psych mental status grossly normal Appearance: grossly normal Attitude: calm Speech: normal speech Debridement Note Debridement Note Wound debrided: Right Buttock Type of Debridement: Selective debridement Anesthesia Used: 5% Lidocaine Gel Depth: Down to and including healthy tissue Percentage of wound debrided: 100 Severity: Limited To Skin Breakdown Amount of bleeding with debridement: Mild Bleeding Controlled with: Pressure Post-Debridement Measurements and Additional Note: Post-Debridement Measurements/Treatment ANIA - Nurse 1 - General Ulcer Assessment Start: 08/03/21 11:35 Freq: Status: Active Protocol: FABY Activity Type Activity Date Activity User E-Sign Co-Sign Detail Recorded Client Recorded Date Recorded By Document 08/03/21 13:36 AK [id number] 08/03/21 13:39 AK Document 08/10/21 11:37 ML [id number] 08/10/21 11:56 ML Document 08/17/21 11:16 DL [id number] 08/17/21 11:37 DL 08/03/21 08/10/21 08/17/21 13:36 11:37 11:16 WC - Today's Visit Information Type of service Follow-up Visit Follow-up Visit Follow-up Visit (Physician/CURBING STONECUTTER (Physician/CURBING STONECUTTER (Physician/CURBING STONECUTTER ) ) ) Arrival Mode Ambulatory, Crutches Ambulatory, Crutches Crutches Transfer Assistance None None Patient Identification Verified (Name & Yes Yes Yes ) Patient Requires Transmission-Based No No Precautions Safety Precautions NA NA Finger Stick Blood Sugar(mg/dl) (if not checked indicated): Blood Sugar Stated by Patient Height and Weight Body Mass Index (BMI) 29.7 29.7 29.7 BMI Classification Overweight Overweight Overweight Vital Signs Temperature (97.8 F-99.1 F) 98.2 F 96.4 F L 97.4 F L Temperature Source Temporal Temporal Temporal Pulse Rate (60-100) 70 63 65 Pulse Location Monitor Monitor Respiratory Rate (12-18) 19 H 20 H Respiratory rate source Observation Observation Blood Pressure (90/60-120/80) 138/72 H 154/79 H 153/84 H Blood Pressure Mean (mm Hg) 94 104 107 Source Monitor Monitor Monitor Position Sitting Blood Pressure Location Right Arm History Since Last Visit- (Skip if this is Patient's initial visit) Have you changed medications since your No No No last visit? Any new allergies or adverse reactions No No No Had a fall/change in ADL's that may No No No increase risk of falls Signs or symptoms of abuse and/or No No No neglect since last visit Have you been in the hospital since your No No No last visit? Has dressing in place as prescribed Yes Yes Yes Has compression in place as prescribed N/A Yes Yes Has offloadiing in place as prescribed N/A No N/A Experienced any changes in pain level or No No No management Left Footwear Regular Shoe No Footwear Right Footwear Regular Shoe Pain Scale: 0-10 Numeric Is Patient Pain Free? Yes Yes Yes WC - Nurse 1 - General Ulcer Measurement Start: 08/03/21 11:35 Freq: Status: Active Protocol: Activity Type Activity Date Activity User E-Sign Co-Sign Detail Recorded Client Recorded Date Recorded By Document 08/03/21 13:36 AK [id number] 08/03/21 13:39 AK Document 08/10/21 11:37 ML [id number] 08/10/21 11:56 ML Document 08/17/21 11:16 DL [id number] 08/17/21 11:37 DL 08/03/21 08/10/21 08/17/21 13:36 11:37 11:16 Wound Center Nurse 1 #9 r sup lower leg -Current Size (cm) - Length 0.5 0.6 -Current Size (cm) - Width 0.5 0.6 -Current Size (cm) - Depth 0.1 0.1 -Total Square Cm 0.25 0.36 -Photo Taken No -Exudate Amt Small None Present -Exudate Type Serosanguineous -Wound Margin Distinct, Thickened Outline Attached -Granulation Amt Small (1-33%) None Present (0 %) -Slough/Fibrin Yes -Necrosis Amt Small (1-33%) Small (1-33%) -Necrotic Tissue Type Eschar -Structure Exposed N/A -Texture (Dai-wound Skin Appearance) Assessed Localized Edema ,Scarring -Moisture (Dai-wound Skin Appearance) Assessed Dry/Scaly -Color (Dai-wound Skin Appearance) Assessed Hemosiderin Staining -Temperature (Dai-wound Skin No Abnormality No Abnormality Appearance) (Pt Warm) (Pt Warm) -Tenderness on Palpation (Dai-wound No No Skin Appearance) -Ulcer Cleansing Rinsed/ Soap and Water Irrigated with Saline -Foul Odor after Cleansing No -Anesthetic Used 4% Lidocaine 5% Lidocaine Solution Gel,Cetacaine #8 r lower leg -Current Size (cm) - Length 1 3 -Current Size (cm) - Width 2 1.2 -Current Size (cm) - Depth 0.1 0.1 -Total Square Cm 2 3.6 -Photo Taken No -Exudate Amt Small Medium -Exudate Type Serosanguineous Serosanguineous -Wound Margin Distinct, Indistinct, Non Outline -Visible Attached -Granulation Amt Small (1-33%) Medium (34-66%) -Granulation Quality Pale,[place] -Slough/Fibrin Yes -Necrosis Amt Small (1-33%) Medium (34-66%) -Necrotic Tissue Type Adherent Slough Adherent Slough -Texture (Dai-wound Skin Appearance) Assessed Scarring -Moisture (Dai-wound Skin Appearance) Assessed Dry/Scaly -Color (Dai-wound Skin Appearance) Assessed Hemosiderin Staining -Temperature (Dai-wound Skin No Abnormality No Abnormality Appearance) (Pt Warm) (Pt Warm) -Tenderness on Palpation (Dai-wound No No Skin Appearance) -Ulcer Cleansing Rinsed/ Soap and Water Irrigated with Saline -Foul Odor after Cleansing No No -Anesthetic Used 4% Lidocaine 5% Lidocaine Solution Gel #5 Right buttock cluster -Combined with other wound No -Current Size (cm) - Length 4 2 0.1 -Current Size (cm) - Width 5 3 0.1 -Current Size (cm) - Depth 0.1 0.1 0.1 -Total Square Cm 20 6 0.01 -Photo Taken No No -Epithelialization None Present -Tunneling No -Undermining/Tunneling No -Circular Undermining No -Exudate Amt Medium Small None Present -Exudate Type Serous Serosanguineous Serosanguineous -Wound Margin Distinct, Indistinct, Non Outline -Visible Attached -Granulation Amt None Present (0 Large (67-100%) Large (67-100%) %) -Granulation Quality N/A [place] -Slough/Fibrin No -Necrosis Amt None Present (0 Small (1-33%) Small (1-33%) %) -Necrotic Tissue Type Adherent Slough Adherent Slough -Structure Exposed N/A -Texture (Dai-wound Skin Appearance) Assessed, Assessed Scarring Excoriation -Moisture (Dai-wound Skin Appearance) No Abnormality, Assessed,Dry/ Dry/Scaly Assessed Scaly -Color (Dai-wound Skin Appearance) Assessed, Assessed Erythema Erythema -Temperature (Dai-wound Skin No Abnormality No Abnormality No Abnormality Appearance) (Pt Warm) (Pt Warm) (Pt Warm) -Tenderness on Palpation (Dai-wound No No No Skin Appearance) -Ulcer Cleansing Rinsed/ Rinsed/ Soap and Water Irrigated with Irrigated with Saline Saline -Foul Odor after Cleansing No No No -Anesthetic Used 4% Lidocaine 4% Lidocaine 4% Lidocaine Solution Solution Solution WC - Nurse 2 - General Ulcer CM Notes Start: 08/03/21 11:35 Freq: Status: Active Protocol: Activity Type Activity Date Activity User E-Sign Co-Sign Detail Recorded Client Recorded Date Recorded By Document 08/03/21 11:15 MW [id number] 08/03/21 11:36 MW Document 08/10/21 12:05 MW [id number] 08/10/21 12:14 MW Document 08/17/21 11:58 MW [id number] 08/17/21 12:07 MW 08/03/21 08/10/21 08/17/21 11:15 12:05 11:58 Wound Center Nurse 2 #9 r sup lower leg -Time 12:08 12:03 -Correct Patient Yes Yes -Correct Side, Site, Position Yes Yes -Correct Procedure Yes Yes -Procedure Performed Yes Yes -Type of Procedure Debridement Debridement -Clinical Debridement Subcutaneous Subcutaneous -Tissue Removed Subcutaneous Subcutaneous -Post Debridement (cm) - Length 0.8 0.1 -Post Debridement (cm) - Width 0.8 0.1 -Post Debridement (cm) - Depth 0.1 0.1 -Total Square (Post) (cm) 0.64 0.01 -Area of Debridement (cm) - Length 0.8 0.1 -Area of Debridement (cm) - Width 0.8 0.1 -Total Square (Area) (cm) 0.64 0.01 -Tunneling No No -Undermining/Tunneling No No -Circular Undermining No No -Wound/Ulcer Outcome Not Healed Not Healed -Ulcer Cleansing Rinsed/ Rinsed/ Irrigated with Irrigated with Saline Saline -Foul Odor after Cleansing No No -Bioengineered Tissue No No -Bleeding Controlled with Pressure Pressure -Treatment Response Procedure Procedure Tolerated Well Tolerated Well -Offloading No No -Debridement - Subq, 1st 20sq cm Yes No #8 r lower leg -Time 12:08 12:03 -Correct Patient Yes Yes -Correct Side, Site, Position Yes Yes -Correct Procedure Yes Yes -Procedure Performed Yes Yes -Type of Procedure Debridement Debridement -Clinical Debridement Subcutaneous Subcutaneous -Tissue Removed Subcutaneous Subcutaneous -Post Debridement (cm) - Length 3.0 2.8 -Post Debridement (cm) - Width 1.0 1.5 -Post Debridement (cm) - Depth 0.1 0.1 -Total Square (Post) (cm) 3.00 4.20 -Area of Debridement (cm) - Length 3.0 2.8 -Area of Debridement (cm) - Width 1.0 1.5 -Total Square (Area) (cm) 3.00 4.20 -Tunneling No No -Undermining/Tunneling No No -Circular Undermining No No -Wound/Ulcer Outcome Not Healed Not Healed -Ulcer Cleansing Rinsed/ Rinsed/ Irrigated with Irrigated with Saline Saline -Foul Odor after Cleansing No No -Bioengineered Tissue No No -Bleeding Controlled with Pressure Pressure -Treatment Response Procedure Procedure Tolerated Well Tolerated Well -Offloading No No -Debridement - Subq, 1st 20sq cm No Yes #5 Right buttock cluster -Time 11:15 12:09 11:59 -Correct Patient Yes Yes Yes -Correct Side, Site, Position Yes Yes Yes -Correct Procedure Yes Yes Yes -Procedure Performed Yes Yes Yes -Type of Procedure Debridement Debridement Debridement -Clinical Debridement Subcutaneous Subcutaneous Epidermis / Dermis -Tissue Removed Subcutaneous Subcutaneous Epidermis -Post Debridement (cm) - Length 0.9 0.2 0.1 -Post Debridement (cm) - Width 0.4 0.2 0.1 -Post Debridement (cm) - Depth 0.2 0.1 0.1 -Total Square (Post) (cm) 0.36 0.04 0.01 -Area of Debridement (cm) - Length 0.9 0.2 0.1 -Area of Debridement (cm) - Width 0.4 0.2 0.1 -Total Square (Area) (cm) 0.36 0.04 0.01 -Tunneling No No No -Undermining/Tunneling No No No -Circular Undermining No No No -Wound/Ulcer Outcome Not Healed Not Healed Not Healed -Ulcer Cleansing Rinsed/ Rinsed/ Rinsed/ Irrigated with Irrigated with Irrigated with Saline Saline Saline -Foul Odor after Cleansing No No No -Bioengineered Tissue No No No -Bleeding Controlled with Pressure Pressure Pressure -Treatment Response Procedure Procedure Tolerated Well Tolerated Well -Offloading No No No -Debridement - Open, 1st 20sq cm Yes -Debridement - Subq, 1st 20sq cm Yes No Pain Scale: 0-10 Numeric Is Patient Pain Free? Yes Yes Yes WC - Nurse 3 - General Ulcer D/C NN Start: 08/03/21 11:35 Freq: Status: Active Protocol: Activity Type Activity Date Activity User E-Sign Co-Sign Detail Recorded Client Recorded Date Recorded By Document 08/03/21 12:28 DL [id number] 08/03/21 12:29 DL Document 08/10/21 12:28 AK [id number] 08/10/21 12:30 AK Document 08/17/21 12:22 DL [id number] 08/17/21 12:25 DL Edit Result 08/17/21 12:22 DL (1) [id number] 08/17/21 12:26 DL (1) Right - Tubular Bandage => Double Layer - Size of Tubigrip Used => Size F - Size F ($) => 2 08/03/21 08/10/21 08/17/21 12:28 12:28 12:22 Wound Care Nurse 3 #9 r sup lower leg -Ulcer Cleansing Rinsed/ Rinsed/ Irrigated with Irrigated with Saline Saline -Foul Odor after Cleansing No -Negative Pressure Wound Therapy N/A -Primary Dressing Applied Promogran Promogran -Other Dressing adaptic -Primary Dressing Covered/Secured with Dry Gauze & Dry Gauze & Roll Gauze, Roll Gauze Secured with Tape -Promogran 1 1 #8 r lower leg -Ulcer Cleansing Rinsed/ Rinsed/ Irrigated with Irrigated with Saline Saline -Foul Odor after Cleansing No No -Negative Pressure Wound Therapy N/A -Primary Dressing Applied Promogran Promogran -Primary Dressing Covered/Secured with Dry Gauze & Dry Gauze & Roll Gauze, Roll Gauze, Secured with Secured with Tape Tape -Promogran 0 0 #5 Right buttock cluster -Ulcer Cleansing Not Cleansed Rinsed/ Rinsed/ Irrigated with Irrigated with Saline Saline -Foul Odor after Cleansing No -Primary Dressing Applied NonAdherent NonAdherent Contact Layer, Contact Layer, Promogran Promogran -Other Dressing ABD adaptic,abd -Primary Dressing Covered/Secured with Dry Gauze, Secured with Dry Gauze, Secured with Tape Secured with Tape Tape -Other Covering vaseline at home -Promogran 1 0 Right -Tubular Bandage Double Layer -Size of Tubigrip Used Size F -Size F ($) 2 Treatment Response Procedure Tolerated Well Pain Scale: 0-10 Numeric Is Patient Pain Free? Yes Yes Yes WC - Visit Discharge Discharge Condition Stable Stable Stable Ambulatory Status Ambulatory, Ambulatory, Crutches Crutches Crutches Transportation Private Auto Private Auto Private Auto Medication Reconcilliation completed & Yes No provided to patient/care provider Clinical Summary of Care Provided Yes Yes Facility Type Home Health Orders Sent Yes Additional Wound Wound debrided: Right Lower Extremity ( Inferior ) Type of Debridement: Excisional debridement Anesthesia Used: 4% Lidocaine Solution Depth: Down to and including healthy tissue and in the subcutaneous layer Percentage of wound debrided: 100 Instrument Used: 5mm curette Tissue Removed: Slough and devitalized tissue Severity: Fat Layer Exposed Amount of bleeding with debridement: Mild Bleeding Controlled with: Pressure Patient tolerated procedure: Patient tolerated procedure well Assessment/Plan Assessment/Plan (1) Decubitus ulcer of right buttock, stage 3: CODE(S): L89.313 - Pressure ulcer of right buttock, stage 3 (2) Decubitus ulcer of left buttock, stage 3: CODE(S): L89.323 - Pressure ulcer of left buttock, stage 3 (3) Type II diabetes mellitus: CODE(S): E11.9 - Type 2 diabetes mellitus without complications (4) Open wound of right lower extremity: CODE(S): S81.801A - Unspecified open wound, right lower leg, initial encounter QUALIFIERS: Encounter type: initial encounter Qualified Code(s): S81.801A - Unspecified open wound, right lower leg, initial encounter PLAN: Debridement done as documented above, procedure was well-tolerated. Copious amount of Vaseline to both buttocks. Cover weight gauze and double layer of ABD. Continue Promogran to right lower extremity with Adaptic over top. Patient declined 3M wrap for edema management, significant right lower extremity edema. Double layer Tubigrip for edema management. Consistent use of gel cushion and hospital bed very strongly recommended. He was advised to lift up completely prior to turning to avoid sheering. Take breaks from siting several times during the day. Optimal diabetes control also very strongly recommended. Optimal protein intake, vitamin C and zinc also discussed. His questions were answered and he was advised to call with any further questions or concerns. Follow-up in 1 week. This note was generated with Dragon dictation software. It may contain incorrect words, spelling, and punctuation that were not noted in checking the note before signing.
[2021-08-24 11:45] VITALS: BP 147/75; PULSE 70; RESP 18; TEMP 36.6; BMI 29.7
--- NOTE | 2021-08-24 12:29 | PCM.WC.PN ---
History of Present Illness Date of Service: 08/24/21 Chief Complaint: Recurrent buttock ulcers History of Wound: Mr. 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 Most recent episode said to have started months ago . Has been applying antibiotic and hemorrhoid ointment without significant improvement. Sits and sleeps in his lift chair. Also history of diabetes mellitus type 2 and his most recent A1c was said to be around 8. Fasting blood sugar this morning at 303. He states that he is working with his PCP to get this under better control. History of AKA. He feels well and denies other concerns at this time. Progress of Wound: Left eye buttock with erythema but no significant ulceration. Right lower extremity superior wound is healed. Inferior with some improvement. Objective Data Objective Data Vital Signs: Vital Signs Temp Pulse Resp BP 97.8 F 70 18 147/75 H 08/24/21 11:45 08/24/21 11:45 08/24/21 11:45 08/24/21 11:45 Body Mass Index (BMI) 29.7 Charges/Coding Procedures Integumentary 111xxx-113xx: [id number] [place] subq tissue 20 sq cm/< Physical Exam Const alert, oriented x3 and no apparent distress General Appearance: cooperative and comfortable HEENT normocephalic and head/scalp atraumatic Eyes EOMs intact bilaterally Neck full ROM General: normal visual inspection Resp normal respiratory effort Effort and Inspection: able to speak in complete sentences Skin Wounds: wounds noted Neuro oriented x3, CN's II-XII intact bilaterally and moves all extremities Psych mental status grossly normal Appearance: grossly normal Attitude: calm Speech: normal speech Debridement Note Debridement Note Wound debrided: Right lower extremity inferior Type of Debridement: Excisional debridement Anesthesia Used: 4% Lidocaine Solution Depth: Down to and including healthy tissue and in the subcutaneous layer Percentage of wound debrided: 100 Instrument Used: 3mm curette Tissue Removed: Devitalized tissue Severity: Fat Layer Exposed Amount of bleeding with debridement: Mild Bleeding Controlled with: Pressure Patient tolerated procedure: Patient tolerated procedure well Post-Debridement Measurements and Additional Note: Post-Debridement Measurements/Treatment ANIA - Nurse 1 - General Ulcer Assessment Start: 08/03/21 11:35 Freq: Status: Active Protocol: FABY Activity Type Activity Date Activity User E-Sign Co-Sign Detail Recorded Client Recorded Date Recorded By Document 08/03/21 13:36 AK [id number] 08/03/21 13:39 AK Document 08/10/21 11:37 ML [id number] 08/10/21 11:56 ML Document 08/17/21 11:16 DL [id number] 08/17/21 11:37 DL Document 08/24/21 11:45 RB [id number] 08/24/21 12:02 RB 08/03/21 08/10/21 08/17/21 13:36 11:37 11:16 WC - Today's Visit Information Type of service Follow-up Visit Follow-up Visit Follow-up Visit (Physician/CABIN FURNISHINGS INSTALLER (Physician/CABIN FURNISHINGS INSTALLER (Physician/CABIN FURNISHINGS INSTALLER ) ) ) Arrival Mode Ambulatory, Crutches Ambulatory, Crutches Crutches Transfer Assistance None None Patient Identification Verified (Name & Yes Yes Yes ) Patient Requires Transmission-Based No No Precautions Safety Precautions NA NA Finger Stick Blood Sugar(mg/dl) (if not checked indicated): Blood Sugar Stated by Patient Height and Weight Body Mass Index (BMI) 29.7 29.7 29.7 BMI Classification Overweight Overweight Overweight Vital Signs Temperature (97.8 F-99.1 F) 98.2 F 96.4 F L 97.4 F L Temperature Source Temporal Temporal Temporal Pulse Rate (60-100) 70 63 65 Pulse Location Monitor Monitor Respiratory Rate (12-18) 19 H 20 H Respiratory rate source Observation Observation Blood Pressure (90/60-120/80) 138/72 H 154/79 H 153/84 H Blood Pressure Mean (mm Hg) 94 104 107 Source Monitor Monitor Monitor Position Sitting Blood Pressure Location Right Arm History Since Last Visit- (Skip if this is Patient's initial visit) Have you changed medications since your No No No last visit? Any new allergies or adverse reactions No No No Had a fall/change in ADL's that may No No No increase risk of falls Signs or symptoms of abuse and/or No No No neglect since last visit Have you been in the hospital since your No No No last visit? Has dressing in place as prescribed Yes Yes Yes Has compression in place as prescribed N/A Yes Yes Has offloadiing in place as prescribed N/A No N/A Experienced any changes in pain level or No No No management Left Footwear Regular Shoe No Footwear Right Footwear Regular Shoe Pain Scale: 0-10 Numeric Is Patient Pain Free? Yes Yes Yes 08/24/21 11:45 WC - Today's Visit Information Type of service Follow-up Visit (Physician/CABIN FURNISHINGS INSTALLER ) Arrival Mode Ambulatory, Crutches Transfer Assistance None Patient Identification Verified (Name & Yes ) Patient Requires Transmission-Based No Precautions Safety Precautions Finger Stick Blood Sugar(mg/dl) (if indicated): Blood Sugar Height and Weight Body Mass Index (BMI) 29.7 BMI Classification Overweight Vital Signs Temperature (97.8 F-99.1 F) 97.8 F Temperature Source Temporal Pulse Rate (60-100) 70 Pulse Location Monitor Respiratory Rate (12-18) 18 Respiratory rate source Observation Blood Pressure (90/60-120/80) 147/75 H Blood Pressure Mean (mm Hg) 99 Source Monitor Position Semi-Fowlers Blood Pressure Location Left Arm History Since Last Visit- (Skip if this is Patient's initial visit) Have you changed medications since your No last visit? Any new allergies or adverse reactions No Had a fall/change in ADL's that may No increase risk of falls Signs or symptoms of abuse and/or No neglect since last visit Have you been in the hospital since your No last visit? Has dressing in place as prescribed Yes Has compression in place as prescribed Yes Has offloadiing in place as prescribed No Experienced any changes in pain level or No management Left Footwear Regular Shoe Right Footwear Regular Shoe Pain Scale: 0-10 Numeric Is Patient Pain Free? Yes - Nurse 1 - General Ulcer Measurement Start: 08/03/21 11:35 Freq: Status: Active Protocol: Activity Type Activity Date Activity User E-Sign Co-Sign Detail Recorded Client Recorded Date Recorded By Document 08/03/21 13:36 AK [id number] 08/03/21 13:39 AK Document 08/10/21 11:37 ML [id number] 08/10/21 11:56 ML Document 08/17/21 11:16 DL [id number] 08/17/21 11:37 DL Document 08/24/21 11:45 RB [id number] 03/24/22 12:02 RB 08/03/21 08/10/21 08/17/21 13:36 11:37 11:16 Wound Center Nurse 1 #9 r sup lower leg -Combined with other wound -Current Size (cm) - Length 0.5 0.6 -Current Size (cm) - Width 0.5 0.6 -Current Size (cm) - Depth 0.1 0.1 -Total Square Cm 0.25 0.36 -Photo Taken No -Epithelialization -Exudate Amt Small None Present -Exudate Type Serosanguineous -Wound Margin Distinct, Thickened Outline Attached -Granulation Amt Small (1-33%) None Present (0 %) -Slough/Fibrin Yes -Necrosis Amt Small (1-33%) Small (1-33%) -Necrotic Tissue Type Eschar -Structure Exposed N/A -Texture (Dai-wound Skin Appearance) Assessed Localized Edema ,Scarring -Moisture (Dai-wound Skin Appearance) Assessed Dry/Scaly -Color (Dai-wound Skin Appearance) Assessed Hemosiderin Staining -Temperature (Dai-wound Skin No Abnormality No Abnormality Appearance) (Pt Warm) (Pt Warm) -Tenderness on Palpation (Dai-wound No No Skin Appearance) -Ulcer Cleansing Rinsed/ Soap and Water Irrigated with Saline -Foul Odor after Cleansing No -Anesthetic Used 4% Lidocaine 5% Lidocaine Solution Gel,Cetacaine #8 r lower leg -Combined with other wound -Current Size (cm) - Length 1 3 -Current Size (cm) - Width 2 1.2 -Current Size (cm) - Depth 0.1 0.1 -Total Square Cm 2 3.6 -Photo Taken No -Epithelialization -Tunneling -Undermining/Tunneling -Circular Undermining -Exudate Amt Small Medium -Exudate Type Serosanguineous Serosanguineous -Wound Margin Distinct, Indistinct, Non Outline -Visible Attached -Granulation Amt Small (1-33%) Medium (34-66%) -Granulation Quality Pale,[place] -Slough/Fibrin Yes -Necrosis Amt Small (1-33%) Medium (34-66%) -Necrotic Tissue Type Adherent Slough Adherent Slough -Structure Exposed -Texture (Dai-wound Skin Appearance) Assessed Scarring -Moisture (Dai-wound Skin Appearance) Assessed Dry/Scaly -Color (Dai-wound Skin Appearance) Assessed Hemosiderin Staining -Temperature (Dai-wound Skin No Abnormality No Abnormality Appearance) (Pt Warm) (Pt Warm) -Tenderness on Palpation (Dai-wound No No Skin Appearance) -Ulcer Cleansing Rinsed/ Soap and Water Irrigated with Saline -Foul Odor after Cleansing No No -Anesthetic Used 4% Lidocaine 5% Lidocaine Solution Gel #5 Right buttock cluster -Combined with other wound No -Current Size (cm) - Length 4 2 0.1 -Current Size (cm) - Width 5 3 0.1 -Current Size (cm) - Depth 0.1 0.1 0.1 -Total Square Cm 20 6 0.01 -Photo Taken No No -Epithelialization None Present -Tunneling No -Undermining/Tunneling No -Circular Undermining No -Exudate Amt Medium Small None Present -Exudate Type Serous Serosanguineous Serosanguineous -Wound Margin Distinct, Indistinct, Non Outline -Visible Attached -Granulation Amt None Present (0 Large (67-100%) Large (67-100%) %) -Granulation Quality N/A [place] -Slough/Fibrin No -Necrosis Amt None Present (0 Small (1-33%) Small (1-33%) %) -Necrotic Tissue Type Adherent Slough Adherent Slough -Structure Exposed N/A -Texture (Dai-wound Skin Appearance) Assessed, Assessed Scarring Excoriation -Moisture (Dai-wound Skin Appearance) No Abnormality, Assessed,Dry/ Dry/Scaly Assessed Scaly -Color (Dai-wound Skin Appearance) Assessed, Assessed Erythema Erythema -Temperature (Dai-wound Skin No Abnormality No Abnormality No Abnormality Appearance) (Pt Warm) (Pt Warm) (Pt Warm) -Tenderness on Palpation (Dai-wound No No No Skin Appearance) -Ulcer Cleansing Rinsed/ Rinsed/ Soap and Water Irrigated with Irrigated with Saline Saline -Foul Odor after Cleansing No No No -Anesthetic Used 4% Lidocaine 4% Lidocaine 4% Lidocaine Solution Solution Solution Lower Limb Edema Present Right Calf (cm) Right Ankle (cm) 08/24/21 11:45 Wound Center Nurse 1 #9 r sup lower leg -Combined with other wound No -Current Size (cm) - Length 0 -Current Size (cm) - Width 0 -Current Size (cm) - Depth 0 -Total Square Cm 0 -Photo Taken Yes -Epithelialization Large 67-100% -Exudate Amt -Exudate Type -Wound Margin -Granulation Amt -Slough/Fibrin -Necrosis Amt -Necrotic Tissue Type -Structure Exposed -Texture (Dai-wound Skin Appearance) -Moisture (Dai-wound Skin Appearance) -Color (Dai-wound Skin Appearance) -Temperature (Dai-wound Skin Appearance) -Tenderness on Palpation (Dai-wound Skin Appearance) -Ulcer Cleansing -Foul Odor after Cleansing -Anesthetic Used #8 r lower leg -Combined with other wound No -Current Size (cm) - Length 3 -Current Size (cm) - Width 2.2 -Current Size (cm) - Depth 0.1 -Total Square Cm 6.6 -Photo Taken Yes -Epithelialization Medium 34-66% -Tunneling No -Undermining/Tunneling No -Circular Undermining No -Exudate Amt Medium -Exudate Type Serosanguineous -Wound Margin Distinct, Outline Attached -Granulation Amt Medium (34-66%) -Granulation Quality [place] -Slough/Fibrin Yes -Necrosis Amt Small (1-33%) -Necrotic Tissue Type Adherent Slough -Structure Exposed N/A -Texture (Dai-wound Skin Appearance) Assessed -Moisture (Dai-wound Skin Appearance) Assessed -Color (Dai-wound Skin Appearance) Hemosiderin Staining -Temperature (Dai-wound Skin No Abnormality Appearance) (Pt Warm) -Tenderness on Palpation (Dai-wound No Skin Appearance) -Ulcer Cleansing Wound Cleanser -Foul Odor after Cleansing No -Anesthetic Used 4% Lidocaine Solution,5% Lidocaine Gel #5 Right buttock cluster -Combined with other wound No -Current Size (cm) - Length 0.5 -Current Size (cm) - Width 0.5 -Current Size (cm) - Depth 0.1 -Total Square Cm 0.25 -Photo Taken Yes -Epithelialization -Tunneling No -Undermining/Tunneling No -Circular Undermining No -Exudate Amt Medium -Exudate Type Serosanguineous -Wound Margin Distinct, Outline Attached -Granulation Amt Medium (34-66%) -Granulation Quality [place],Red -Slough/Fibrin Yes -Necrosis Amt Small (1-33%) -Necrotic Tissue Type Adherent Slough -Structure Exposed N/A -Texture (Dai-wound Skin Appearance) Assessed, Excoriation, Friable -Moisture (Dai-wound Skin Appearance) Assessed -Color (Dai-wound Skin Appearance) Assessed -Temperature (Dai-wound Skin No Abnormality Appearance) (Pt Warm) -Tenderness on Palpation (Dai-wound No Skin Appearance) -Ulcer Cleansing Wound Cleanser -Foul Odor after Cleansing No -Anesthetic Used 4% Lidocaine Solution,5% Lidocaine Gel Lower Limb Edema Present Yes Right Calf (cm) 42 Right Ankle (cm) 27 WC - Nurse 2 - General Ulcer CM Notes Start: 08/03/21 11:35 Freq: Status: Active Protocol: Activity Type Activity Date Activity User E-Sign Co-Sign Detail Recorded Client Recorded Date Recorded By Document 08/03/21 11:15 MW [id number] 08/03/21 11:36 MW Document 08/10/21 12:05 MW [id number] 08/10/21 12:14 MW Document 08/17/21 11:58 MW [id number] 08/17/21 12:07 MW Document 08/24/21 12:00 MW [id number] 08/24/21 12:04 MW 08/03/21 08/10/21 08/17/21 11:15 12:05 11:58 Wound Center Nurse 2 #9 r sup lower leg -Time 12:08 12:03 -Correct Patient Yes Yes -Correct Side, Site, Position Yes Yes -Correct Procedure Yes Yes -Procedure Performed Yes Yes -Type of Procedure Debridement Debridement -Clinical Debridement Subcutaneous Subcutaneous -Tissue Removed Subcutaneous Subcutaneous -Post Debridement (cm) - Length 0.8 0.1 -Post Debridement (cm) - Width 0.8 0.1 -Post Debridement (cm) - Depth 0.1 0.1 -Total Square (Post) (cm) 0.64 0.01 -Area of Debridement (cm) - Length 0.8 0.1 -Area of Debridement (cm) - Width 0.8 0.1 -Total Square (Area) (cm) 0.64 0.01 -Tunneling No No -Undermining/Tunneling No No -Circular Undermining No No -Wound/Ulcer Outcome Not Healed Not Healed -Ulcer Cleansing Rinsed/ Rinsed/ Irrigated with Irrigated with Saline Saline -Foul Odor after Cleansing No No -Bioengineered Tissue No No -Bleeding Controlled with Pressure Pressure -Treatment Response Procedure Procedure Tolerated Well Tolerated Well -Offloading No No -Debridement - Subq, 1st 20sq cm Yes No #8 r lower leg -Time 12:08 12:03 -Correct Patient Yes Yes -Correct Side, Site, Position Yes Yes -Correct Procedure Yes Yes -Procedure Performed Yes Yes -Type of Procedure Debridement Debridement -Clinical Debridement Subcutaneous Subcutaneous -Tissue Removed Subcutaneous Subcutaneous -Post Debridement (cm) - Length 3.0 2.8 -Post Debridement (cm) - Width 1.0 1.5 -Post Debridement (cm) - Depth 0.1 0.1 -Total Square (Post) (cm) 3.00 4.20 -Area of Debridement (cm) - Length 3.0 2.8 -Area of Debridement (cm) - Width 1.0 1.5 -Total Square (Area) (cm) 3.00 4.20 -Tunneling No No -Undermining/Tunneling No No -Circular Undermining No No -Wound/Ulcer Outcome Not Healed Not Healed -Ulcer Cleansing Rinsed/ Rinsed/ Irrigated with Irrigated with Saline Saline -Foul Odor after Cleansing No No -Bioengineered Tissue No No -Bleeding Controlled with Pressure Pressure -Treatment Response Procedure Procedure Tolerated Well Tolerated Well -Offloading No No -Debridement - Subq, 1st 20sq cm No Yes #5 Right buttock cluster -Time 11:15 12:09 11:59 -Correct Patient Yes Yes Yes -Correct Side, Site, Position Yes Yes Yes -Correct Procedure Yes Yes Yes -Procedure Performed Yes Yes Yes -Type of Procedure Debridement Debridement Debridement -Clinical Debridement Subcutaneous Subcutaneous Epidermis / Dermis -Tissue Removed Subcutaneous Subcutaneous Epidermis -Post Debridement (cm) - Length 0.9 0.2 0.1 -Post Debridement (cm) - Width 0.4 0.2 0.1 -Post Debridement (cm) - Depth 0.2 0.1 0.1 -Total Square (Post) (cm) 0.36 0.04 0.01 -Area of Debridement (cm) - Length 0.9 0.2 0.1 -Area of Debridement (cm) - Width 0.4 0.2 0.1 -Total Square (Area) (cm) 0.36 0.04 0.01 -Tunneling No No No -Undermining/Tunneling No No No -Circular Undermining No No No -Wound/Ulcer Outcome Not Healed Not Healed Not Healed -Ulcer Cleansing Rinsed/ Rinsed/ Rinsed/ Irrigated with Irrigated with Irrigated with Saline Saline Saline -Foul Odor after Cleansing No No No -Bioengineered Tissue No No No -Bleeding Controlled with Pressure Pressure Pressure -Treatment Response Procedure Procedure Tolerated Well Tolerated Well -Offloading No No No -Debridement - Open, 1st 20sq cm Yes -Debridement - Subq, 1st 20sq cm Yes No Pain Scale: 0-10 Numeric Is Patient Pain Free? Yes Yes Yes 08/24/21 12:00 Wound Center Nurse 2 #9 r sup lower leg -Time 12:01 -Correct Patient Yes -Correct Side, Site, Position Yes -Correct Procedure Yes -Procedure Performed No -Type of Procedure -Clinical Debridement -Tissue Removed -Post Debridement (cm) - Length 0 -Post Debridement (cm) - Width 0 -Post Debridement (cm) - Depth 0 -Total Square (Post) (cm) 0 -Area of Debridement (cm) - Length -Area of Debridement (cm) - Width -Total Square (Area) (cm) -Tunneling -Undermining/Tunneling -Circular Undermining -Wound/Ulcer Outcome Healed- Epithelialized -Ulcer Cleansing -Foul Odor after Cleansing -Bioengineered Tissue -Bleeding Controlled with -Treatment Response -Offloading -Debridement - Subq, 1st 20sq cm #8 r lower leg -Time 12:01 -Correct Patient Yes -Correct Side, Site, Position Yes -Correct Procedure Yes -Procedure Performed Yes -Type of Procedure Debridement -Clinical Debridement Subcutaneous -Tissue Removed Subcutaneous -Post Debridement (cm) - Length 1.7 -Post Debridement (cm) - Width 1.0 -Post Debridement (cm) - Depth 0.1 -Total Square (Post) (cm) 1.70 -Area of Debridement (cm) - Length 1.7 -Area of Debridement (cm) - Width 1.0 -Total Square (Area) (cm) 1.70 -Tunneling No -Undermining/Tunneling No -Circular Undermining No -Wound/Ulcer Outcome Not Healed -Ulcer Cleansing Rinsed/ Irrigated with Saline -Foul Odor after Cleansing No -Bioengineered Tissue No -Bleeding Controlled with Pressure -Treatment Response Procedure Tolerated Well -Offloading No -Debridement - Subq, 1st 20sq cm Yes #5 Right buttock cluster -Time 12:01 -Correct Patient Yes -Correct Side, Site, Position Yes -Correct Procedure Yes -Procedure Performed No -Type of Procedure -Clinical Debridement -Tissue Removed -Post Debridement (cm) - Length 0.1 -Post Debridement (cm) - Width 0.1 -Post Debridement (cm) - Depth 0.1 -Total Square (Post) (cm) 0.01 -Area of Debridement (cm) - Length -Area of Debridement (cm) - Width -Total Square (Area) (cm) -Tunneling -Undermining/Tunneling -Circular Undermining -Wound/Ulcer Outcome Not Healed -Ulcer Cleansing Rinsed/ Irrigated with Saline -Foul Odor after Cleansing No -Bioengineered Tissue -Bleeding Controlled with -Treatment Response -Offloading -Debridement - Open, 1st 20sq cm -Debridement - Subq, 1st 20sq cm Pain Scale: 0-10 Numeric Is Patient Pain Free? Yes WC - Nurse 3 - General Ulcer D/C NN Start: 08/03/21 11:35 Freq: Status: Active Protocol: Activity Type Activity Date Activity User E-Sign Co-Sign Detail Recorded Client Recorded Date Recorded By Document 08/03/21 12:28 DL [id number] 08/03/21 12:29 DL Document 08/10/21 12:28 AK [id number] 08/10/21 12:30 AK Document 08/17/21 12:22 DL [id number] 08/17/21 12:25 DL Edit Result 08/17/21 12:22 DL (1) [id number] 08/17/21 12:26 DL Edit Result 08/17/21 12:22 DL (2) [id number] 08/18/21 11:13 PL (1) Right - Tubular Bandage => Double Layer - Size of Tubigrip Used => Size F - Size F ($) => 2 (2) Right - Multi-Layered Wrap Application => Multi-Layer Comp - => Right ($) 08/03/21 08/10/21 08/17/21 12:28 12:28 12:22 Wound Care Nurse 3 #9 r sup lower leg -Ulcer Cleansing Rinsed/ Rinsed/ Irrigated with Irrigated with Saline Saline -Foul Odor after Cleansing No -Negative Pressure Wound Therapy N/A -Primary Dressing Applied Promogran Promogran -Other Dressing adaptic -Primary Dressing Covered/Secured with Dry Gauze & Dry Gauze & Roll Gauze, Roll Gauze Secured with Tape -Promogran 1 1 #8 r lower leg -Ulcer Cleansing Rinsed/ Rinsed/ Irrigated with Irrigated with Saline Saline -Foul Odor after Cleansing No No -Negative Pressure Wound Therapy N/A -Primary Dressing Applied Promogran Promogran -Primary Dressing Covered/Secured with Dry Gauze & Dry Gauze & Roll Gauze, Roll Gauze, Secured with Secured with Tape Tape -Promogran 0 0 #5 Right buttock cluster -Ulcer Cleansing Not Cleansed Rinsed/ Rinsed/ Irrigated with Irrigated with Saline Saline -Foul Odor after Cleansing No -Primary Dressing Applied NonAdherent NonAdherent Contact Layer, Contact Layer, Promogran Promogran -Other Dressing ABD adaptic,abd -Primary Dressing Covered/Secured with Dry Gauze, Secured with Dry Gauze, Secured with Tape Secured with Tape Tape -Other Covering vaseline at home -Promogran 1 0 Right -Multi-Layered Wrap Application Multi-Layer Comp - Right ($ ) -Tubular Bandage Double Layer -Size of Tubigrip Used Size F -Size F ($) 2 Treatment Response Procedure Tolerated Well Pain Scale: 0-10 Numeric Is Patient Pain Free? Yes Yes Yes WC - Visit Discharge Discharge Condition Stable Stable Stable Ambulatory Status Ambulatory, Ambulatory, Crutches Crutches Crutches Transportation Private Auto Private Auto Private Auto Medication Reconcilliation completed & Yes No provided to patient/care provider Clinical Summary of Care Provided Yes Yes Facility Type Home Health Orders Sent Yes Assessment/Plan Assessment/Plan (1) Decubitus ulcer of right buttock, stage 3: CODE(S): L89.313 - Pressure ulcer of right buttock, stage 3 (2) Decubitus ulcer of left buttock, stage 3: CODE(S): L89.323 - Pressure ulcer of left buttock, stage 3 (3) Type II diabetes mellitus: CODE(S): E11.9 - Type 2 diabetes mellitus without complications (4) Open wound of right lower extremity: CODE(S): S81.801A - Unspecified open wound, right lower leg, initial encounter QUALIFIERS: Encounter type: subsequent encounter Qualified Code(s): S81.801D - Unspecified open wound, right lower leg, subsequent encounter PLAN: Debridement done as documented above, procedure was well-tolerated. Copious amount of Vaseline to both buttocks. Cover with gauze and double layer of ABD. Continue Promogran to right lower extremity with Adaptic over top. Patient declined 3M wrap for edema management, significant right lower extremity edema. Double layer Tubigrip for edema management. Consistent use of gel cushion and hospital bed very strongly recommended. He was advised to lift up completely prior to turning to avoid sheering. Take breaks from siting several times during the day. Optimal diabetes control also very strongly recommended. Optimal protein intake, vitamin C and zinc also discussed. His questions were answered and he was advised to call with any further questions or concerns. Follow-up in 1 week. This note was generated with [employer] dictation software. It may contain incorrect words, spelling, and punctuation that were not noted in checking the note before signing.
[2021-08-31 11:16] VITALS: BMI 29.7
[2021-08-31 11:35] VITALS: BP 142/67; PULSE 67; RESP 18; TEMP 36.6; BMI 29.7
--- NOTE | 2021-08-31 13:12 | PCM.WC.PN ---
History of Present Illness Date of Service: 08/31/21 Chief Complaint: Recurrent buttock ulcers History of Wound: Mr. 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 Most recent episode said to have started months ago . Has been applying antibiotic and hemorrhoid ointment without significant improvement. Sits and sleeps in his lift chair. Also history of diabetes mellitus type 2 and his most recent A1c was said to be around 8. Fasting blood sugar this morning at 303. He states that he is working with his PCP to get this under better control. History of AKA. He feels well and denies other concerns at this time. Progress of Wound: Buttock still with erythema and largely stage 1 pressure ulcers/Sheered skin. New right lower extremity ulcer. Edema. Subjective Subjective No acute concerns. Objective Data Objective Data Vital Signs: Vital Signs Temp Pulse Resp BP 98 F 67 18 142/67 H 08/31/21 11:35 08/31/21 11:35 08/31/21 11:35 08/31/21 11:35 Oxygen Delivery Method Room Air Body Mass Index (BMI) 29.7 Charges/Coding Procedures Integumentary 111xxx-113xx: [address] [place] subq tissue 20 sq cm/< Physical Exam Const alert, oriented x3 and no apparent distress General Appearance: cooperative and comfortable HEENT normocephalic and head/scalp atraumatic Eyes EOMs intact bilaterally Neck full ROM General: normal visual inspection Resp normal respiratory effort Effort and Inspection: able to speak in complete sentences Skin Wounds: wounds noted Neuro oriented x3, CN's II-XII intact bilaterally and moves all extremities Psych mental status grossly normal Appearance: grossly normal Attitude: calm Speech: normal speech Debridement Note Debridement Note Wound debrided: Right Lower Extremity ( Cluster ) Type of Debridement: Excisional debridement Anesthesia Used: 4% Lidocaine Solution Depth: Down to and including healthy tissue and in the subcutaneous layer Percentage of wound debrided: 100 Instrument Used: 3mm curette Tissue Removed: Slough and devitalized tissue Severity: Fat Layer Exposed Amount of bleeding with debridement: Mild Bleeding Controlled with: Pressure Patient tolerated procedure: Patient tolerated procedure well Post-Debridement Measurements and Additional Note: Post-Debridement Measurements/Treatment ANIA - Nurse 1 - General Ulcer Assessment Start: 08/03/21 11:35 Freq: Status: Active Protocol: LOWEXT Activity Type Activity Date Activity User E-Sign Co-Sign Detail Recorded Client Recorded Date Recorded By Document 08/03/21 13:36 AK [id number] 08/03/21 13:39 AK Document 08/10/21 11:37 ML [id number] 08/10/21 11:56 ML Document 08/17/21 11:16 DL [id number] 08/17/21 11:37 DL Document 08/24/21 11:45 RB [id number] 08/24/21 12:02 RB Document 08/31/21 11:16 MT [id number] 08/31/21 11:34 MT Document 08/31/21 11:35 MT [id number] 08/31/21 11:35 MT 08/03/21 08/10/21 08/17/21 13:36 11:37 11:16 WC - Today's Visit Information Type of service Follow-up Visit Follow-up Visit Follow-up Visit (Physician/ASSISTANT MERCHANDISER (Physician/ASSISTANT MERCHANDISER (Physician/ASSISTANT MERCHANDISER ) ) ) Arrival Mode Ambulatory, Crutches Ambulatory, Crutches Crutches Transfer Assistance None None Patient Identification Verified (Name & Yes Yes Yes ) Patient Requires Transmission-Based No No Precautions Safety Precautions NA NA Finger Stick Blood Sugar(mg/dl) (if not checked indicated): Blood Sugar Stated by Patient Height and Weight Body Mass Index (BMI) 29.7 29.7 29.7 BMI Classification Overweight Overweight Overweight Vital Signs Temperature (97.8 F-99.1 F) 98.2 F 96.4 F L 97.4 F L Temperature Source Temporal Temporal Temporal Pulse Rate (60-100) 70 63 65 Pulse Location Monitor Monitor Respiratory Rate (12-18) 19 H 20 H Respiratory rate source Observation Observation Oxygen Delivery Method Blood Pressure (90/60-120/80) 138/72 H 154/79 H 153/84 H Blood Pressure Mean (mm Hg) 94 104 107 Source Monitor Monitor Monitor Position Sitting Blood Pressure Location Right Arm History Since Last Visit- (Skip if this is Patient's initial visit) Have you changed medications since your No No No last visit? Any new allergies or adverse reactions No No No Had a fall/change in ADL's that may No No No increase risk of falls Signs or symptoms of abuse and/or No No No neglect since last visit Have you been in the hospital since your No No No last visit? Has dressing in place as prescribed Yes Yes Yes Has compression in place as prescribed N/A Yes Yes Has offloadiing in place as prescribed N/A No N/A Experienced any changes in pain level or No No No management Left Footwear Regular Shoe No Footwear Right Footwear Regular Shoe Pain Scale: 0-10 Numeric Is Patient Pain Free? Yes Yes Yes 08/24/21 08/31/21 08/31/21 11:45 11:16 11:35 WC - Today's Visit Information Type of service Follow-up Visit (Physician/ASSISTANT MERCHANDISER ) Arrival Mode Ambulatory, Crutches Crutches Transfer Assistance None Patient Identification Verified (Name & Yes ) Patient Requires Transmission-Based No Precautions Safety Precautions Fall Prevention Finger Stick Blood Sugar(mg/dl) (if indicated): Blood Sugar Height and Weight Body Mass Index (BMI) 29.7 29.7 29.7 BMI Classification Overweight Overweight Overweight Vital Signs Temperature (97.8 F-99.1 F) 97.8 F 98 F Temperature Source Temporal Temporal Pulse Rate (60-100) 70 67 Pulse Location Monitor Monitor Respiratory Rate (12-18) 18 18 Respiratory rate source Observation Observation Oxygen Delivery Method Room Air Blood Pressure (90/60-120/80) 147/75 H 142/67 H Blood Pressure Mean (mm Hg) 99 92 Source Monitor Monitor Position Semi-Fowlers Semi-Fowlers Blood Pressure Location Left Arm Right Arm History Since Last Visit- (Skip if this is Patient's initial visit) Have you changed medications since your No last visit? Any new allergies or adverse reactions No Had a fall/change in ADL's that may No increase risk of falls Signs or symptoms of abuse and/or No neglect since last visit Have you been in the hospital since your No last visit? Has dressing in place as prescribed Yes Has compression in place as prescribed Yes Has offloadiing in place as prescribed No Experienced any changes in pain level or No management Left Footwear Regular Shoe Right Footwear Regular Shoe Pain Scale: 0-10 Numeric Is Patient Pain Free? Yes Yes Yes - Nurse 1 - General Ulcer Measurement Start: 08/03/21 11:35 Freq: Status: Active Protocol: Activity Type Activity Date Activity User E-Sign Co-Sign Detail Recorded Client Recorded Date Recorded By Document 08/03/21 13:36 AK [id number] 08/03/21 13:39 AK Document 08/10/21 11:37 ML [id number] 08/10/21 11:56 ML Document 08/17/21 11:16 DL [id number] 08/17/21 11:37 DL Document 08/24/21 11:45 RB [id number] 08/24/21 12:02 RB Document 08/31/21 11:16 MT [id number] 08/31/21 11:34 MT 08/03/21 08/10/21 08/17/21 13:36 11:37 11:16 Wound Center Nurse 1 #9 r sup lower leg -Combined with other wound -Current Size (cm) - Length 0.5 0.6 -Current Size (cm) - Width 0.5 0.6 -Current Size (cm) - Depth 0.1 0.1 -Total Square Cm 0.25 0.36 -Photo Taken No -Epithelialization -Exudate Amt Small None Present -Exudate Type Serosanguineous -Wound Margin Distinct, Thickened Outline Attached -Granulation Amt Small (1-33%) None Present (0 %) -Slough/Fibrin Yes -Necrosis Amt Small (1-33%) Small (1-33%) -Necrotic Tissue Type Eschar -Structure Exposed N/A -Texture (Dai-wound Skin Appearance) Assessed Localized Edema ,Scarring -Moisture (Dai-wound Skin Appearance) Assessed Dry/Scaly -Color (Dai-wound Skin Appearance) Assessed Hemosiderin Staining -Temperature (Dai-wound Skin No Abnormality No Abnormality Appearance) (Pt Warm) (Pt Warm) -Tenderness on Palpation (Dai-wound No No Skin Appearance) -Ulcer Cleansing Rinsed/ Soap and Water Irrigated with Saline -Foul Odor after Cleansing No -Anesthetic Used 4% Lidocaine 5% Lidocaine Solution Gel,Cetacaine #8 r lower leg -Combined with other wound -Current Size (cm) - Length 1 3 -Current Size (cm) - Width 2 1.2 -Current Size (cm) - Depth 0.1 0.1 -Total Square Cm 2 3.6 -Photo Taken No -Epithelialization -Tunneling -Undermining/Tunneling -Circular Undermining -Exudate Amt Small Medium -Exudate Type Serosanguineous Serosanguineous -Wound Margin Distinct, Indistinct, Non Outline -Visible Attached -Granulation Amt Small (1-33%) Medium (34-66%) -Granulation Quality Pale,[place] -Slough/Fibrin Yes -Necrosis Amt Small (1-33%) Medium (34-66%) -Necrotic Tissue Type Adherent Slough Adherent Slough -Structure Exposed -Texture (Dai-wound Skin Appearance) Assessed Scarring -Moisture (Dai-wound Skin Appearance) Assessed Dry/Scaly -Color (Dai-wound Skin Appearance) Assessed Hemosiderin Staining -Temperature (Dai-wound Skin No Abnormality No Abnormality Appearance) (Pt Warm) (Pt Warm) -Tenderness on Palpation (Dai-wound No No Skin Appearance) -Ulcer Cleansing Rinsed/ Soap and Water Irrigated with Saline -Foul Odor after Cleansing No No -Anesthetic Used 4% Lidocaine 5% Lidocaine Solution Gel #5 Right buttock cluster -Combined with other wound No -Current Size (cm) - Length 4 2 0.1 -Current Size (cm) - Width 5 3 0.1 -Current Size (cm) - Depth 0.1 0.1 0.1 -Total Square Cm 20 6 0.01 -Photo Taken No No -Epithelialization None Present -Tunneling No -Undermining/Tunneling No -Circular Undermining No -Exudate Amt Medium Small None Present -Exudate Type Serous Serosanguineous Serosanguineous -Wound Margin Distinct, Indistinct, Non Outline -Visible Attached -Granulation Amt None Present (0 Large (67-100%) Large (67-100%) %) -Granulation Quality N/A [place] -Slough/Fibrin No -Necrosis Amt None Present (0 Small (1-33%) Small (1-33%) %) -Necrotic Tissue Type Adherent Slough Adherent Slough -Structure Exposed N/A -Texture (Dai-wound Skin Appearance) Assessed, Assessed Scarring Excoriation -Moisture (Dai-wound Skin Appearance) No Abnormality, Assessed,Dry/ Dry/Scaly Assessed Scaly -Color (Dai-wound Skin Appearance) Assessed, Assessed Erythema Erythema -Temperature (Dai-wound Skin No Abnormality No Abnormality No Abnormality Appearance) (Pt Warm) (Pt Warm) (Pt Warm) -Tenderness on Palpation (Dai-wound No No No Skin Appearance) -Ulcer Cleansing Rinsed/ Rinsed/ Soap and Water Irrigated with Irrigated with Saline Saline -Foul Odor after Cleansing No No No -Anesthetic Used 4% Lidocaine 4% Lidocaine 4% Lidocaine Solution Solution Solution Lower Limb Edema Present Right Calf (cm) Right Ankle (cm) 08/24/21 08/31/21 11:45 11:16 Wound Center Nurse 1 #9 r sup lower leg -Combined with other wound No -Current Size (cm) - Length 0 -Current Size (cm) - Width 0 -Current Size (cm) - Depth 0 -Total Square Cm 0 -Photo Taken Yes -Epithelialization Large 67-100% -Exudate Amt -Exudate Type -Wound Margin -Granulation Amt -Slough/Fibrin -Necrosis Amt -Necrotic Tissue Type -Structure Exposed -Texture (Dai-wound Skin Appearance) -Moisture (Dai-wound Skin Appearance) -Color (Dai-wound Skin Appearance) -Temperature (Dai-wound Skin Appearance) -Tenderness on Palpation (Dai-wound Skin Appearance) -Ulcer Cleansing -Foul Odor after Cleansing -Anesthetic Used #8 r lower leg -Combined with other wound No -Current Size (cm) - Length 3 7 -Current Size (cm) - Width 2.2 1.5 -Current Size (cm) - Depth 0.1 0.1 -Total Square Cm 6.6 10.5 -Photo Taken Yes -Epithelialization Medium 34-66% -Tunneling No -Undermining/Tunneling No -Circular Undermining No -Exudate Amt Medium Small -Exudate Type Serosanguineous Serosanguineous -Wound Margin Distinct, Flat & Intact Outline Attached -Granulation Amt Medium (34-66%) Large (67-100%) -Granulation Quality [place] Pale,[place] -Slough/Fibrin Yes No -Necrosis Amt Small (1-33%) -Necrotic Tissue Type Adherent Slough -Structure Exposed N/A -Texture (Dai-wound Skin Appearance) Assessed Assessed -Moisture (Dai-wound Skin Appearance) Assessed Assessed -Color (Dai-wound Skin Appearance) Hemosiderin Assessed Staining -Temperature (Dai-wound Skin No Abnormality No Abnormality Appearance) (Pt Warm) (Pt Warm) -Tenderness on Palpation (Dai-wound No No Skin Appearance) -Ulcer Cleansing Wound Cleanser Rinsed/ Irrigated with Saline -Foul Odor after Cleansing No -Anesthetic Used 4% Lidocaine 4% Lidocaine Solution,5% Solution Lidocaine Gel #5 Right buttock cluster -Combined with other wound No -Current Size (cm) - Length 0.5 3 -Current Size (cm) - Width 0.5 2.7 -Current Size (cm) - Depth 0.1 0.1 -Total Square Cm 0.25 8.1 -Photo Taken Yes -Epithelialization -Tunneling No -Undermining/Tunneling No -Circular Undermining No -Exudate Amt Medium Small -Exudate Type Serosanguineous Serosanguineous -Wound Margin Distinct, Flat & Intact Outline Attached -Granulation Amt Medium (34-66%) -Granulation Quality [place],Red Hyper- granulation -Slough/Fibrin Yes -Necrosis Amt Small (1-33%) None Present (0 %) -Necrotic Tissue Type Adherent Slough -Structure Exposed N/A -Texture (Dai-wound Skin Appearance) Assessed, Assessed Excoriation, Friable -Moisture (Dai-wound Skin Appearance) Assessed Assessed -Color (Dai-wound Skin Appearance) Assessed Assessed -Temperature (Dai-wound Skin No Abnormality No Abnormality Appearance) (Pt Warm) (Pt Warm) -Tenderness on Palpation (Dai-wound No No Skin Appearance) -Ulcer Cleansing Wound Cleanser Rinsed/ Irrigated with Saline -Foul Odor after Cleansing No No -Anesthetic Used 4% Lidocaine 4% Lidocaine Solution,5% Solution Lidocaine Gel Lower Limb Edema Present Yes NA Right Calf (cm) 42 Right Ankle (cm) 27 WC - Nurse 2 - General Ulcer CM Notes Start: 08/03/21 11:35 Freq: Status: Active Protocol: Activity Type Activity Date Activity User E-Sign Co-Sign Detail Recorded Client Recorded Date Recorded By Document 08/03/21 11:15 MW [id number] 08/03/21 11:36 MW Document 08/10/21 12:05 MW [id number] 08/10/21 12:14 MW Document 08/17/21 11:58 MW [id number] 08/17/21 12:07 MW Document 08/24/21 12:00 MW [id number] 08/24/21 12:04 MW Document 08/31/21 11:51 MW [id number] 08/31/21 12:02 MW 08/03/21 08/10/21 08/17/21 11:15 12:05 11:58 Wound Center Nurse 2 #10 left buttock -Time -Correct Patient -Correct Side, Site, Position -Correct Procedure -Procedure Performed -Post Debridement (cm) - Length -Post Debridement (cm) - Width -Post Debridement (cm) - Depth -Total Square (Post) (cm) -Tunneling -Undermining/Tunneling -Circular Undermining -Wound/Ulcer Outcome -Ulcer Cleansing -Bleeding Controlled with -Pressure Reduction #9 r sup lower leg -Time 12:08 12:03 -Correct Patient Yes Yes -Correct Side, Site, Position Yes Yes -Correct Procedure Yes Yes -Procedure Performed Yes Yes -Type of Procedure Debridement Debridement -Clinical Debridement Subcutaneous Subcutaneous -Tissue Removed Subcutaneous Subcutaneous -Post Debridement (cm) - Length 0.8 0.1 -Post Debridement (cm) - Width 0.8 0.1 -Post Debridement (cm) - Depth 0.1 0.1 -Total Square (Post) (cm) 0.64 0.01 -Area of Debridement (cm) - Length 0.8 0.1 -Area of Debridement (cm) - Width 0.8 0.1 -Total Square (Area) (cm) 0.64 0.01 -Tunneling No No -Undermining/Tunneling No No -Circular Undermining No No -Wound/Ulcer Outcome Not Healed Not Healed -Ulcer Cleansing Rinsed/ Rinsed/ Irrigated with Irrigated with Saline Saline -Foul Odor after Cleansing No No -Bioengineered Tissue No No -Bleeding Controlled with Pressure Pressure -Treatment Response Procedure Procedure Tolerated Well Tolerated Well -Offloading No No -Debridement - Subq, 1st 20sq cm Yes No #8 r lower leg -Time 12:08 12:03 -Correct Patient Yes Yes -Correct Side, Site, Position Yes Yes -Correct Procedure Yes Yes -Procedure Performed Yes Yes -Type of Procedure Debridement Debridement -Clinical Debridement Subcutaneous Subcutaneous -Tissue Removed Subcutaneous Subcutaneous -Post Debridement (cm) - Length 3.0 2.8 -Post Debridement (cm) - Width 1.0 1.5 -Post Debridement (cm) - Depth 0.1 0.1 -Total Square (Post) (cm) 3.00 4.20 -Area of Debridement (cm) - Length 3.0 2.8 -Area of Debridement (cm) - Width 1.0 1.5 -Total Square (Area) (cm) 3.00 4.20 -Tunneling No No -Undermining/Tunneling No No -Circular Undermining No No -Wound/Ulcer Outcome Not Healed Not Healed -Ulcer Cleansing Rinsed/ Rinsed/ Irrigated with Irrigated with Saline Saline -Foul Odor after Cleansing No No -Bioengineered Tissue No No -Bleeding Controlled with Pressure Pressure -Treatment Response Procedure Procedure Tolerated Well Tolerated Well -Offloading No No -Debridement - Subq, 1st 20sq cm No Yes #5 Right buttock cluster -Time 11:15 12:09 11:59 -Correct Patient Yes Yes Yes -Correct Side, Site, Position Yes Yes Yes -Correct Procedure Yes Yes Yes -Procedure Performed Yes Yes Yes -Type of Procedure Debridement Debridement Debridement -Clinical Debridement Subcutaneous Subcutaneous Epidermis / Dermis -Tissue Removed Subcutaneous Subcutaneous Epidermis -Post Debridement (cm) - Length 0.9 0.2 0.1 -Post Debridement (cm) - Width 0.4 0.2 0.1 -Post Debridement (cm) - Depth 0.2 0.1 0.1 -Total Square (Post) (cm) 0.36 0.04 0.01 -Area of Debridement (cm) - Length 0.9 0.2 0.1 -Area of Debridement (cm) - Width 0.4 0.2 0.1 -Total Square (Area) (cm) 0.36 0.04 0.01 -Tunneling No No No -Undermining/Tunneling No No No -Circular Undermining No No No -Wound/Ulcer Outcome Not Healed Not Healed Not Healed -Ulcer Cleansing Rinsed/ Rinsed/ Rinsed/ Irrigated with Irrigated with Irrigated with Saline Saline Saline -Foul Odor after Cleansing No No No -Bioengineered Tissue No No No -Bleeding Controlled with Pressure Pressure Pressure -Treatment Response Procedure Procedure Tolerated Well Tolerated Well -Offloading No No No -Pressure Reduction -Debridement - Open, 1st 20sq cm Yes -Debridement - Subq, 1st 20sq cm Yes No Pain Scale: 0-10 Numeric Is Patient Pain Free? Yes Yes Yes 08/24/21 08/31/21 12:00 11:51 Wound Center Nurse 2 #10 left buttock -Time 12:01 -Correct Patient Yes -Correct Side, Site, Position Yes -Correct Procedure Yes -Procedure Performed No -Post Debridement (cm) - Length 0.1 -Post Debridement (cm) - Width 0.1 -Post Debridement (cm) - Depth 0.1 -Total Square (Post) (cm) 0.01 -Tunneling No -Undermining/Tunneling No -Circular Undermining No -Wound/Ulcer Outcome Not Healed -Ulcer Cleansing Rinsed/ Irrigated with Saline -Bleeding Controlled with NA -Pressure Reduction Specialty bed #9 r sup lower leg -Time 12:01 -Correct Patient Yes -Correct Side, Site, Position Yes -Correct Procedure Yes -Procedure Performed No -Type of Procedure -Clinical Debridement -Tissue Removed -Post Debridement (cm) - Length 0 -Post Debridement (cm) - Width 0 -Post Debridement (cm) - Depth 0 -Total Square (Post) (cm) 0 -Area of Debridement (cm) - Length -Area of Debridement (cm) - Width -Total Square (Area) (cm) -Tunneling -Undermining/Tunneling -Circular Undermining -Wound/Ulcer Outcome Healed- Epithelialized -Ulcer Cleansing -Foul Odor after Cleansing -Bioengineered Tissue -Bleeding Controlled with -Treatment Response -Offloading -Debridement - Subq, 1st 20sq cm #8 r lower leg -Time 12:01 11:53 -Correct Patient Yes Yes -Correct Side, Site, Position Yes Yes -Correct Procedure Yes Yes -Procedure Performed Yes Yes -Type of Procedure Debridement Debridement -Clinical Debridement Subcutaneous Subcutaneous -Tissue Removed Subcutaneous Subcutaneous -Post Debridement (cm) - Length 1.7 6.0 -Post Debridement (cm) - Width 1.0 3.0 -Post Debridement (cm) - Depth 0.1 0.1 -Total Square (Post) (cm) 1.70 18.00 -Area of Debridement (cm) - Length 1.7 6.0 -Area of Debridement (cm) - Width 1.0 3.0 -Total Square (Area) (cm) 1.70 18.00 -Tunneling No No -Undermining/Tunneling No No -Circular Undermining No No -Wound/Ulcer Outcome Not Healed Not Healed -Ulcer Cleansing Rinsed/ Rinsed/ Irrigated with Irrigated with Saline Saline -Foul Odor after Cleansing No No -Bioengineered Tissue No No -Bleeding Controlled with Pressure Pressure -Treatment Response Procedure Procedure Tolerated Well Tolerated Well -Offloading No No -Debridement - Subq, 1st 20sq cm Yes Yes #5 Right buttock cluster -Time 12:01 11:53 -Correct Patient Yes Yes -Correct Side, Site, Position Yes Yes -Correct Procedure Yes Yes -Procedure Performed No No -Type of Procedure -Clinical Debridement -Tissue Removed -Post Debridement (cm) - Length 0.1 0.1 -Post Debridement (cm) - Width 0.1 0.1 -Post Debridement (cm) - Depth 0.1 0.1 -Total Square (Post) (cm) 0.01 0.01 -Area of Debridement (cm) - Length -Area of Debridement (cm) - Width -Total Square (Area) (cm) -Tunneling No -Undermining/Tunneling No -Circular Undermining No -Wound/Ulcer Outcome Not Healed Not Healed -Ulcer Cleansing Rinsed/ Rinsed/ Irrigated with Irrigated with Saline Saline -Foul Odor after Cleansing No -Bioengineered Tissue -Bleeding Controlled with -Treatment Response -Offloading -Pressure Reduction Specialty bed -Debridement - Open, 1st 20sq cm -Debridement - Subq, 1st 20sq cm No Pain Scale: 0-10 Numeric Is Patient Pain Free? Yes Yes WC - Nurse 3 - General Ulcer D/C NN Start: 08/03/21 11:35 Freq: Status: Active Protocol: Activity Type Activity Date Activity User E-Sign Co-Sign Detail Recorded Client Recorded Date Recorded By Document 08/03/21 12:28 DL [id number] 08/03/21 12:29 DL Document 08/10/21 12:28 AK [id number] 08/10/21 12:30 AK Document 08/17/21 12:22 DL [id number] 08/17/21 12:25 DL Edit Result 08/17/21 12:22 DL (1) [id number] 08/17/21 12:26 DL Edit Result 08/17/21 12:22 DL (2) [id number] 08/18/21 11:13 PL Document 08/24/21 12:28 RB [id number] 08/24/21 12:32 RB Document 08/31/21 12:12 DL [id number] 08/31/21 12:15 DL (1) Right - Tubular Bandage => Double Layer - Size of Tubigrip Used => Size F - Size F ($) => 2 (2) Right - Multi-Layered Wrap Application => Multi-Layer Comp - => Right ($) 08/03/21 08/10/21 08/17/21 12:28 12:28 12:22 Wound Care Nurse 3 #10 left buttock -Ulcer Cleansing -Foul Odor after Cleansing -Primary Dressing Applied -Other Dressing -Primary Dressing Covered/Secured with #9 r sup lower leg -Ulcer Cleansing Rinsed/ Rinsed/ Irrigated with Irrigated with Saline Saline -Foul Odor after Cleansing No -Negative Pressure Wound Therapy N/A -Primary Dressing Applied Promogran Promogran -Other Dressing adaptic -Primary Dressing Covered/Secured with Dry Gauze & Dry Gauze & Roll Gauze, Roll Gauze Secured with Tape -Promogran 1 1 #8 r lower leg -Ulcer Cleansing Rinsed/ Rinsed/ Irrigated with Irrigated with Saline Saline -Foul Odor after Cleansing No No -Negative Pressure Wound Therapy N/A -Primary Dressing Applied Promogran Promogran -Primary Dressing Covered/Secured with Dry Gauze & Dry Gauze & Roll Gauze, Roll Gauze, Secured with Secured with Tape Tape -Aquacel Extra -Promogran 0 0 #5 Right buttock cluster -Ulcer Cleansing Not Cleansed Rinsed/ Rinsed/ Irrigated with Irrigated with Saline Saline -Foul Odor after Cleansing No -Primary Dressing Applied NonAdherent NonAdherent Contact Layer, Contact Layer, Promogran Promogran -Other Dressing ABD adaptic,abd -Primary Dressing Covered/Secured with Dry Gauze, Secured with Dry Gauze, Secured with Tape Secured with Tape Tape -Other Covering vaseline at home -Promogran 1 0 Right -Multi-Layered Wrap Application Multi-Layer Comp - Right ($ ) -Tubular Bandage Double Layer -Size of Tubigrip Used Size F -Size F ($) 2 Treatment Response Procedure Tolerated Well Pain Scale: 0-10 Numeric Is Patient Pain Free? Yes Yes Yes WC - Visit Discharge Discharge Condition Stable Stable Stable Ambulatory Status Ambulatory, Ambulatory, Crutches Crutches Crutches Transportation Private Auto Private Auto Private Auto Medication Reconcilliation completed & Yes No provided to patient/care provider Clinical Summary of Care Provided Yes Yes Facility Type Home Health Orders Sent Yes 08/24/21 08/31/21 12:28 12:12 Wound Care Nurse 3 #10 left buttock -Ulcer Cleansing Rinsed/ Irrigated with Saline -Foul Odor after Cleansing No -Primary Dressing Applied NonAdherent Contact Layer -Other Dressing ABD -Primary Dressing Covered/Secured with Secured with Tape #9 r sup lower leg -Ulcer Cleansing -Foul Odor after Cleansing -Negative Pressure Wound Therapy -Primary Dressing Applied -Other Dressing -Primary Dressing Covered/Secured with -Promogran #8 r lower leg -Ulcer Cleansing Rinsed/ Rinsed/ Irrigated with Irrigated with Saline Saline -Foul Odor after Cleansing No -Negative Pressure Wound Therapy -Primary Dressing Applied NonAdherent Aquacel Extra Contact Layer, Promogran -Primary Dressing Covered/Secured with Dry Gauze,Dry Dry Gauze Gauze & Roll Gauze,Secured with Tape -Aquacel Extra 1 -Promogran 1 #5 Right buttock cluster -Ulcer Cleansing Rinsed/ Irrigated with Saline -Foul Odor after Cleansing No -Primary Dressing Applied NonAdherent Contact Layer -Other Dressing abd ABD -Primary Dressing Covered/Secured with Dry Gauze, Secured with Secured with Tape Tape -Other Covering -Promogran Right -Multi-Layered Wrap Application Multi-Layer Comp - Right ($ ) -Tubular Bandage Single Layer -Size of Tubigrip Used Size F -Size F ($) 1 Treatment Response Procedure Tolerated Well Pain Scale: 0-10 Numeric Is Patient Pain Free? Yes Yes WC - Visit Discharge Discharge Condition Stable Ambulatory Status Ambulatory, Crutches Transportation Private Auto Medication Reconcilliation completed & No provided to patient/care provider Clinical Summary of Care Provided Yes Facility Type Orders Sent Assessment/Plan Assessment/Plan (1) Decubitus ulcer of right buttock, stage 3: CODE(S): L89.313 - Pressure ulcer of right buttock, stage 3 (2) Decubitus ulcer of left buttock, stage 3: CODE(S): L89.323 - Pressure ulcer of left buttock, stage 3 (3) Type II diabetes mellitus: CODE(S): E11.9 - Type 2 diabetes mellitus without complications (4) Open wound of right lower extremity: CODE(S): S81.801A - Unspecified open wound, right lower leg, initial encounter QUALIFIERS: Encounter type: subsequent encounter Qualified Code(s): S81.801D - Unspecified open wound, right lower leg, subsequent encounter PLAN: Debridement done as documented above, procedure was well-tolerated. Continue copious amount of Vaseline to both buttocks. Cover with gauze and double layer of ABD. switch from Combivent to Aquacel extra due to worsening lower extremity edema and drainage. Cover with ABD. 3M wrap applied. Change on Saturday and Saturday by home health. Consistent use of gel cushion and hospital bed very strongly recommended. He was advised to lift up completely prior to turning to avoid sheering. Take breaks from siting several times during the day. Optimal diabetes control also very strongly recommended. Optimal protein intake, vitamin C and zinc also discussed. His questions were answered and he was advised to call with any further questions or concerns. Follow-up in 1 week. This note was generated with [employer] dictation software. It may contain incorrect words, spelling, and punctuation that were not noted in checking the note before signing.
== END 2021-08-31 23:59 | disposition home or self-care (01) ==
LOC: WC 10:30
PROVIDERS: PCP Family Medicine; Visit Provider Internal Medicine
DX: L89.313 Pressure ulcer of right buttock, stage 3 (principal); L89.323 Pressure ulcer of left buttock, stage 3; E11.9 Type 2 diabetes mellitus without complications; S81.801A Unspecified open wound, right lower leg, initial encounter; R60.0 Localized edema; Z79.84 Long term (current) use of oral hypoglycemic drugs; Z79.01 Long term (current) use of anticoagulants; Z79.899 Other long term (current) drug therapy
CPT/HCPCS: 11042; 29581; 97597

== ENCOUNTER 2021-09-21 11:00 | Outpatient (RCR) | payer MEDICARE, SELFPAY ==
[2021-09-01 00:32] VITALS: BP 142/67; PULSE 67; RESP 18; TEMP 36.6; BMI 29.7
[2021-09-07 11:15] VITALS: BP 150/78; PULSE 75; RESP 18; TEMP 36.4; BMI 29.7
--- NOTE | 2021-09-07 13:01 | PCM.WC.PN ---
History of Present Illness Date of Service: 09/07/21 Chief Complaint: Recurrent buttock ulcers History of Wound: Mr. 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 Most recent episode said to have started months ago . Has been applying antibiotic and hemorrhoid ointment without significant improvement. Sits and sleeps in his lift chair. Also history of diabetes mellitus type 2 and his most recent A1c was said to be around 8. Fasting blood sugar this morning at 303. He states that he is working with his PCP to get this under better control. History of AKA. He feels well and denies other concerns at this time. Progress of Wound: Right lower extremity wound/ulceration is improving. Bilateral buttock remain the same essentially. Subjective Subjective No new concerns at this time. Objective Data Objective Data Vital Signs: Vital Signs Temp Pulse Resp BP 97.6 F L 75 18 150/78 H 09/07/21 11:15 09/07/21 11:15 09/07/21 11:15 09/07/21 11:15 Body Mass Index (BMI) 29.7 Charges/Coding Procedures Integumentary 111xxx-113xx: [id number] [place] subq tissue 20 sq cm/< Physical Exam Const alert, oriented x3 and no apparent distress General Appearance: cooperative and comfortable HEENT normocephalic and head/scalp atraumatic Eyes EOMs intact bilaterally Neck full ROM General: normal visual inspection Resp normal respiratory effort Effort and Inspection: able to speak in complete sentences Skin Wounds: wounds noted Neuro oriented x3, CN's II-XII intact bilaterally and moves all extremities Psych mental status grossly normal Appearance: grossly normal Attitude: calm Speech: normal speech Debridement Note Debridement Note Wound debrided: Right lower extremity Type of Debridement: Excisional debridement Anesthesia Used: 4% Lidocaine Solution Depth: Down to and including healthy tissue and in the subcutaneous layer Percentage of wound debrided: 100 Instrument Used: 5mm curette Tissue Removed: Slough and devitalized tissue Severity: Fat Layer Exposed Amount of bleeding with debridement: Mild Bleeding Controlled with: Pressure Patient tolerated procedure: Patient tolerated procedure well Post-Debridement Measurements and Additional Note: Post-Debridement Measurements/Treatment ANIA - Nurse 1 - General Ulcer Assessment Start: 09/07/21 11:13 Freq: Status: Active Protocol: WC.LOWEXT Activity Type Activity Date Activity User E-Sign Co-Sign Detail Recorded Client Recorded Date Recorded By Document 09/07/21 11:15 DL [id number] 09/07/21 11:30 DL 09/07/21 11:15 WC - Today's Visit Information Type of service Follow-up Visit (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/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 ) Arrival Mode Ambulatory, Crutches Transfer Assistance None Patient Identification Verified (Name & Yes ) Patient Requires Transmission-Based No Precautions Finger Stick Blood Sugar(mg/dl) (if doesntscheck indicated): Height and Weight Body Mass Index (BMI) 29.7 BMI Classification Overweight Vital Signs Temperature (97.8 F-99.1 F) 97.6 F L Temperature Source Temporal Pulse Rate (60-100) 75 Pulse Location Monitor Respiratory Rate (12-18) 18 Respiratory rate source Observation Blood Pressure (90/60-120/80) 150/78 H Blood Pressure Mean (mm Hg) 102 Source Monitor History Since Last Visit- (Skip if this is Patient's initial visit) Have you changed medications since your No last visit? Any new allergies or adverse reactions No Had a fall/change in ADL's that may No increase risk of falls Signs or symptoms of abuse and/or No neglect since last visit Have you been in the hospital since your No last visit? Has dressing in place as prescribed Yes Has compression in place as prescribed Yes Has offloadiing in place as prescribed N/A Experienced any changes in pain level or No management Right Footwear Regular Shoe Pain Scale: 0-10 Numeric Is Patient Pain Free? Yes - Nurse 1 - General Ulcer Measurement Start: 09/07/21 11:13 Freq: Status: Active Protocol: Activity Type Activity Date Activity User E-Sign Co-Sign Detail Recorded Client Recorded Date Recorded By Document 09/07/21 11:15 DL [id number] 09/07/21 11:30 DL 09/07/21 11:15 Wound Center Nurse 1 #10 left buttock -Current Size (cm) - Length 2 -Current Size (cm) - Width 0.7 -Current Size (cm) - Depth 0.1 -Total Square Cm 1.4 -Photo Taken No -Exudate Amt Small -Exudate Type Serosanguineous -Wound Margin Indistinct, Non -Visible -Granulation Amt Large (67-100%) -Granulation Quality Red -Necrosis Amt None Present (0 %) -Structure Exposed N/A -Texture (Dai-wound Skin Appearance) Excoriation, Rash -Moisture (Dai-wound Skin Appearance) Weeping -Color (Dai-wound Skin Appearance) Erythema -Temperature (Dai-wound Skin No Abnormality Appearance) (Pt Warm) -Anesthetic Used 4% Lidocaine Solution #8 r lower leg -Current Size (cm) - Length 6.4 -Current Size (cm) - Width 3 -Current Size (cm) - Depth 0.2 -Total Square Cm 19.2 -Photo Taken No -Exudate Amt Medium -Exudate Type Serosanguineous -Wound Margin Distinct, Outline Attached -Granulation Amt Medium (34-66%) -Granulation Quality Red -Necrosis Amt Medium (34-66%) -Necrotic Tissue Type Adherent Slough -Structure Exposed N/A -Texture (Dai-wound Skin Appearance) Scarring -Moisture (Dai-wound Skin Appearance) No Abnormality -Color (Dai-wound Skin Appearance) Hemosiderin Staining -Temperature (Dai-wound Skin No Abnormality Appearance) (Pt Warm) -Tenderness on Palpation (Dai-wound No Skin Appearance) -Ulcer Cleansing Not Cleansed -Foul Odor after Cleansing No -Anesthetic Used 4% Lidocaine Solution #5 Right buttock cluster -Current Size (cm) - Length 5 -Current Size (cm) - Width 3 -Current Size (cm) - Depth 0.1 -Total Square Cm 15 -Photo Taken No -Exudate Amt Small -Wound Margin Indistinct, Non -Visible -Granulation Amt Large (67-100%) -Granulation Quality Red -Necrosis Amt None Present (0 %) -Structure Exposed N/A -Texture (Dai-wound Skin Appearance) Excoriation, Scarring,Rash -Moisture (Dai-wound Skin Appearance) Weeping -Color (Dai-wound Skin Appearance) Erythema -Temperature (Dai-wound Skin No Abnormality Appearance) (Pt Warm) -Tenderness on Palpation (Dai-wound No Skin Appearance) -Ulcer Cleansing Rinsed/ Irrigated with Saline -Foul Odor after Cleansing No -Anesthetic Used 4% Lidocaine Solution Right Calf (cm) 38.5 Right Ankle (cm) 25.8 WC - Nurse 2 - General Ulcer CM Notes Start: 09/07/21 11:13 Freq: Status: Active Protocol: Activity Type Activity Date Activity User E-Sign Co-Sign Detail Recorded Client Recorded Date Recorded By Document 09/07/21 12:01 MW [id number] 09/07/21 12:10 MW 09/07/21 12:01 Wound Center Nurse 2 #10 left buttock -Time 12:02 -Correct Patient Yes -Correct Side, Site, Position Yes -Correct Procedure Yes -Procedure Performed No -Post Debridement (cm) - Length 0.1 -Post Debridement (cm) - Width 0.1 -Post Debridement (cm) - Depth 0.1 -Total Square (Post) (cm) 0.01 -Tunneling No -Undermining/Tunneling No -Circular Undermining No -Wound/Ulcer Outcome Not Healed #8 r lower leg -Time 12:09 -Correct Patient Yes -Correct Side, Site, Position Yes -Correct Procedure Yes -Procedure Performed Yes -Type of Procedure Incision & Drainage -Clinical Debridement Subcutaneous -Tissue Removed Subcutaneous -Post Debridement (cm) - Length 3.5 -Post Debridement (cm) - Width 2.0 -Post Debridement (cm) - Depth 0.1 -Total Square (Post) (cm) 7.00 -Area of Debridement (cm) - Length 3.5 -Area of Debridement (cm) - Width 2.0 -Total Square (Area) (cm) 7.00 -Tunneling No -Undermining/Tunneling No -Circular Undermining No -Wound/Ulcer Outcome Not Healed -Ulcer Cleansing Rinsed/ Irrigated with Saline -Foul Odor after Cleansing No -Bioengineered Tissue No -Bleeding Controlled with Pressure -Treatment Response Procedure Tolerated Well -Offloading No -Debridement - Subq, 1st 20sq cm Yes #5 Right buttock cluster -Time 12:09 -Correct Patient Yes -Correct Side, Site, Position Yes -Correct Procedure Yes -Procedure Performed No -Post Debridement (cm) - Length 0.1 -Post Debridement (cm) - Width 0.1 -Post Debridement (cm) - Depth 0.1 -Total Square (Post) (cm) 0.01 -Tunneling No -Undermining/Tunneling No -Circular Undermining No -Wound/Ulcer Outcome Not Healed Pain Scale: 0-10 Numeric Is Patient Pain Free? Yes WC - Nurse 3 - General Ulcer D/C NN Start: 09/07/21 11:13 Freq: Status: Active Protocol: Activity Type Activity Date Activity User E-Sign Co-Sign Detail Recorded Client Recorded Date Recorded By Document 09/07/21 12:21 ANTONIO [id number] 09/07/21 12:22 ANTONIO 09/07/21 12:21 Wound Care Nurse 3 #10 left buttock -Ulcer Cleansing Rinsed/ Irrigated with Saline -Foul Odor after Cleansing No -Primary Dressing Applied NonAdherent Contact Layer -Other Dressing ABD -Primary Dressing Covered/Secured with Secured with Tape #8 r lower leg -Ulcer Cleansing Rinsed/ Irrigated with Saline -Foul Odor after Cleansing No -Primary Dressing Applied Aquacel Extra, NonAdherent Contact Layer -Other Dressing ABD -Aquacel Extra 1 #5 Right buttock cluster -Ulcer Cleansing Rinsed/ Irrigated with Saline -Foul Odor after Cleansing No -Primary Dressing Applied NonAdherent Contact Layer -Other Dressing ABD Right -Lotion applied to leg before Yes compression wrap -Multi-Layered Wrap Application Multi-Layer Comp - Right ($ ) Pain Scale: 0-10 Numeric Is Patient Pain Free? Yes WC - Visit Discharge Discharge Condition Stable Ambulatory Status Ambulatory, Crutches Transportation Private Auto Medication Reconcilliation completed & Yes provided to patient/care provider Clinical Summary of Care Provided Yes Assessment/Plan Assessment/Plan (1) Decubitus ulcer of right buttock, stage 3: CODE(S): L89.313 - Pressure ulcer of right buttock, stage 3 (2) Decubitus ulcer of left buttock, stage 3: CODE(S): L89.323 - Pressure ulcer of left buttock, stage 3 (3) Type II diabetes mellitus: CODE(S): E11.9 - Type 2 diabetes mellitus without complications (4) Open wound of right lower extremity: CODE(S): S81.801A - Unspecified open wound, right lower leg, initial encounter QUALIFIERS: Encounter type: subsequent encounter Qualified Code(s): S81.801D - Unspecified open wound, right lower leg, subsequent encounter PLAN: Debridement done as documented above, procedure was well-tolerated. Right lower extremity is improving, continue Aquacel extra, cover with Adaptic and gauze. Continue 3M wrap for edema management. To bilateral buttock, copious amount of Vaseline and then Xeroform. Cover with double layer of ABD. Change on Saturday and Saturday by home health. Consistent use of gel cushion and hospital bed very strongly recommended. He was advised to lift up completely prior to turning to avoid sheering. Still a lot of sheering going on. Take breaks from siting several times during the day. Optimal diabetes control also very strongly recommended. Optimal protein intake, vitamin C and zinc also discussed. His questions were answered and he was advised to call with any further questions or concerns. Follow-up in 2 weeks. This note was generated with [employer] dictation software. It may contain incorrect words, spelling, and punctuation that were not noted in checking the note before signing.
[2021-09-21 11:33] VITALS: BP 120/51; PULSE 66; RESP 16; TEMP 36.9; BMI 29.7
--- NOTE | 2021-09-21 12:35 | PCM.WC.PN ---
History of Present Illness Date of Service: 09/21/21 Chief Complaint: Recurrent buttock ulcers History of Wound: Mr. 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 Most recent episode said to have started months ago . Has been applying antibiotic and hemorrhoid ointment without significant improvement. Sits and sleeps in his lift chair. Also history of diabetes mellitus type 2 and his most recent A1c was said to be around 8. Fasting blood sugar this morning at 303. He states that he is working with his PCP to get this under better control. History of AKA. He feels well and denies other concerns at this time. Progress of Wound: Buttock and right lower extremity ulcers healed. No new concerns at this time. Objective Data Objective Data Vital Signs: Vital Signs Temp Pulse Resp BP 98.5 F 66 16 120/51 L 09/21/21 11:33 09/21/21 11:33 09/21/21 11:33 09/21/21 11:33 Oxygen Delivery Method Room Air Body Mass Index (BMI) 29.7 Charges/Coding Visit Charges Office Visits / Consults: 88384 OV L3 Est Physical Exam Const alert, oriented x3 and no apparent distress General Appearance: cooperative and comfortable HEENT normocephalic and head/scalp atraumatic Eyes EOMs intact bilaterally Neck full ROM General: normal visual inspection Resp normal respiratory effort Effort and Inspection: able to speak in complete sentences Neuro oriented x3, CN's II-XII intact bilaterally and moves all extremities Psych mental status grossly normal Appearance: grossly normal Attitude: calm Speech: normal speech Debridement Note Debridement Note Post-Debridement Measurements and Additional Note: Post-Debridement Measurements/Treatment - Nurse 1 - General Ulcer Assessment Start: 09/07/21 11:13 Freq: Status: Active Protocol: [email or web address].[email or web address] Activity Type Activity Date Activity User E-Sign Co-Sign Detail Recorded Client Recorded Date Recorded By Document 09/07/21 11:15 DL [id number] 09/07/21 11:30 DL Document 09/21/21 11:33 ML [id number] 09/21/21 11:38 ML 09/07/21 09/21/21 11:15 11:33 - Today's Visit Information Type of service Follow-up Visit (Physician/ANESTHESIOLOGY MEDICAL DOCTOR ) Arrival Mode Ambulatory, Ambulatory, Crutches Crutches Transfer Assistance None None Patient Identification Verified (Name & Yes Yes ) Patient Requires Transmission-Based No No Precautions Safety Precautions NA Finger Stick Blood Sugar(mg/dl) (if doesntscheck indicated): Height and Weight Body Mass Index (BMI) 29.7 29.7 BMI Classification Overweight Overweight Vital Signs Temperature (97.8 F-99.1 F) 97.6 F L 98.5 F Temperature Source Temporal Temporal Pulse Rate (60-100) 75 66 Pulse Location Monitor Monitor Respiratory Rate (12-18) 18 16 Respiratory rate source Observation Observation Oxygen Delivery Method Room Air Blood Pressure (90/60-120/80) 150/78 H 120/51 L Blood Pressure Mean (mm Hg) 102 74 Source Monitor Monitor Position Sitting Blood Pressure Location Left Arm History Since Last Visit- (Skip if this is Patient's initial visit) Have you changed medications since your No No last visit? Any new allergies or adverse reactions No No Had a fall/change in ADL's that may No No increase risk of falls Signs or symptoms of abuse and/or No No neglect since last visit Have you been in the hospital since your No No last visit? Has dressing in place as prescribed Yes Yes Has compression in place as prescribed Yes N/A Has offloadiing in place as prescribed N/A N/A Experienced any changes in pain level or No No management Left Footwear Regular Shoe Right Footwear Regular Shoe No Footwear Pain Scale: 0-10 Numeric Is Patient Pain Free? Yes Yes WC - Nurse 1 - General Ulcer Measurement Start: 09/07/21 11:13 Freq: Status: Active Protocol: Activity Type Activity Date Activity User E-Sign Co-Sign Detail Recorded Client Recorded Date Recorded By Document 09/07/21 11:15 DL [id number] 09/07/21 11:30 DL Document 09/21/21 11:33 ML [id number] 09/21/21 11:38 ML 09/07/21 09/21/21 11:15 11:33 Wound Center Nurse 1 #10 left buttock -Current Size (cm) - Length 2 0.1 -Current Size (cm) - Width 0.7 0.1 -Current Size (cm) - Depth 0.1 0.1 -Total Square Cm 1.4 0.01 -Photo Taken No -Exudate Amt Small Small -Exudate Type Serosanguineous Serosanguineous -Wound Margin Indistinct, Non Distinct, -Visible Outline Attached -Granulation Amt Large (67-100%) Small (1-33%) -Granulation Quality Red Red -Slough/Fibrin Yes -Necrosis Amt None Present (0 Small (1-33%) %) -Necrotic Tissue Type Adherent Slough -Structure Exposed N/A -Texture (Dai-wound Skin Appearance) Excoriation, Assessed Rash -Moisture (Dai-wound Skin Appearance) Weeping Assessed -Color (Dai-wound Skin Appearance) Erythema Assessed -Temperature (Dai-wound Skin No Abnormality No Abnormality Appearance) (Pt Warm) (Pt Warm) -Tenderness on Palpation (Dai-wound No Skin Appearance) -Ulcer Cleansing Soap and Water -Foul Odor after Cleansing No -Anesthetic Used 4% Lidocaine 4% Lidocaine Solution Solution #8 r lower leg -Current Size (cm) - Length 6.4 0.1 -Current Size (cm) - Width 3 0.1 -Current Size (cm) - Depth 0.2 0.1 -Total Square Cm 19.2 0.01 -Photo Taken No -Exudate Amt Medium Small -Exudate Type Serosanguineous Serosanguineous -Wound Margin Distinct, Distinct, Outline Outline Attached Attached -Granulation Amt Medium (34-66%) Small (1-33%) -Granulation Quality Red -Slough/Fibrin Yes -Necrosis Amt Medium (34-66%) Small (1-33%) -Necrotic Tissue Type Adherent Slough Adherent Slough -Structure Exposed N/A -Texture (Dai-wound Skin Appearance) Scarring Assessed -Moisture (Dai-wound Skin Appearance) No Abnormality Assessed -Color (Dai-wound Skin Appearance) Hemosiderin Assessed Staining -Temperature (Dai-wound Skin No Abnormality No Abnormality Appearance) (Pt Warm) (Pt Warm) -Tenderness on Palpation (Dai-wound No No Skin Appearance) -Ulcer Cleansing Not Cleansed Soap and Water -Foul Odor after Cleansing No No -Anesthetic Used 4% Lidocaine 4% Lidocaine Solution Solution #5 Right buttock cluster -Current Size (cm) - Length 5 0.1 -Current Size (cm) - Width 3 0.1 -Current Size (cm) - Depth 0.1 0.1 -Total Square Cm 15 0.01 -Photo Taken No -Exudate Amt Small Small -Exudate Type Serous -Wound Margin Indistinct, Non Distinct, -Visible Outline Attached -Granulation Amt Large (67-100%) Small (1-33%) -Granulation Quality Red -Necrosis Amt None Present (0 Small (1-33%) %) -Necrotic Tissue Type Adherent Slough -Structure Exposed N/A -Texture (Dai-wound Skin Appearance) Excoriation, Assessed Scarring,Rash -Moisture (Dai-wound Skin Appearance) Weeping Assessed -Color (Dai-wound Skin Appearance) Erythema Assessed -Temperature (Dai-wound Skin No Abnormality No Abnormality Appearance) (Pt Warm) (Pt Warm) -Tenderness on Palpation (Dai-wound No No Skin Appearance) -Ulcer Cleansing Rinsed/ Soap and Water Irrigated with Saline -Foul Odor after Cleansing No No -Anesthetic Used 4% Lidocaine 4% Lidocaine Solution Solution Right Calf (cm) 38.5 Right Ankle (cm) 25.8 WC - Nurse 2 - General Ulcer CM Notes Start: 09/07/21 11:13 Freq: Status: Active Protocol: Activity Type Activity Date Activity User E-Sign Co-Sign Detail Recorded Client Recorded Date Recorded By Document 09/07/21 12:01 MW [id number] 09/07/21 12:10 MW Document 09/21/21 11:41 MW [id number] 09/21/21 11:48 MW 09/07/21 09/21/21 12:01 11:41 Wound Center Nurse 2 #10 left buttock -Time 12:02 11:44 -Correct Patient Yes Yes -Correct Side, Site, Position Yes Yes -Correct Procedure Yes Yes -Procedure Performed No No -Post Debridement (cm) - Length 0.1 0 -Post Debridement (cm) - Width 0.1 0 -Post Debridement (cm) - Depth 0.1 0 -Total Square (Post) (cm) 0.01 0 -Tunneling No -Undermining/Tunneling No -Circular Undermining No -Wound/Ulcer Outcome Not Healed Healed- Epithelialized #8 r lower leg -Time 12:09 11:46 -Correct Patient Yes Yes -Correct Side, Site, Position Yes Yes -Correct Procedure Yes Yes -Procedure Performed Yes No -Type of Procedure Incision & Drainage -Clinical Debridement Subcutaneous -Tissue Removed Subcutaneous -Post Debridement (cm) - Length 3.5 0 -Post Debridement (cm) - Width 2.0 0 -Post Debridement (cm) - Depth 0.1 0 -Total Square (Post) (cm) 7.00 0 -Area of Debridement (cm) - Length 3.5 -Area of Debridement (cm) - Width 2.0 -Total Square (Area) (cm) 7.00 -Tunneling No No -Undermining/Tunneling No No -Circular Undermining No No -Wound/Ulcer Outcome Not Healed Healed- Epithelialized -Ulcer Cleansing Rinsed/ Irrigated with Saline -Foul Odor after Cleansing No -Bioengineered Tissue No -Bleeding Controlled with Pressure -Treatment Response Procedure Tolerated Well -Offloading No -Debridement - Subq, 1st 20sq cm Yes #5 Right buttock cluster -Time 12:09 11:44 -Correct Patient Yes Yes -Correct Side, Site, Position Yes Yes -Correct Procedure Yes Yes -Procedure Performed No No -Post Debridement (cm) - Length 0.1 0 -Post Debridement (cm) - Width 0.1 0 -Post Debridement (cm) - Depth 0.1 0 -Total Square (Post) (cm) 0.01 0 -Tunneling No -Undermining/Tunneling No -Circular Undermining No -Wound/Ulcer Outcome Not Healed Healed- Epithelialized Pain Scale: 0-10 Numeric Is Patient Pain Free? Yes Yes - Nurse 3 - General Ulcer D/C NN Start: 09/07/21 11:13 Freq: Status: Active Protocol: Activity Type Activity Date Activity User E-Sign Co-Sign Detail Recorded Client Recorded Date Recorded By Document 09/07/21 12:21 [id number] 09/07/21 12:22 Document 09/21/21 11:59 [facility] [id number] 09/21/21 12:01 [facility] 09/07/21 09/21/21 12:21 11:59 Wound Care Nurse 3 #10 left buttock -Ulcer Cleansing Rinsed/ Irrigated with Saline -Foul Odor after Cleansing No -Primary Dressing Applied NonAdherent Contact Layer -Other Dressing ABD -Primary Dressing Covered/Secured with Secured with Secured with Tape Tape,Other -Other Covering ABD #8 r lower leg -Ulcer Cleansing Rinsed/ Rinsed/ Irrigated with Irrigated with Saline Saline -Foul Odor after Cleansing No No -Primary Dressing Applied Aquacel Extra, NonAdherent NonAdherent Contact Layer Contact Layer -Other Dressing ABD -Primary Dressing Covered/Secured with Dry Gauze & Roll Gauze, Secured with Tape -Aquacel Extra 1 #5 Right buttock cluster -Ulcer Cleansing Rinsed/ Irrigated with Saline -Foul Odor after Cleansing No -Primary Dressing Applied NonAdherent Contact Layer -Other Dressing ABD -Primary Dressing Covered/Secured with Secured with Tape,Other -Other Covering ABD Right -Lotion applied to leg before Yes compression wrap -Multi-Layered Wrap Application Multi-Layer Comp - Right ($ ) -Tubular Bandage Single Layer -Size of Tubigrip Used Size E -Size E ($) 1 Pain Scale: 0-10 Numeric Is Patient Pain Free? Yes Yes WC - Visit Discharge Discharge Condition Stable Stable Ambulatory Status Ambulatory, Ambulatory, Crutches Crutches Transportation Private Auto Private Auto Medication Reconcilliation completed & Yes provided to patient/care provider Clinical Summary of Care Provided Yes Facility Type Home Health Assessment/Plan Assessment/Plan (1) Decubitus ulcer of right buttock, stage 3: CODE(S): L89.313 - Pressure ulcer of right buttock, stage 3 (2) Decubitus ulcer of left buttock, stage 3: CODE(S): L89.323 - Pressure ulcer of left buttock, stage 3 (3) Type II diabetes mellitus: CODE(S): E11.9 - Type 2 diabetes mellitus without complications (4) Open wound of right lower extremity: CODE(S): S81.801A - Unspecified open wound, right lower leg, initial encounter QUALIFIERS: Encounter type: subsequent encounter Qualified Code(s): S81.801D - Unspecified open wound, right lower leg, subsequent encounter PLAN: No debridement completed today, healed. Very lengthy discussion had with patient about offloading especially his buttock areas. Continue skin protection/copious amount of Vaseline daily. May use ABD to keep area protected/barrier. Do this consistently for 2 to 3 weeks. Moisturize right lower extremity adequately also. May cover with gauze for 2 weeks as well. Consistent use of gel cushion and hospital bed very strongly recommended. He was advised to lift up completely prior to turning to avoid sheering. Take breaks from siting several times during the day. Optimal diabetes control also very strongly recommended. Optimal protein intake, vitamin C and zinc also discussed. His questions were answered and he was advised to call with any further questions or concerns. Discharged from the wound center. This note was generated with [employer] dictation software. It may contain incorrect words, spelling, and punctuation that were not noted in checking the note before signing.
== END 2021-09-21 15:22 | disposition home or self-care (01) ==
LOC: WC 11:00
PROVIDERS: PCP Family Medicine; Visit Provider Internal Medicine
DX: L89.313 Pressure ulcer of right buttock, stage 3 (principal); L89.323 Pressure ulcer of left buttock, stage 3; E11.9 Type 2 diabetes mellitus without complications; S81.801D Unspecified open wound, right lower leg, subsequent encounter; X58.XXXD Exposure to other specified factors, subsequent encounter; Z79.84 Long term (current) use of oral hypoglycemic drugs; Z79.01 Long term (current) use of anticoagulants; Z79.899 Other long term (current) drug therapy
CPT/HCPCS: 11042; 29581; 99213; G0463

== ENCOUNTER 2021-12-08 19:24 | Observation (INO) | payer OTHER, SELFPAY ==
[2021-12-08 19:25] VITALS: BP 169/81; PULSE 79; RESP 18; TEMP 37.2; O2SAT 95; BMI 30.9
[2021-12-08 19:33] VITALS: BP 169/81; PULSE 79; RESP 18; TEMP 37.2; O2SAT 95
--- NOTE | 2021-12-08 20:09 | ED.VIS.FALL ---
HPI HPI - Fall History of Present Illness Chief Complaint: Fall Narrative Narrative: Patient with past medical history of diabetes, left pcldl-mgk-rrin amputation secondary to trauma 40 years ago, presents status post fall. He states he was using his crutch, and there was something wet on the floor at [employer] and he slipped on it. He must of hit his right leg and right foot on the grocery cart, shelving, or on the floor. He denies hitting his head or loss of consciousness. 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 He takes 5 mg daily. He feels that the midshaft of his tibia is growing tight and discolored along with the lower portion of his right foot. He also states that his buttocks was bleeding where he has decubitus ulceration. He presents mainly because of the right leg pain and right foot pain. He denies other bleeding diathesis. [facility] Medical History Decubitus ulcer of left buttock, stage 3 Decubitus ulcer of right buttock, stage 3 Diabetes HTN (hypertension) Left above-knee amputee Open wound of right lower extremity Home Medications lisinopril 20 mg tablet (Zestril) 20 mg PO QHS 11/22/17 [History Last Taken Unknown] metoprolol tartrate 50 mg tablet 50 mg PO BID 11/22/17 [History Last Taken Unknown] Liraglutide [Victoza 2-Reilly] 0.6 mg SQ DAILY 01/29/19 [History Last Taken Unknown] furosemide 20 mg tablet 40 mg PO BID 01/29/19 [History Last Taken Unknown] lovastatin 40 mg tablet 40 mg PO DAILY 01/29/19 [History Last Taken Unknown] metformin 1,000 mg tablet 1,000 mg PO BID 01/29/19 [History Last Taken Unknown] warfarin 3 mg tablet 3 mg PO MO 01/29/19 [History Last Taken Unknown] warfarin 5 mg tablet 5 mg PO SUTUWETHFR 01/29/19 [History Last Taken Unknown] glipizide 10 mg tablet 25 mg PO BIDAC 06/11/19 [History Last Taken Unknown] hydrocortisone 2.5 % topical cream 1 applic topical TID PRN PRN Rash/Topical Irritation 06/11/19 [History Last Taken Unknown] nystatin 100,000 unit/gram topical cream 15 gm TP BID PRN PRN Rash/Topical Irritation 06/11/19 [History Last Taken Unknown] amlodipine 5 mg tablet 5 mg PO DAILY 01/12/21 [History Last Taken Unknown] cyclobenzaprine 10 mg tablet 10 mg PO TID PRN Muscle Pain 01/12/21 [History Last Taken Unknown] meclizine 25 mg tablet 25 mg PO 4X/DAY 01/12/21 [History Last Taken Unknown] Allergy/AdvReac Type Severity Reaction Status Date / Time amoxicillin Allergy Rash Verified 12/08/21 19:30 Social History Smoking Status: Never smoker ROS ROS ED ROS Narrative Constitutional: No fever, no chills. HEENT: No sore throat. No neck pain. No loss of vision. No rhinorrhea. Cardiovascular: No chest pain. No palpitations. No pedal edema. Respiratory: No cough, no shortness of breath. Abdominal: No abdominal pain. No nausea. No vomiting. Genitourinary: No dysuria. No hematuria. Musculoskeletal: No myalgias. Right lower midshaft tibia pain, right lower foot pain. Buttocks pain where he has decubitus ulcer. Neurologic: No headaches. No dizziness. No lightheadedness. Skin: No rash. No change in color. Decubitus ulceration of buttocks. Psychiatric: No depression. No anxiety. EXAM Physical Exam Narrative Exam Narrative: Afebrile. Vital signs noted. HEENT: Normocephalic. Atraumatic. PERRL, EOMI. Neck soft and supple. No point tenderness or step off. Cardiovascular: Regular rate and rhythm. No murmurs, rubs, or gallops appreciated. Respiratory: No tachypnea. Lungs clear to auscultation bilaterally. Gastrointestinal: Abdomen soft, nontender, with normoactive bowel sounds. No rebound or guarding. Neurological: Awake. Alert. Nonfocal, nonlateralizing. Skin: No rash. Normal color. No pallor. Chronic skin changes of lymphedema right lower extremity, dry, flaky skin. Positive decubitus ulceration with gauze on buttocks. Musculoskeletal: Left lldxp-qsi-vffw amputation, chronic. Chronic lymphedema changes right lower extremity. Hematoma midshaft right tibial area. Full range of motion of ankle/foot. Mild swelling midfoot to distal foot, right. No pain at hip, no pain at knee. Flexion and extension mechanisms intact. Const Vital Signs: 12/08/21 19:25 12/08/21 19:33 12/08/21 19:33 Temperature 98.9 F 98.9 F Temperature Source Temporal Temporal Pulse Rate 79 79 Respiratory Rate 18 18 Respiratory Effort Normal Non-Labored Blood Pressure 169/81 H 169/81 H Blood Pressure Mean 110 Pulse Ox 95 95 Oxygen Delivery Method Room Air Room Air 12/08/21 22:08 Temperature Temperature Source Pulse Rate 69 Respiratory Rate Respiratory Effort Blood Pressure Blood Pressure Mean Pulse Ox 96 Oxygen Delivery Method Room Air MDM MDM MDM Narrative Medical decision making narrative: Given that this is the patient's remaining intact leg, x-rays were obtained of the right foot, right tibia, and labs were drawn including CBC, CMP, and INR. We will also obtain x-rays of the sacrum and interpreted all x-rays. Patient has a CBC that shows a white count of 7.4, hemoglobin slightly low at 12.3 with normal platelet count of 182. INR therapeutic at 2.1. Sodium slightly low 134, BUN of 37 with a creatinine of 1.9. X-ray of the foot shows degenerative changes but no evidence of fracture. X-ray of the tibia and fibula interpreted by myself shows no evidence of fracture. There is soft tissue swelling noted. X-ray of the sacrum shows no evidence of fracture, also interpreted by myself. He was given 1 tramadol tablet for analgesia as he states he lives alone. He was placed in an kayce wrap. At this point in time, attempt was made to ambulate him, but he is having a large amount of difficulty given that he only has 1 leg that is injured and he has pain with weightbearing. I then discussed the patient with Dr. Robison who will place the patient on observation on [facility]. Of note, he did complain that he felt that his sacral decubitus ulcers were bleeding, but I visualized them with the nurse in the room and there is no evidence of acute hemorrhage noted. Disposition is assigned to observation in stable condition. Lab Data Attestation: I reviewed the patient's lab results. Labs: Laboratory Results - last 24 hr 12/08/21 12/08/21 12/08/21 20:49 20:49 20:49 WBC 7.4 RBC 4.11 L Hgb 12.3 L Hct 36.1 L MCV 87.8 MCH 29.9 MCHC 34.1 RDW Std Deviation 42.3 RDW Coeff of Katelyn 13.2 Plt Count 182 MPV 9.7 Immature Gran % (Auto) 0.400 Neut % (Auto) 57.0 Lymph % (Auto) 25.7 Clay % (Auto) 8.5 Eos % (Auto) 7.6 H Baso % (Auto) 0.8 Absolute Neuts (auto) 4.2 Absolute Lymphs (auto) 1.90 Nucleated RBC % 0 PT 22.9 H INR 2.1 Sodium 134 L Potassium 4.9 Chloride 101 Carbon Dioxide 26.0 Anion Gap 7 BUN 37 H Creatinine 1.91 H Estim Creat Clear Calc 30.84 Est GFR (MDRD) Af Amer 44 L Est GFR (MDRD) Non-Af 36 L BUN/Creatinine Ratio 19.4 Glucose 216 H Calcium 9.3 Radiography Diagnostic Testing: Clinical Impression(s) from Imaging Studies Foot X-Ray 12/08/21 21:00 IMPRESSION: 1. Moderate degenerative changes involving the first MTP with hallux valgus deformity and periarticular erosions. 2. No other evidence of fracture dislocation or malalignment. No destructive bony process. Electronically Signed: Cedric Terry MD at 22:22 EDT , Sacrum and Coccyx X-Ray 12/08/21 21:00 IMPRESSION: Unremarkable sacro-coccygeal spine. Electronically Signed: Cedric Terry MD at 22:22 EDT , Tibia/Fibula X-Ray 12/08/21 21:00 IMPRESSION: Soft tissue swelling along the velez region. No acute fracture. Electronically Signed: Sha Guevara MD at 21:29 EDT , Discharge Plan Dx/Rx/DC Orders Clinical Impression: Fall, Contusion of right lower leg, Contusion of right foot, Contusion of sacrum, Hematoma and contusion Disposition Disposition: Acute Care [facility]
--- NOTE | 2021-12-08 20:39 | ED.RN ---
Patient refusing to sign registrations form for consent to treat and to bill his insurance. This RN and JOURDAN Miller at bedside. Patients states I don't feel that I am financially responsible for what happened at [employer]. Patient states I consent to be treated but not to be billed. Rn has informed him that when he signs, he is agreeing to both parts of the consent. Elidia, Nursing Protozoologist informed of problem. This RN and Elidia at bedside. This RN has explained to patient his request for [employer] being financially responsible would be up to his insurance, and possibly a naturalization examiner to further investigate problem. Elidia explained to patient he would have to sign the consent to treat or sign out AMA at this time. Patient has agreed to sign consent form at this time.
[2021-12-08 20:57] LABS: Absolute Neutrophil Count 4.2 X10^3/uL (2.0-7.7); Basophil# 0.06 X10^3/uL; Basophil% 0.8 % (0-1); Eosinophil# 0.56 X10^3/uL; Eosinophils% 7.6 % (0-5); Hematocrit 36.1 % (40-54); Hemoglobin 12.3 g/dL (13.0-16.5); Lymphocyte % 25.7 % (19-41); Mean Corp Hgb Conc 34.1 g/dL (32-36); Mean Corpuscular Hgb 29.9 pg (27.0-32.0); Mean Corpuscular Volume 87.8 fL (80-94); Mean Platelet Vol. 9.7 fl (6.2-12.0); Monocyte# 0.63 X10^3/uL; Monocyte% 8.5 % (0-10); NRBC Flagged by Analyzer 0 % (0-5); Neutrophil # 4.22 X10^3/uL (2.7-7.7); Platelet Count 182 K/mm3 (150-450); RBC Distribution Width CV 13.2 % (11.6-14.6); RBC Distribution Width SD 42.3 fl (35.1-43.9); Red Blood Count 4.11 M/mm3 (4.6-6.2); White Blood Count 7.4 K/mm3 (4.4-11.0)
--- NOTE | 2021-12-08 21:00 | RAD_ITS ---
INDICATION: Pain, ulcer EXAMINATION/TECHNIQUE: X-RAY - XR Sacrum/Coccyx Min 2 Views COMPARISON: None. FINDINGS: SACRUM/COCCYX: No displaced fracture, destructive or sclerotic lesions. Note that overlapping bowel shadows may however obscure fine detail in the frontal view. SACRO-ILIAC JOINTS: The articular structures are unremarkable. SOFT TISSUES: No soft tissue swelling or gas. RAD/Sacrum-Coccyx min 2 Views IMPRESSION: Unremarkable sacro-coccygeal spine. Electronically Signed: Cedric Terry MD at 22:22 EDT ,
--- NOTE | 2021-12-08 21:00 | RAD_ITS ---
EXAM: XR RIGHT TIBIA AND FIBULA, 2 VIEWS CLINICAL INDICATION: Trauma Technologist Notes FALL TODAY. C/O RIGHT LEG AND BUTTOCKS PAIN, RLE EDEMA, PER EMS PT HAS SEEPING BED SORES TECHNIQUE: Frontal and lateral views of the right tibia and fibula. This report was created using [employer] report generation technology. COMPARISON: None. FINDINGS: BONES/JOINTS: Unremarkable. No acute fracture. No subluxation. Normal alignment. Preservation of the joint space. No sclerotic or destructive changes observed. SOFT TISSUES: Soft tissue swelling along the velez region. No acute fracture. No radiopaque foreign body. RAD/Tibia & Fibula 2 Views IMPRESSION: Soft tissue swelling along the velez region. No acute fracture. Electronically Signed: Sha Guevara MD at 21:29 EDT Reading Location ID and State: [facility] / [place] , Service support ,
--- NOTE | 2021-12-08 21:00 | RAD_ITS ---
INDICATION: pain EXAMINATION/TECHNIQUE: X-RAY - RIGHT XR Foot Min 3 Views 3 VIEWS COMPARISON: None. FINDINGS: SOFT TISSUES: No soft tissue swelling or gas. No radiopaque foreign body. BONES/JOINTS: Marked degenerative change at the first MTP, hallux valgus deformity soft tissue swelling, periarticular erosions noted. No fractures noted. Remaining joint spaces maintained RAD/Foot min 3 Views IMPRESSION: 1. Moderate degenerative changes involving the first MTP with hallux valgus deformity and periarticular erosions. 2. No other evidence of fracture dislocation or malalignment. No destructive bony process. Electronically Signed: Cedric Terry MD at 22:22 EDT ,
[2021-12-08 21:06] LABS: International Normalized Ratio 2.1; Prothrombin Time (Protime)PT. 22.9 SECONDS (11.7-14.9)
[2021-12-08 21:10] LABS: Anion Gap 7 (5-15); BUN 37 mg/dL (7-18); BUN/Creat Ratio 19.4 RATIO (10-20); Calcium,Total 9.3 mg/dL (8.5-10.1); Chloride 101 mmol/L (98-107); Creatinine, Serum 1.91 mg/dL (0.70-1.30); EST Glomerular Filtration Rate 36 mL/min (>60); Est Glom Filt Rate - Afr Amer 44 mL/min (>60); Estimated Creatinine Clearance 30.84 ml/min; Glucose 216 mg/dL (74-106); Potassium 4.9 mmol/L (3.5-5.1); Sodium Level 134 mmol/L (136-145)
[2021-12-08 22:08] VITALS: PULSE 69; O2SAT 96
[2021-12-08] MEDS: traMADol 50 MG Tablet PO (23:06)
--- NOTE | 2021-12-08 23:31 | HP.PCM.HOS_ITS ---
[facility] - General General Date of Admission: 12/08/21 Date of Service: 12/08/21 Chief Complaint: Fall HPI Narrative GABBY DEL ROSARIO, is a 76 M with a significant history of diabetes mellitus; hypertension; DVT on Coumadin; left [id number] amputation secondary to trauma; and decubitus ulcer who was using his clutch to walk at [facility] because the floor was slippery. He hit his right foot and right leg when he fell and complains of pain. He has a hematoma at his right anterior tibial area. Also he had bleeding from decubitus ulcer secondary to the fall. [facility] Medical History Decubitus ulcer of left buttock, stage 3 Decubitus ulcer of right buttock, stage 3 Diabetes HTN (hypertension) Left above-knee amputee Open wound of right lower extremity Home Medications lisinopril 20 mg tablet (Zestril) 20 mg PO QHS 11/22/17 [History Last Taken Unknown] metoprolol tartrate 50 mg tablet 50 mg PO BID 11/22/17 [History Last Taken Unknown] Liraglutide [Victoza 2-Reilly] 0.6 mg SQ DAILY 01/29/19 [History Last Taken Unknown] furosemide 20 mg tablet 40 mg PO BID 01/29/19 [History Last Taken Unknown] lovastatin 40 mg tablet 40 mg PO DAILY 01/29/19 [History Last Taken Unknown] metformin 1,000 mg tablet 1,000 mg PO BID 01/29/19 [History Last Taken Unknown] warfarin 3 mg tablet 3 mg PO MO 01/29/19 [History Last Taken Unknown] warfarin 5 mg tablet 5 mg PO SUTUWETHFR 01/29/19 [History Last Taken Unknown] glipizide 10 mg tablet 25 mg PO BIDAC 06/11/19 [History Last Taken Unknown] hydrocortisone 2.5 % topical cream 1 applic topical TID PRN PRN Rash/Topical Irritation 06/11/19 [History Last Taken Unknown] nystatin 100,000 unit/gram topical cream 15 gm TP BID PRN PRN Rash/Topical Irritation 06/11/19 [History Last Taken Unknown] amlodipine 5 mg tablet 5 mg PO DAILY 01/12/21 [History Last Taken Unknown] cyclobenzaprine 10 mg tablet 10 mg PO TID PRN Muscle Pain 01/12/21 [History Last Taken Unknown] dapagliflozin 10 mg tablet (Farxiga) 1 tab PO 12/08/21 [History Last Taken Unknown] Allergy/AdvReac Type Severity Reaction Status Date / Time amoxicillin Allergy Rash Verified 12/08/21 19:30 Family History (Updated 12/09/21 @ 00:[address] Rufus Robison MD) Other Cancer Heart disease Surgical History Above knee amputation of left lower extremity Social History Smoking Status: Never smoker ROS ROS Narrative Pertinent positives and pertinent negatives as noted in HPI. All other systems were reviewed and are negative. Vital Signs Vital Signs Vital Signs: 12/08/21 19:25 12/08/21 19:33 12/08/21 19:33 Temperature 98.9 F 98.9 F Temperature Source Temporal Temporal Pulse Rate 79 79 Respiratory Rate 18 18 Respiratory Effort Normal Non-Labored Blood Pressure 169/81 H 169/81 H Blood Pressure Mean 110 Pulse Ox 95 95 Oxygen Delivery Method Room Air Room Air 12/08/21 22:08 Temperature Temperature Source Pulse Rate 69 Respiratory Rate Respiratory Effort Blood Pressure Blood Pressure Mean Pulse Ox 96 Oxygen Delivery Method Room Air Weight Weight: 92.4 kg Body Mass Index (BMI) 30.9 Physical Exam Narrative Physical exam: General: Well-nourished, well-developed. Head: Normocephalic, atraumatic, no tenderness Eyes: Vision is grossly intact. EOMI ENT, no trauma, moist mucous membranes, no rhinorrhea Neck: Nontender, full range of motion, no spinal tenderness, deformities, step- off CVS: Regular rate and rhythm. S1-S2 present. No murmur, gallop or rub. Respiratory : clear to auscultation bilaterally, chest wall nontender, no wheezing Abdomen: Soft, nontender, nondistended, normal bowel sounds, no masses : Deferred Back: Nontender, no CVA tenderness, no midline spinal tenderness, deformities, step-offs Extremities: Left above the knee amputation. Hematoma at left leg. Skin: Erythema and excoriation at gluteal region. Normal color. Neuro: Alert, oriented, cranial nerves II through XII grossly intact. Psychiatry: Normal mood. Normal affect. Not depressed. Not anxious. Results Lab / Micro Data Result Diagrams: 12/08/21 20:49 12/08/21 20:49 Labs: Laboratory Results - last 24 hr 12/08/21 20:49: WBC 7.4, RBC 4.11 L, Hgb 12.3 L, Hct 36.1 L, MCV 87.8, MCH 29.9, MCHC 34.1, RDW Std Deviation 42.3, RDW Coeff of Katelyn 13.2, Plt Count 182, MPV 9. 7, Immature Gran % (Auto) 0.400, Neut % (Auto) 57.0, Lymph % (Auto) 25.7, [place] % (Auto) 8.5, Eos % (Auto) 7.6 H, Baso % (Auto) 0.8, Absolute Neuts (auto) 4.2, Absolute Lymphs (auto) 1.90, Nucleated RBC % 0 12/08/21 20:49: PT 22.9 H, INR 2.1 12/08/21 20:49: Sodium 134 L, Potassium 4.9, Chloride 101, Carbon Dioxide 26.0, Anion Gap 7, BUN 37 H, Creatinine 1.91 H, Estim Creat Clear Calc 30.84, Est GFR (MDRD) Af Amer 44 L, Est GFR (MDRD) Non-Af 36 L, BUN/Creatinine Ratio 19.4, Gluc ose 216 H, Calcium 9.3 Radiology Impression Foot X-Ray 12/08/21 21:00 IMPRESSION: 1. Moderate degenerative changes involving the first MTP with hallux valgus deformity and periarticular erosions. 2. No other evidence of fracture dislocation or malalignment. No destructive bony process. Electronically Signed: Cedric Terry MD at 22:22 EDT , Sacrum and Coccyx X-Ray 12/08/21 21:00 IMPRESSION: Unremarkable sacro-coccygeal spine. Electronically Signed: Cedric Terry MD at 22:22 EDT , Tibia/Fibula X-Ray 12/08/21 21:00 IMPRESSION: Soft tissue swelling along the velez region. No acute fracture. Electronically Signed: Sha Guevara MD at 21:29 EDT Reading Location ID and State: [facility] / [place] , Service support , Assessment & Plan Assessment/Plan (1) Fall: (2) Stage II pressure ulcer of right buttock: (3) Stage II pressure ulcer of left buttock: (4) History of hypertension: (5) Type II diabetes mellitus: PLAN: Plan Fall/contusion of right foot PT noted with the patient for strengthening and balance training. Case management consult. Reports constipation with a past history of oxycodone use. Received tramadol at emergency department. Tramadol ordered. Bowel regimen as needed and antiemetics as needed ordered. Tae wrap to contusions site ordered emergency department and continued. Stage II pressure ulcers on right buttocks and left buttocks. Dressing ordered. Diabetes mellitus Patient with hyperglycemia on presentation Glipizide continue Monitor Accu-Cheks Correction scale insulin ordered. Hypertension Blood pressure is not within goal Metoprolol; Lasix and amlodipine continued. As needed hydralazine ordered. Trend blood pressure and adjust blood pressure medications. CKD stage IIIb Creatinine presentation was 1.91. Review of community records show that his creatinine on 10/19/2021 was 1.77; 07/14/2021 creatinine was 1.33; and on 03/31/2021 creatinine was 1.71. Stable. Trend BMP. 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 INR 2.1. Hold Coumadin secondary to hematoma. Trend INR. Charges/Coding Visit Charges OBSV E&M: 58257 Initial observation care L3
[2021-12-08 23:35] VITALS: BP 163/71; PULSE 66; RESP 17; TEMP 36.6; O2SAT 98
[2021-12-09] VITALS (10 sets, daily range): BP systolic 101–163; BP diastolic 52–73; PULSE 62–73; RESP 16–18; TEMP 36.6–36.9; O2SAT 95–100; BMI 29.0
[2021-12-09 02:21] LABS: Bedside Glucose 201 mg/dL (74-106)
[2021-12-09] MEDS: cycloBENZAPRine HCl 10 MG Tablet PO (02:23)
[2021-12-09] MEDS: Metoprolol Tartrate 50 MG Tablet PO ×3 (02:23→21:55)
[2021-12-09] MEDS: Acetaminophen 325 MG Tablet 650 MG PO ×2 (02:24→14:03)
[2021-12-09] MEDS: Menthol/Lanolin/Calamine/Znox 113 GM Tube 1 APPLIC TOPICAL ×3 (02:26→21:56)
[2021-12-09] MEDS: Insulin Lispro 100 UNIT/ML INSULN.PEN SC ×4 (06:39→21:56)
[2021-12-09 06:40] LABS: Absolute Neutrophil Count 4.7 X10^3/uL (2.0-7.7); Basophil# 0.07 X10^3/uL; Eosinophil# 0.32 X10^3/uL; Eosinophils% 4.4 % (0-5); Hematocrit 27.9 % (40-54); Hemoglobin 9.6 g/dL (13.0-16.5); Lymphocyte % 20.6 % (19-41); Mean Corp Hgb Conc 34.4 g/dL (32-36); Mean Corpuscular Hgb 29.9 pg (27.0-32.0); Mean Corpuscular Volume 86.9 fL (80-94); Mean Platelet Vol. 9.1 fl (6.2-12.0); Monocyte# 0.65 X10^3/uL; Monocyte% 8.9 % (0-10); NRBC Flagged by Analyzer 0 % (0-5); Neutrophil % 64.7 % (47-70); Platelet Count 156 K/mm3 (150-450); RBC Distribution Width CV 13.2 % (11.6-14.6); RBC Distribution Width SD 41.6 fl (35.1-43.9); Red Blood Count 3.21 M/mm3 (4.6-6.2); White Blood Count 7.3 K/mm3 (4.4-11.0)
[2021-12-09] MEDS: traMADol 50 MG Tablet PO ×2 (06:40→14:04)
[2021-12-09 06:58] LABS: International Normalized Ratio 2.1
[2021-12-09 07:05] LABS: Bedside Glucose 266 mg/dL (74-106)
[2021-12-09 07:11] LABS: Anion Gap 6 (5-15); BUN 37 mg/dL (7-18); BUN/Creat Ratio 21.6 RATIO (10-20); Calcium,Total 8.5 mg/dL (8.5-10.1); Chloride 101 mmol/L (98-107); Creatinine, Serum 1.71 mg/dL (0.70-1.30); EST Glomerular Filtration Rate 41 mL/min (>60); Est Glom Filt Rate - Afr Amer 50 mL/min (>60); Estimated Creatinine Clearance 34.44 ml/min; Glucose 260 mg/dL (74-106); Potassium 4.6 mmol/L (3.5-5.1); Sodium Level 132 mmol/L (136-145)
[2021-12-09] MEDS: glipiZIDE 5 MG Tablet 10 MG PO ×2 (08:14→16:12)
--- NOTE | 2021-12-09 09:43 | PCM.PN.HOSP ---
Subjective Subjective Doing well, still having some right leg pain. Yesterday he did try to ambulate with crutches at home secondary to his left BKA however he said it was too much pain. Objective Data Objective Data Vital Signs: Vital Signs Temp Pulse Resp BP Pulse Ox O2 Del Method 98.1 F 73 16 104/65 95 Room Air 12/09/21 06:46 12/09/21 06:46 12/09/21 06:46 12/09/21 06:46 12/09/21 07:39 12/09/21 07:39 Oxygen Delivery Method Room Air Weight: 191 lb 12.835 oz Body Mass Index (BMI) 29.0 Intake & Output: Intake and Output for Last 24 Hours 12/08/21 12/09/21 12/10/21 03:59 03:59 03:59 Output Total 225 / 225 300 / 300 Balance -225 / -225 -300 / -300 Lab / Micro Data Result Diagrams: 12/09/21 06:29 12/09/21 06:29 Labs: Laboratory Results - last 24 hr 12/08/21 20:49: WBC 7.4, RBC 4.11 L, Hgb 12.3 L, Hct 36.1 L, MCV 87.8, MCH 29.9, MCHC 34.1, RDW Std Deviation 42.3, RDW Coeff of Katelyn 13.2, Plt Count 182, MPV 9.7, Immature Gran % (Auto) 0.400, Neut % (Auto) 57.0, Lymph % (Auto) 25.7, [place] % (Auto) 8.5, Eos % (Auto) 7.6 H, Baso % (Auto) 0.8, Absolute Neuts (auto) 4.2, Absolute Lymphs (auto) 1.90, Nucleated RBC % 0 12/08/21 20:49: PT 22.9 H, INR 2.1 12/08/21 20:49: Sodium 134 L, Potassium 4.9, Chloride 101, Carbon Dioxide 26.0, Anion Gap 7, BUN 37 H, Creatinine 1.91 H, Estim Creat Clear Calc 30.84, Est GFR (MDRD) Af Amer 44 L, Est GFR (MDRD) Non-Af 36 L, BUN/Creatinine Ratio 19.4, Glucose 216 H, Calcium 9.3 12/09/21 01:29: POC Glucose 201 H 12/09/21 06:29: WBC 7.3, RBC 3.21 L, Hgb 9.6 L, Hct 27.9 L, MCV 86.9, MCH 29.9, MCHC 34.4, RDW Std Deviation 41.6, RDW Coeff of Katelyn 13.2, Plt Count 156, MPV 9.1, Immature Gran % (Auto) 0.400, Neut % (Auto) 64.7, Lymph % (Auto) 20.6, [place] % (Auto) 8.9, Eos % (Auto) 4.4, Baso % (Auto) 1.0, Absolute Neuts (auto) 4.7, Absolute Lymphs (auto) 1.50, Nucleated RBC % 0 12/09/21 06:29: Sodium 132 L, Potassium 4.6, Chloride 101, Carbon Dioxide 25.0, Anion Gap 6, BUN 37 H, Creatinine 1.71 H, Estim Creat Clear Calc 34.44, Est GFR (MDRD) Af Amer 50 L, Est GFR (MDRD) Non-Af 41 L, BUN/Creatinine Ratio 21.6 H, Glucose 260 H, Calcium 8.5 12/09/21 06:29: PT 23.0 H, INR 2.1 12/09/21 06:36: POC Glucose 266 H Radiography Diagnostic Testing: Radiology Impression Foot X-Ray 12/08/21 21:00 IMPRESSION: 1. Moderate degenerative changes involving the first MTP with hallux valgus deformity and periarticular erosions. 2. No other evidence of fracture dislocation or malalignment. No destructive bony process. Electronically Signed: Cedric Terry MD at 22:22 EDT Reading Location ID and State: [facility] Tel , Service support , Sacrum and Coccyx X-Ray 12/08/21 21:00 IMPRESSION: Unremarkable sacro-coccygeal spine. Electronically Signed: Cedric Terry MD at 22:22 EDT , Tibia/Fibula X-Ray 12/08/21 21:00 IMPRESSION: Soft tissue swelling along the velez region. No acute fracture. Electronically Signed: Sha Guevara MD at 21:29 EDT , Physical Exam Const alert, oriented x3 and no apparent distress General Appearance: cooperative HEENT normocephalic and moist oral mucous membranes Eyes PERRL, EOMs intact bilaterally and conjunctivae normal Neck supple and no JVD Resp normal respiratory effort, no retractions, no use of accessory muscles and clear to auscultation bilaterally Auscultation: Negative for crackles, rales, rhonchi or wheezes Cardio regular rate, regular rhythm, S1 normal heart sound, S2 normal heart sound and no murmurs GI soft to palpation, non-tender and non-distended; Negative for hepatosplenomegaly Extremity no clubbing, cyanosis or edema Extremity Narrative: Left extremity BKA, right extremity is wrapped Skin no rashes or lesions noted Neuro no focal motor deficits and no sensory deficits noted Psych affect normal Appearance: appropriate Assessment & Plan Assessment/Plan (1) Fall: (2) Stage II pressure ulcer of right buttock: (3) Stage II pressure ulcer of left buttock: (4) History of hypertension: (5) Type II diabetes mellitus: PLAN: Plan 1. Fall with contusion of his right foot ? PT/OT for evaluation and placement ? We will consult wound care for the right hematoma as well as a stage II pressure ulcers on his right and left buttocks ? Case management consult for discharge planning 2. DM2/CKD 3a ? Hold his home medications ? Continue sliding insulin ? Accu-Cheks ? We will make adjustments as necessary ? Renal function is improving and returning to baseline 3. HTN ? Blood pressure stable ? Continue with his home medications 4. History of DVT ? Currently on Coumadin ? We will hold secondary to his hematoma ? INR is 2.1 today DVT: Therapeutic INR Charges/Coding Visit Charges OBSV E&M: 17408 Observation care discharge
[2021-12-09] MEDS: amLODIPine 5 MG Tablet PO (09:58)
[2021-12-09] MEDS: Furosemide 40 MG Tablet PO ×2 (09:58→18:08)
[2021-12-09] MEDS: Nystatin Powder 15gm Bottle 1 APPLIC TOPICAL ×2 (11:40→21:56)
[2021-12-09 12:05] LABS: Bedside Glucose 245 mg/dL (74-106)
--- NOTE | 2021-12-09 12:20 | CASEMGMT ---
JOURDAN GUERRA Face to Face with patient for initial transition planning/care coordination assessment. JOURDAN GUERRA introduced self and role at [facility]. Patient sitting in chair, alert and oriented. Patient willing to participate in assessment and is able to answer all questions appropriately. Care providers, pharmacy, and demographics verified. Patient unsure of disposition at discharge. JOURDAN GUERRA spoke with therapy and state patient would benefit from rehab or SNF. JOURDAN GUERRA updated patient and he states he is unable to make that decision at this time. Patient was provided a list of SNF providers including quality and resource use data and consistent with the patient?s preferred geographic region, medical needs, and insurance network. Patient states he has no further needs or concerns at this time. JOURDAN GUERRA updated SW and requested follow-up with patient. CM to follow for discharge planning needs that may arise. PCP: Rosa Specialists: none Preferred Pharmacy: [facility] Insurance: [employer] [facility] Prescription Benefit: yes Living Will/HPOA: none LNOK: no family, has neighbors as emergency contact Living Arrangements: Patient lives alone in a single story home with 2 steps to enter the home. Patient states he was independent at home prior to fall. Transportation: self, neighbor DME/HHC: Patient states he has shower chair, raised toilet, crutches, hospital bed, lift chair at home. Patient states he has had [facility] HHC in the past. Disposition Plan: TBD by course of treatment and progress with therapy. HHC vs SNF. Elizabeth REAVES, RN, CM
--- NOTE | 2021-12-09 15:22 | CASEMGMT ---
JOURDAN GUERRA in to discuss KEVIN form with patient. RN MARI explained KEVIN form to patient, patient voiced understanding. Patient signed KEVIN form and filed in chart. Patient provided copy of signed KEVIN form to patient. Patient had no further questions or concerns at this time.
--- NOTE | 2021-12-09 15:47 | CM.ED ---
NESHA Note Referral Source: RN MARI Referral Reason: SNF placement SW met with patient. Patient had been provided with SNF list with approved insurance providers by JOURDAN GUERRA. SW discussed SNF placement for patient and patient agreed to referral to TCU as first choice and SW as second choice. NESHA sent email to [facility] advising of patient's desire to go to TCU. Plan: TCU Zainab LICEA
[2021-12-09 16:35] LABS: Bedside Glucose 212 mg/dL (74-106)
[2021-12-09 22:20] LABS: Bedside Glucose 169 mg/dL (74-106)
[2021-12-10] VITALS (7 sets, daily range): BP systolic 107–121; BP diastolic 59–69; PULSE 59–66; RESP 16–18; TEMP 36.8–37.2; O2SAT 92–100
[2021-12-10] MEDS: glipiZIDE 5 MG Tablet 10 MG PO ×2 (06:50→16:25)
[2021-12-10 06:59] LABS: Absolute Lymphocyte Count 2.04 X10^3/uL (0.83-4.51); Absolute Neutrophil Count 3.9 X10^3/uL (2.0-7.7); Basophil# 0.05 X10^3/uL; Basophil% 0.7 % (0-1); Eosinophil# 0.59 X10^3/uL; Eosinophils% 8.1 % (0-5); Hematocrit 27.1 % (40-54); Hemoglobin 9.3 g/dL (13.0-16.5); Lymphocyte # 2.04 X10^3/ul (0.83-4.51); Lymphocyte % 27.9 % (19-41); Mean Corp Hgb Conc 34.3 g/dL (32-36); Mean Corpuscular Hgb 30.1 pg (27.0-32.0); Mean Corpuscular Volume 87.7 fL (80-94); Mean Platelet Vol. 9.5 fl (6.2-12.0); Monocyte# 0.65 X10^3/uL; Monocyte% 8.9 % (0-10); NRBC Flagged by Analyzer 0 % (0-5); Neutrophil # 3.94 X10^3/uL (2.7-7.7); Platelet Count 167 K/mm3 (150-450); RBC Distribution Width CV 13.2 % (11.6-14.6); RBC Distribution Width SD 41.9 fl (35.1-43.9); Red Blood Count 3.09 M/mm3 (4.6-6.2); White Blood Count 7.3 K/mm3 (4.4-11.0)
[2021-12-10 07:11] LABS: International Normalized Ratio 1.6; Prothrombin Time (Protime)PT. 18.4 SECONDS (11.7-14.9)
[2021-12-10 07:17] LABS: Anion Gap 7 (5-15); BUN 41 mg/dL (7-18); BUN/Creat Ratio 21.8 RATIO (10-20); Calcium,Total 8.5 mg/dL (8.5-10.1); Chloride 102 mmol/L (98-107); Creatinine, Serum 1.88 mg/dL (0.70-1.30); EST Glomerular Filtration Rate 37 mL/min (>60); Est Glom Filt Rate - Afr Amer 45 mL/min (>60); Estimated Creatinine Clearance 31.33 ml/min; Glucose 140 mg/dL (74-106); Potassium 4.4 mmol/L (3.5-5.1); Sodium Level 135 mmol/L (136-145)
[2021-12-10 07:26] LABS: Bedside Glucose 149 mg/dL (74-106)
[2021-12-10] MEDS: Acetaminophen 325 MG Tablet 650 MG PO (07:52)
[2021-12-10] MEDS: traMADol 50 MG Tablet PO (07:52)
[2021-12-10] MEDS: Furosemide 40 MG Tablet PO (10:31)
[2021-12-10] MEDS: Nystatin Powder 15gm Bottle 1 APPLIC TOPICAL ×2 (10:31→23:14)
[2021-12-10] MEDS: amLODIPine 5 MG Tablet PO (10:31)
[2021-12-10] MEDS: Menthol/Lanolin/Calamine/Znox 113 GM Tube 1 APPLIC TOPICAL ×2 (10:31→23:13)
[2021-12-10] MEDS: Metoprolol Tartrate 50 MG Tablet PO ×2 (10:31→23:14)
[2021-12-10] MEDS: Insulin Lispro 100 UNIT/ML INSULN.PEN SC ×3 (11:23→23:12)
[2021-12-10 11:50] LABS: Bedside Glucose 335 mg/dL (74-106)
--- NOTE | 2021-12-10 12:44 | PN.HOSP_ITS ---
Subjective Subjective No issues overnight, doing well. Pain is improving in his right lower extremity. Objective Data Objective Data Vital Signs: Vital Signs Temp Pulse Resp BP Pulse Ox O2 Del Method 98.3 F 63 16 107/68 100 Room Air 12/10/21 07:48 12/10/21 10:31 12/10/21 07:48 12/10/21 07:48 12/10/21 07:48 12/10/21 07:48 Oxygen Delivery Method Room Air Weight: 191 lb 12.835 oz Body Mass Index (BMI) 29.0 Intake & Output: Intake and Output for Last 24 Hours 12/09/21 12/10/21 12/11/21 03:59 03:59 03:59 Intake Total 1240 / 1240 1100 / 1100 Output Total 225 / 225 1250 / 1250 1475 / 1475 Balance -225 / -225 -10 / -10 -375 / -375 Lab / Micro Data Result Diagrams: 12/10/21 06:27 12/10/21 06:27 Labs: Laboratory Results - last 24 hr 12/09/21 16:11: POC Glucose 212 H 12/09/21 21:55: POC Glucose 169 H 12/10/21 06:27: PT 18.4 H, INR 1.6 12/10/21 06:27: WBC 7.3, RBC 3.09 L, Hgb 9.3 L, Hct 27.1 L, MCV 87.7, MCH 30.1, MCHC 34.3, RDW Std Deviation 41.9, RDW Coeff of Katelyn 13.2, Plt Count 167, MPV 9.5, Immature Gran % (Auto) 0.400, Neut % (Auto) 54.0, Lymph % (Auto) 27.9, [place] % (Auto) 8.9, Eos % (Auto) 8.1 H, Baso % (Auto) 0.7, Absolute Neuts (auto) 3.9, Absolute Lymphs (auto) 2.04, Nucleated RBC % 0 12/10/21 06:27: Sodium 135 L, Potassium 4.4, Chloride 102, Carbon Dioxide 26.0, Anion Gap 7, BUN 41 H, Creatinine 1.88 H, Estim Creat Clear Calc 31.33, Est GFR (MDRD) Af Amer 45 L, Est GFR (MDRD) Non-Af 37 L, BUN/Creatinine Ratio 21.8 H, Glucose 140 H, Calcium 8.5 12/10/21 06:48: POC Glucose 149 H 12/10/21 11:22: POC Glucose 335 H Physical Exam Narrative Const alert, oriented x3 and no apparent distress General Appearance: cooperative HEENT normocephalic and moist oral mucous membranes Eyes PERRL, EOMs intact bilaterally and conjunctivae normal Neck supple and no JVD Resp normal respiratory effort, no retractions, no use of accessory muscles and clear to auscultation bilaterally Auscultation: Negative for crackles, rales, rhonchi or wheezes Cardio regular rate, regular rhythm, S1 normal heart sound, S2 normal heart sound and no murmurs GI soft to palpation, non-tender and non-distended; Negative for hepatosplenomegaly Extremity no clubbing, cyanosis or edema Extremity Narrative: Left extremity BKA, right extremity is wrapped Skin no rashes or lesions noted Neuro no focal motor deficits and no sensory deficits noted Psych affect normal Appearance: appropriate Assessment & Plan Assessment/Plan (1) Fall: (2) Stage II pressure ulcer of right buttock: (3) Stage II pressure ulcer of left buttock: (4) History of hypertension: (5) Type II diabetes mellitus: PLAN: Plan 1. Fall with contusion of his right foot ? PT/OT for evaluation and placement ? We will consult wound care for the right hematoma as well as a stage II pressure ulcers on his right and left buttocks ? Case management consult for discharge planning 2. DM2/CKD 3a ? Hold his home medications ? Continue sliding insulin ? Accu-Cheks ? We will make adjustments as necessary ? Renal function is fluctuating so we will hold his Lasix 3. HTN ? Blood pressure stable ? Continue with his home medications 4. History of DVT ? Currently on Coumadin ? We will hold secondary to his hematoma ? INR is 1.6 today DVT: No DVT prophylaxis secondary to a left BKA and a large hematoma on his right lower extremity. Attempting to get the hematoma to stop bleeding so we will hold his Coumadin for another 24 hours and can restart in the morning Charges/Coding Visit Charges OBSV E&M: 69674 Subsequent observation care L2
[2021-12-10 16:56] LABS: Bedside Glucose 225 mg/dL (74-106)
[2021-12-10 23:36] LABS: Bedside Glucose 191 mg/dL (74-106)
[2021-12-11] MEDS: traMADol 50 MG Tablet PO ×3 (01:14→23:00)
[2021-12-11 03:14] VITALS: BP 115/67; PULSE 60; RESP 18; TEMP 36.8; O2SAT 94
[2021-12-11 05:39] LABS: Absolute Neutrophil Count 4.8 X10^3/uL (2.0-7.7); Basophil# 0.06 X10^3/uL; Basophil% 0.8 % (0-1); Eosinophil# 0.53 X10^3/uL; Eosinophils% 6.7 % (0-5); Hematocrit 27.2 % (40-54); Hemoglobin 9.2 g/dL (13.0-16.5); Lymphocyte % 21.5 % (19-41); Mean Corp Hgb Conc 33.8 g/dL (32-36); Mean Corpuscular Hgb 30.1 pg (27.0-32.0); Mean Corpuscular Volume 88.9 fL (80-94); Monocyte# 0.73 X10^3/uL; Monocyte% 9.3 % (0-10); NRBC Flagged by Analyzer 0 % (0-5); Neutrophil # 4.83 X10^3/uL (2.7-7.7); Neutrophil % 61.2 % (47-70); Platelet Count 170 K/mm3 (150-450); RBC Distribution Width CV 13.2 % (11.6-14.6); RBC Distribution Width SD 43.2 fl (35.1-43.9); Red Blood Count 3.06 M/mm3 (4.6-6.2); White Blood Count 7.9 K/mm3 (4.4-11.0)
[2021-12-11 06:03] LABS: International Normalized Ratio 1.2; Prothrombin Time (Protime)PT. 14.8 SECONDS (11.7-14.9)
[2021-12-11 06:09] LABS: Anion Gap 7 (5-15); BUN 45 mg/dL (7-18); BUN/Creat Ratio 26.8 RATIO (10-20); Calcium,Total 8.6 mg/dL (8.5-10.1); Chloride 101 mmol/L (98-107); Creatinine, Serum 1.68 mg/dL (0.70-1.30); EST Glomerular Filtration Rate 42 mL/min (>60); Est Glom Filt Rate - Afr Amer 51 mL/min (>60); Estimated Creatinine Clearance 35.06 ml/min; Glucose 176 mg/dL (74-106); Potassium 4.7 mmol/L (3.5-5.1); Sodium Level 134 mmol/L (136-145)
[2021-12-11] MEDS: Insulin Lispro 100 UNIT/ML INSULN.PEN SC ×4 (06:30→23:12)
[2021-12-11] MEDS: glipiZIDE 5 MG Tablet 10 MG PO ×2 (06:30→16:42)
[2021-12-11 07:00] LABS: Bedside Glucose 175 mg/dL (74-106)
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
[2021-12-11 09:15] VITALS: BP 120/66; PULSE 63; RESP 15; TEMP 36.9; O2SAT 97
[2021-12-11 10:11] VITALS: PULSE 63
[2021-12-11] MEDS: Nystatin Powder 15gm Bottle 1 APPLIC TOPICAL ×2 (10:11→23:12)
[2021-12-11] MEDS: Menthol/Lanolin/Calamine/Znox 113 GM Tube 1 APPLIC TOPICAL ×2 (10:11→23:11)
[2021-12-11] MEDS: Metoprolol Tartrate 50 MG Tablet PO ×2 (10:11→23:13)
[2021-12-11] MEDS: amLODIPine 5 MG Tablet PO (10:11)
--- NOTE | 2021-12-11 10:14 | CASEMGMT ---
Social Work SW saw pt over the weekend and referral had been made to TCU. SW spoke with [facility] in [facility]CU and they are unable to accept pt today. Pt second choice was [facility]. Call to Taylor at [facility] and they do have beds available. Referral faxed and return call from [facility] and they are able to accept. Precert to be started at this time. Pt updated and agreeable to d/c plan. Plan: [facility], pending precert MICKEY Henderson
[2021-12-11 10:59] VITALS: O2SAT 97
[2021-12-11 11:41] LABS: Bedside Glucose 285 mg/dL (74-106)
--- NOTE | 2021-12-11 13:42 | WOUNDNOTE ---
skin photo: right lower leg(anterior view)
--- NOTE | 2021-12-11 13:42 | WOUNDNOTE ---
skin photo: right lower leg(lateral view)
--- NOTE | 2021-12-11 13:43 | WOUNDNOTE ---
wound photo: bilateral buttocks
[2021-12-11 16:00] VITALS: BP 134/72; PULSE 66; RESP 16; TEMP 37.2; O2SAT 100
[2021-12-11 17:45] LABS: Bedside Glucose 236 mg/dL (74-106)
[2021-12-11 22:45] LABS: Bedside Glucose 201 mg/dL (74-106)
[2021-12-11] MEDS: cycloBENZAPRine HCl 10 MG Tablet PO (23:01)
[2021-12-11 23:13] VITALS: BP 136/68; PULSE 68
[2021-12-12] VITALS (7 sets, daily range): BP systolic 120–139; BP diastolic 65–75; PULSE 61–68; RESP 16–18; TEMP 36.4–37.3; O2SAT 96–98
[2021-12-12 04:39] LABS: Absolute Lymphocyte Count 1.69 X10^3/uL (0.83-4.51); Absolute Neutrophil Count 5.1 X10^3/uL (2.0-7.7); Basophil# 0.06 X10^3/uL; Basophil% 0.7 % (0-1); Eosinophil# 0.42 X10^3/uL; Eosinophils% 5.1 % (0-5); Hematocrit 25.5 % (40-54); Hemoglobin 8.8 g/dL (13.0-16.5); Lymphocyte # 1.69 X10^3/ul (0.83-4.51); Lymphocyte % 20.7 % (19-41); Mean Corp Hgb Conc 34.5 g/dL (32-36); Mean Corpuscular Hgb 30.4 pg (27.0-32.0); Mean Corpuscular Volume 88.2 fL (80-94); Mean Platelet Vol. 9.1 fl (6.2-12.0); NRBC Flagged by Analyzer 0 % (0-5); Neutrophil # 5.05 X10^3/uL (2.7-7.7); Platelet Count 175 K/mm3 (150-450); RBC Distribution Width CV 13.2 % (11.6-14.6); RBC Distribution Width SD 42.5 fl (35.1-43.9); Red Blood Count 2.89 M/mm3 (4.6-6.2); White Blood Count 8.2 K/mm3 (4.4-11.0)
[2021-12-12 04:53] LABS: International Normalized Ratio 1.2; Prothrombin Time (Protime)PT. 14.7 SECONDS (11.7-14.9)
[2021-12-12 05:15] LABS: Anion Gap 8 (5-15); BUN 46 mg/dL (7-18); BUN/Creat Ratio 26.4 RATIO (10-20); Calcium,Total 8.3 mg/dL (8.5-10.1); Chloride 99 mmol/L (98-107); Creatinine, Serum 1.74 mg/dL (0.70-1.30); EST Glomerular Filtration Rate 41 mL/min (>60); Est Glom Filt Rate - Afr Amer 49 mL/min (>60); Estimated Creatinine Clearance 33.85 ml/min; Glucose 151 mg/dL (74-106); Magnesium 2.1 mg/dL (1.6-2.6); Potassium 4.6 mmol/L (3.5-5.1); Sodium Level 132 mmol/L (136-145)
[2021-12-12] MEDS: Insulin Lispro 100 UNIT/ML INSULN.PEN SC ×4 (06:29→21:16)
[2021-12-12] MEDS: glipiZIDE 5 MG Tablet 10 MG PO ×2 (06:29→16:34)
[2021-12-12 06:56] LABS: Bedside Glucose 166 mg/dL (74-106)
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
[2021-12-12] MEDS: Metoprolol Tartrate 50 MG Tablet PO ×2 (09:09→21:14)
[2021-12-12] MEDS: amLODIPine 5 MG Tablet PO (09:09)
[2021-12-12] MEDS: Menthol/Lanolin/Calamine/Znox 113 GM Tube 1 APPLIC TOPICAL ×2 (09:10→19:52)
[2021-12-12] MEDS: Nystatin Powder 15gm Bottle 1 APPLIC TOPICAL ×2 (09:10→19:52)
--- NOTE | 2021-12-12 11:14 | CASEMGMT ---
Addendum entered by Lucille Silvestre 12/12/21 14:25: Taylor just reached out. Insurance is requesting patients PLOF. PLOF was sent to Taylor at [facility]. Lucille Silvestre Discharge Security Checker Original Note: Discharge Security Checker Lucille D/c Network Systems Integrator called Taylor at [facility]. Taylor got an update on 12/12/2021 and 1916 that insurance is reviewing. Will follow up. Lucille Silvestre Discharge Security Checker
[2021-12-12 11:40] LABS: Bedside Glucose 304 mg/dL (74-106)
--- NOTE | 2021-12-12 16:53 | CASEMGMT ---
Discharge It Systems Administrator Taylor reached out from [facility]. Insurance has denied patient. There is an opportunity to do a peer to peer review. Taylor was not sure of the time frame. Taylor was going to call insurance and ask and get back to me. Lucille Silvestre Discharge It Systems Administrator
[2021-12-12 17:06] LABS: Bedside Glucose 281 mg/dL (74-106)
[2021-12-12] MEDS: 0.9% Saline Lock 10 ML Syringe IV (19:51)
[2021-12-12] MEDS: cycloBENZAPRine HCl 10 MG Tablet PO (21:14)
[2021-12-12 22:06] LABS: Bedside Glucose 290 mg/dL (74-106)
[2021-12-13] VITALS (7 sets, daily range): BP systolic 120–145; BP diastolic 59–76; PULSE 61–86; RESP 14–18; TEMP 36.6–37.1; O2SAT 94–98
[2021-12-13 05:23] LABS: Absolute Lymphocyte Count 1.65 X10^3/uL (0.83-4.51); Absolute Neutrophil Count 4.2 X10^3/uL (2.0-7.7); Basophil# 0.05 X10^3/uL; Basophil% 0.7 % (0-1); Eosinophil# 0.39 X10^3/uL; Eosinophils% 5.5 % (0-5); Hematocrit 26.3 % (40-54); Hemoglobin 8.8 g/dL (13.0-16.5); Lymphocyte # 1.65 X10^3/ul (0.83-4.51); Lymphocyte % 23.2 % (19-41); Mean Corp Hgb Conc 33.5 g/dL (32-36); Mean Corpuscular Hgb 29.9 pg (27.0-32.0); Mean Corpuscular Volume 89.5 fL (80-94); Mean Platelet Vol. 9.4 fl (6.2-12.0); Monocyte% 11.3 % (0-10); NRBC Flagged by Analyzer 0 % (0-5); Neutrophil # 4.19 X10^3/uL (2.7-7.7); Neutrophil % 58.9 % (47-70); Platelet Count 189 K/mm3 (150-450); RBC Distribution Width CV 13.2 % (11.6-14.6); RBC Distribution Width SD 43.2 fl (35.1-43.9); Red Blood Count 2.94 M/mm3 (4.6-6.2); White Blood Count 7.1 K/mm3 (4.4-11.0)
[2021-12-13 05:54] LABS: Anion Gap 4 (5-15); BUN 42 mg/dL (7-18); BUN/Creat Ratio 27.1 RATIO (10-20); Calcium,Total 8.7 mg/dL (8.5-10.1); Chloride 102 mmol/L (98-107); Creatinine, Serum 1.55 mg/dL (0.70-1.30); EST Glomerular Filtration Rate 46 mL/min (>60); Est Glom Filt Rate - Afr Amer 56 mL/min (>60); Glucose 179 mg/dL (74-106); Potassium 4.8 mmol/L (3.5-5.1); Sodium Level 132 mmol/L (136-145)
[2021-12-13] MEDS: Insulin Lispro 100 UNIT/ML INSULN.PEN SC ×4 (06:24→21:32)
[2021-12-13] MEDS: glipiZIDE 5 MG Tablet 10 MG PO ×2 (06:24→17:02)
[2021-12-13 06:45] LABS: Bedside Glucose 180 mg/dL (74-106)
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
[2021-12-13] MEDS: Acetaminophen 325 MG Tablet 650 MG PO ×2 (08:01→17:03)
[2021-12-13] MEDS: Metoprolol Tartrate 50 MG Tablet PO ×2 (08:04→21:31)
[2021-12-13] MEDS: Nystatin Powder 15gm Bottle 1 APPLIC TOPICAL ×2 (08:04→21:30)
[2021-12-13] MEDS: amLODIPine 5 MG Tablet PO (08:04)
[2021-12-13] MEDS: Menthol/Lanolin/Calamine/Znox 113 GM Tube 1 APPLIC TOPICAL ×2 (08:04→21:29)
--- NOTE | 2021-12-13 09:30 | CASEMGMT ---
Addendum entered by Aliyah Benoit 12/13/21 13:26: Third phone call to [facility] for peer to peer at 12:30 and left VM with Augustina Goodwin. Return call at this time and she states appeal process must be started and SW to call appeal at [phone]. SW placed call to Coreen in appeals and SW explained physician would like to complete a peer to peer. Coreen states that an expedited appeal must be started first and SW requested this be started. Coreen states someone will call this SW back today with more information on setting up a peer to peer. Coreen states a decision can be made on the spot during peer to peer or it could take up to 72 hours for final decision. Coreen requesting updated clinicals be faxed to [phone]. Information faxed. SW will await return call regarding peer to peer. MICKEY Henderson Addendum entered by Aliyah Benoit 12/13/21 10:55: Second phone call to [facility] Peer to Peer. Again VM for Augustina Goodwin received and VM left. Phone call to [facility] provider services who confirmed SW is calling the correct number for the Peer to Peer. SW will await return call. MICKEY Henderson Original Note: Social Work SW notified that SNF request has been denied by insurance. Peer to Peer can be completed by noon today. NESHA met with pt and explained that insurance has denied SNF placement. NESHA spoke with pt regarding alternate discharge plans. Pt lives home alone and has no family. Pt states there is no one he can stay with or who can stay with him. SW talked about home with home home health vs private pay at SNF. SW also explained that SW will inform physician of peer to peer option and requested pt consider options and what he would like to do if pt does not win appeal through Peer to Peer. SW spoke with physician and informed of insurance decision. Physician agreeable to complete peer to peer. SW placed call to Peer to Peer number provided on Notice of Non Coverage form [phone]. Detailed VM left for Augustina Christa with request to call this SW back to discuss proceedures for peer to peer. MICKEY Henderson
[2021-12-13 11:45] LABS: Bedside Glucose 327 mg/dL (74-106)
[2021-12-13 17:25] LABS: Bedside Glucose 245 mg/dL (74-106)
[2021-12-13 23:05] LABS: Bedside Glucose 321 mg/dL (74-106)
[2021-12-14 02:10] VITALS: BP 131/63; PULSE 64; RESP 14; TEMP 36.9; O2SAT 98
[2021-12-14] MEDS: traMADol 50 MG Tablet PO ×2 (03:40→15:04)
[2021-12-14 05:34] LABS: Absolute Lymphocyte Count 1.66 X10^3/uL (0.83-4.51); Absolute Neutrophil Count 3.6 X10^3/uL (2.0-7.7); Basophil# 0.05 X10^3/uL; Basophil% 0.8 % (0-1); Eosinophils% 7.7 % (0-5); Hematocrit 26.2 % (40-54); Hemoglobin 8.9 g/dL (13.0-16.5); Lymphocyte # 1.66 X10^3/ul (0.83-4.51); Lymphocyte % 25.5 % (19-41); Mean Corpuscular Hgb 30.3 pg (27.0-32.0); Mean Corpuscular Volume 89.1 fL (80-94); Mean Platelet Vol. 9.2 fl (6.2-12.0); Monocyte# 0.66 X10^3/uL; Monocyte% 10.1 % (0-10); NRBC Flagged by Analyzer 0 % (0-5); Neutrophil # 3.61 X10^3/uL (2.7-7.7); Neutrophil % 55.4 % (47-70); Platelet Count 208 K/mm3 (150-450); RBC Distribution Width CV 13.2 % (11.6-14.6); RBC Distribution Width SD 42.9 fl (35.1-43.9); Red Blood Count 2.94 M/mm3 (4.6-6.2); White Blood Count 6.5 K/mm3 (4.4-11.0)
[2021-12-14] MEDS: glipiZIDE 5 MG Tablet 10 MG PO (06:04)
[2021-12-14] MEDS: Insulin Lispro 100 UNIT/ML INSULN.PEN SC ×2 (06:04→11:33)
[2021-12-14 06:11] LABS: Anion Gap 5 (5-15); BUN 45 mg/dL (7-18); BUN/Creat Ratio 30.6 RATIO (10-20); Calcium,Total 8.8 mg/dL (8.5-10.1); Chloride 106 mmol/L (98-107); Creatinine, Serum 1.47 mg/dL (0.70-1.30); EST Glomerular Filtration Rate 49 mL/min (>60); Est Glom Filt Rate - Afr Amer 60 mL/min (>60); Estimated Creatinine Clearance 40.07 ml/min; Glucose 174 mg/dL (74-106); Potassium 4.9 mmol/L (3.5-5.1); Sodium Level 134 mmol/L (136-145)
[2021-12-14 06:31] LABS: Bedside Glucose 182 mg/dL (74-106)
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
[2021-12-14 08:00] VITALS: BP 123/66; PULSE 65; RESP 16; TEMP 36.9; O2SAT 100
[2021-12-14 08:56] LABS: Prothrombin Time (Protime)PT. 13.4 SECONDS (11.7-14.9)
--- NOTE | 2021-12-14 09:17 | WOUNDNOTE ---
wound photo: buttocks
--- NOTE | 2021-12-14 09:18 | WOUNDNOTE ---
skin photo: right lower leg
--- NOTE | 2021-12-14 09:18 | WOUNDNOTE ---
skin photo: right lower leg
[2021-12-14] MEDS: Menthol/Lanolin/Calamine/Znox 113 GM Tube 1 APPLIC TOPICAL (09:32)
[2021-12-14 09:33] VITALS: BP 123/66; PULSE 65
[2021-12-14] MEDS: Nystatin Powder 15gm Bottle 1 APPLIC TOPICAL (09:33)
[2021-12-14] MEDS: Metoprolol Tartrate 50 MG Tablet PO (09:33)
[2021-12-14] MEDS: amLODIPine 5 MG Tablet PO (09:33)
--- NOTE | 2021-12-14 10:10 | CASEMGMT ---
Addendum entered by Aliyah Benoit 12/14/21 13:28: Social Work SW received fax from [facility] Insurance stating denial to SNF has been overturned and approval has been given for admission. Physician notified and plans to discharge pt today. SW met with pt and informed of approval and pt is agreeable to d/c to [facility] today. Taylor at [facility] updated and agreeable as well. Plan: [facility], skilled level of care MICKEY Henderson Original Note: Social Work SW spoke with physician who states he completed peer to peer and more information is requested. SW faxed additional clinical information to Expedited appeals at [facility]. Phone call to Coreen in the [facility] Appeals office. Coreen says a determination on appeal has not been made yet and she will attach the updated clinicals for the physician to review. Taylor at [facility] updated. NESHA will await determination. MICKEY Henderson
[2021-12-14 11:55] LABS: Bedside Glucose 298 mg/dL (74-106)
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
[2021-12-14 14:00] VITALS: BP 124/57; PULSE 66; RESP 16; TEMP 37.3; O2SAT 99
--- NOTE | 2021-12-14 14:45 | CASEMGMT ---
Social Work SW completed PASSAR, gathered discharge orders and negative Covid-19 test results. These documents along with discharge orders faxed to Taylor at [facility]. [facility] set up through [facility] for 4pm. SW met with pt to update him on time transportation is scheduled. NESHA called [facility] to inform nurse on time of scheduled transportation so they are ready for pt arrival. [facility] bedside nurse notified. MICKEY Caba
--- NOTE | 2021-12-14 15:50 | NURSING ---
Report given to Meg at [facility]
[2021-12-14 15:53] VITALS: BP 124/57; PULSE 66; RESP 16; TEMP 37.3; O2SAT 99
--- NOTE | 2021-12-14 16:02 | CASEMGMT ---
This RN CM was notified by [facility] credit resolution representative on 12/13/21 of pt's request to appeal his discharge. Fax notification from [facility] with was also received. [facility] credit resolution representative was notified by this RN MARI of pt's admission status as observation. Letter stating this was requested. Letter with the corresponding fax was uploaded to [facility] on this date by [facility] credit resolution representative. Notification received this afternoon that pt does not have appeal rights while in observation status. Umer Carmona RN CM
== END 2021-12-14 16:15 | disposition skilled nursing facility (03) ==
LOC: ED 23:32 → MS3 12-09 00:12
PROVIDERS: Family Medicine; Admitting Provider Hospitalist; Emergency Provider Emergency Medicine; PCP Family Medicine; Visit Provider Internal Medicine
DX: S90.31XA Contusion of right foot, initial encounter (principal); L89.322 Pressure ulcer of left buttock, stage 2; L89.312 Pressure ulcer of right buttock, stage 2; L89.152 Pressure ulcer of sacral region, stage 2; Z89.612 Acquired absence of left leg above knee; E11.22 Type 2 diabetes mellitus with diabetic chronic kidney disease; E11.65 Type 2 diabetes mellitus with hyperglycemia; N18.31 Chronic kidney disease, stage 3a; W01.198A Fall on same level from slipping, tripping and stumbling with subsequent striking against other object, initial encounter; S80.11XA Contusion of right lower leg, initial encounter; D50.0 Iron deficiency anemia secondary to blood loss (chronic); I12.9 Hypertensive chronic kidney disease with stage 1 through stage 4 chronic kidney disease, or unspecified chronic kidney disease; D63.8 Anemia in other chronic diseases classified elsewhere; Z86.718 Personal history of other venous thrombosis and embolism; Y93.9 Activity, unspecified; Y99.9 Unspecified external cause status; Y92.512 Supermarket, store or market as the place of occurrence of the external cause; Z79.01 Long term (current) use of anticoagulants; Z79.899 Other long term (current) drug therapy; Z79.84 Long term (current) use of oral hypoglycemic drugs
CPT/HCPCS: 36415; 72220; 73590; 73630; 80048; 82962; 83735; 85025; 85610; 87426; 97116; 97162; 97166; 97530; 97535; 99218; 99285; A4216; G0378

== ENCOUNTER → 2022-01-18 | Outpatient (CLI) | payer MEDICARE, SELFPAY ==
[2022-01-18 13:41] LABS: International Normalized Ratio 2.6; Prothrombin Time (Protime)PT. 27.4 SECONDS (11.7-14.9)
== END | disposition home or self-care (01) ==
LOC: LABSPEC 12:59
PROVIDERS: PCP Family Medicine; Visit Provider Family Medicine
DX: I48.20 Chronic atrial fibrillation, unspecified (principal); Z86.718 Personal history of other venous thrombosis and embolism
CPT/HCPCS: 85610

== ENCOUNTER 2022-04-24 13:08 | Outpatient (CLI) | payer MEDICARE, SELFPAY ==
[2022-04-24 13:27] LABS: International Normalized Ratio 2.6; Prothrombin Time (Protime)PT. 27.9 SECONDS (11.7-14.9)
== END 2022-04-24 23:59 | disposition home or self-care (01) ==
LOC: LABSPEC 13:10
PROVIDERS: PCP Family Medicine; Visit Provider Family Medicine
DX: Z86.718 Personal history of other venous thrombosis and embolism (principal); I48.20 Chronic atrial fibrillation, unspecified
CPT/HCPCS: 85610

== ENCOUNTER 2022-09-20 10:00 | Outpatient (RCR) | payer MEDICARE, SELFPAY ==
[2022-09-06 10:36] VITALS: BP 170/70; PULSE 61; RESP 16; TEMP 36.3; BMI 29.0
--- NOTE | 2022-09-06 12:51 | HP.PCM_ITS ---
History of Present Illness Date of Service: 09/06/22 Chief Complaint: Recurrent buttock ulcers History of Wound: Mr. Retana is a 77 yo who presents to the wound center due to non healing right lower extremity ulcer. Had a fall in December 2021 following which she states that he had significant hematoma. This was managed in the hospital and following hospital stay he was at some facility for 2 weeks. Did better following this however in March, had worsening lower extremity edema and then reopening. Has been managing it at home since then without adequate improvement. Occasional drainage. He states that he tries to wear his compression but it keeps pulling down. He feels well otherwise. [facility] Medical History (Updated 09/06/22 @ 13:[address] Mundo Dye MD) Decubitus ulcer of left buttock, stage 3 Decubitus ulcer of right buttock, stage 3 Diabetes DVT (deep venous thrombosis) HTN (hypertension) Kidney disease Left above-knee amputee Open wound of right lower extremity Ulcer of right lower extremity with fat layer exposed Home Medications lisinopril 20 mg tablet (Zestril) 20 mg PO QHS 11/22/17 [History Last Taken Unknown] metoprolol tartrate 50 mg tablet 50 mg PO BID 11/22/17 [History Last Taken Unknown] furosemide 20 mg tablet 40 mg PO BID 01/29/19 [History Last Taken Unknown] lovastatin 40 mg tablet 40 mg PO QHS 01/29/19 [History Last Taken Unknown] metformin 1,000 mg tablet 1,000 mg PO DAILY 01/29/19 [History Last Taken Unknown] glipizide 10 mg tablet 10 mg PO BIDAC 06/11/19 [History Last Taken Unknown] nystatin 100,000 unit/gram topical cream 15 gm TP BID PRN PRN Rash/Topical Irritation 06/11/19 [History Last Taken Unknown] amlodipine 5 mg tablet 5 mg PO DAILY 01/12/21 [History Last Taken Unknown] cyclobenzaprine 10 mg tablet 10 mg PO TID PRN Muscle Pain 01/12/21 [History Last Taken Unknown] dapagliflozin 10 mg tablet (Farxiga) 1 tab PO DAILY 12/08/21 [History Last Taken Unknown] glucagon 1 mg/mL solution for injection (GlucaGen Diagnostic Kit) 1 mg IM X1 PRN Hypoglycemia #0 ea 12/14/21 [Rx Last Taken Unknown] warfarin 5 mg tablet (Jantoven) 5 mg PO DINNER #0 tabs 12/14/21 [Rx Last Taken Unknown] insulin glargine 100 unit/mL (3 mL) subcutaneous pen 10 unit subcut 09/06/22 [History Last Taken Unknown] metolazone 2.5 mg tablet mg 09/06/22 [History Last Taken Unknown] Allergy/AdvReac Type Severity Reaction Status Date / Time amoxicillin Allergy Rash Verified 09/06/22 12:07 Family History (Updated 12/09/21 @ 00:[address] Rufus Robison MD) Other Cancer Heart disease Surgical History Above knee amputation of left lower extremity Social History Smoking Status: Never smoker ROS Constitutional Constitutional: Denies body ache(s), change in weight, chills, fatigue, fever(s) or frequent falls Eyes Eyes: Denies change in eye color, change in vision, discharge from eye(s), discongugate gaze or double vision ENT HEENT: Denies foreign body in nose, headache(s), hearing loss, mouth pain, nasal congestion or nasal discharge Cardiovascular Cardiovascular: Denies chest pain with activity, claudication, clubbing, cold extremities or dyspnea at rest Respiratory/Chest Respiratory/Chest: Denies difficulty clearing secretions, dry cough, dusky skin, excessive phlegm production, hemoptysis or hoarseness Gastrointestinal Gastrointestinal: Denies belching, bloating, chewing difficulty, coffee ground emesis, cramping or dry heaves Genitourinary Genitourinary: Denies burning urination, change in urinary stream, dribbling, dysuria or genital lesions Musculoskeletal Musculoskeletal: Denies atrophy, muscle spasms, muscle weakness, myalgias or numbness Integumentary Integumentary: Denies hirsutism, jaundice, lesions, nail changes or new lesions Neurologic Neurologic: Denies burning sensations, confusion, convulsions, focal weakness or frequent falls Psychiatric Psychiatric: Denies auditory hallucinations, behavioral changes, hallucinations, homicidal ideation or memory loss Endocrine Endocrinology: Denies flushing, heat intolerance, increase in ring/shoe/hat size, palpitations or polydipsia Hematologic/Lymphatic Hematologic/Lymphatic: Denies easy bleeding, easy bruising or lymphadenopathy Allergic/Immunologic Allergic/Immunologic: Denies tongue swelling, hives, urticaria, eczemia or wheezing Vital Signs Vital Signs Vital Signs: 09/06/22 10:36 Temperature 97.4 F L Temperature Source Temporal Pulse Rate 61 Respiratory Rate 16 Blood Pressure 170/70 H Blood Pressure Mean 103 Blood Pressure Source Monitor Blood Pressure Position Sitting Blood Pressure Location Left Arm Oxygen Delivery Method Room Air Weight Weight: 202 lb Body Mass Index (BMI) 29.0 Physical Exam Const alert, oriented x3 and no apparent distress General Appearance: cooperative and comfortable HEENT normocephalic and head/scalp atraumatic Eyes EOMs intact bilaterally Neck full ROM General: normal visual inspection Resp normal respiratory effort Effort and Inspection: able to speak in complete sentences Skin Wounds: wounds noted Neuro oriented x3, CN's II-XII intact bilaterally and moves all extremities Psych mental status grossly normal Appearance: grossly normal Attitude: calm Speech: normal speech Debridement Note Debridement Note Wound debrided: Right lower extremity cluster Type of Debridement: Excisional debridement Anesthesia Used: 4% Lidocaine Solution Depth: Down to and including healthy tissue and in the subcutaneous layer Percentage of wound debrided: 100 Instrument Used: 5mm curette Tissue Removed: Slough and devitalized tissue Severity: Fat Layer Exposed Amount of bleeding with debridement: Mild Bleeding Controlled with: Pressure Patient tolerated procedure: Patient tolerated procedure well Post-Debridement Measurements and Additional Note: Post-Debridement Measurements/Treatment - Nurse 1 - General Ulcer Assessment Start: 09/06/22 10:36 Freq: Status: Active Protocol: FABY Activity Type Activity Date Activity User E-sign Co-sign Detail Recorded Client Recorded Date Recorded By Document 09/06/22 10:36 DL [id number] 09/06/22 10:47 DL 09/06/22 10:36 - Today's Visit Information Type of service Initial Visit Arrival Mode Ambulatory, Crutches Transfer Assistance None Patient Identification Verified (Name & Yes ) Patient Requires Transmission-Based No Precautions Height and Weight Height 5 ft 10 in Weight 202 lb Weight in Pounds 202.0 lbs Weight Measurement Method Estimated by Patient Body Mass Index (BMI) 29.0 BMI Classification Overweight BSA - Rasheeda 2.10 Vital Signs Temperature (97.8 F-99.1 F) 97.4 F L Temperature Source Temporal Pulse Rate (60-100) 61 Pulse Location Monitor Respiratory Rate (12-18) 16 Respiratory rate source Observation Oxygen Delivery Method Room Air Blood Pressure (90/60-120/80) 170/70 H Blood Pressure Mean 103 Source Monitor Position Sitting Blood Pressure Location Left Arm History Since Last Visit- (Skip if this is Patient's initial visit) Right Footwear Regular Shoe Other Footwear L LEG AMP Pain Scale: 0-10 Numeric Is Patient Pain Free? Yes WC - Nurse 1 - General Ulcer Measurement Start: 09/06/22 10:36 Freq: Status: Active Protocol: Activity Type Activity Date Activity User E-sign Co-sign Detail Recorded Client Recorded Date Recorded By Document 09/06/22 10:36 DL [id number] 09/06/22 10:47 DL 09/06/22 10:36 Wound Center Nurse 1 #11- R BABIN CLUSTER -Combined with other wound No -Current Size (cm) - Length 2 -Current Size (cm) - Width 8.8 -Current Size (cm) - Depth 0.1 -Total Square Cm 17.6 -Date of Last Picture (Recall this 09/06/22 field) -Photo Taken Yes -Epithelialization None Present -Tunneling No -Undermining/Tunneling No -Circular Undermining No -Exudate Amt Medium -Exudate Type Serous -Wound Margin Flat & Intact -Granulation Amt Medium (34-66%) -Granulation Quality Red -Slough/Fibrin Yes -Necrosis Amt Medium (34-66%) -Necrotic Tissue Type Adherent Slough -Texture (Dai-wound Skin Appearance) Assessed, Scarring -Moisture (Dai-wound Skin Appearance) Assessed,Dry/ Scaly -Color (Dai-wound Skin Appearance) Assessed, Hemosiderin Staining -Temperature (Dai-wound Skin No Abnormality Appearance) (Pt Warm) -Tenderness on Palpation (Dai-wound No Skin Appearance) -Ulcer Cleansing Soap and Water -Foul Odor after Cleansing No -Anesthetic Used 5% Lidocaine Gel Lower Limb Edema Present Yes Right Calf (cm) 45.5 Right Ankle (cm) 22.5 WC - Nurse 2 - General Ulcer CM Notes Start: 09/06/22 10:36 Freq: Status: Active Protocol: Activity Type Activity Date Activity User E-sign Co-sign Detail Recorded Client Recorded Date Recorded By Document 09/06/22 11:21 MW [id number] 09/06/22 11:29 MW 09/06/22 11:21 Wound Center Nurse 2 #11- R BABIN CLUSTER -Time 11:21 -Correct Patient Yes -Correct Side, Site, Position Yes -Correct Procedure Yes -Procedure Performed Yes -Type of Procedure Debridement -Clinical Debridement Subcutaneous -Tissue Removed Subcutaneous -Post Debridement (cm) - Length 15.0 -Post Debridement (cm) - Width 10.0 -Post Debridement (cm) - Depth 0.1 -Total Square (Post) (cm) 150.00 -Area of Debridement (cm) - Length 15.0 -Area of Debridement (cm) - Width 10.0 -Total Square (Area) (cm) 150.00 -Tunneling No -Undermining/Tunneling No -Circular Undermining No -Wound/Ulcer Outcome Not Healed -Ulcer Cleansing Rinsed/ Irrigated with Saline -Foul Odor after Cleansing No -Bioengineered Tissue No -Bleeding Controlled with Pressure -Treatment Response Procedure Tolerated Well -Offloading No -Debridement - Subq, 1st 20sq cm Yes -Debridement, SubQ, ea addt'l 20sq cm 7 or part thereof Pain Scale: 0-10 Numeric Is Patient Pain Free? Yes WC - Nurse 3 - General Ulcer D/C NN Start: 09/06/22 10:36 Freq: Status: Active Protocol: Activity Type Activity Date Activity User E-sign Co-sign Detail Recorded Client Recorded Date Recorded By Document 09/06/22 12:15 MW [id number] 09/06/22 12:21 MW 09/06/22 12:15 Wound Care Center Nurse 3 #11- R BABIN CLUSTER -Ulcer Cleansing Rinsed/ Irrigated with Saline -Foul Odor after Cleansing No -Negative Pressure Wound Therapy N/A -Primary Dressing Applied Aquacel Extra -Other Dressing xeroform -Other Covering ABD pad -Aquacel Extra 1 Right -Lotion applied to leg before Yes compression wrap -Multi-Layered Wrap Application Multi-Layer Comp - Right ($ ) Treatment Response Procedure Tolerated Well Pain Scale: 0-10 Numeric Is Patient Pain Free? Yes Teaching: Wound Center Compression Wraps & Stockings -Person Taught Patient -Teaching Method Discussion, Demonstration -Response to teaching Verbalize understanding Dressing Your Wound -Person Taught Patient -Teaching Method Discussion, Demonstration -Response to teaching Verbalize understanding WC - Visit Discharge Discharge Condition Stable Ambulatory Status Ambulatory Transportation Private Auto Accompanied by self Medication Reconcilliation completed & No provided to patient/care provider Clinical Summary of Care Provided Yes Charges/Coding Visit Charges Office Visits / Consults: 43383 OV L3 Est Procedures Integumentary 111xxx-113xx: 72027 [place] subq tissue 20 sq cm/< Add On Codes: 81566 [place] subq tissue add-on ( X7. Additional square centimeter debrided, please refer to clinical note.) Assessment/Plan Assessment/Plan (1) Ulcer of right lower extremity with fat layer exposed: CODE(S): L97.912 - Non-pressure chronic ulcer of unspecified part of right lower leg with fat layer exposed (2) Type II diabetes mellitus: CODE(S): E11.9 - Type 2 diabetes mellitus without complications PLAN: Plan Debridement done as documented above, procedure was well-tolerated. Ulcers do not look too bad, just clustered around his right lower extremity. Significant lower extremity edema. Aquacel extra and cover with Xeroform to all reddened areas. 3M wrap for edema management, come in on Saturday for nurse visit/change, he voiced understanding. He was advised to keep the wrap in place. From previous visits, he is not very compliant with compression/instructions, I hope he complies this time. Optimal protein intake and diabetes control. His questions were answered and he was advised to call with any further questions or concerns. Follow-up in a week or sooner if needed. This note was generated with [employer] dictation software. It may contain incorrect words, spelling, and punctuation that were not noted in checking the note before signing.
[2022-09-10 15:14] VITALS: BP 134/59; PULSE 53; RESP 18; TEMP 36.6; BMI 29.0
[2022-09-13 10:20] VITALS: BP 146/61; PULSE 55; RESP 18; TEMP 36.5; BMI 29.0
--- NOTE | 2022-09-13 10:54 | PN.PCM_ITS ---
History of Present Illness Date of Service: 09/13/22 Chief Complaint: Recurrent buttock ulcers History of Wound: Mr. Retana is a 77 yo who presents to the wound center due to non healing right lower extremity ulcer. Had a fall in December 2021 following which she states that he had significant hematoma. This was managed in the hospital and following hospital stay he was at some facility for 2 weeks. Did better following this however in March, had worsening lower extremity edema and then reopening. Has been managing it at home since then without adequate improvement. Occasional drainage. He states that he tries to wear his compression but it keeps pulling down. He feels well otherwise. Progress of Wound: No new concerns noted. Improvement. Tolerated 3M wrap without any concerns. Objective Data Objective Data Vital Signs: Vital Signs Temp Pulse Resp BP O2 Del Method 97.7 F L 55 L 18 146/61 H Room Air 09/13/22 10:20 09/13/22 10:20 09/13/22 10:20 09/13/22 10:20 09/13/22 10:20 Oxygen Delivery Method Room Air Weight: 202 lb Body Mass Index (BMI) 29.0 Charges/Coding Procedures Integumentary 111xxx-113xx: 94294 [place] subq tissue 20 sq cm/< Add On Codes: 95917 [place] subq tissue add-on (x7. Additional square centimeter debrided, please refer to clinical note.) Physical Exam Const alert, oriented x3 and no apparent distress General Appearance: cooperative and comfortable HEENT normocephalic and head/scalp atraumatic Eyes EOMs intact bilaterally Neck full ROM General: normal visual inspection Resp normal respiratory effort Effort and Inspection: able to speak in complete sentences Skin Wounds: wounds noted Neuro oriented x3, CN's II-XII intact bilaterally and moves all extremities Psych mental status grossly normal Appearance: grossly normal Attitude: calm Speech: normal speech Debridement Note Debridement Note Wound debrided: Right lower extremity cluster Type of Debridement: Excisional debridement Anesthesia Used: 4% Lidocaine Solution Depth: Down to and including healthy tissue and in the subcutaneous layer Percentage of wound debrided: 100 Instrument Used: 3mm curette Tissue Removed: Slough and devitalized tissue Severity: Fat Layer Exposed Amount of bleeding with debridement: Mild Bleeding Controlled with: Pressure Patient tolerated procedure: Patient tolerated procedure well Post-Debridement Measurements and Additional Note: Post-Debridement Measurements/Treatment WC - Nurse 1 - General Ulcer Assessment Start: 09/06/22 10:36 Freq: Status: Active Protocol: [email or web address] Activity Type Activity Date Activity User E-sign Co-sign Detail Recorded Client Recorded Date Recorded By Document 09/06/22 10:36 DL [id number] 09/06/22 10:47 DL Document 09/10/22 15:14 RB [id number] 09/10/22 15:16 RB Document 09/13/22 10:20 BMF [id number] 09/13/22 10:30 BMF 09/06/22 09/10/22 09/13/22 10:36 15:14 10:20 WC - Today's Visit Information Type of service Initial Visit Nurse-only Follow-up Visit Visit (Physician/[employer] ) Arrival Mode Ambulatory, Ambulatory, Ambulatory, Crutches Crutches Crutches Transfer Assistance None None None Patient Identification Verified (Name & Yes Yes Yes ) Patient Requires Transmission-Based No No No Precautions Height and Weight Height 5 ft 10 in Weight 202 lb Weight in Pounds 202.0 lbs Weight Measurement Method Estimated by Patient Body Mass Index (BMI) 29.0 29.0 29.0 BMI Classification Overweight Overweight Overweight BSA - Rasheeda 2.10 Vital Signs Temperature (97.8 F-99.1 F) 97.4 F L 98 F 97.7 F L Temperature Source Temporal Temporal Temporal Pulse Rate (60-100) 61 53 L 55 L Pulse Location Monitor Monitor Monitor Respiratory Rate (12-18) 16 18 18 Respiratory rate source Observation Observation Observation Oxygen Delivery Method Room Air Room Air Blood Pressure (90/60-120/80) 170/70 H 134/59 H 146/61 H Blood Pressure Mean (mm Hg) 103 84 89 Source Monitor Monitor Monitor Position Sitting Sitting Sitting Blood Pressure Location Left Arm Left Arm Right Arm History Since Last Visit- (Skip if this is Patient's initial visit) Have you changed medications since your No No last visit? Any new allergies or adverse reactions No No Had a fall/change in ADL's that may No increase risk of falls Signs or symptoms of abuse and/or No No neglect since last visit Have you been in the hospital since your No No last visit? Has dressing in place as prescribed Yes Yes Has compression in place as prescribed Yes N/A Has offloadiing in place as prescribed No N/A Experienced any changes in pain level or No No management Left Footwear Regular Shoe Right Footwear Regular Shoe Other Footwear L LEG AMP L AKA Pain Scale: 0-10 Numeric Is Patient Pain Free? Yes Yes Yes WC - Nurse 1 - General Ulcer Measurement Start: 09/06/22 10:36 Freq: Status: Active Protocol: Activity Type Activity Date Activity User E-sign Co-sign Detail Recorded Client Recorded Date Recorded By Document 09/06/22 10:36 DL [id number] 09/06/22 10:47 DL Document 09/10/22 15:14 RB [id number] 09/10/22 15:16 RB Document 09/13/22 10:20 BMF [id number] 09/13/22 10:30 BMF 09/06/22 09/10/22 09/13/22 10:36 15:14 10:20 Wound Center Nurse 1 #11- R BABIN CLUSTER -Combined with other wound No No -Current Size (cm) - Length 2 13 -Current Size (cm) - Width 8.8 11.8 -Current Size (cm) - Depth 0.1 0.1 -Total Square Cm 17.6 153.4 -Date of Last Picture (Recall this 09/06/22 09/13/22 field) -Photo Taken Yes Yes -Epithelialization None Present Medium 34-66% -Tunneling No No -Undermining/Tunneling No No -Circular Undermining No No -Exudate Amt Medium Small -Exudate Type Serous Serosanguineous -Wound Margin Flat & Intact Distinct, Outline Attached -Granulation Amt Medium (34-66%) Medium (34-66%) -Granulation Quality Red Red -Slough/Fibrin Yes Yes -Necrosis Amt Medium (34-66%) Medium (34-66%) -Necrotic Tissue Type Adherent Slough Eschar -Texture (Dai-wound Skin Appearance) Assessed, Assessed, Scarring Scarring -Moisture (Dai-wound Skin Appearance) Assessed,Dry/ Assessed,Dry/ Scaly Scaly -Color (Dai-wound Skin Appearance) Assessed, Assessed, Hemosiderin Hemosiderin Staining Staining -Temperature (Dai-wound Skin No Abnormality No Abnormality Appearance) (Pt Warm) (Pt Warm) -Tenderness on Palpation (Dai-wound No No Skin Appearance) -Ulcer Cleansing Soap and Water Soap and Water -Foul Odor after Cleansing No No -Anesthetic Used 5% Lidocaine 4% Lidocaine Gel Solution Lower Limb Edema Present Yes Yes Yes Right Calf (cm) 45.5 41 39.7 Right Ankle (cm) 22.5 24.5 25.5 ANIA - Nurse 2 - General Ulcer CM Notes Start: 09/06/22 10:36 Freq: Status: Active Protocol: Activity Type Activity Date Activity User E-sign Co-sign Detail Recorded Client Recorded Date Recorded By Document 09/06/22 11:21 MW [id number] 09/06/22 11:29 MW Document 09/13/22 10:46 MW [id number] 09/13/22 10:49 MW 09/06/22 09/13/22 11:21 10:46 Wound Center Nurse 2 #11- R BABIN CLUSTER -Time 11:21 10:46 -Correct Patient Yes Yes -Correct Side, Site, Position Yes Yes -Correct Procedure Yes Yes -Procedure Performed Yes Yes -Type of Procedure Debridement Debridement -Clinical Debridement Subcutaneous Subcutaneous -Tissue Removed Subcutaneous Subcutaneous -Post Debridement (cm) - Length 15.0 14.0 -Post Debridement (cm) - Width 10.0 10.0 -Post Debridement (cm) - Depth 0.1 0.1 -Total Square (Post) (cm) 150.00 140.00 -Area of Debridement (cm) - Length 15.0 14.0 -Area of Debridement (cm) - Width 10.0 10.0 -Total Square (Area) (cm) 150.00 140.00 -Tunneling No No -Undermining/Tunneling No No -Circular Undermining No No -Wound/Ulcer Outcome Not Healed Not Healed -Ulcer Cleansing Rinsed/ Rinsed/ Irrigated with Irrigated with Saline Saline -Foul Odor after Cleansing No No -Bioengineered Tissue No No -Bleeding Controlled with Pressure Pressure -Treatment Response Procedure Procedure Tolerated Well Tolerated Well -Offloading No No -Debridement - Subq, 1st 20sq cm Yes Yes -Debridement, SubQ, ea addt'l 20sq cm 7 7 or part thereof Pain Scale: 0-10 Numeric Is Patient Pain Free? Yes Yes ANIA - Nurse 3 - General Ulcer D/C NN Start: 09/06/22 10:36 Freq: Status: Active Protocol: Activity Type Activity Date Activity User E-sign Co-sign Detail Recorded Client Recorded Date Recorded By Document 09/06/22 12:15 MW [id number] 09/06/22 12:21 MW Document 09/10/22 15:14 RB [id number] 09/10/22 15:16 RB Document 09/13/22 10:50 MW [id number] 09/13/22 10:51 MW 09/06/22 09/10/22 09/13/22 12:15 15:14 10:50 Wound Care Center Nurse 3 #11- R BABIN CLUSTER -Ulcer Cleansing Rinsed/ Wound Cleanser Rinsed/ Irrigated with Irrigated with Saline Saline -Foul Odor after Cleansing No No -Negative Pressure Wound Therapy N/A N/A -Primary Dressing Applied Aquacel Extra Aquacel Extra Aquacel Extra -Other Dressing xeroform xeroform to dry xeroform areas/ abds -Primary Dressing Covered/Secured with Dry Gauze -Other Covering ABD pad -Aquacel Extra 1 1 1 Right -Lotion applied to leg before Yes No compression wrap -Multi-Layered Wrap Application Multi-Layer Multi-Layer Multi-Layer Comp - Right ($ Comp - Right ($ Comp - Right ($ ) ) ) Treatment Response Procedure Procedure Procedure Tolerated Well Tolerated Well Tolerated Well Vital Signs Temperature (97.8 F-99.1 F) 98 F Temperature Source Temporal Pulse Rate (60-100) 53 L Pulse Location Monitor Respiratory Rate (12-18) 18 Respiratory rate source Observation Blood Pressure (90/60-120/80) 134/59 H Blood Pressure Mean (mm Hg) 84 Source Monitor Position Sitting Blood Pressure Location Left Arm Pain Scale: 0-10 Numeric Is Patient Pain Free? Yes Yes Yes Teaching: Wound Center Compression Wraps & Stockings -Person Taught Patient -Teaching Method Discussion, Demonstration -Response to teaching Verbalize understanding Dressing Your Wound -Person Taught Patient Patient -Teaching Method Discussion, Discussion, Demonstration Demonstration -Response to teaching Verbalize Verbalize understanding understanding WC - Visit Discharge Discharge Condition Stable Stable Stable Ambulatory Status Ambulatory Ambulatory, Ambulatory, Crutches Crutches Transportation Private Auto Private Auto Private Auto Accompanied by self self Medication Reconcilliation completed & No No No provided to patient/care provider Clinical Summary of Care Provided Yes Yes Yes Assessment/Plan Assessment/Plan (1) Ulcer of right lower extremity with fat layer exposed: CODE(S): L97.912 - Non-pressure chronic ulcer of unspecified part of right lower leg with fat layer exposed (2) Type II diabetes mellitus: CODE(S): E11.9 - Type 2 diabetes mellitus without complications PLAN: Plan Debridement done as documented above, procedure was well-tolerated. Still clustered but significant improvement compared to his last visit. Continue Aquacel extra and Xeroform. Coming in on Saturday for a nurse visit/change. 3M wrap for edema management. Optimal protein intake and diabetes control. His questions were answered and he was advised to call with any further questions or concerns. Follow-up in a week or sooner if needed. This note was generated with [employer] dictation software. It may contain incorrect words, spelling, and punctuation that were not noted in checking the note before signing.
[2022-09-17 13:19] VITALS: BP 146/65; PULSE 51; RESP 20; TEMP 36.3; BMI 29.0
[2022-09-20 09:56] VITALS: BP 174/76; PULSE 56; RESP 16; TEMP 36.6; BMI 29.0
--- NOTE | 2022-09-20 10:43 | PN.PCM_ITS ---
History of Present Illness Date of Service: 09/20/22 Chief Complaint: Right Lower Extremity Ulcer History of Wound: Mr. Retana is a 77 yo who presents to the wound center due to non healing right lower extremity ulcer. Had a fall in December 2021 following which he states that he had significant hematoma. This was managed in the hospital and following hospital stay he was at some facility for 2 weeks. Did better following this however in March, had worsening lower extremity edema and then reopening. Has been managing it at home since then without adequate improvement. Occasional drainage. He states that he tries to wear his compression but it keeps pulling down. He feels well otherwise. Progress of Wound: No new concerns at this time. Healed. Objective Data Objective Data Vital Signs: Vital Signs Temp Pulse Resp BP O2 Del Method 97.9 F 56 L 16 174/76 H Room Air 09/20/22 09:56 09/20/22 09:56 09/20/22 09:56 09/20/22 09:56 09/20/22 09:56 Oxygen Delivery Method Room Air Weight: 202 lb Body Mass Index (BMI) 29.0 Charges/Coding Visit Charges Office Visits / Consults: 75560 OV L3 Est Physical Exam Const alert, oriented x3 and no apparent distress General Appearance: cooperative and comfortable HEENT normocephalic and head/scalp atraumatic Eyes EOMs intact bilaterally Neck full ROM General: normal visual inspection Resp normal respiratory effort Effort and Inspection: able to speak in complete sentences Neuro oriented x3, CN's II-XII intact bilaterally and moves all extremities Psych mental status grossly normal Appearance: grossly normal Attitude: calm Speech: normal speech Debridement Note Debridement Note Post-Debridement Measurements and Additional Note: Post-Debridement Measurements/Treatment - Nurse 1 - General Ulcer Assessment Start: 09/06/22 10:36 Freq: Status: Active Protocol: [email or web address].[email or web address] Activity Type Activity Date Activity User E-sign Co-sign Detail Recorded Client Recorded Date Recorded By Document 09/06/22 10:36 DL [id number] 09/06/22 10:47 DL Document 09/10/22 15:14 RB [id number] 09/10/22 15:16 RB Document 09/13/22 10:20 BMF [id number] 09/13/22 10:30 BMF Document 09/17/22 13:19 DL [id number] 09/17/22 13:27 DL Document 09/20/22 09:56 [facility] [id number] 09/20/22 10:06 BMF 09/06/22 09/10/22 09/13/22 10:36 15:14 10:20 - Today's Visit Information Type of service Initial Visit Nurse-only Follow-up Visit Visit (Physician/CLUB LICENSEE ) Arrival Mode Ambulatory, Ambulatory, Ambulatory, Crutches Crutches Crutches Transfer Assistance None None None Patient Identification Verified (Name & Yes Yes Yes ) Patient Requires Transmission-Based No No No Precautions Height and Weight Height 5 ft 10 in Weight 202 lb Weight in Pounds 202.0 lbs Weight Measurement Method Estimated by Patient Body Mass Index (BMI) 29.0 29.0 29.0 BMI Classification Overweight Overweight Overweight BSA - Rasheeda 2.10 Vital Signs Temperature (97.8 F-99.1 F) 97.4 F L 98 F 97.7 F L Temperature Source Temporal Temporal Temporal Pulse Rate (60-100) 61 53 L 55 L Pulse Location Monitor Monitor Monitor Respiratory Rate (12-18) 16 18 18 Respiratory rate source Observation Observation Observation Oxygen Delivery Method Room Air Room Air Blood Pressure (90/60-120/80) 170/70 H 134/59 H 146/61 H Blood Pressure Mean (mm Hg) 103 84 89 Source Monitor Monitor Monitor Position Sitting Sitting Sitting Blood Pressure Location Left Arm Left Arm Right Arm History Since Last Visit- (Skip if this is Patient's initial visit) Have you changed medications since your No No last visit? Any new allergies or adverse reactions No No Had a fall/change in ADL's that may No increase risk of falls Signs or symptoms of abuse and/or No No neglect since last visit Have you been in the hospital since your No No last visit? Has dressing in place as prescribed Yes Yes Has compression in place as prescribed Yes N/A Has offloadiing in place as prescribed No N/A Experienced any changes in pain level or No No management Left Footwear Regular Shoe Right Footwear Regular Shoe Other Footwear L LEG AMP L AKA Pain Scale: 0-10 Numeric Is Patient Pain Free? Yes Yes Yes 09/17/22 09/20/22 13:19 09:56 WC - Today's Visit Information Type of service Nurse-only Follow-up Visit Visit (Physician/CLUB LICENSEE ) Arrival Mode Ambulatory Ambulatory, Crutches Transfer Assistance None None Patient Identification Verified (Name & Yes Yes ) Patient Requires Transmission-Based No No Precautions Height and Weight Height Weight Weight in Pounds Weight Measurement Method Body Mass Index (BMI) 29.0 29.0 BMI Classification Overweight Overweight BSA - Rasheeda Vital Signs Temperature (97.8 F-99.1 F) 97.3 F L 97.9 F Temperature Source Temporal Temporal Pulse Rate (60-100) 51 L 56 L Pulse Location Monitor Monitor Respiratory Rate (12-18) 20 H 16 Respiratory rate source Observation Observation Oxygen Delivery Method Room Air Blood Pressure (90/60-120/80) 146/65 H 174/76 H Blood Pressure Mean (mm Hg) 92 108 Source Monitor Monitor Position Sitting Blood Pressure Location Left Arm History Since Last Visit- (Skip if this is Patient's initial visit) Have you changed medications since your No No last visit? Any new allergies or adverse reactions No No Had a fall/change in ADL's that may No No increase risk of falls Signs or symptoms of abuse and/or No No neglect since last visit Have you been in the hospital since your No No last visit? Has dressing in place as prescribed Yes Yes Has compression in place as prescribed Yes Has offloadiing in place as prescribed N/A N/A Experienced any changes in pain level or No No management Left Footwear Right Footwear Regular Shoe Other Footwear Pain Scale: 0-10 Numeric Is Patient Pain Free? Yes Yes WC - Nurse 1 - General Ulcer Measurement Start: 09/06/22 10:36 Freq: Status: Active Protocol: Activity Type Activity Date Activity User E-sign Co-sign Detail Recorded Client Recorded Date Recorded By Document 09/06/22 10:36 DL [id number] 09/06/22 10:47 DL Document 09/10/22 15:14 RB [id number] 09/10/22 15:16 RB Document 09/13/22 10:20 BMF [id number] 09/13/22 10:30 BMF Document 09/17/22 13:19 DL [id number] 09/17/22 13:27 DL Document 09/20/22 09:56 BMF [id number] 09/20/22 10:06 [facility] 09/06/22 09/10/22 09/13/22 10:36 15:14 10:20 Wound Center Nurse 1 #11- R BABIN CLUSTER -Combined with other wound No No -Current Size (cm) - Length 2 13 -Current Size (cm) - Width 8.8 11.8 -Current Size (cm) - Depth 0.1 0.1 -Total Square Cm 17.6 153.4 -Date of Last Picture (Recall this 09/06/22 09/13/22 field) -Photo Taken Yes Yes -Epithelialization None Present Medium 34-66% -Tunneling No No -Undermining/Tunneling No No -Circular Undermining No No -Exudate Amt Medium Small -Exudate Type Serous Serosanguineous -Wound Margin Flat & Intact Distinct, Outline Attached -Granulation Amt Medium (34-66%) Medium (34-66%) -Granulation Quality Red Red -Slough/Fibrin Yes Yes -Necrosis Amt Medium (34-66%) Medium (34-66%) -Necrotic Tissue Type Adherent Slough Eschar -Structure Exposed -Texture (Dai-wound Skin Appearance) Assessed, Assessed, Scarring Scarring -Moisture (Dai-wound Skin Appearance) Assessed,Dry/ Assessed,Dry/ Scaly Scaly -Color (Dai-wound Skin Appearance) Assessed, Assessed, Hemosiderin Hemosiderin Staining Staining -Temperature (Dai-wound Skin No Abnormality No Abnormality Appearance) (Pt Warm) (Pt Warm) -Tenderness on Palpation (Dai-wound No No Skin Appearance) -Ulcer Cleansing Soap and Water Soap and Water -Foul Odor after Cleansing No No -Anesthetic Used 5% Lidocaine 4% Lidocaine Gel Solution -Wound Comment(s) Lower Limb Edema Present Yes Yes Yes Right Calf (cm) 45.5 41 39.7 Right Ankle (cm) 22.5 24.5 25.5 09/17/22 09/20/22 13:19 09:56 Wound Center Nurse 1 #11- R BABIN CLUSTER -Combined with other wound No -Current Size (cm) - Length 0.1 -Current Size (cm) - Width 0.1 -Current Size (cm) - Depth 0.1 -Total Square Cm 0.01 -Date of Last Picture (Recall this 09/20/22 field) -Photo Taken Yes -Epithelialization Large 67-100% -Tunneling No -Undermining/Tunneling No -Circular Undermining No -Exudate Amt Small None Present -Exudate Type Serosanguineous -Wound Margin Indistinct, Non -Visible -Granulation Amt -Granulation Quality -Slough/Fibrin -Necrosis Amt -Necrotic Tissue Type -Structure Exposed N/A -Texture (Dai-wound Skin Appearance) Localized Edema Assessed, ,Scarring Scarring -Moisture (Dai-wound Skin Appearance) Dry/Scaly Assessed,Dry/ Scaly -Color (Dai-wound Skin Appearance) Hemosiderin Assessed Staining -Temperature (Dai-wound Skin No Abnormality No Abnormality Appearance) (Pt Warm) (Pt Warm) -Tenderness on Palpation (Dai-wound No No Skin Appearance) -Ulcer Cleansing Soap and Water Soap and Water -Foul Odor after Cleansing No No -Anesthetic Used -Wound Comment(s) Xeroform only used, no aqucel , no wounds noted at this time. B Flor applied drssing today. Lower Limb Edema Present Right Calf (cm) 38.1 37.1 Right Ankle (cm) 25.7 24.3 WC - Nurse 2 - General Ulcer CM Notes Start: 09/06/22 10:36 Freq: Status: Active Protocol: Activity Type Activity Date Activity User E-sign Co-sign Detail Recorded Client Recorded Date Recorded By Document 09/06/22 11:21 MW [id number] 09/06/22 11:29 MW Document 09/13/22 10:46 MW [id number] 09/13/22 10:49 MW Document 09/20/22 10:28 MW [id number] 09/20/22 10:30 MW 09/06/22 09/13/22 09/20/22 11:21 10:46 10:28 Wound Center Nurse 2 #11- R BABIN CLUSTER -Time 11:21 10:46 10:28 -Correct Patient Yes Yes Yes -Correct Side, Site, Position Yes Yes Yes -Correct Procedure Yes Yes Yes -Procedure Performed Yes Yes No -Type of Procedure Debridement Debridement -Clinical Debridement Subcutaneous Subcutaneous -Tissue Removed Subcutaneous Subcutaneous -Post Debridement (cm) - Length 15.0 14.0 0 -Post Debridement (cm) - Width 10.0 10.0 0 -Post Debridement (cm) - Depth 0.1 0.1 0 -Total Square (Post) (cm) 150.00 140.00 0 -Area of Debridement (cm) - Length 15.0 14.0 -Area of Debridement (cm) - Width 10.0 10.0 -Total Square (Area) (cm) 150.00 140.00 -Tunneling No No -Undermining/Tunneling No No -Circular Undermining No No -Wound/Ulcer Outcome Not Healed Not Healed Healed- Epithelialized -Ulcer Cleansing Rinsed/ Rinsed/ Irrigated with Irrigated with Saline Saline -Foul Odor after Cleansing No No -Bioengineered Tissue No No -Bleeding Controlled with Pressure Pressure -Treatment Response Procedure Procedure Tolerated Well Tolerated Well -Offloading No No -Debridement - Subq, 1st 20sq cm Yes Yes -Debridement, SubQ, ea addt'l 20sq cm 7 7 or part thereof Pain Scale: 0-10 Numeric Is Patient Pain Free? Yes Yes Yes WC - Nurse 3 - General Ulcer D/C NN Start: 09/06/22 10:36 Freq: Status: Active Protocol: Activity Type Activity Date Activity User E-sign Co-sign Detail Recorded Client Recorded Date Recorded By Document 09/06/22 12:15 MW [id number] 09/06/22 12:21 MW Document 09/10/22 15:14 RB [id number] 09/10/22 15:16 RB Document 09/13/22 10:50 MW [id number] 09/13/22 10:51 MW Document 09/17/22 13:19 DL [id number] 09/17/22 13:27 DL Document 09/20/22 10:30 MW [id number] 09/20/22 10:35 MW 09/06/22 09/10/22 09/13/22 12:15 15:14 10:50 Wound Care Center Nurse 3 #11- R BABIN CLUSTER -Ulcer Cleansing Rinsed/ Wound Cleanser Rinsed/ Irrigated with Irrigated with Saline Saline -Foul Odor after Cleansing No No -Negative Pressure Wound Therapy N/A N/A -Primary Dressing Applied Aquacel Extra Aquacel Extra Aquacel Extra -Other Dressing xeroform xeroform to dry xeroform areas/ abds -Primary Dressing Covered/Secured with Dry Gauze -Other Covering ABD pad -Aquacel Extra 1 1 1 Right -Lotion applied to leg before Yes No compression wrap -Multi-Layered Wrap Application Multi-Layer Multi-Layer Multi-Layer Comp - Right ($ Comp - Right ($ Comp - Right ($ ) ) ) -Tubular Bandage -Size of Tubigrip Used -Size D ($) Treatment Response Procedure Procedure Procedure Tolerated Well Tolerated Well Tolerated Well Vital Signs Temperature (97.8 F-99.1 F) 98 F Temperature Source Temporal Pulse Rate (60-100) 53 L Pulse Location Monitor Respiratory Rate (12-18) 18 Respiratory rate source Observation Blood Pressure (90/60-120/80) 134/59 H Blood Pressure Mean (mm Hg) 84 Source Monitor Position Sitting Blood Pressure Location Left Arm Pain Scale: 0-10 Numeric Is Patient Pain Free? Yes Yes Yes Teaching: Wound Center Compression Wraps & Stockings -Person Taught Patient -Teaching Method Discussion, Demonstration -Response to teaching Verbalize understanding Dressing Your Wound -Person Taught Patient Patient -Teaching Method Discussion, Discussion, Demonstration Demonstration -Response to teaching Verbalize Verbalize understanding understanding WC - Visit Discharge Discharge Condition Stable Stable Stable Ambulatory Status Ambulatory Ambulatory, Ambulatory, Crutches Crutches Transportation Private Auto Private Auto Private Auto Accompanied by self self Medication Reconcilliation completed & No No No provided to patient/care provider Clinical Summary of Care Provided Yes Yes Yes 09/17/22 09/20/22 13:19 10:30 Wound Care Center Nurse 3 #11- R BABIN CLUSTER -Ulcer Cleansing Rinsed/ Not Cleansed Irrigated with Saline -Foul Odor after Cleansing No No -Negative Pressure Wound Therapy N/A -Primary Dressing Applied NonAdherent Contact Layer -Other Dressing xerofrom -Primary Dressing Covered/Secured with Dry Gauze Dry Gauze & Roll Gauze, Secured with Tape -Other Covering -Aquacel Extra Right -Lotion applied to leg before Yes compression wrap -Multi-Layered Wrap Application Multi-Layer Comp - Right ($ ) -Tubular Bandage Single Layer -Size of Tubigrip Used Size D -Size D ($) 2 Treatment Response Procedure Tolerated Well Vital Signs Temperature (97.8 F-99.1 F) 97.3 F L Temperature Source Temporal Pulse Rate (60-100) 51 L Pulse Location Monitor Respiratory Rate (12-18) 20 H Respiratory rate source Observation Blood Pressure (90/60-120/80) 146/65 H Blood Pressure Mean (mm Hg) 92 Source Monitor Position Blood Pressure Location Pain Scale: 0-10 Numeric Is Patient Pain Free? Yes Yes Teaching: Wound Center Compression Wraps & Stockings -Person Taught -Teaching Method -Response to teaching Dressing Your Wound -Person Taught Patient -Teaching Method Discussion -Response to teaching Verbalize understanding WC - Visit Discharge Discharge Condition Stable Stable Ambulatory Status Ambulatory Ambulatory Transportation Private Auto Private Auto Accompanied by self Medication Reconcilliation completed & No provided to patient/care provider Clinical Summary of Care Provided Yes Assessment/Plan Assessment/Plan (1) Ulcer of right lower extremity with fat layer exposed: CODE(S): L97.912 - Non-pressure chronic ulcer of unspecified part of right lower leg with fat layer exposed (2) Type II diabetes mellitus: CODE(S): E11.9 - Type 2 diabetes mellitus without complications PLAN: Plan No new concerns at this time. Healed. Skin is still quite thin with risk for reopening, Adaptic and gauze for 2 weeks. Single-layer Tubigrip for edema management. Patient advised that he needs to use his compression consistently to avoid reopening and recurrence of lower extremity swelling, he voiced understanding. Optimal protein intake and diabetes control. His questions were answered and he was advised to call with any further questions or concerns. Discharge from the wound clinic. This note was generated with [employer] software. It may contain incorrect words, spelling, and punctuation that were not noted in checking the note before signing.
== END 2022-09-30 23:59 | disposition home or self-care (01) ==
LOC: WC 10:00
PROVIDERS: PCP Family Medicine; Referring Provider Family Medicine; Visit Provider Internal Medicine
DX: E11.622 Type 2 diabetes mellitus with other skin ulcer (principal); L97.912 Non-pressure chronic ulcer of unspecified part of right lower leg with fat layer exposed; I10 Essential (primary) hypertension; Z79.4 Long term (current) use of insulin; Z79.01 Long term (current) use of anticoagulants; Z79.84 Long term (current) use of oral hypoglycemic drugs; Z79.899 Other long term (current) drug therapy; Z89.612 Acquired absence of left leg above knee
CPT/HCPCS: 11042; 11045; 29581; 99213; G0463

== ENCOUNTER → 2024-09-15 | Outpatient (CLI) | payer MEDICARE, SELFPAY ==
[2024-09-15 16:25] LABS: Absolute Neutrophil Count 3.5 X10^3/uL (2.0-7.7); Basophil# 0.06 X10^3/uL; Eosinophil# 0.54 X10^3/uL; Eosinophils% 8.7 % (0-5); Hematocrit 35.1 % (40-54); Hemoglobin 11.8 g/dL (13.0-16.5); Lymphocyte % 24.2 % (19-41); Mean Corp Hgb Conc 33.6 g/dL (32-36); Mean Corpuscular Volume 89.3 fL (80-94); Mean Platelet Vol. 9.5 fl (6.2-12.0); Monocyte# 0.59 X10^3/uL; Monocyte% 9.5 % (0-10); NRBC Flagged by Analyzer 0 % (0-5); Neutrophil # 3.49 X10^3/uL (2.7-7.7); Neutrophil % 56.3 % (47-70); Platelet Count 194 K/mm3 (150-450); RBC Distribution Width CV 13.8 % (11.6-14.6); RBC Distribution Width SD 45.1 fl (35.1-43.9); Red Blood Count 3.93 M/mm3 (4.6-6.2); Reticulocyte Count 1.63 % (0.5-1.5); White Blood Count 6.2 K/mm3 (4.4-11.0)
[2024-09-15 17:28] LABS: Ferritin 108 ng/mL (37-417)
[2024-09-15 18:30] LABS: CRP < 3.00 mg/L (0.0-3.0); Iron 61 ug/dL (65-175)
[2024-09-17 15:08] LABS: Endomysial Antibody IgA Negative (Negative); Immunoglobulin A 394 mg/dL (61-437); t-Transglutaminase IgA <2 U/mL (0-3)
== END | disposition home or self-care (01) ==
LOC: LAB 15:33
PROVIDERS: PCP Family Medicine
DX: D64.9 Anemia, unspecified (principal); K58.0 Irritable bowel syndrome with diarrhea
CPT/HCPCS: 36415; 82728; 82784; 83516; 83540; 85025; 85045; 86140; 86255

== ENCOUNTER → 2024-09-22 | Outpatient (CLI) | payer MEDICARE, SELFPAY ==
[2024-09-24 15:08] LABS: Calprotectin, Stool 9 ug/g (0-120)
[2024-09-25 01:07] LABS: Pancreatic Elastase, Fecal 73 (>200)
== END | disposition home or self-care (01) ==
LOC: LABSPEC 15:07
PROVIDERS: PCP Family Medicine
DX: K58.0 Irritable bowel syndrome with diarrhea (principal)
CPT/HCPCS: 82653; 83993

== ENCOUNTER 2024-09-30 10:30 | Outpatient (RCR) | payer MEDICARE, SELFPAY ==
[2024-09-23 10:11] VITALS: BP 187/83; PULSE 54; RESP 18; TEMP 36.6; O2SAT 98
--- NOTE | 2024-09-23 11:34 | PCM.WC.HP ---
History of Present Illness Date of Service: 09/23/24 Chief Complaint: Follow-up right and left buttocks History of Wound: 79-year-old white male that has history of diabetes A-fib chronic rectal bleeding hypertension left [id number] amputee from an accident. With histories of open wounds on his buttocks from Shearing for the last 3 to 4 months and has had stage III before on the right and left buttocks. He lives by himself and takes care of himself. He falls asleep in his recliner and that is where he spends the night. Could be the reason why he has the shearing on his buttocks wounds. Patient states has lost weight and muscle mass recently. Blood sugar this morning he says was little high over 200 but he says his A1c was recently done and it was 6.8. We are going to repeat the A1c and recheck his kidney functions we already know he is anemic he has seen by Dr. Box's office in gastro for rectal bleeding and he is at 11 on his hemoglobin. [facility] Medical History Atrial fibrillation Chronic a-fib HLD (hyperlipidemia) CTS (carpal tunnel syndrome) LLQ abdominal pain Blood in stool Change in bowel habits Ulcer of right lower extremity with fat layer exposed Kidney disease DVT (deep venous thrombosis) Left above-knee amputee HTN (hypertension) Diabetes Open wound of right lower extremity Decubitus ulcer of left buttock, stage 3 Decubitus ulcer of right buttock, stage 3 Home Medications ?Medication ?Instructions ?Recorded ?Last Taken ?Type lisinopril 20 mg tablet (Zestril) 20 mg PO QHS 11/22/17 Unknown History metoprolol tartrate 50 mg tablet 50 mg PO BID 11/22/17 Unknown History furosemide 20 mg tablet 40 mg PO BID 01/29/19 Unknown History lovastatin 40 mg tablet 40 mg PO QHS 01/29/19 Unknown History metformin 1,000 mg tablet 1,000 mg PO DAILY 01/29/19 Unknown History glipizide 10 mg tablet 10 mg PO BIDAC 06/11/19 Unknown History glucagon 1 mg/mL solution for 1 mg IM X1 PRN Hypoglycemia #0 ea 12/14/21 Unknown Rx injection (GlucaGen Diagnostic Kit) insulin glargine 100 unit/mL (3 10 unit subcut .COMPLEX 09/06/22 Unknown History mL) subcutaneous pen fexofenadine 180 mg tablet 180 mg PO Q24H 09/14/24 Unknown History (Dilma Allergy) tizanidine 4 mg capsule 4 mg PO Q8H PRN muscle spasticity 09/14/24 Unknown History warfarin 3 mg tablet 3 mg PO QMWF 09/23/24 Unknown History warfarin 5 mg tablet (Jantoven) 5 mg PO .COMPLEX 09/23/24 Unknown History Allergy/AdvReac Type Severity Reaction Status Date / Time amoxicillin Allergy Rash Verified 09/14/24 16:00 Family History Mother Pancreatic cancer Father CAD (coronary artery disease) Other Cancer Heart disease Surgical History Above knee amputation of left lower extremity Social History Smoking Status: Never smoker alcohol intake: never substance use type: does not use ROS Constitutional Constitutional: Reports systems reviewed and no addt'l complaints, except as documented Eyes Eyes: Reports systems reviewed and no addt'l complaints, except as documented ENT HEENT: Reports systems reviewed and no addt'l complaints, except as documented Cardiovascular Cardiovascular: Reports systems reviewed and no addt'l complaints, except as documented Respiratory/Chest Respiratory/Chest: Reports systems reviewed and no addt'l complaints, except as documented Gastrointestinal Gastrointestinal: Reports systems reviewed and no addt'l complaints, except as documented Genitourinary Genitourinary: Reports systems reviewed and no addt'l complaints, except as documented Musculoskeletal Musculoskeletal: Reports systems reviewed and no addt'l complaints, except as documented Integumentary Integumentary: Reports other Details: Open wound on the right buttocks with shearing left buttocks just shearing bleeds easily because of the Coumadin Neurologic Neurologic: Reports systems reviewed and no addt'l complaints, except as documented Psychiatric Psychiatric: Reports systems reviewed and no addt'l complaints, except as documented Endocrine Endocrinology: Reports systems reviewed and no addt'l complaints, except as documented Hematologic/Lymphatic Hematologic/Lymphatic: Reports systems reviewed and no addt'l complaints, except as documented Allergic/Immunologic Allergic/Immunologic: Reports systems reviewed and no addt'l complaints, except as documented Vital Signs Vital Signs Vital Signs: 09/23/24 10:11 Temperature 98 F Temperature Source Temporal Pulse Rate 54 L Respiratory Rate 18 Blood Pressure 187/83 H Blood Pressure Mean 117 Blood Pressure Source Monitor Blood Pressure Position Sitting Blood Pressure Location Left Arm Pulse Ox 98 Oxygen Delivery Method Room Air Weight Weight: 203 lb Physical Exam Const oriented x3 General Appearance: cooperative Exam Limitations: no limitations HEENT normocephalic Head and Scalp: normal to inspection Face and Sinus: normal facial exam Nose: external nose normal External Ear: external ears normal Eyes General Eye: normal appearance of both eyes Conjunctiva: other Other Details: Conjunctiva pale Neck full ROM General: normal visual inspection Resp normal respiratory effort Effort and Inspection: able to speak in complete sentences Auscultation: clear to auscultation bilaterally Cardio regular rate and regular rhythm Palpation: normal PMI Rate: regular rate Rhythm: abnormal rhythm GI Palpation: soft and no hepatosplenomegaly Back/Spine Cervical Spine: cervical ROM normal Thoracic Spine / Upper Back: normal to inspection Lumbar Spine / Lower Back: normal to inspection Extremity General Extremity: normal exam except as noted and other findings Other Details: Left AKA amp Skin Skin Narrative: Skin is pale all over and dry Wounds: wounds noted Wound Narrative: Open wound on the right buttocks with shearing and left buttocks shearing Neuro oriented x3 Psych Appearance: grossly normal Speech: normal speech Thought Content: normal thought content Judgement: judgement good Debridement Note Debridement Note Wound debrided: Right buttocks Laterality: Right Wound Grade/Stage: Stage II Type of Debridement: Excisional debridement Anesthesia Used: 5% Lidocaine Gel Depth: in the subcutaneous layer Percentage of wound debrided: 100 Instrument Used: 5mm curette Tissue Removed: Fibrin and devitalized tissue Severity: Fat Layer Exposed Amount of bleeding with debridement: Moderate Bleeding Controlled with: Compression and gauze Post-Debridement Measurements and Additional Note: Post-Debridement Measurements/Treatment [facility] Nurse 1 - General Ulcer Assessment Start: 09/23/24 10:09 Freq: Status: Active Protocol: FABY Activity Type Activity Date Activity User E-sign Co-sign Detail Recorded Client Recorded Date Recorded By Document 09/23/24 10:11 CA [id number] 09/23/24 10:29 CA 09/23/24 10:11 - Today's Visit Information Type of service Initial Visit Arrival Mode Ambulatory, Crutches Accompanied by self Patient Identification Verified (Name & Yes ) Safety Precautions Fall Prevention Finger Stick Blood Sugar(mg/dl) (if 245 indicated): Blood Sugar Stated by Patient Height and Weight Weight 203 lb Weight in Pounds 203.0 lbs Weight Measurement Method Stated by Patient Vital Signs Temperature (97.8 F-99.1 F) 98 F Temperature Source Temporal Pulse Rate (60-100) 54 L Pulse Location Monitor Respiratory Rate (12-18) 18 Respiratory rate source Observation Pulse Oximetry 98 Oxygen Delivery Method Room Air Blood Pressure (90/60-120/80) 187/83 H Blood Pressure Mean 117 Source Monitor Position Sitting Blood Pressure Location Left Arm History Since Last Visit- (Skip if this is Patient's initial visit) Have you been in the hospital since your Yes last visit? Has compression in place as prescribed N/A Has offloadiing in place as prescribed N/A Left Footwear Regular Shoe Right Footwear Regular Shoe Pain Scale: 0-10 Numeric Is Patient Pain Free? Yes - Nurse 1 - General Ulcer Measurement Start: 09/23/24 10:09 Freq: Status: Active Protocol: Activity Type Activity Date Activity User E-sign Co-sign Detail Recorded Client Recorded Date Recorded By Document 09/23/24 10:11 CA [id number] 09/23/24 10:29 CA 09/23/24 10:11 Wound Center Nurse 1 #13 Right Buttock -Current Size (cm) - Length 2.5 -Current Size (cm) - Width 1.7 -Current Size (cm) - Depth 0.2 -Total Square Cm 4.25 -Date of Last Picture (Recall this 09/23/24 field) -Photo Taken Yes -Epithelialization Small 1-33% -Tunneling No -Undermining/Tunneling No -Circular Undermining No -Exudate Amt Medium -Exudate Type Serosanguineous -Wound Margin Flat & Intact -Granulation Amt Large (67-100%) -Granulation Quality Pale,[place] -Necrosis Amt Small (1-33%) -Necrotic Tissue Type Adherent Slough -Texture (Dai-wound Skin Appearance) Assessed -Moisture (Dai-wound Skin Appearance) Assessed -Color (Dai-wound Skin Appearance) Assessed, Hemosiderin Staining -Temperature (Dai-wound Skin No Abnormality Appearance) (Pt Warm) -Tenderness on Palpation (Dai-wound No Skin Appearance) -Ulcer Cleansing Soap and Water -Foul Odor after Cleansing No -Anesthetic Used 5% Lidocaine Gel #12 Left Buttock -Current Size (cm) - Length 0.1 -Current Size (cm) - Width 0.1 -Current Size (cm) - Depth 0.1 -Total Square Cm 0.01 -Date of Last Picture (Recall this 09/23/24 field) -Photo Taken Yes -Epithelialization Large 67-100% -Tunneling No -Undermining/Tunneling No -Circular Undermining No -Classification - Thickness Partial Thickness -Change in Wound Grade/Stage hypergranualtio n -Exudate Amt Medium -Exudate Type Serosanguineous -Wound Margin Thickened & Rolled Under -Granulation Amt Large (67-100%) -Granulation Quality Pale,[place] -Necrosis Amt Small (1-33%) -Necrotic Tissue Type Adherent Slough -Texture (Dai-wound Skin Appearance) Assessed -Moisture (Dai-wound Skin Appearance) Assessed -Color (Dai-wound Skin Appearance) Assessed, Hemosiderin Staining -Temperature (Dai-wound Skin No Abnormality Appearance) (Pt Warm) -Tenderness on Palpation (Dai-wound No Skin Appearance) -Ulcer Cleansing Soap and Water -Foul Odor after Cleansing No -Anesthetic Used 5% Lidocaine Gel Lower Limb Edema Present NA - Nurse 3 - General Ulcer D/C NN Start: 09/23/24 10:09 Freq: Status: Active Protocol: Activity Type Activity Date Activity User E-sign Co-sign Detail Recorded Client Recorded Date Recorded By Document 09/23/24 11:19 [id number] 09/23/24 11:22 09/23/24 11:19 Wound Care Center Nurse 3 #13 Right Buttock -Ulcer Cleansing Rinsed/ Irrigated with Saline -Primary Dressing Applied Fibracol Plus 4x4,NonAdherent Contact Layer -Other Dressing ABD -Primary Dressing Covered/Secured with Secured with Tape -Fibracol Plus 4x4 1 #12 Left Buttock -Ulcer Cleansing Rinsed/ Irrigated with Saline -Other Dressing xeroform/ ABD Treatment Response Procedure Tolerated Well Pain Scale: 0-10 Numeric Is Patient Pain Free? Yes WC - Visit Discharge Discharge Condition Stable Ambulatory Status Ambulatory, Crutches Transportation Private Auto Medication Reconcilliation completed & No provided to patient/care provider Clinical Summary of Care Provided Yes Additional Wound Wound debrided: Left buttocks Laterality: Left Wound Grade/Stage: Stage II Type of Debridement: Excisional debridement Anesthesia Used: 5% Lidocaine Gel Depth: Down to and including healthy tissue Percentage of wound debrided: 100 Instrument Used: 5mm curette Tissue Removed: Devitalized tissue and fibrin Amount of bleeding with debridement: Mild Bleeding Controlled with: Compression and gauze Patient tolerated procedure: Patient tolerated procedure well Assessment/Plan Assessment/Plan (1) Anemia: CODE(S): D64.9 - Anemia, unspecified QUALIFIERS: Anemia type: unspecified type Qualified Code(s): D64.9 - Anemia, unspecified (2) Stage II pressure ulcer of right buttock: CODE(S): L89.312 - Pressure ulcer of right buttock, stage 2 PLAN: Wash buttocks with antibacterial soap and water and apply Aquacel extra to the wound base superior and Xeroform to the inferior right buttocks shearing area moisten the Aquacel and cover with Adaptic and an ABD dressing. Every day Patient is return on Saturday for wound care dressing changes until we get home health set up. (3) Stage II pressure ulcer of left buttock: CODE(S): L89.322 - Pressure ulcer of left buttock, stage 2 PLAN: Wash left buttocks with antibacterial soap and water and apply Xeroform dressing to the wound base cover with Adaptic and ABD dressing every day. (4) Type II diabetes mellitus: CODE(S): E11.9 - Type 2 diabetes mellitus without complications QUALIFIERS: Diabetes mellitus assisted insulin use: with termite exterminator helper use Diabetes mellitus complication status: with kidney complications Diabetes mellitus complication detail: with chronic kidney disease Chronic kidney disease stage: stage 3 (moderate) Chronic kidney disease stage 3 subtype: stage 3a (GFR 45-59) Qualified Code(s): E11.22 - Type 2 diabetes mellitus with diabetic chronic kidney disease; N18.31 - Chronic kidney disease, stage 3a; Z79.4 - jail (current) use of insulin PLAN: Will order prealbumin and CMP and an A1c for his diabetes and nutrition Will call patient with results or we will talk to him next week.
[2024-09-23 14:37] LABS: ALB/GLOB Ratio 1.1 RATIO (0.9-2.4); AST(SGOT) 21 U/L (<=37); Alanine Aminotransfer ALT/SGPT 10 U/L (<=46); Albumin, Serum 3.4 g/dL (3.4-4.8); Alkaline Phosphatase 107 U/L (40-129); Anion Gap 10 (5-15); BUN 44 mg/dL (4-19); BUN/Creat Ratio 22.2 RATIO (10-20); Calcium,Total 8.7 mg/dL (7.6-11.0); Carbon Dioxide 20.4 mmol/L (21.0-32.0); Chloride 107 mmol/L (98-108); Creatinine, Serum 1.98 mg/dL (0.70-1.20); EST Glomerular Filtration Rate 33 (>60); Estimated Creatinine Clearance 33.37 ml/min (50-250); Glucose 152 mg/dL (70-99); Potassium 4.8 mmol/L (3.3-5.1); Protein, Total 6.3 g/dL (5.9-8.4); Sodium Level 137 mmol/L (133-145)
[2024-09-23 14:56] LABS: Hemoglobin A1c 6.9 % (<=5.6)
--- NOTE | 2024-09-24 09:03 | WC ---
PHOTO 09/24/24 RIGHT BUTTOCKS
--- NOTE | 2024-09-24 09:05 | WC ---
PHOTO 09/23/24 RIGHT BUTTOCKS
--- NOTE | 2024-09-24 09:21 | WC ---
PHOTO 09/23/24 LEFT BUTTOCKS
[2024-09-25 05:07] LABS: Prealbumin 22 mg/dL (9-32)
[2024-09-25 10:26] VITALS: BP 137/54; PULSE 47; RESP 16; TEMP 36.1
--- NOTE | 2024-09-29 14:56 | WC ---
Yashira from [facility] called to LM that while visiting pt for wound care she applied duoderm to jonny area to help protect the breaking down skin from the tape.
[2024-09-30 10:38] VITALS: BP 155/78; PULSE 62; RESP 18; TEMP 36.6
--- NOTE | 2024-09-30 11:23 | PCM.WC.PN ---
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 With histories of open wounds on his buttocks from She[place] for the last 3 to 4 months and has had stage III before on the right and left buttocks. He lives by himself and takes care of himself. He falls asleep in his recliner and that is where he spends the night. Could be the reason why he has the shearing on his buttocks wounds. Patient states has lost weight and muscle mass recently. Blood sugar this morning he says was little high over 200 but he says his A1c was recently done and it was 6.8. We are going to repeat the A1c and recheck his kidney functions we already know he is anemic he has seen by Dr. Box's office in gastro for rectal bleeding and he is at 11 on his hemoglobin. Progress of Wound: Blood test came back still anemic at 11.6 not too bad better than what he was 2 years ago and he was in the tens but he should be in the 13s for a man. Also his kidney functions have worsened they are not over 2 but they are at 1.98 which is not good he has an appointment with Dr. Jeffers next week October and he also has appointment with Dr. Cheo Urbina on Saturday to go over his labs we noticed some swelling in his upper thigh of the amputated leg and his other leg looks swollen. Hemoglobin A1c is good at 6.8 so his blood sugars are controlled at this point. We did get a hold of home health care because he is mostly homebound he only goes out for his office appointments and he has a hard time getting around and laying in movements with those amputated leg and his weakness and his renal functions are putting him down also I certify that this visit serves as a [id number] encounter with this patient due to his medical condition of his amputation of his left leg above the knee and his diabetes and poor mobility and he has stage II decubitus ulcers on his buttocks also. Requiring a lot of nursing care for this gentleman. Which relates to the primary reason the patient requires home health services I certify that based on my findings home health services are medically necessary for this patient including either intermittent jail and/or therapy this patient is homebound in that absence from the home requires considerable and taxing effort for him to even get his leg on into get movement and to get in and out of his bed and to get around his apartment or house are infrequent or of short duration or attributable to the need to receive health care. I certify that I will as the certifying practitioner composed the above information based on my clinical judgment relating to this patient's medical condition. The wounds themselves have progressed well on the left buttocks cheek they are healing well with using the Xeroform dressings the right buttocks the Xeroform was used on the superficial ones and then he has a large open wound and that we will more using the Aquacel extra that is helping with that cleaning it up and and filling it in. Patient is states that it is improving and that he is not in so much pain on his buttocks and that he can actually touch it without pain. Subjective Subjective Patient is good with outcomes of the home health it is coming every day for 2 weeks and then will be coming twice a week. Objective Data Objective Data Again no sign of infection cultures came back positive we have him started on doxycycline and we will continue using the Xeroform on the left buttocks and on the right buttocks we will continue using the Aquacel to the wound base and then Xeroform to the superficial wounds. Patient is to continue home health every day dressing changes which will be helpful we should be able to clear up a lot of this within 2 weeks and then every other day with the follow-up after that. Vital Signs: Vital Signs Temp Pulse Resp BP Pulse Ox O2 Del Method 97.9 F 62 18 155/78 H 98 Room Air 09/30/24 10:38 09/30/24 10:38 09/30/24 10:38 09/30/24 10:38 09/23/24 10:11 09/30/24 10:38 Oxygen Delivery Method Room Air Weight: 203 lb Lab / Micro Data 09/23/24 12:00 Micro: Microbiology 09/23/24 10:40 Wound - Buttock Gram Stain - Final 09/23/24 10:40 Wound - Buttock Wound Culture - Final Staphylococcus aureus 09/23/24 10:40 Wound - Buttock Anaerobic Culture - Final No anaerobic bacteria isolated. Physical Exam Const oriented x3 General Appearance: cooperative Exam Limitations: no limitations HEENT normocephalic Head and Scalp: normal to inspection Face and Sinus: normal facial exam Nose: external nose normal External Ear: external ears normal Eyes General Eye: normal appearance of both eyes Conjunctiva: other Other Details: Conjunctiva pale Neck full ROM General: normal visual inspection Resp normal respiratory effort Effort and Inspection: able to speak in complete sentences Auscultation: clear to auscultation bilaterally Cardio regular rate and regular rhythm Palpation: normal PMI Rate: regular rate Rhythm: abnormal rhythm GI Palpation: soft and no hepatosplenomegaly Back/Spine Cervical Spine: cervical ROM normal Thoracic Spine / Upper Back: normal to inspection Lumbar Spine / Lower Back: normal to inspection Extremity General Extremity: normal exam except as noted and other findings Other Details: Left AKA amp Skin Skin Narrative: Skin is pale all over and dry Wounds: wounds noted Wound Narrative: Open wound on the right buttocks with shearing and left buttocks shearing Neuro oriented x3 Psych Appearance: grossly normal Speech: normal speech Thought Content: normal thought content Judgement: judgement good Debridement Note Debridement Note Wound debrided: Right buttocks Laterality: Right Wound Grade/Stage: Stage II Type of Debridement: Excisional debridement Anesthesia Used: 5% Lidocaine Gel Depth: in the subcutaneous layer Percentage of wound debrided: 100 Instrument Used: 5mm curette Tissue Removed: Fibrin and devitalized tissue Severity: Fat Layer Exposed Amount of bleeding with debridement: Moderate Bleeding Controlled with: Compression and gauze Post-Debridement Measurements and Additional Note: Post-Debridement Measurements/Treatment - Nurse 1 - General Ulcer Assessment Start: 09/23/24 10:09 Freq: Status: Active Protocol: FABY Activity Type Activity Date Activity User E-sign Co-sign Detail Recorded Client Recorded Date Recorded By Document 09/23/24 10:11 [place] [id number] 09/23/24 10:29 MT Document 09/25/24 10:26 KW [id number] 09/25/24 10:42 Document 09/30/24 10:38 [place] [id number] 09/30/24 10:47 MT 09/23/24 09/25/24 09/30/24 10:11 10:26 10:38 - Today's Visit Information Type of service Initial Visit Nurse-only Follow-up Visit Visit (Physician/CASE TECHNICIAN ) Arrival Mode Ambulatory, Ambulatory, Ambulatory, Crutches Crutches Crutches Transfer Assistance Other Transfer Assist (Other) stand by Accompanied by self Patient Identification Verified (Name & Yes Yes Yes ) Patient Requires Transmission-Based No Precautions Safety Precautions Fall Prevention Finger Stick Blood Sugar(mg/dl) (if 245 indicated): Blood Sugar Stated by Patient Height and Weight Weight 203 lb Weight in Pounds 203.0 lbs Weight Measurement Method Stated by Patient Vital Signs Temperature (97.8 F-99.1 F) 98 F 96.9 F L 97.9 F Temperature Source Temporal Temporal Temporal Pulse Rate (60-100) 54 L 47 L 62 Pulse Location Monitor Monitor Monitor Respiratory Rate (12-18) 18 16 18 Respiratory rate source Observation Observation Observation Pulse Oximetry 98 Oxygen Delivery Method Room Air Room Air Room Air Blood Pressure (90/60-120/80) 187/83 H 137/54 H 155/78 H Blood Pressure Mean (mm Hg) 117 81 103 Source Monitor Monitor Monitor Position Sitting Sitting Sitting Blood Pressure Location Left Arm Left Arm History Since Last Visit- (Skip if this is Patient's initial visit) Have you changed medications since your No No last visit? Any new allergies or adverse reactions No No Had a fall/change in ADL's that may No No increase risk of falls Signs or symptoms of abuse and/or No No neglect since last visit Have you been in the hospital since your Yes No No last visit? Has dressing in place as prescribed Yes Has compression in place as prescribed N/A N/A N/A Has offloadiing in place as prescribed N/A N/A Experienced any changes in pain level or No No management Left Footwear Regular Shoe Regular Shoe Right Footwear Regular Shoe Regular Shoe Pain Scale: 0-10 Numeric Is Patient Pain Free? Yes Yes Yes - Nurse 1 - General Ulcer Measurement Start: 09/23/24 10:09 Freq: Status: Active Protocol: Activity Type Activity Date Activity User E-sign Co-sign Detail Recorded Client Recorded Date Recorded By Document 09/23/24 10:11 [place] [id number] 09/23/24 10:29 MT Document 09/30/24 10:38 MT [id number] 09/30/24 10:47 MT 09/23/24 09/30/24 10:11 10:38 Wound Center Nurse 1 #13 Right Buttock -Combined with other wound No -Current Size (cm) - Length 2.5 3 -Current Size (cm) - Width 1.7 2 -Current Size (cm) - Depth 0.2 0.2 -Total Square Cm 4.25 6 -Date of Last Picture (Recall this 09/23/24 09/30/24 field) -Photo Taken Yes Yes -Epithelialization Small 1-33% Small 1-33% -Tunneling No No -Undermining/Tunneling No No -Circular Undermining No No -Exudate Amt Medium Medium -Exudate Type Serosanguineous Serosanguineous -Wound Margin Flat & Intact Thickened -Granulation Amt Large (67-100%) Large (67-100%) -Granulation Quality Pale,[place] Red -Slough/Fibrin Yes -Necrosis Amt Small (1-33%) Small (1-33%) -Necrotic Tissue Type Adherent Slough Adherent Slough -Texture (Dai-wound Skin Appearance) Assessed Assessed, Scarring -Moisture (Dai-wound Skin Appearance) Assessed Assessed,Dry/ Scaly -Color (Dai-wound Skin Appearance) Assessed, Assessed, Hemosiderin Ecchymosis, Staining Erythema -Temperature (Dai-wound Skin No Abnormality No Abnormality Appearance) (Pt Warm) (Pt Warm) -Tenderness on Palpation (Dai-wound No No Skin Appearance) -Ulcer Cleansing Soap and Water Soap and Water -Foul Odor after Cleansing No No -Anesthetic Used 5% Lidocaine 5% Lidocaine Gel Gel #12 Left Buttock -Combined with other wound No -Current Size (cm) - Length 0.1 0.1 -Current Size (cm) - Width 0.1 0.1 -Current Size (cm) - Depth 0.1 0.1 -Total Square Cm 0.01 0.01 -Date of Last Picture (Recall this 09/23/24 09/30/24 field) -Photo Taken Yes Yes -Epithelialization Large 67-100% Medium 34-66% -Tunneling No No -Undermining/Tunneling No No -Circular Undermining No No -Classification - Thickness Partial Thickness -Change in Wound Grade/Stage hypergranualtio n -Exudate Amt Medium None Present -Exudate Type Serosanguineous -Wound Margin Thickened & Rolled Under -Granulation Amt Large (67-100%) -Granulation Quality Pale,[place] -Necrosis Amt Small (1-33%) -Necrotic Tissue Type Adherent Slough -Texture (Dai-wound Skin Appearance) Assessed Assessed -Moisture (Dai-wound Skin Appearance) Assessed Assessed -Color (Dai-wound Skin Appearance) Assessed, Assessed Hemosiderin Staining -Temperature (Dai-wound Skin No Abnormality No Abnormality Appearance) (Pt Warm) (Pt Warm) -Tenderness on Palpation (Dai-wound No No Skin Appearance) -Ulcer Cleansing Soap and Water Soap and Water -Foul Odor after Cleansing No No -Anesthetic Used 5% Lidocaine 5% Lidocaine Gel Gel Lower Limb Edema Present NA WC - Nurse 2 - General Ulcer CM Notes Start: 09/23/24 10:09 Freq: Status: Active Protocol: Activity Type Activity Date Activity User E-sign Co-sign Detail Recorded Client Recorded Date Recorded By Document 09/30/24 11:00 [facility] [id number] 09/30/24 11:12 [facility] 09/30/24 11:00 Wound Center Nurse 2 #13 Right Buttock -Time 11:00 -Correct Patient Yes -Correct Side, Site, Position Yes -Correct Procedure Yes -Procedure Performed Yes -Type of Procedure Debridement -Clinical Debridement Muscle / Fascia -Tissue Removed Muscle,Fascia -Post Debridement (cm) - Length 3 -Post Debridement (cm) - Width 2.2 -Post Debridement (cm) - Depth 0.3 -Total Square (Post) (cm) 6.6 -Area of Debridement (cm) - Length 3 -Area of Debridement (cm) - Width 2.2 -Total Square (Area) (cm) 6.6 -Tunneling No -Undermining/Tunneling No -Circular Undermining No -Wound/Ulcer Outcome Not Healed -Ulcer Cleansing Rinsed/ Irrigated with Saline -Foul Odor after Cleansing No -Bioengineered Tissue No -Bleeding Controlled with Pressure -Treatment Response Procedure Tolerated Well -Debridement - Muscle / Fascia, 1st Yes 20sq cm #12 Left Buttock -Time 11:01 -Correct Patient Yes -Correct Side, Site, Position Yes -Correct Procedure Yes -Procedure Performed Yes -Type of Procedure Debridement -Clinical Debridement Subcutaneous -Tissue Removed Subcutaneous -Post Debridement (cm) - Length 4.7 -Post Debridement (cm) - Width 1.5 -Post Debridement (cm) - Depth 0.1 -Total Square (Post) (cm) 7.05 -Area of Debridement (cm) - Length 4.7 -Area of Debridement (cm) - Width 1.5 -Total Square (Area) (cm) 7.05 -Tunneling No -Undermining/Tunneling No -Circular Undermining No -Wound/Ulcer Outcome Not Healed -Ulcer Cleansing Rinsed/ Irrigated with Saline -Foul Odor after Cleansing No -Bioengineered Tissue No -Bleeding Controlled with Pressure, SURGIFOAM -Treatment Response Procedure Tolerated Well -Debridement - Subq, 1st 20sq cm Yes Pain Scale: 0-10 Numeric Is Patient Pain Free? Yes - Nurse 3 - General Ulcer D/C NN Start: 09/23/24 10:09 Freq: Status: Active Protocol: Activity Type Activity Date Activity User E-sign Co-sign Detail Recorded Client Recorded Date Recorded By Document 09/23/24 11:19 RB [id number] 09/23/24 11:22 RB Document 09/25/24 10:26 KW [id number] 09/25/24 10:42 KW 09/23/24 09/25/24 11:19 10:26 Wound Care Center Nurse 3 #13 Right Buttock -Ulcer Cleansing Rinsed/ Soap and Water Irrigated with Saline -Primary Dressing Applied Fibracol Plus Fibracol Plus 4x4,NonAdherent 4x4,NonAdherent Contact Layer Contact Layer -Other Dressing ABD -Primary Dressing Covered/Secured with Secured with Dry Gauze Tape -Fibracol Plus 4x4 1 1 -Wound Comment(s) xeroform to inf portion #12 Left Buttock -Ulcer Cleansing Rinsed/ Soap and Water Irrigated with Saline -Primary Dressing Applied NonAdherent Contact Layer -Other Dressing xeroform/ ABD -Primary Dressing Covered/Secured with Dry Gauze, Secured with Tape -Wound Comment(s) xeroform Treatment Response Procedure Tolerated Well Pain Scale: 0-10 Numeric Is Patient Pain Free? Yes Yes WC - Visit Discharge Discharge Condition Stable Stable Ambulatory Status Ambulatory, Ambulatory, Crutches Crutches Transportation Private Auto Private Auto Medication Reconcilliation completed & No No provided to patient/care provider Clinical Summary of Care Provided Yes Yes Additional Wound Wound debrided: Left buttocks Laterality: Left Wound Grade/Stage: Stage II Type of Debridement: Excisional debridement Anesthesia Used: 5% Lidocaine Gel Depth: Down to and including healthy tissue Percentage of wound debrided: 100 Instrument Used: 5mm curette Tissue Removed: Devitalized tissue and fibrin Amount of bleeding with debridement: Mild Bleeding Controlled with: Compression and gauze Patient tolerated procedure: Patient tolerated procedure well Assessment/Plan Assessment/Plan (1) Anemia: CODE(S): D64.9 - Anemia, unspecified QUALIFIERS: Anemia type: unspecified type Qualified Code(s): D64.9 - Anemia, unspecified (2) Stage II pressure ulcer of right buttock: CODE(S): L89.312 - Pressure ulcer of right buttock, stage 2 PLAN: Wash buttocks with antibacterial soap and water and apply Aquacel extra to the wound base superior and Xeroform to the inferior right buttocks shearing area moisten the Aquacel and cover with Adaptic and an ABD dressing. Every day Patient is return on Saturday for wound care dressing changes until we get home health set up. (3) Stage II pressure ulcer of left buttock: CODE(S): L89.322 - Pressure ulcer of left buttock, stage 2 PLAN: Wash left buttocks with antibacterial soap and water and apply Xeroform dressing to the wound base cover with Adaptic and ABD dressing every day. 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 Albumin was within normal limits lower end of normal but within normal still anemic and kidney functions are a little bit high closer to 2 than they should be and he has doctor appointments coming up for that.
--- NOTE | 2024-09-30 13:45 | WC ---
PHOTO 09/30/24 R/L BUTTOCK
--- NOTE | 2024-09-30 13:57 | WC ---
PHOTO 09/30/24 RIGHT BUTTOCKS
--- NOTE | 2024-09-30 13:59 | WC ---
PHOTO 09/30/24 LEFT BUTTOCK
== END 2024-09-30 23:59 | disposition home or self-care (01) ==
LOC: WC 10:30
PROVIDERS: PCP Family Medicine; Visit Provider Nurse Practitioner
DX: L89.312 Pressure ulcer of right buttock, stage 2 (principal); L89.322 Pressure ulcer of left buttock, stage 2; Z89.612 Acquired absence of left leg above knee; I48.20 Chronic atrial fibrillation, unspecified; Z79.4 Long term (current) use of insulin; E11.22 Type 2 diabetes mellitus with diabetic chronic kidney disease; N18.31 Chronic kidney disease, stage 3a; D64.9 Anemia, unspecified; E78.5 Hyperlipidemia, unspecified; M79.89 Other specified soft tissue disorders; Z79.01 Long term (current) use of anticoagulants; Z79.84 Long term (current) use of oral hypoglycemic drugs; Z79.899 Other long term (current) drug therapy; I12.9 Hypertensive chronic kidney disease with stage 1 through stage 4 chronic kidney disease, or unspecified chronic kidney disease
CPT/HCPCS: 11042; 11043; 11045; 36415; 80053; 83036; 84134; 87070; 87075; 87077; 87186; 87205; 99212; 99214; G0463

== ENCOUNTER 2024-10-28 11:00 | Outpatient (RCR) | payer MEDICARE, SELFPAY ==
[2024-10-01 00:24] VITALS: BP 155/78; PULSE 62; RESP 18; TEMP 36.6; O2SAT 98
[2024-10-07 11:33] VITALS: BP 170/52; PULSE 59; RESP 18; TEMP 36.3
--- NOTE | 2024-10-07 12:47 | PN.PCM_ITS ---
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 With histories of open wounds on his buttocks from [place] for the last 3 to 4 months and has had stage III before on the right and left buttocks. He lives by himself and takes care of himself. He falls asleep in his recliner and that is where he spends the night. Could be the reason why he has the shearing on his buttocks wounds. Patient states has lost weight and muscle mass recently. Blood sugar this morning he says was little high over 200 but he says his A1c was recently done and it was 6.8. We are going to repeat the A1c and recheck his kidney functions we already know he is anemic he has seen by Dr. Box's office in gastro for rectal bleeding and he is at 11 on his hemoglobin. Progress of Wound: Left buttocks wound is basically healed and we will start using amLactin cream t o keep it moistened and not to let it accumulate skin or dry skin. The right buttocks still has an open wound but it is measured much smaller than what it has been. Currently he has home health care that is going to try to reevaluate every day dressing changes for him. They have been doing an excellent job of getting him healed. 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 He also has some peripheral vascular disease in that leg Subjective Subjective Patient is agreeable to plan and is doing well and will continue monitoring his Objective Data Objective Data As stated before the left buttocks appears to be healed we will change from the Xeroform over to AmLactin cream to be used a couple times a day to keep the skin soft and supple The right buttocks will continue using the fibber call with Adaptic and absorbent dressing over top He is right leg stasis dermatitis from his peripheral vascular disease we will start using AmLactin cream there and a double layer Tubigrip.. Vital Signs: Vital Signs Temp Pulse Resp BP Pulse Ox 97.3 F L 59 L 18 170/52 H 98 10/07/24 11:33 10/07/24 11:33 10/07/24 11:33 10/07/24 11:33 10/01/24 00:24 Weight: 203 lb Lab / Micro Data Attestation: I reviewed the patient's lab results. Lab results narrative: Prealbumin looked good it was above 9 it was at 22 still anemic at 11.8 send him back to his primary care doctor they are trying to determine what would be the best iron pill for his kidney problems had him reevaluate his kidney functions also that needs to be monitored and he needs to probably see a account executive. Physical Exam Const oriented x3 General Appearance: cooperative Exam Limitations: no limitations HEENT normocephalic Head and Scalp: normal to inspection Face and Sinus: normal facial exam Nose: external nose normal External Ear: external ears normal Eyes General Eye: normal appearance of both eyes Conjunctiva: other Other Details: Conjunctiva pale Neck full ROM General: normal visual inspection Resp normal respiratory effort Effort and Inspection: able to speak in complete sentences Auscultation: clear to auscultation bilaterally Cardio regular rate and regular rhythm Palpation: normal PMI Rate: regular rate Rhythm: abnormal rhythm GI Palpation: soft and no hepatosplenomegaly Back/Spine Cervical Spine: cervical ROM normal Thoracic Spine / Upper Back: normal to inspection Lumbar Spine / Lower Back: normal to inspection Extremity General Extremity: normal exam except as noted and other findings Other Details: Left AKA amp Skin Skin Narrative: Skin is pale all over and dry Wounds: wounds noted Wound Narrative: Open wound on the right buttocks with shearing and left buttocks shearing Neuro oriented x3 Psych Appearance: grossly normal Speech: normal speech Thought Content: normal thought content Judgement: judgement good Debridement Note Debridement Note Post-Debridement Measurements and Additional Note: Post-Debridement Measurements/Treatment - Nurse 1 - General Ulcer Assessment Start: 10/07/24 11:33 Freq: Status: Active Protocol: FABY Activity Type Activity Date Activity User E-sign Co-sign Detail Recorded Client Recorded Date Recorded By Document 10/07/24 11:33 RB [id number] 10/07/24 11:35 RB 10/07/24 11:33 - Today's Visit Information Type of service Follow-up Visit (Physician/TECHNICAL COMMUNICATOR ) Arrival Mode Ambulatory, Crutches Transfer Assistance Manual Patient Identification Verified (Name & Yes ) Patient Requires Transmission-Based No Precautions Vital Signs Temperature (97.8 F-99.1 F) 97.3 F L Temperature Source Temporal Pulse Rate (60-100) 59 L Pulse Location Monitor Respiratory Rate (12-18) 18 Respiratory rate source Observation Blood Pressure (90/60-120/80) 170/52 H Blood Pressure Mean (mm Hg) 91 Source Monitor Position Semi-Fowlers Blood Pressure Location Left Arm History Since Last Visit- (Skip if this is Patient's initial visit) Have you changed medications since your No last visit? Any new allergies or adverse reactions No Had a fall/change in ADL's that may No increase risk of falls Signs or symptoms of abuse and/or No neglect since last visit Have you been in the hospital since your No last visit? Has dressing in place as prescribed Yes Has compression in place as prescribed N/A Has offloadiing in place as prescribed N/A Experienced any changes in pain level or No management Pain Scale: 0-10 Numeric Is Patient Pain Free? Yes WC - Nurse 1 - General Ulcer Measurement Start: 10/07/24 11:33 Freq: Status: Active Protocol: Activity Type Activity Date Activity User E-sign Co-sign Detail Recorded Client Recorded Date Recorded By Document 10/07/24 11:33 ALICE [id number] 10/07/24 11:35 ALICE 10/07/24 11:33 Wound Center Nurse 1 #13 Right Buttock -Combined with other wound No -Current Size (cm) - Length 2 -Current Size (cm) - Width 1.4 -Current Size (cm) - Depth 0.3 -Total Square Cm 2.8 -Tunneling No -Undermining/Tunneling No -Circular Undermining No -Exudate Amt Large -Exudate Type Serosanguineous -Wound Margin Thickened & Rolled Under -Granulation Amt Large (67-100%) -Granulation Quality [place],Red -Slough/Fibrin Yes -Necrosis Amt Small (1-33%) -Necrotic Tissue Type Adherent Slough -Structure Exposed N/A -Texture (Dai-wound Skin Appearance) Assessed, Excoriation -Moisture (Dai-wound Skin Appearance) Assessed,Dry/ Scaly -Color (Dai-wound Skin Appearance) Assessed -Temperature (Dai-wound Skin No Abnormality Appearance) (Pt Warm) -Tenderness on Palpation (Dai-wound No Skin Appearance) -Ulcer Cleansing Wound Cleanser -Foul Odor after Cleansing No -Anesthetic Used 5% Lidocaine Gel #12 Left Buttock -Combined with other wound No -Current Size (cm) - Length 0.1 -Current Size (cm) - Width 0.1 -Current Size (cm) - Depth 0.1 -Total Square Cm 0.01 -Tunneling No -Undermining/Tunneling No -Circular Undermining No -Exudate Amt Medium -Exudate Type Serosanguineous -Wound Margin Distinct, Outline Attached -Granulation Amt Medium (34-66%) -Granulation Quality [place] -Slough/Fibrin Yes -Necrosis Amt Small (1-33%) -Necrotic Tissue Type Adherent Slough -Structure Exposed N/A -Texture (Dai-wound Skin Appearance) Excoriation -Moisture (Dai-wound Skin Appearance) Dry/Scaly -Color (Dai-wound Skin Appearance) Assessed -Temperature (Dai-wound Skin No Abnormality Appearance) (Pt Warm) -Tenderness on Palpation (Dai-wound No Skin Appearance) -Ulcer Cleansing Wound Cleanser -Foul Odor after Cleansing No -Anesthetic Used 5% Lidocaine Gel WC - Nurse 2 - General Ulcer CM Notes Start: 10/07/24 11:33 Freq: Status: Active Protocol: Activity Type Activity Date Activity User E-sign Co-sign Detail Recorded Client Recorded Date Recorded By Document 10/07/24 11:41 [facility] [id number] 10/07/24 11:51 [facility] 10/07/24 11:41 Wound Center Nurse 2 #13 Right Buttock -Time 11:42 -Correct Patient Yes -Correct Side, Site, Position Yes -Correct Procedure Yes -Procedure Performed Yes -Type of Procedure Debridement -Clinical Debridement Subcutaneous -Tissue Removed Subcutaneous -Post Debridement (cm) - Length 2.5 -Post Debridement (cm) - Width 1.7 -Post Debridement (cm) - Depth 0.2 -Total Square (Post) (cm) 4.25 -Area of Debridement (cm) - Length 2.5 -Area of Debridement (cm) - Width 1.7 -Total Square (Area) (cm) 4.25 -Tunneling No -Undermining/Tunneling No -Circular Undermining No -Wound/Ulcer Outcome Not Healed -Ulcer Cleansing Rinsed/ Irrigated with Saline -Foul Odor after Cleansing No -Bioengineered Tissue No -Bleeding Controlled with Pressure -Treatment Response Procedure Tolerated Well -Debridement - Subq, 1st 20sq cm Yes #12 Left Buttock -Time 11:44 -Procedure Performed No -Post Debridement (cm) - Length 0.1 -Post Debridement (cm) - Width 0.1 -Post Debridement (cm) - Depth 0.1 -Total Square (Post) (cm) 0.01 -Area of Debridement (cm) - Length 0.1 -Area of Debridement (cm) - Width 0.1 -Total Square (Area) (cm) 0.01 -Tunneling No -Undermining/Tunneling No -Circular Undermining No -Wound/Ulcer Outcome Not Healed -Bleeding Controlled with NA Pain Scale: 0-10 Numeric Is Patient Pain Free? Yes - Nurse 3 - General Ulcer D/C NN Start: 10/07/24 11:33 Freq: Status: Active Protocol: Activity Type Activity Date Activity User E-sign Co-sign Detail Recorded Client Recorded Date Recorded By Document 10/07/24 12:03 [facility] [id number] 10/07/24 12:05 [facility] 10/07/24 12:03 Wound Care Center Nurse 3 #13 Right Buttock -Ulcer Cleansing Rinsed/ Irrigated with Saline -Foul Odor after Cleansing No -Primary Dressing Applied Fibracol Plus 4x4 -Other Dressing ABD -Primary Dressing Covered/Secured with Secured with Tape -Other Covering DRSG PER DL [place] -Fibracol Plus 4x4 1 #12 Left Buttock -Other Dressing LOTION TO L BUTTOCK -Other Covering PER DL [place] RUE -Tubular Bandage Double Layer -Size of Tubigrip Used Size F -Size F ($) 2 Treatment Response Procedure Tolerated Well Pain Scale: 0-10 Numeric Is Patient Pain Free? Yes - Visit Discharge Discharge Condition Stable Ambulatory Status Ambulatory, Crutches Transportation Private Auto Facility Type Home Health Assessment/Plan Assessment/Plan (1) Anemia: CODE(S): D64.9 - Anemia, unspecified QUALIFIERS: Anemia type: unspecified type Qualified Code(s): D64.9 - Anemia, unspecified (2) Stage II pressure ulcer of right buttock: CODE(S): L89.312 - Pressure ulcer of right buttock, stage 2 PLAN: Wash buttocks with antibacterial soap and water and apply febrical to the wound base and Adaptic over top with a [place] SAP dressing over top, Every day. (3) Stage II pressure ulcer of left buttock: CODE(S): L89.322 - Pressure ulcer of left buttock, stage 2 PLAN: Wash left buttocks has resolved and patient just needs to use AmLactin cream to left buttocks to maintain skin to be supple and healed. 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 Albumin was within normal limits lower end of normal but within normal still anemic and kidney functions are a little bit high closer to 2 than they should be and he is primary care doctor is following up with his kidney functions and trying to find him iron pills for his anemia.
[2024-10-14 11:10] VITALS: BP 151/80; PULSE 49; RESP 18; TEMP 36.2
--- NOTE | 2024-10-14 12:09 | PCM.WC.PN ---
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 With histories of open wounds on his buttocks from [place] for the last 3 to 4 months and has had stage III before on the right and left buttocks. He lives by himself and takes care of himself. He falls asleep in his recliner and that is where he spends the night. Could be the reason why he has the shearing on his buttocks wounds. Patient states has lost weight and muscle mass recently. Blood sugar this morning he says was little high over 200 but he says his A1c was recently done and it was 6.8. We are going to repeat the A1c and recheck his kidney functions we already know he is anemic he has seen by Dr. Box's office in gastro for rectal bleeding and he is at 11 on his hemoglobin. Progress of Wound: Left buttocks wound is basically healed and ist using amLactin cream to keep it moistened and not to let it accumulate skin or dry skin. Looks very good The right buttocks still has an open wound but it is measured much smaller than what it has been. Currently he has home health care that is going to try to reevaluate every day dressing changes for him. They have been doing an excellent job of getting him healed. 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 He also has some peripheral vascular disease in that leg.. Currently he is using on the right leg a single-layer Tubigrip because the double layer caused his bunions to just hurt so bad he said he could hardly walk. But he is also using the amLactin cream on the leg and he is getting rid of all the dried skin and it looks really good so it is healed also. Subjective Subjective Patient is pleased with outcomes and is still having home health care come out almost daily they skipped like 1 day a week. Objective Data Objective Data As stated above the right but buttocks is still open and healing well smaller filling and finishes antibiotics Saturday so supple skin around it Left buttocks is using the amLactin cream and it looks very good soft and supple with no dried yellow crusty anything on it smooth to touch Right leg is smooth and not crusted also has a single-layer Tubigrip and doing really well with using the amLactin cream Vital Signs: Vital Signs Temp Pulse Resp BP Pulse Ox 97.2 F L 49 L 18 151/80 H 98 10/14/24 11:10 10/14/24 11:10 10/14/24 11:10 10/14/24 11:10 10/01/24 00:24 Weight: 203 lb Lab / Micro Data Attestation: I reviewed the patient's lab results. Physical Exam Const oriented x3 General Appearance: cooperative Exam Limitations: no limitations HEENT normocephalic Head and Scalp: normal to inspection Face and Sinus: normal facial exam Nose: external nose normal External Ear: external ears normal Eyes General Eye: normal appearance of both eyes Conjunctiva: other Other Details: Conjunctiva pale Neck full ROM General: normal visual inspection Resp normal respiratory effort Effort and Inspection: able to speak in complete sentences Auscultation: clear to auscultation bilaterally Cardio regular rate and regular rhythm Palpation: normal PMI Rate: regular rate Rhythm: abnormal rhythm GI Palpation: soft and no hepatosplenomegaly Back/Spine Cervical Spine: cervical ROM normal Thoracic Spine / Upper Back: normal to inspection Lumbar Spine / Lower Back: normal to inspection Extremity General Extremity: normal exam except as noted and other findings Other Details: Left AKA amp Skin Skin Narrative: Skin is pale all over and dry Wounds: wounds noted Wound Narrative: Open wound on the right buttocks with shearing and left buttocks shearing Neuro oriented x3 Psych Appearance: grossly normal Speech: normal speech Thought Content: normal thought content Judgement: judgement good Debridement Note Debridement Note Wound debrided: Right buttocks Laterality: Right Wound Grade/Stage: Stage II Type of Debridement: Excisional debridement Anesthesia Used: 5% Lidocaine Gel Depth: Down to and including healthy tissue and in the subcutaneous layer Percentage of wound debrided: 100 Instrument Used: 7mm curette Tissue Removed: Devitalized tissue and fibrin Severity: Fat Layer Exposed Amount of bleeding with debridement: Mild Bleeding Controlled with: Compression and gauze Patient tolerated procedure: Patient tolerated procedure well Post-Debridement Measurements and Additional Note: Post-Debridement Measurements/Treatment WC - Nurse 1 - General Ulcer Assessment Start: 10/07/24 11:33 Freq: Status: Active Protocol: FABY Activity Type Activity Date Activity User E-sign Co-sign Detail Recorded Client Recorded Date Recorded By Document 10/07/24 11:33 RB [id number] 10/07/24 11:35 RB Document 10/14/24 11:10 DL [id number] 10/14/24 11:13 DL 10/07/24 10/14/24 11:33 11:10 WC - Today's Visit Information Type of service Follow-up Visit Follow-up Visit (Physician/CANDLE EXTRUSION MACHINE OPERATOR (Physician/CANDLE EXTRUSION MACHINE OPERATOR ) ) Arrival Mode Ambulatory, Ambulatory, Crutches Crutches Transfer Assistance Manual None Patient Identification Verified (Name & Yes Yes ) Patient Requires Transmission-Based No No Precautions Vital Signs Temperature (97.8 F-99.1 F) 97.3 F L 97.2 F L Temperature Source Temporal Temporal Pulse Rate (60-100) 59 L 49 L Pulse Location Monitor Monitor Respiratory Rate (12-18) 18 18 Respiratory rate source Observation Observation Blood Pressure (90/60-120/80) 170/52 H 151/80 H Blood Pressure Mean (mm Hg) 91 103 Source Monitor Monitor Position Semi-Fowlers Semi-Fowlers Blood Pressure Location Left Arm Right Arm History Since Last Visit- (Skip if this is Patient's initial visit) Have you changed medications since your No No last visit? Any new allergies or adverse reactions No No Had a fall/change in ADL's that may No No increase risk of falls Signs or symptoms of abuse and/or No No neglect since last visit Have you been in the hospital since your No No last visit? Has dressing in place as prescribed Yes Yes Has compression in place as prescribed N/A N/A Has offloadiing in place as prescribed N/A N/A Experienced any changes in pain level or No No management Pain Scale: 0-10 Numeric Is Patient Pain Free? Yes No buttocks -Description Burning -Intensity 2 -Duration (hours) Chronic -Pain Behavior Withdrawal from Touch -Pain Aggravating Factors ADL's -Alleviating Factors/Interventions Medication -Effectiveness of Alleviating Factor/ Moderately Intervention effective - Nurse 1 - General Ulcer Measurement Start: 10/07/24 11:33 Freq: Status: Active Protocol: Activity Type Activity Date Activity User E-sign Co-sign Detail Recorded Client Recorded Date Recorded By Document 10/07/24 11:33 RB [id number] 10/07/24 11:35 RB Document 10/14/24 11:10 DL [id number] 10/14/24 11:13 DL 10/07/24 10/14/24 11:33 11:10 Wound Center Nurse 1 #12 Left Buttock -Combined with other wound No No -Current Size (cm) - Length 0.1 0.1 -Current Size (cm) - Width 0.1 0.1 -Current Size (cm) - Depth 0.1 0.1 -Total Square Cm 0.01 0.01 -Photo Taken Yes -Tunneling No No -Undermining/Tunneling No No -Circular Undermining No No -Exudate Amt Medium Small -Exudate Type Serosanguineous Serosanguineous -Wound Margin Distinct, Distinct, Outline Outline Attached Attached -Granulation Amt Medium (34-66%) Large (67-100%) -Granulation Quality [place] -Slough/Fibrin Yes Yes -Necrosis Amt Small (1-33%) Small (1-33%) -Necrotic Tissue Type Adherent Slough Adherent Slough -Structure Exposed N/A N/A -Texture (Dai-wound Skin Appearance) Excoriation -Moisture (Dai-wound Skin Appearance) Dry/Scaly Assessed -Color (Dai-wound Skin Appearance) Assessed Erythema -Temperature (Dai-wound Skin No Abnormality No Abnormality Appearance) (Pt Warm) (Pt Warm) -Tenderness on Palpation (Dai-wound No No Skin Appearance) -Ulcer Cleansing Wound Cleanser Wound Cleanser -Foul Odor after Cleansing No No -Anesthetic Used 5% Lidocaine 5% Lidocaine Gel Gel #13 Right Buttock -Combined with other wound No No -Current Size (cm) - Length 2 2 -Current Size (cm) - Width 1.4 1.4 -Current Size (cm) - Depth 0.3 0.3 -Total Square Cm 2.8 2.8 -Photo Taken Yes -Tunneling No No -Undermining/Tunneling No No -Circular Undermining No No -Exudate Amt Large Medium -Exudate Type Serosanguineous Serosanguineous -Wound Margin Thickened & Thickened & Rolled Under Rolled Under -Granulation Amt Large (67-100%) Medium (34-66%) -Granulation Quality [place],Red [place] -Slough/Fibrin Yes Yes -Necrosis Amt Small (1-33%) Small (1-33%) -Necrotic Tissue Type Adherent Slough Adherent Slough -Structure Exposed N/A N/A -Texture (Dai-wound Skin Appearance) Assessed, Assessed, Excoriation Excoriation -Moisture (Dai-wound Skin Appearance) Assessed,Dry/ Assessed Scaly -Color (Dai-wound Skin Appearance) Assessed Assessed -Temperature (Dai-wound Skin No Abnormality No Abnormality Appearance) (Pt Warm) (Pt Warm) -Tenderness on Palpation (Dai-wound No No Skin Appearance) -Ulcer Cleansing Wound Cleanser Wound Cleanser -Foul Odor after Cleansing No No -Anesthetic Used 5% Lidocaine 5% Lidocaine Gel Gel WC - Nurse 2 - General Ulcer CM Notes Start: 10/07/24 11:33 Freq: Status: Active Protocol: Activity Type Activity Date Activity User E-sign Co-sign Detail Recorded Client Recorded Date Recorded By Document 10/07/24 11:41 [facility] [id number] 10/07/24 11:51 [facility] Document 10/14/24 11:22 [facility] [id number] 10/14/24 11:30 [facility] 10/07/24 10/14/24 11:41 11:22 Wound Center Nurse 2 #12 Left Buttock -Time 11:44 -Procedure Performed No No -Post Debridement (cm) - Length 0.1 0 -Post Debridement (cm) - Width 0.1 0 -Post Debridement (cm) - Depth 0.1 0 -Total Square (Post) (cm) 0.01 0 -Area of Debridement (cm) - Length 0.1 0 -Area of Debridement (cm) - Width 0.1 0 -Total Square (Area) (cm) 0.01 0 -Tunneling No -Undermining/Tunneling No -Circular Undermining No -Wound/Ulcer Outcome Not Healed -Bleeding Controlled with NA #13 Right Buttock -Time 11:42 11:24 -Correct Patient Yes Yes -Correct Side, Site, Position Yes Yes -Correct Procedure Yes Yes -Procedure Performed Yes Yes -Type of Procedure Debridement Debridement -Clinical Debridement Subcutaneous Subcutaneous -Tissue Removed Subcutaneous Subcutaneous -Post Debridement (cm) - Length 2.5 2.3 -Post Debridement (cm) - Width 1.7 3 -Post Debridement (cm) - Depth 0.2 0.2 -Total Square (Post) (cm) 4.25 6.9 -Area of Debridement (cm) - Length 2.5 2.3 -Area of Debridement (cm) - Width 1.7 3 -Total Square (Area) (cm) 4.25 6.9 -Tunneling No No -Undermining/Tunneling No No -Circular Undermining No No -Wound/Ulcer Outcome Not Healed Not Healed -Ulcer Cleansing Rinsed/ Rinsed/ Irrigated with Irrigated with Saline Saline -Foul Odor after Cleansing No No -Bioengineered Tissue No No -Bleeding Controlled with Pressure Pressure -Treatment Response Procedure Procedure Tolerated Well Tolerated Well -Debridement - Subq, 1st 20sq cm Yes Yes Pain Scale: 0-10 Numeric Is Patient Pain Free? Yes Yes - Nurse 3 - General Ulcer D/C NN Start: 10/07/24 11:33 Freq: Status: Active Protocol: Activity Type Activity Date Activity User E-sign Co-sign Detail Recorded Client Recorded Date Recorded By Document 10/07/24 12:03 [facility] [id number] 10/07/24 12:05 [facility] Document 10/14/24 11:47 RB [id number] 10/14/24 11:49 RB 10/07/24 10/14/24 12:03 11:47 Wound Care Center Nurse 3 #12 Left Buttock -Other Dressing LOTION TO L BUTTOCK -Other Covering PER DL INSERTING PRESS OPERATOR #13 Right Buttock -Ulcer Cleansing Rinsed/ Rinsed/ Irrigated with Irrigated with Saline Saline -Foul Odor after Cleansing No -Primary Dressing Applied Fibracol Plus Fibracol Plus 4x4 4x4,NonAdherent Contact Layer -Other Dressing ABD ABD -Primary Dressing Covered/Secured with Secured with Secured with Tape Tape -Other Covering DRSG PER DL INSERTING PRESS OPERATOR -Fibracol Plus 4x4 1 1 -Wound Comment(s) amalactin to left buttocks RUE -Tubular Bandage Double Layer -Size of Tubigrip Used Size F -Size F ($) 2 -Stockings Yes: pt own tubigrip Treatment Response Procedure Procedure Tolerated Well Tolerated Well Pain Scale: 0-10 Numeric Is Patient Pain Free? Yes Yes - Visit Discharge Discharge Condition Stable Stable Ambulatory Status Ambulatory, Ambulatory, Crutches Crutches Transportation Private Auto Private Auto Medication Reconcilliation completed & No provided to patient/care provider Clinical Summary of Care Provided Yes Facility Type Home Health Assessment/Plan Assessment/Plan (1) Anemia: CODE(S): D64.9 - Anemia, unspecified QUALIFIERS: Anemia type: unspecified type Qualified Code(s): D64.9 - Anemia, unspecified (2) Stage II pressure ulcer of right buttock: CODE(S): L89.312 - Pressure ulcer of right buttock, stage 2 PLAN: Wash buttocks with antibacterial soap and water and apply febrical to the wound base and Adaptic over top with a Wayne SAP dressing over top, Every day. (3) Stage II pressure ulcer of left buttock: CODE(S): L89.322 - Pressure ulcer of left buttock, stage 2 PLAN: Resolved continue to use AmLactin cream to left buttocks to maintain skin to be supple and healed. (4) Type II diabetes mellitus: CODE(S): E11.9 - Type 2 diabetes mellitus without complications QUALIFIERS: Diabetes mellitus mcc insulin use: with oysterman use Diabetes mellitus complication status: with kidney complications Diabetes mellitus complication detail: with chronic kidney disease Chronic kidney disease stage: stage 3 (moderate) Chronic kidney disease stage 3 subtype: stage 3a (GFR 45-59) Qualified Code(s): E11.22 - Type 2 diabetes mellitus with diabetic chronic kidney disease; N18.31 - Chronic kidney disease, stage 3a; Z79.4 - prison (current) use of insulin PLAN: Lab work look good. Albumin was within normal limits lower end of normal but within normal still anemic and kidney functions are a little bit high closer to 2 than they should be and he is primary care doctor is following up with his kidney functions and trying to find him iron pills for his anemia. (5) Edema of right lower leg: CODE(S): R60.0 - Localized edema PLAN: Continue to use AmLactin cream on skin and for skin breakdown which is helping with the to keep it supple and soft and continue wearing the single-layer Tubigrip with his regular compression on top. Follow-up in 1 week
--- NOTE | 2024-10-14 13:38 | WC ---
PHOTO 10/14/24 LEFT BUTTOCKS
--- NOTE | 2024-10-14 13:40 | WC ---
PHOTO 10/14/24 RIGHT BUTTOCK
--- NOTE | 2024-10-16 09:47 | WC ---
PHOTO 10/14/24 RIGHT BUTTOCKS
[2024-10-21 11:08] VITALS: BP 176/71; PULSE 51; RESP 18; TEMP 36.3
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
--- NOTE | 2024-10-22 10:24 | WC ---
PHOTO RIGHT BUTTOCKS 10/21/24
[2024-10-28 11:15] VITALS: BP 184/69; PULSE 51; RESP 18; TEMP 36.4
--- NOTE | 2024-10-28 12:39 | PN.PCM_ITS ---
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 With histories of open wounds on his buttocks from [place] for the last 3 to 4 months and has had stage III before on the right and left buttocks. He lives by himself and takes care of himself. He falls asleep in his recliner and that is where he spends the night. Could be the reason why he has the shearing on his buttocks wounds. Patient states has lost weight and muscle mass recently. Blood sugar this morning he says was little high over 200 but he says his A1c was recently done and it was 6.8. We are going to repeat the A1c and recheck his kidney functions we already know he is anemic he has seen by Dr. Box's office in [facility] for rectal bleeding and he is at 11 on his hemoglobin. Progress of Wound: Left buttocks wound is basically healed and he is using amLactin cream to keep i t moistened and not to let it accumulate skin or dry skin. Looks very good The right buttocks still has an open wound but it is measured much smaller. This last week we have been using Dakin's wash over the wound to see if that would help heal it and it just amazing how much the wound has healed and its currently have little islands starting develop in the center. Than what it has been. Currently he has home health care that comes 2 days a week and then we see him the third day. He also has an amputation it to the left leg and on the right leg he has a lot of swelling from his kidney disease and his doctor started him metolazone 2.5 mg for the edema. We started the double layer Tubigrip which seem to be helping a lot. But he is also using the amLactin cream on the leg and he is getting rid of all the dried skin and it looks really good so it is healed also. This week all wounds look so much more improved and he is doing well on everything. Subjective Subjective Patient happy with outcomes Objective Data Objective Data No sign of infection buttocks wound looks very good the open wound is healing starting to get shallow and islands of new tissue in the center. Edema is down in lower extremities and patient states he feels better. Vital Signs: Vital Signs Temp Pulse Resp BP Pulse Ox O2 Del Method 97.5 F L 51 L 18 184/69 H 98 Room Air 10/28/24 11:15 10/28/24 11:15 10/28/24 11:15 10/28/24 11:15 10/01/24 00:24 10/21/24 11:08 Oxygen Delivery Method Room Air Weight: 203 lb Physical Exam Const oriented x3 General Appearance: cooperative Exam Limitations: no limitations HEENT normocephalic Head and Scalp: normal to inspection Face and Sinus: normal facial exam Nose: external nose normal External Ear: external ears normal Eyes General Eye: normal appearance of both eyes Conjunctiva: other Other Details: Conjunctiva pale Neck full ROM General: normal visual inspection Resp normal respiratory effort Effort and Inspection: able to speak in complete sentences Auscultation: clear to auscultation bilaterally Cardio regular rate and regular rhythm Palpation: normal PMI Rate: regular rate Rhythm: abnormal rhythm GI Palpation: soft and no hepatosplenomegaly Back/Spine Cervical Spine: cervical ROM normal Thoracic Spine / Upper Back: normal to inspection Lumbar Spine / Lower Back: normal to inspection Extremity General Extremity: normal exam except as noted and other findings Other Details: Left AKA amp Skin Skin Narrative: Skin is pale all over and dry Wounds: wounds noted Wound Narrative: Open wound on the right buttocks with shearing and left buttocks shearing Neuro oriented x3 Psych Appearance: grossly normal Speech: normal speech Thought Content: normal thought content Judgement: judgement good Debridement Note Debridement Note Wound debrided: Right buttocks Laterality: Right Wound Grade/Stage: Stage II Type of Debridement: Excisional debridement Anesthesia Used: 5% Lidocaine Gel Depth: Down to and including healthy tissue and in the subcutaneous layer Percentage of wound debrided: 100 Instrument Used: 7mm curette Tissue Removed: Devitalized tissue and fibrin Severity: Fat Layer Exposed Amount of bleeding with debridement: Mild Bleeding Controlled with: Compression and gauze Patient tolerated procedure: Patient tolerated procedure well Post-Debridement Measurements and Additional Note: Post-Debridement Measurements/Treatment ANIA - Nurse 1 - General Ulcer Assessment Start: 10/07/24 11:33 Freq: Status: Active Protocol: FABY Activity Type Activity Date Activity User E-sign Co-sign Detail Recorded Client Recorded Date Recorded By Document 10/07/24 11:33 RB [id number] 10/07/24 11:35 RB Document 10/14/24 11:10 DL [id number] 10/14/24 11:13 DL Document 10/21/24 11:08 KW [id number] 10/21/24 11:16 KW Document 10/28/24 11:15 RB [id number] 10/28/24 11:20 RB 10/07/24 10/14/24 10/21/24 11:33 11:10 11:08 WC - Today's Visit Information Type of service Follow-up Visit Follow-up Visit Follow-up Visit (Physician/GUNSMITH APPRENTICE (Physician/GUNSMITH APPRENTICE (Physician/GUNSMITH APPRENTICE ) ) ) Arrival Mode Ambulatory, Ambulatory, Ambulatory, Crutches Crutches Crutches Transfer Assistance Manual None Patient Identification Verified (Name & Yes Yes Yes ) Patient Requires Transmission-Based No No Precautions Vital Signs Temperature (97.8 F-99.1 F) 97.3 F L 97.2 F L 97.4 F L Temperature Source Temporal Temporal Temporal Pulse Rate (60-100) 59 L 49 L 51 L Pulse Location Monitor Monitor Monitor Respiratory Rate (12-18) 18 18 18 Respiratory rate source Observation Observation Observation Oxygen Delivery Method Room Air Blood Pressure (90/60-120/80) 170/52 H 151/80 H 176/71 H Blood Pressure Mean (mm Hg) 91 103 106 Source Monitor Monitor Monitor Position Semi-Fowlers Semi-Fowlers Sitting Blood Pressure Location Left Arm Right Arm Left Arm History Since Last Visit- (Skip if this is Patient's initial visit) Have you changed medications since your No No No last visit? Any new allergies or adverse reactions No No No Had a fall/change in ADL's that may No No No increase risk of falls Signs or symptoms of abuse and/or No No No neglect since last visit Have you been in the hospital since your No No No last visit? Has dressing in place as prescribed Yes Yes Yes Has compression in place as prescribed N/A N/A N/A Has offloadiing in place as prescribed N/A N/A N/A Experienced any changes in pain level or No No No management Left Footwear Regular Shoe Right Footwear Regular Shoe Pain Scale: 0-10 Numeric Is Patient Pain Free? Yes No Yes buttocks -Description Burning -Intensity 2 -Duration (hours) Chronic -Pain Behavior Withdrawal from Touch -Pain Aggravating Factors ADL's -Alleviating Factors/Interventions Medication -Effectiveness of Alleviating Factor/ Moderately Intervention effective 10/28/24 11:15 WC - Today's Visit Information Type of service Follow-up Visit (Physician/GUNSMITH APPRENTICE ) Arrival Mode Ambulatory, Crutches Transfer Assistance None Patient Identification Verified (Name & Yes ) Patient Requires Transmission-Based No Precautions Vital Signs Temperature (97.8 F-99.1 F) 97.5 F L Temperature Source Temporal Pulse Rate (60-100) 51 L Pulse Location Monitor Respiratory Rate (12-18) 18 Respiratory rate source Observation Oxygen Delivery Method Blood Pressure (90/60-120/80) 184/69 H Blood Pressure Mean (mm Hg) 107 Source Monitor Position Semi-Fowlers Blood Pressure Location Left Arm History Since Last Visit- (Skip if this is Patient's initial visit) Have you changed medications since your No last visit? Any new allergies or adverse reactions No Had a fall/change in ADL's that may No increase risk of falls Signs or symptoms of abuse and/or No neglect since last visit Have you been in the hospital since your No last visit? Has dressing in place as prescribed Yes Has compression in place as prescribed N/A Has offloadiing in place as prescribed No Experienced any changes in pain level or No management Left Footwear Right Footwear Pain Scale: 0-10 Numeric Is Patient Pain Free? Yes buttocks -Description -Intensity -Duration (hours) -Pain Behavior -Pain Aggravating Factors -Alleviating Factors/Interventions -Effectiveness of Alleviating Factor/ Intervention WC - Nurse 1 - General Ulcer Measurement Start: 10/07/24 11:33 Freq: Status: Active Protocol: Activity Type Activity Date Activity User E-sign Co-sign Detail Recorded Client Recorded Date Recorded By Document 10/07/24 11:33 RB [id number] 10/07/24 11:35 RB Document 10/14/24 11:10 DL [id number] 10/14/24 11:13 DL Document 10/21/24 11:08 KW [id number] 10/21/24 11:16 KW Document 10/28/24 11:15 RB [id number] 10/28/24 11:20 RB 10/07/24 10/14/24 10/21/24 11:33 11:10 11:08 Wound Center Nurse 1 #12 Left Buttock -Combined with other wound No No -Current Size (cm) - Length 0.1 0.1 -Current Size (cm) - Width 0.1 0.1 -Current Size (cm) - Depth 0.1 0.1 -Total Square Cm 0.01 0.01 -Photo Taken Yes -Tunneling No No -Undermining/Tunneling No No -Circular Undermining No No -Exudate Amt Medium Small -Exudate Type Serosanguineous Serosanguineous -Wound Margin Distinct, Distinct, Outline Outline Attached Attached -Granulation Amt Medium (34-66%) Large (67-100%) -Granulation Quality [place] -Slough/Fibrin Yes Yes -Necrosis Amt Small (1-33%) Small (1-33%) -Necrotic Tissue Type Adherent Slough Adherent Slough -Structure Exposed N/A N/A -Texture (Dai-wound Skin Appearance) Excoriation -Moisture (Dai-wound Skin Appearance) Dry/Scaly Assessed -Color (Dai-wound Skin Appearance) Assessed Erythema -Temperature (Dai-wound Skin No Abnormality No Abnormality Appearance) (Pt Warm) (Pt Warm) -Tenderness on Palpation (Dai-wound No No Skin Appearance) -Ulcer Cleansing Wound Cleanser Wound Cleanser -Foul Odor after Cleansing No No -Anesthetic Used 5% Lidocaine 5% Lidocaine Gel Gel #13 Right Buttock -Combined with other wound No No -Current Size (cm) - Length 2 2 2 -Current Size (cm) - Width 1.4 1.4 1.5 -Current Size (cm) - Depth 0.3 0.3 0.2 -Total Square Cm 2.8 2.8 3.0 -Date of Last Picture (Recall this 10/21/24 field) -Photo Taken Yes -Tunneling No No -Undermining/Tunneling No No -Circular Undermining No No -Exudate Amt Large Medium Small -Exudate Type Serosanguineous Serosanguineous Serosanguineous -Wound Margin Thickened & Thickened & Distinct, Rolled Under Rolled Under Outline Attached -Granulation Amt Large (67-100%) Medium (34-66%) Large (67-100%) -Granulation Quality [place],Red [place] Red -Slough/Fibrin Yes Yes -Necrosis Amt Small (1-33%) Small (1-33%) -Necrotic Tissue Type Adherent Slough Adherent Slough -Structure Exposed N/A N/A -Texture (Dai-wound Skin Appearance) Assessed, Assessed, Assessed Excoriation Excoriation -Moisture (Dai-wound Skin Appearance) Assessed,Dry/ Assessed Assessed Scaly -Color (Dai-wound Skin Appearance) Assessed Assessed Assessed -Temperature (Dai-wound Skin No Abnormality No Abnormality No Abnormality Appearance) (Pt Warm) (Pt Warm) (Pt Warm) -Tenderness on Palpation (Dai-wound No No No Skin Appearance) -Ulcer Cleansing Wound Cleanser Wound Cleanser Soap and Water -Foul Odor after Cleansing No No No -Anesthetic Used 5% Lidocaine 5% Lidocaine 5% Lidocaine Gel Gel Gel 10/28/24 11:15 Wound Center Nurse 1 #12 Left Buttock -Combined with other wound -Current Size (cm) - Length -Current Size (cm) - Width -Current Size (cm) - Depth -Total Square Cm -Photo Taken -Tunneling -Undermining/Tunneling -Circular Undermining -Exudate Amt -Exudate Type -Wound Margin -Granulation Amt -Granulation Quality -Slough/Fibrin -Necrosis Amt -Necrotic Tissue Type -Structure Exposed -Texture (Dai-wound Skin Appearance) -Moisture (Dai-wound Skin Appearance) -Color (Dai-wound Skin Appearance) -Temperature (Dai-wound Skin Appearance) -Tenderness on Palpation (Dai-wound Skin Appearance) -Ulcer Cleansing -Foul Odor after Cleansing -Anesthetic Used #13 Right Buttock -Combined with other wound No -Current Size (cm) - Length 1.3 -Current Size (cm) - Width 1.5 -Current Size (cm) - Depth 0.2 -Total Square Cm 1.95 -Date of Last Picture (Recall this field) -Photo Taken Yes -Tunneling No -Undermining/Tunneling No -Circular Undermining No -Exudate Amt Medium -Exudate Type Serosanguineous -Wound Margin Distinct, Outline Attached -Granulation Amt Medium (34-66%) -Granulation Quality [place] -Slough/Fibrin Yes -Necrosis Amt Small (1-33%) -Necrotic Tissue Type Adherent Slough -Structure Exposed N/A -Texture (Dai-wound Skin Appearance) Assessed, Excoriation -Moisture (Dai-wound Skin Appearance) Assessed -Color (Dai-wound Skin Appearance) Assessed -Temperature (Dai-wound Skin No Abnormality Appearance) (Pt Warm) -Tenderness on Palpation (Dai-wound No Skin Appearance) -Ulcer Cleansing Wound Cleanser -Foul Odor after Cleansing No -Anesthetic Used 5% Lidocaine Gel WC - Nurse 2 - General Ulcer CM Notes Start: 10/07/24 11:33 Freq: Status: Active Protocol: Activity Type Activity Date Activity User E-sign Co-sign Detail Recorded Client Recorded Date Recorded By Document 10/07/24 11:41 [facility] [id number] 10/07/24 11:51 [facility] Document 10/14/24 11:22 BMF [id number] 10/14/24 11:30 [facility] Document 10/21/24 11:24 [facility] [id number] 10/21/24 11:30 [facility] Document 10/28/24 11:44 [facility] [id number] 10/28/24 11:50 [facility] 10/07/24 10/14/24 10/21/24 11:41 11:22 11:24 Wound Center Nurse 2 #12 Left Buttock -Time 11:44 -Procedure Performed No No -Post Debridement (cm) - Length 0.1 0 -Post Debridement (cm) - Width 0.1 0 -Post Debridement (cm) - Depth 0.1 0 -Total Square (Post) (cm) 0.01 0 -Area of Debridement (cm) - Length 0.1 0 -Area of Debridement (cm) - Width 0.1 0 -Total Square (Area) (cm) 0.01 0 -Tunneling No -Undermining/Tunneling No -Circular Undermining No -Wound/Ulcer Outcome Not Healed -Bleeding Controlled with NA #13 Right Buttock -Time 11:42 11:24 11:25 -Correct Patient Yes Yes Yes -Correct Side, Site, Position Yes Yes Yes -Correct Procedure Yes Yes Yes -Procedure Performed Yes Yes Yes -Type of Procedure Debridement Debridement Debridement -Clinical Debridement Subcutaneous Subcutaneous Subcutaneous -Tissue Removed Subcutaneous Subcutaneous Subcutaneous -Post Debridement (cm) - Length 2.5 2.3 1.5 -Post Debridement (cm) - Width 1.7 3 1.5 -Post Debridement (cm) - Depth 0.2 0.2 0.2 -Total Square (Post) (cm) 4.25 6.9 2.25 -Area of Debridement (cm) - Length 2.5 2.3 1.5 -Area of Debridement (cm) - Width 1.7 3 1.5 -Total Square (Area) (cm) 4.25 6.9 2.25 -Tunneling No No No -Undermining/Tunneling No No No -Circular Undermining No No No -Wound/Ulcer Outcome Not Healed Not Healed Not Healed -Ulcer Cleansing Rinsed/ Rinsed/ Rinsed/ Irrigated with Irrigated with Irrigated with Saline Saline Saline -Foul Odor after Cleansing No No No -Bioengineered Tissue No No No -Bleeding Controlled with Pressure Pressure Pressure -Treatment Response Procedure Procedure Procedure Tolerated Well Tolerated Well Tolerated Well -Debridement - Subq, 1st 20sq cm Yes Yes Yes Pain Scale: 0-10 Numeric Is Patient Pain Free? Yes Yes Yes 10/28/24 11:44 Wound Center Nurse 2 #12 Left Buttock -Time -Procedure Performed -Post Debridement (cm) - Length -Post Debridement (cm) - Width -Post Debridement (cm) - Depth -Total Square (Post) (cm) -Area of Debridement (cm) - Length -Area of Debridement (cm) - Width -Total Square (Area) (cm) -Tunneling -Undermining/Tunneling -Circular Undermining -Wound/Ulcer Outcome -Bleeding Controlled with #13 Right Buttock -Time 11:44 -Correct Patient Yes -Correct Side, Site, Position Yes -Correct Procedure Yes -Procedure Performed Yes -Type of Procedure Debridement -Clinical Debridement Subcutaneous -Tissue Removed Subcutaneous -Post Debridement (cm) - Length 1.5 -Post Debridement (cm) - Width 1.4 -Post Debridement (cm) - Depth 0.2 -Total Square (Post) (cm) 2.10 -Area of Debridement (cm) - Length 1.5 -Area of Debridement (cm) - Width 1.4 -Total Square (Area) (cm) 2.10 -Tunneling No -Undermining/Tunneling No -Circular Undermining No -Wound/Ulcer Outcome Not Healed -Ulcer Cleansing Rinsed/ Irrigated with Saline -Foul Odor after Cleansing No -Bioengineered Tissue No -Bleeding Controlled with Pressure -Treatment Response Procedure Tolerated Well -Debridement - Subq, 1st 20sq cm Yes Pain Scale: 0-10 Numeric Is Patient Pain Free? Yes WC - Nurse 3 - General Ulcer D/C NN Start: 10/07/24 11:33 Freq: Status: Active Protocol: Activity Type Activity Date Activity User E-sign Co-sign Detail Recorded Client Recorded Date Recorded By Document 10/07/24 12:03 BMF [id number] 10/07/24 12:05 BM Document 10/14/24 11:47 RB [id number] 10/14/24 11:49 RB Document 10/21/24 11:43 MT [id number] 10/21/24 11:53 MT Edit Result 10/21/24 11:43 MT (1) [id number] 10/21/24 11:54 MT Document 10/28/24 12:04 ML [id number] 10/28/24 12:05 ML (1) #13 Right Buttock - Primary Dressing Applied NonAdherent => Hysept,NonAdherent Contact Layer => Contact Layer - Hysept => 1 10/07/24 10/14/24 10/21/24 12:03 11:47 11:43 Wound Care Center Nurse 3 #12 Left Buttock -Other Dressing LOTION TO L BUTTOCK -Other Covering PER DL [employer]ING SUPERVISOR #13 Right Buttock -Ulcer Cleansing Rinsed/ Rinsed/ dakins Irrigated with Irrigated with Saline Saline -Foul Odor after Cleansing No No -Primary Dressing Applied Fibracol Plus Fibracol Plus Hysept, 4x4 4x4,NonAdherent NonAdherent Contact Layer Contact Layer -Other Dressing ABD ABD -Primary Dressing Covered/Secured with Secured with Secured with Dry Gauze, Tape Tape Secured with Tape -Other Covering DRSG PER DL NATURAL [employer] FIELD PROCESSING SUPERVISOR -Fibracol Plus 4x4 1 1 -Hysept 1 -Silicone Border Foam 4x4 -Wound Comment(s) amalactin to Dressing left buttocks applied per Latha Owusu today. RUE -Tubular Bandage Double Layer -Size of Tubigrip Used Size F -Size F ($) 2 -Stockings Yes: pt own tubigrip Treatment Response Procedure Procedure Procedure Tolerated Well Tolerated Well Tolerated Well Pain Scale: 0-10 Numeric Is Patient Pain Free? Yes Yes Yes WC - Visit Discharge Discharge Condition Stable Stable Stable Ambulatory Status Ambulatory, Ambulatory, Ambulatory, Crutches Crutches Crutches Transportation Private Auto Private Auto Medication Reconcilliation completed & No provided to patient/care provider Clinical Summary of Care Provided Yes Facility Type Home Health Home Health Orders Sent Yes 10/28/24 12:04 Wound Care Center Nurse 3 #12 Left Buttock -Other Dressing -Other Covering #13 Right Buttock -Ulcer Cleansing DAYKINS -Foul Odor after Cleansing -Primary Dressing Applied Silicone Border Foam 4x4 -Other Dressing XEROFORM -Primary Dressing Covered/Secured with -Other Covering -Fibracol Plus 4x4 -Hysept -Silicone Border Foam 4x4 1 -Wound Comment(s) RUE -Tubular Bandage -Size of Tubigrip Used -Size F ($) -Stockings Treatment Response Pain Scale: 0-10 Numeric Is Patient Pain Free? Yes WC - Visit Discharge Discharge Condition Ambulatory Status Transportation Medication Reconcilliation completed & provided to patient/care provider Clinical Summary of Care Provided Facility Type Orders Sent Assessment/Plan Assessment/Plan (1) Anemia: CODE(S): D64.9 - Anemia, unspecified QUALIFIERS: Anemia type: unspecified type Qualified Code(s): D64.9 - Anemia, unspecified (2) Stage II pressure ulcer of right buttock: CODE(S): L89.312 - Pressure ulcer of right buttock, stage 2 PLAN: Wash buttocks with antibacterial soap and water and apply Xeroform to the wound and cover with Adaptic then Irving SAP dressing over top, Every day. Follow-up in 1 week (3) Stage II pressure ulcer of left buttock: CODE(S): L89.322 - Pressure ulcer of left buttock, stage 2 PLAN: Resolved continue to use AmLactin cream to left buttocks to maintain skin to be supple and healed. (4) Type II diabetes mellitus: CODE(S): E11.9 - Type 2 diabetes mellitus without complications QUALIFIERS: Diabetes mellitus predatory animal exterminator insulin use: with predatory animal exterminator use Diabetes mellitus complication status: with kidney complications Diabetes mellitus complication detail: with chronic kidney disease Chronic kidney disease stage: stage 3 (moderate) Chronic kidney disease stage 3 subtype: stage 3a (GFR 45-59) Qualified Code(s): E11.22 - Type 2 diabetes mellitus with diabetic chronic kidney disease; N18.31 - Chronic kidney disease, stage 3a; Z79.4 - FPC (current) use of insulin PLAN: Lab work look good. Albumin was within normal limits lower end of normal but within normal still anemic and kidney functions are a little bit high closer to 2 than they should be and he is primary care doctor is following up with his kidney functions and trying to find him iron pills for his anemia. Patient states also that he was started on a new medication but does not know the name of it and he will call when he gets 3 when he gets the name (5) Edema of right lower leg: CODE(S): R60.0 - Localized edema PLAN: Continue to use AmLactin cream on skin and for skin breakdown which is helping with the to keep it supple and soft and continue wearing the single- layer Tubigrip with his regular compression on top. Follow-up in 1 week
--- NOTE | 2024-10-28 15:16 | WC ---
PHOTO 10/28/24 RIGHT BUTTOCK
== END 2024-10-31 23:59 | disposition home or self-care (01) ==
LOC: WC 11:00
PROVIDERS: PCP Family Medicine; Visit Provider Nurse Practitioner
DX: L89.312 Pressure ulcer of right buttock, stage 2 (principal); Z89.612 Acquired absence of left leg above knee; I48.91 Unspecified atrial fibrillation; E11.51 Type 2 diabetes mellitus with diabetic peripheral angiopathy without gangrene; E11.22 Type 2 diabetes mellitus with diabetic chronic kidney disease; Z79.4 Long term (current) use of insulin; N18.31 Chronic kidney disease, stage 3a; R60.0 Localized edema; I87.2 Venous insufficiency (chronic) (peripheral); Z79.84 Long term (current) use of oral hypoglycemic drugs; Z79.01 Long term (current) use of anticoagulants; Z79.899 Other long term (current) drug therapy
CPT/HCPCS: 11042

== ENCOUNTER → 2024-11-04 | Outpatient (CLI) | payer MEDICARE, SELFPAY ==
[2024-11-04 19:38] LABS: Protein:Creat Ratio 2383 mg/g CRE (0-200)
== END | disposition home or self-care (01) ==
PROVIDERS: PCP Family Medicine; Referring Provider Internal Medicine Nephrology; Visit Provider Internal Medicine Nephrology
DX: N18.32 Chronic kidney disease, stage 3b (principal)
CPT/HCPCS: 82570; 84156

== ENCOUNTER 2024-11-25 10:30 | Outpatient (RCR) | payer MEDICARE, SELFPAY ==
[2024-11-01 00:33] VITALS: BP 184/69; PULSE 51; RESP 18; TEMP 36.4; O2SAT 98
[2024-11-11 11:08] VITALS: BP 179/78; PULSE 52; RESP 18; TEMP 36.6
--- NOTE | 2024-11-11 11:35 | PCM.WC.PN ---
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 With histories of open wounds on his buttocks from [place] for the last 3 to 4 months and has had stage III before on the right and left buttocks. He lives by himself and takes care of himself. He falls asleep in his recliner and that is where he spends the night. Could be the reason why he has the shearing on his buttocks wounds. Patient states has lost weight and muscle mass recently. Blood sugar this morning he says was little high over 200 but he says his A1c was recently done and it was 6.8. We are going to repeat the A1c and recheck his kidney functions we already know he is anemic he has seen by Dr. Box's office in gastro for rectal bleeding and he is at 11 on his hemoglobin. Progress of Wound: Right buttocks is half the size it was last time and was seen which is a couple of weeks ago and much more shallow bleeds easily with debridement we will continue using the Dakin's rinse with Xeroform and cover with a foam dressing. Subjective Subjective Patient is agreeable with plan and is fine Objective Data Objective Data No sign of infection healing nicely continue using the amLactin cream on the other buttocks cheek to keep it soft and supple skin surrounding area is nice and flesh-colored and no redness or swelling denies any pain Vital Signs: Vital Signs Temp Pulse Resp BP Pulse Ox 98 F 52 L 18 179/78 H 98 11/11/24 11:08 11/11/24 11:08 11/11/24 11:08 11/11/24 11:08 11/01/24 00:33 Weight: 203 lb Physical Exam Const oriented x3 General Appearance: cooperative Exam Limitations: no limitations HEENT normocephalic Head and Scalp: normal to inspection Face and Sinus: normal facial exam Nose: external nose normal External Ear: external ears normal Eyes General Eye: normal appearance of both eyes Conjunctiva: other Other Details: Conjunctiva pale Neck full ROM General: normal visual inspection Resp normal respiratory effort Effort and Inspection: able to speak in complete sentences Auscultation: clear to auscultation bilaterally Cardio regular rate and regular rhythm Palpation: normal PMI Rate: regular rate Rhythm: abnormal rhythm GI Palpation: soft and no hepatosplenomegaly Back/Spine Cervical Spine: cervical ROM normal Thoracic Spine / Upper Back: normal to inspection Lumbar Spine / Lower Back: normal to inspection Extremity General Extremity: normal exam except as noted and other findings Other Details: Left AKA amp Skin Skin Narrative: Skin is pale all over and dry Wounds: wounds noted Wound Narrative: Open wound on the right buttocks with shearing and left buttocks shearing Neuro oriented x3 Psych Appearance: grossly normal Speech: normal speech Thought Content: normal thought content Judgement: judgement good Debridement Note Debridement Note Wound debrided: Right buttocks Laterality: Right Wound Grade/Stage: Stage II Type of Debridement: Excisional debridement Anesthesia Used: 5% Lidocaine Gel Depth: Down to and including healthy tissue and in the subcutaneous layer Percentage of wound debrided: 100 Instrument Used: 7mm curette Tissue Removed: Devitalized tissue and fibrin Severity: Fat Layer Exposed Amount of bleeding with debridement: Mild Bleeding Controlled with: Compression and gauze Patient tolerated procedure: Patient tolerated procedure well Post-Debridement Measurements and Additional Note: Post-Debridement Measurements/Treatment ANIA - Nurse 1 - General Ulcer Assessment Start: 11/11/24 11:08 Freq: Status: Active Protocol: FABY Activity Type Activity Date Activity User E-sign Co-sign Detail Recorded Client Recorded Date Recorded By Document 11/11/24 11:08 ALICE [id number] 11/11/24 11:19 ALICE 11/11/24 11:08 - Today's Visit Information Type of service Follow-up Visit (Physician/LASER 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 ) Arrival Mode Ambulatory, Crutches Transfer Assistance None Patient Identification Verified (Name & Yes ) Patient Requires Transmission-Based No Precautions Vital Signs Temperature (97.8 F-99.1 F) 98 F Temperature Source Temporal Pulse Rate (60-100) 52 L Pulse Location Monitor Respiratory Rate (12-18) 18 Respiratory rate source Observation Blood Pressure (90/60-120/80) 179/78 H Blood Pressure Mean (mm Hg) 111 Source Monitor Position Sitting Blood Pressure Location Left Arm History Since Last Visit- (Skip if this is Patient's initial visit) Have you changed medications since your No last visit? Any new allergies or adverse reactions No Had a fall/change in ADL's that may No increase risk of falls Signs or symptoms of abuse and/or No neglect since last visit Have you been in the hospital since your No last visit? Has dressing in place as prescribed Yes Has compression in place as prescribed N/A Has offloadiing in place as prescribed Yes Experienced any changes in pain level or No management Pain Scale: 0-10 Numeric Is Patient Pain Free? Yes - Nurse 1 - General Ulcer Measurement Start: 11/11/24 11:08 Freq: Status: Active Protocol: Activity Type Activity Date Activity User E-sign Co-sign Detail Recorded Client Recorded Date Recorded By Document 11/11/24 11:08 RB [id number] 11/11/24 11:19 RB 11/11/24 11:08 Wound Center Nurse 1 #13 Right Buttock -Combined with other wound No -Current Size (cm) - Length 1 -Current Size (cm) - Width 0.7 -Current Size (cm) - Depth 0.2 -Total Square Cm 0.7 -Photo Taken Yes -Tunneling No -Undermining/Tunneling No -Circular Undermining No -Exudate Amt Medium -Exudate Type Serosanguineous -Wound Margin Thickened & Rolled Under -Granulation Amt Large (67-100%) -Granulation Quality [place] -Slough/Fibrin Yes -Necrosis Amt Small (1-33%) -Necrotic Tissue Type Adherent Slough -Structure Exposed N/A -Texture (Dai-wound Skin Appearance) Assessed, Excoriation, Scarring -Moisture (Dai-wound Skin Appearance) Assessed -Color (Dai-wound Skin Appearance) Assessed -Temperature (Dai-wound Skin No Abnormality Appearance) (Pt Warm) -Tenderness on Palpation (Dai-wound No Skin Appearance) -Ulcer Cleansing Wound Cleanser -Foul Odor after Cleansing No -Anesthetic Used 5% Lidocaine Gel - Nurse 2 - General Ulcer CM Notes Start: 11/11/24 11:08 Freq: Status: Active Protocol: Activity Type Activity Date Activity User E-sign Co-sign Detail Recorded Client Recorded Date Recorded By Document 11/11/24 11:23 [facility] [id number] 11/11/24 11:27 [facility] 11/11/24 11:23 Wound Center Nurse 2 -Time 11:23 -Correct Patient Yes -Correct Side, Site, Position Yes -Correct Procedure Yes -Procedure Performed Yes -Type of Procedure Debridement -Clinical Debridement Subcutaneous -Tissue Removed Subcutaneous -Post Debridement (cm) - Length 1.1 -Post Debridement (cm) - Width 0.8 -Post Debridement (cm) - Depth 0.2 -Total Square (Post) (cm) 0.88 -Area of Debridement (cm) - Length 1.1 -Area of Debridement (cm) - Width 0.8 -Total Square (Area) (cm) 0.88 -Tunneling No -Undermining/Tunneling No -Circular Undermining No -Wound/Ulcer Outcome Not Healed -Ulcer Cleansing Rinsed/ Irrigated with Saline -Foul Odor after Cleansing No -Bioengineered Tissue No -Bleeding Controlled with Pressure -Treatment Response Procedure Tolerated Well -Debridement - Subq, 1st 20sq cm Yes Pain Scale: 0-10 Numeric Is Patient Pain Free? Yes - Nurse 3 - General Ulcer D/C NN Start: 11/11/24 11:08 Freq: Status: Active Protocol: Activity Type Activity Date Activity User E-sign Co-sign Detail Recorded Client Recorded Date Recorded By Document 11/11/24 11:27 [facility] [id number] 11/11/24 11:28 [facility] 11/11/24 11:27 Wound Care Center Nurse 3 #13 Right Buttock -Ulcer Cleansing dakins rinse -Foul Odor after Cleansing No -Primary Dressing Applied NonAdherent Contact Layer, Silicone Border Foam 4x4 -Other Dressing xeroform -Silicone Border Foam 4x4 1 RUE -Tubular Bandage Single Layer -Size of Tubigrip Used Size F -Size F ($) 1 Pain Scale: 0-10 Numeric Is Patient Pain Free? Yes - Visit Discharge Discharge Condition Stable Ambulatory Status Ambulatory, Crutches Transportation Private Auto Facility Type Home Health Assessment/Plan Assessment/Plan (1) Anemia: CODE(S): D64.9 - Anemia, unspecified QUALIFIERS: Anemia type: unspecified type Qualified Code(s): D64.9 - Anemia, unspecified (2) Stage II pressure ulcer of right buttock: CODE(S): L89.312 - Pressure ulcer of right buttock, stage 2 PLAN: Wash buttocks with antibacterial soap and water and apply Xeroform to the wound and cover with Adaptic then [place] SAP dressing over top, Every day. Follow-up in 1 week (3) Stage II pressure ulcer of left buttock: CODE(S): L89.322 - Pressure ulcer of left buttock, stage 2 PLAN: Resolved continue to use AmLactin cream to left buttocks to maintain skin to be supple and healed. (4) Type II diabetes mellitus: CODE(S): E11.9 - Type 2 diabetes mellitus without complications QUALIFIERS: Diabetes mellitus adjunct faculty for medical terminology insulin use: with adjunct faculty for medical terminology use Diabetes mellitus complication status: with kidney complications Diabetes mellitus complication detail: with chronic kidney disease Chronic kidney disease stage: stage 3 (moderate) Chronic kidney disease stage 3 subtype: stage 3a (GFR 45-59) Qualified Code(s): E11.22 - Type 2 diabetes mellitus with diabetic chronic kidney disease; N18.31 - Chronic kidney disease, stage 3a; Z79.4 - group home (current) use of insulin PLAN: Lab work look good. Albumin was within normal limits lower end of normal but within normal still anemic and kidney functions are a little bit high closer to 2 than they should be and he is primary care doctor is following up with his kidney functions and trying to find him iron pills for his anemia. Patient states also that he was started on a new medication but does not know the name of it and he will call when he gets 3 when he gets the name (5) Edema of right lower leg: CODE(S): R60.0 - Localized edema PLAN: Continue to use AmLactin cream on skin and for skin breakdown which is helping with the to keep it supple and soft and continue wearing the single-layer Tubigrip with his regular compression on top. Follow-up in 1 week
--- NOTE | 2024-11-11 14:24 | WC ---
PHOTO 11/11/24 RIGHT BUTTOCK
[2024-11-18 11:09] VITALS: BP 147/66; PULSE 67; RESP 18; TEMP 36.3
--- NOTE | 2024-11-18 11:27 | PCM.WC.PN ---
History of Present Illness Date of Service: 11/18/24 Chief Complaint: Follow-up right and left buttocks History of Wound: 79-year-old white male that has history of diabetes A-fib chronic rectal bleeding hypertension left [id number] amputee from an accident. With histories of open wounds on his buttocks from [place] for the last 3 to 4 months and has had stage III before on the right and left buttocks. He lives by himself and takes care of himself. He falls asleep in his recliner and that is where he spends the night. Could be the reason why he has the shearing on his buttocks wounds. Patient states has lost weight and muscle mass recently. Blood sugar this morning he says was little high over 200 but he says his A1c was recently done and it was 6.8. We are going to repeat the A1c and recheck his kidney functions we already know he is anemic he has seen by Dr. Box's office in gastro for rectal bleeding and he is at 11 on his hemoglobin. Progress of Wound: Right buttocks is 1/4 the size it was last time and was seen which is a couple of weeks ago and much more shallow bleeds easily with debridement because of the blood thinners. We will continue using the Dakin's rinse with Xeroform and cover with a foam dressing. Should be healed in the next week or 2. Depth is just 0.1 he just needs skin to cover. Subjective Subjective Patient is happy with outcomes Objective Data Objective Data Skin color is good he is got some bruising developing around the wound and I think is from him sitting on the toilet or what ever because of the blood thinners he is on I told him to be careful about sitting too long on the toilet seat. The wound itself is healing nicely and he is doing a good job. Should be healed in the next week or 2. Vital Signs: Vital Signs Temp Pulse Resp BP Pulse Ox 97.4 F L 67 18 147/66 H 98 11/18/24 11:11/18/24 11:11/18/24 11:11/18/24 11:11/01/24 00:33 Weight: 203 lb Physical Exam Const oriented x3 General Appearance: cooperative Exam Limitations: no limitations HEENT normocephalic Head and Scalp: normal to inspection Face and Sinus: normal facial exam Nose: external nose normal External Ear: external ears normal Eyes General Eye: normal appearance of both eyes Conjunctiva: other Other Details: Conjunctiva pale Neck full ROM General: normal visual inspection Resp normal respiratory effort Effort and Inspection: able to speak in complete sentences Auscultation: clear to auscultation bilaterally Cardio regular rate and regular rhythm Palpation: normal PMI Rate: regular rate Rhythm: abnormal rhythm GI Palpation: soft and no hepatosplenomegaly Back/Spine Cervical Spine: cervical ROM normal Thoracic Spine / Upper Back: normal to inspection Lumbar Spine / Lower Back: normal to inspection Extremity General Extremity: normal exam except as noted and other findings Other Details: Left AKA amp Skin Skin Narrative: Skin is pale all over and dry Wounds: wounds noted Wound Narrative: Open wound on the right buttocks with shearing and left buttocks shearing Neuro oriented x3 Psych Appearance: grossly normal Speech: normal speech Thought Content: normal thought content Judgement: judgement good Debridement Note Debridement Note Wound debrided: Right buttocks Laterality: Right Wound Grade/Stage: Stage II Type of Debridement: Excisional debridement Anesthesia Used: 5% Lidocaine Gel Depth: Down to and including healthy tissue and in the subcutaneous layer Percentage of wound debrided: 100 Instrument Used: 3mm curette Tissue Removed: fibrin Severity: Fat Layer Exposed Amount of bleeding with debridement: Mild Bleeding Controlled with: Compression and gauze Patient tolerated procedure: Patient tolerated procedure well Post-Debridement Measurements and Additional Note: Post-Debridement Measurements/Treatment - Nurse 1 - General Ulcer Assessment Start: 11/11/24 11:08 Freq: Status: Active Protocol: FABY Activity Type Activity Date Activity User E-sign Co-sign Detail Recorded Client Recorded Date Recorded By Document 11/11/24 11:08 RB [id number] 11/11/24 11:19 RB Document 11/18/24 11:09 RB [id number] 11/18/24 11:13 RB 11/11/24 11/18/24 11:08 11:09 - Today's Visit Information Type of service Follow-up Visit Follow-up Visit (Physician/DRY CLEANING ATTENDANT (Physician/DRY CLEANING ATTENDANT ) ) Arrival Mode Ambulatory, Ambulatory, Crutches Crutches Transfer Assistance None None Patient Identification Verified (Name & Yes Yes ) Patient Requires Transmission-Based No No Precautions Vital Signs Temperature (97.8 F-99.1 F) 98 F 97.4 F L Temperature Source Temporal Temporal Pulse Rate (60-100) 52 L 67 Pulse Location Monitor Monitor Respiratory Rate (12-18) 18 18 Respiratory rate source Observation Observation Blood Pressure (90/60-120/80) 179/78 H 147/66 H Blood Pressure Mean (mm Hg) 111 93 Source Monitor Monitor Position Sitting Semi-Fowlers Blood Pressure Location Left Arm Left Arm History Since Last Visit- (Skip if this is Patient's initial visit) Have you changed medications since your No No last visit? Any new allergies or adverse reactions No No Had a fall/change in ADL's that may No No increase risk of falls Signs or symptoms of abuse and/or No No neglect since last visit Have you been in the hospital since your No No last visit? Has dressing in place as prescribed Yes Yes Has compression in place as prescribed N/A N/A Has offloadiing in place as prescribed Yes Yes Experienced any changes in pain level or No No management Pain Scale: 0-10 Numeric Is Patient Pain Free? Yes Yes WC - Nurse 1 - General Ulcer Measurement Start: 11/11/24 11:08 Freq: Status: Active Protocol: Activity Type Activity Date Activity User E-sign Co-sign Detail Recorded Client Recorded Date Recorded By Document 11/11/24 11:08 RB [id number] 11/11/24 11:19 RB Document 11/18/24 11:09 RB [id number] 11/18/24 11:13 RB 11/11/24 11/18/24 11:08 11:09 Wound Center Nurse 1 #13 Right Buttock -Combined with other wound No No -Current Size (cm) - Length 1 0.4 -Current Size (cm) - Width 0.7 0.4 -Current Size (cm) - Depth 0.2 0.3 -Total Square Cm 0.7 0.16 -Photo Taken Yes Yes -Tunneling No No -Undermining/Tunneling No No -Circular Undermining No No -Exudate Amt Medium Medium -Exudate Type Serosanguineous Serosanguineous -Wound Margin Thickened & Distinct, Rolled Under Outline Attached -Granulation Amt Large (67-100%) Medium (34-66%) -Granulation Quality [place] -Slough/Fibrin Yes Yes -Necrosis Amt Small (1-33%) Small (1-33%) -Necrotic Tissue Type Adherent Slough Adherent Slough -Structure Exposed N/A N/A -Texture (Dai-wound Skin Appearance) Assessed, Assessed, Excoriation, Scarring Scarring -Moisture (Dai-wound Skin Appearance) Assessed Assessed -Color (Dai-wound Skin Appearance) Assessed Assessed -Temperature (Dai-wound Skin No Abnormality No Abnormality Appearance) (Pt Warm) (Pt Warm) -Tenderness on Palpation (Dai-wound No No Skin Appearance) -Ulcer Cleansing Wound Cleanser Wound Cleanser -Foul Odor after Cleansing No No -Anesthetic Used 5% Lidocaine 5% Lidocaine Gel Gel - Nurse 2 - General Ulcer CM Notes Start: 11/11/24 11:08 Freq: Status: Active Protocol: Activity Type Activity Date Activity User E-sign Co-sign Detail Recorded Client Recorded Date Recorded By Document 11/11/24 11:23 [facility] [id number] 11/11/24 11:27 [facility] Document 11/18/24 11:22 [facility] [id number] 11/18/24 11:26 [facility] 11/11/24 11/18/24 11:23 11:22 Wound Center Nurse 2 #13 Right Buttock -Time 11:23 11:23 -Correct Patient Yes Yes -Correct Side, Site, Position Yes Yes -Correct Procedure Yes Yes -Procedure Performed Yes Yes -Type of Procedure Debridement Debridement -Clinical Debridement Subcutaneous Subcutaneous -Tissue Removed Subcutaneous Subcutaneous -Post Debridement (cm) - Length 1.1 0.5 -Post Debridement (cm) - Width 0.8 0.3 -Post Debridement (cm) - Depth 0.2 0.1 -Total Square (Post) (cm) 0.88 0.15 -Area of Debridement (cm) - Length 1.1 0.5 -Area of Debridement (cm) - Width 0.8 0.3 -Total Square (Area) (cm) 0.88 0.15 -Tunneling No No -Undermining/Tunneling No No -Circular Undermining No No -Wound/Ulcer Outcome Not Healed Not Healed -Ulcer Cleansing Rinsed/ Rinsed/ Irrigated with Irrigated with Saline Saline -Foul Odor after Cleansing No No -Bioengineered Tissue No No -Bleeding Controlled with Pressure Pressure -Treatment Response Procedure Procedure Tolerated Well Tolerated Well -Debridement - Subq, 1st 20sq cm Yes Yes Pain Scale: 0-10 Numeric Is Patient Pain Free? Yes Yes - Nurse 3 - General Ulcer D/C NN Start: 11/11/24 11:08 Freq: Status: Active Protocol: Activity Type Activity Date Activity User E-sign Co-sign Detail Recorded Client Recorded Date Recorded By Document 11/11/24 11:27 [facility] [id number] 11/11/24 11:28 [facility] 11/11/24 11:27 Wound Care Center Nurse 3 #13 Right Buttock -Ulcer Cleansing dakins rinse -Foul Odor after Cleansing No -Primary Dressing Applied NonAdherent Contact Layer, Silicone Border Foam 4x4 -Other Dressing xeroform -Silicone Border Foam 4x4 1 RUE -Tubular Bandage Single Layer -Size of Tubigrip Used Size F -Size F ($) 1 Pain Scale: 0-10 Numeric Is Patient Pain Free? Yes WC - Visit Discharge Discharge Condition Stable Ambulatory Status Ambulatory, Crutches Transportation Private Auto Facility Type Home Health Assessment/Plan Assessment/Plan (1) Anemia: CODE(S): D64.9 - Anemia, unspecified QUALIFIERS: Anemia type: unspecified type Qualified Code(s): D64.9 - Anemia, unspecified (2) Stage II pressure ulcer of right buttock: CODE(S): L89.312 - Pressure ulcer of right buttock, stage 2 PLAN: Wash buttocks with antibacterial soap and water and apply Xeroform to the wound and cover with Adaptic then [place] SAP dressing over top, Every day. Follow-up in 1 week (3) Stage II pressure ulcer of left buttock: CODE(S): L89.322 - Pressure ulcer of left buttock, stage 2 PLAN: Resolved continue to use AmLactin cream to left buttocks to maintain skin to be supple and healed. 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 Albumin was within normal limits lower end of normal but within normal still anemic and kidney functions are a little bit high closer to 2 than they should be and he is primary care doctor is following up with his kidney functions and trying to find him iron pills for his anemia. Patient states also that he was started on a new medication but does not know the name of it and he will call when he gets 3 when he gets the name (5) Edema of right lower leg: CODE(S): R60.0 - Localized edema PLAN: Continue to use AmLactin cream on skin and for skin breakdown which is helping with the to keep it supple and soft and continue wearing the single-layer Tubigrip with his regular compression on top. Follow-up in 1 week
--- NOTE | 2024-11-19 10:12 | WC ---
PHOTO 11/18/24 R ANNY
[2024-11-25 10:44] VITALS: BP 171/60; PULSE 49; RESP 18; TEMP 37.1
--- NOTE | 2024-11-25 11:04 | PN.PCM_ITS ---
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 With histories of open wounds on his buttocks from [place] for the last 3 to 4 months and has had stage III before on the right and left buttocks. He lives by himself and takes care of himself. He falls asleep in his recliner and that is where he spends the night. Could be the reason why he has the shearing on his buttocks wounds. Patient states has lost weight and muscle mass recently. Blood sugar this morning he says was little high over 200 but he says his A1c was recently done and it was 6.8. We are going to repeat the A1c and recheck his kidney functions we already know he is anemic he has seen by Dr. Box's office in gastro for rectal bleeding and he is at 11 on his hemoglobin. Progress of Wound: Right buttocks is healed patient will be discharged from the wound center Subjective Subjective Patient is happy with outcomes Objective Data Objective Data Skin intact looks good flesh-colored no redness no sign of infection all healed. Patient will be discharged from the wound center Vital Signs: Vital Signs Temp Pulse Resp BP Pulse Ox O2 Del Method 98.7 F 49 L 18 171/60 H 98 Room Air 11/25/24 10:44 11/25/24 10:44 11/25/24 10:44 11/25/24 10:44 11/01/24 00:33 11/25/24 10:44 Oxygen Delivery Method Room Air Weight: 203 lb Physical Exam Const oriented x3 General Appearance: cooperative Exam Limitations: no limitations HEENT normocephalic Head and Scalp: normal to inspection Face and Sinus: normal facial exam Nose: external nose normal External Ear: external ears normal Eyes General Eye: normal appearance of both eyes Conjunctiva: other Other Details: Conjunctiva pale Neck full ROM General: normal visual inspection Resp normal respiratory effort Effort and Inspection: able to speak in complete sentences Auscultation: clear to auscultation bilaterally Cardio regular rate and regular rhythm Palpation: normal PMI Rate: regular rate Rhythm: abnormal rhythm GI Palpation: soft and no hepatosplenomegaly Back/Spine Cervical Spine: cervical ROM normal Thoracic Spine / Upper Back: normal to inspection Lumbar Spine / Lower Back: normal to inspection Extremity General Extremity: normal exam except as noted and other findings Other Details: Left AKA amp Skin Skin Narrative: Skin is pale all over and dry Wounds: wounds noted Wound Narrative: Open wound on the right buttocks with shearing and left buttocks shearing Neuro oriented x3 Psych Appearance: grossly normal Speech: normal speech Thought Content: normal thought content Judgement: judgement good Debridement Note Debridement Note No debridement was completed: No debridement was completed today Post-Debridement Measurements and Additional Note: Post-Debridement Measurements/Treatment - Nurse 1 - General Ulcer Assessment Start: 11/11/24 11:08 Freq: Status: Active Protocol: FABY Activity Type Activity Date Activity User E-sign Co-sign Detail Recorded Client Recorded Date Recorded By Document 11/11/24 11:08 RB [id number] 11/11/24 11:19 RB Document 11/18/24 11:09 RB [id number] 11/18/24 11:13 RB Document 11/25/24 10:44 TN [id number] 11/25/24 10:51 [place] 11/11/24 11/18/24 11/25/24 11:08 11:09 10:44 - Today's Visit Information Type of service Follow-up Visit Follow-up Visit Follow-up Visit (Physician/MANAGER SALES SUPPORT (Physician/MANAGER SALES SUPPORT (Physician/MANAGER SALES SUPPORT ) ) ) Arrival Mode Ambulatory, Ambulatory, Ambulatory Crutches Crutches Transfer Assistance None None Accompanied by self Patient Identification Verified (Name & Yes Yes Yes ) Patient Requires Transmission-Based No No Precautions Safety Precautions Fall Prevention Vital Signs Temperature (97.8 F-99.1 F) 98 F 97.4 F L 98.7 F Temperature Source Temporal Temporal Temporal Pulse Rate (60-100) 52 L 67 49 L Pulse Location Monitor Monitor Monitor Respiratory Rate (12-18) 18 18 18 Respiratory rate source Observation Observation Observation Oxygen Delivery Method Room Air Blood Pressure (90/60-120/80) 179/78 H 147/66 H 171/60 H Blood Pressure Mean (mm Hg) 111 93 97 Source Monitor Monitor Monitor Position Sitting Semi-Fowlers Sitting Blood Pressure Location Left Arm Left Arm Right Arm History Since Last Visit- (Skip if this is Patient's initial visit) Have you changed medications since your No No last visit? Any new allergies or adverse reactions No No Had a fall/change in ADL's that may No No increase risk of falls Signs or symptoms of abuse and/or No No neglect since last visit Have you been in the hospital since your No No last visit? Has dressing in place as prescribed Yes Yes Yes Has compression in place as prescribed N/A N/A Yes Has offloadiing in place as prescribed Yes Yes Yes Experienced any changes in pain level or No No Yes management Left Footwear Regular Shoe Right Footwear Regular Shoe Pain Scale: 0-10 Numeric Is Patient Pain Free? Yes Yes Yes WC - Nurse 1 - General Ulcer Measurement Start: 11/11/24 11:08 Freq: Status: Active Protocol: Activity Type Activity Date Activity User E-sign Co-sign Detail Recorded Client Recorded Date Recorded By Document 11/11/24 11:08 RB [id number] 11/11/24 11:19 RB Document 11/18/24 11:09 RB [id number] 11/18/24 11:13 RB Document 11/25/24 10:44 TN [id number] 11/25/24 10:51 TN 11/11/24 11/18/24 11/25/24 11:08 11:09 10:44 Wound Center Nurse 1 #13 Right Buttock -Combined with other wound No No -Current Size (cm) - Length 1 0.4 0.1 -Current Size (cm) - Width 0.7 0.4 0.1 -Current Size (cm) - Depth 0.2 0.3 0.1 -Total Square Cm 0.7 0.16 0.01 -Date of Last Picture (Recall this 11/25/24 field) -Photo Taken Yes Yes Yes -Epithelialization Large 67-100% -Tunneling No No No -Undermining/Tunneling No No No -Circular Undermining No No No -Exudate Amt Medium Medium None Present -Exudate Type Serosanguineous Serosanguineous -Wound Margin Thickened & Distinct, Flat & Intact Rolled Under Outline Attached -Granulation Amt Large (67-100%) Medium (34-66%) Large (67-100%) -Granulation Quality [place] Pale,[place] -Slough/Fibrin Yes Yes No -Necrosis Amt Small (1-33%) Small (1-33%) -Necrotic Tissue Type Adherent Slough Adherent Slough -Structure Exposed N/A N/A -Texture (Dai-wound Skin Appearance) Assessed, Assessed, Assessed Excoriation, Scarring Scarring -Moisture (Dai-wound Skin Appearance) Assessed Assessed Assessed -Color (Dai-wound Skin Appearance) Assessed Assessed Assessed -Temperature (Dai-wound Skin No Abnormality No Abnormality No Abnormality Appearance) (Pt Warm) (Pt Warm) (Pt Warm) -Tenderness on Palpation (Dai-wound No No No Skin Appearance) -Ulcer Cleansing Wound Cleanser Wound Cleanser Soap and Water -Foul Odor after Cleansing No No No -Anesthetic Used 5% Lidocaine 5% Lidocaine 5% Lidocaine Gel Gel Gel -Wound Comment(s) wound looks healed Lower Limb Edema Present NA WC - Nurse 2 - General Ulcer CM Notes Start: 11/11/24 11:08 Freq: Status: Active Protocol: Activity Type Activity Date Activity User E-sign Co-sign Detail Recorded Client Recorded Date Recorded By Document 11/11/24 11:23 [facility] [id number] 11/11/24 11:27 [employer] Document 11/18/24 11:22 [employer] [id number] 11/18/24 11:26 [employer] Document 11/25/24 10:57 [facility] [id number] 11/25/24 10:58 [facility] 11/11/24 11/18/24 11/25/24 11:23 11:22 10:57 Wound Center Nurse 2 #13 Right Buttock -Time 11:23 11:23 10:57 -Correct Patient Yes Yes -Correct Side, Site, Position Yes Yes -Correct Procedure Yes Yes -Procedure Performed Yes Yes No -Type of Procedure Debridement Debridement -Clinical Debridement Subcutaneous Subcutaneous -Tissue Removed Subcutaneous Subcutaneous -Post Debridement (cm) - Length 1.1 0.5 0 -Post Debridement (cm) - Width 0.8 0.3 0 -Post Debridement (cm) - Depth 0.2 0.1 0 -Total Square (Post) (cm) 0.88 0.15 0 -Area of Debridement (cm) - Length 1.1 0.5 0 -Area of Debridement (cm) - Width 0.8 0.3 0 -Total Square (Area) (cm) 0.88 0.15 0 -Tunneling No No -Undermining/Tunneling No No -Circular Undermining No No -Wound/Ulcer Outcome Not Healed Not Healed Healed- Epithelialized -Ulcer Cleansing Rinsed/ Rinsed/ Irrigated with Irrigated with Saline Saline -Foul Odor after Cleansing No No -Bioengineered Tissue No No -Bleeding Controlled with Pressure Pressure NA -Treatment Response Procedure Procedure Tolerated Well Tolerated Well -Debridement - Subq, 1st 20sq cm Yes Yes Pain Scale: 0-10 Numeric Is Patient Pain Free? Yes Yes Yes - Nurse 3 - General Ulcer D/C NN Start: 11/11/24 11:08 Freq: Status: Active Protocol: Activity Type Activity Date Activity User E-sign Co-sign Detail Recorded Client Recorded Date Recorded By Document 11/11/24 11:27 [facility] [id number] 11/11/24 11:28 BM Document 11/18/24 11:30 RB [id number] 11/18/24 11:32 RB Document 11/25/24 10:59 [facility] [id number] 11/25/24 11:00 [facility] 11/11/24 11/18/24 11/25/24 11:27 11:30 10:59 Wound Care Center Nurse 3 #13 Right Buttock -Ulcer Cleansing dakins rinse rinsed with dakins -Foul Odor after Cleansing No -Primary Dressing Applied NonAdherent Silicone Border Contact Layer, Foam 4x4 Silicone Border Foam 4x4 -Other Dressing xeroform xeroform -Silicone Border Foam 4x4 1 1 RUE -Tubular Bandage Single Layer -Size of Tubigrip Used Size F -Size F ($) 1 -Stockings Yes: pt own tubigrip F Treatment Response Procedure Tolerated Well Pain Scale: 0-10 Numeric Is Patient Pain Free? Yes Yes Yes - Visit Discharge Discharge Condition Stable Stable Stable Ambulatory Status Ambulatory, Ambulatory, Ambulatory, Crutches Crutches Crutches Transportation Private Auto Private Auto Private Auto Medication Reconcilliation completed & No provided to patient/care provider Clinical Summary of Care Provided Yes Notes: pt is healed, area lota Facility Type Home Health Home Health Assessment/Plan Assessment/Plan (1) Anemia: CODE(S): D64.9 - Anemia, unspecified QUALIFIERS: Anemia type: unspecified type Qualified Code(s): D64.9 - Anemia, unspecified (2) Stage II pressure ulcer of right buttock: CODE(S): L89.312 - Pressure ulcer of right buttock, stage 2 (3) Stage II pressure ulcer of left buttock: CODE(S): L89.322 - Pressure ulcer of left buttock, stage 2 PLAN: Resolved continue to use AmLactin cream to left and right buttock to maintain skin to be supple and healed. Patient may follow-up as needed otherwise he is discharged from the wound center (4) Type II diabetes mellitus: CODE(S): E11.9 - Type 2 diabetes mellitus without complications QUALIFIERS: Diabetes mellitus remote computer terminal operator insulin use: with remote computer terminal operator use Diabetes mellitus complication status: with kidney complications Diabetes mellitus complication detail: with chronic kidney disease Chronic kidney disease stage: stage 3 (moderate) Chronic kidney disease stage 3 subtype: stage 3a (GFR 45-59) Qualified Code(s): E11.22 - Type 2 diabetes mellitus with diabetic chronic kidney disease; N18.31 - Chronic kidney disease, stage 3a; 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
--- NOTE | 2024-11-26 11:03 | WC ---
PHOTO 11/25/24 RIGHT BUTTOCK
== END 2024-11-30 23:59 | disposition home or self-care (01) ==
LOC: WC 10:30
PROVIDERS: PCP Family Medicine; Visit Provider Nurse Practitioner
DX: L89.312 Pressure ulcer of right buttock, stage 2 (principal); L89.322 Pressure ulcer of left buttock, stage 2; Z89.612 Acquired absence of left leg above knee; I48.91 Unspecified atrial fibrillation; E11.22 Type 2 diabetes mellitus with diabetic chronic kidney disease; Z79.4 Long term (current) use of insulin; N18.31 Chronic kidney disease, stage 3a; I12.9 Hypertensive chronic kidney disease with stage 1 through stage 4 chronic kidney disease, or unspecified chronic kidney disease; D64.9 Anemia, unspecified; R60.0 Localized edema; Z79.01 Long term (current) use of anticoagulants; Z79.84 Long term (current) use of oral hypoglycemic drugs; Z79.899 Other long term (current) drug therapy
CPT/HCPCS: 11042; 99212; G0463

== ENCOUNTER → 2024-12-15 | Outpatient (CLI) | payer MEDICARE, SELFPAY ==
[2024-12-15 10:32] LABS: Albumin, Serum 3.6 g/dL (3.4-4.8); Anion Gap 9 (5-15); BUN 52 mg/dL (4-19); BUN/Creat Ratio 23.2 RATIO (10-20); Calcium,Total 8.7 mg/dL (7.6-11.0); Carbon Dioxide 21.6 mmol/L (21.0-32.0); Chloride 108 mmol/L (98-108); Glucose 92 mg/dL (70-99); Potassium 5.4 mmol/L (3.3-5.1)
== END | disposition home or self-care (01) ==
LOC: LAB 08:55
PROVIDERS: PCP Family Medicine; Referring Provider Internal Medicine Nephrology; Visit Provider Internal Medicine Nephrology
DX: N18.32 Chronic kidney disease, stage 3b (principal)
CPT/HCPCS: 36415; 80069

== ENCOUNTER → 2024-12-23 | Outpatient (CLI) | payer MEDICARE, SELFPAY ==
[2024-12-23 17:45] LABS: Albumin, Serum 3.7 g/dL (3.4-4.8); Anion Gap 12 (5-15); BUN 49 mg/dL (4-19); BUN/Creat Ratio 21.3 RATIO (10-20); Calcium,Total 9.0 mg/dL (7.6-11.0); Carbon Dioxide 19.9 mmol/L (21.0-32.0); Chloride 110 mmol/L (98-108); Glucose 79 mg/dL (70-99); Potassium 5.3 mmol/L (3.3-5.1)
== END | disposition home or self-care (01) ==
LOC: LAB 13:57
PROVIDERS: PCP Family Medicine; Referring Provider Internal Medicine Nephrology; Visit Provider Internal Medicine Nephrology
DX: N18.32 Chronic kidney disease, stage 3b (principal)
CPT/HCPCS: 36415; 80069

== ENCOUNTER → 2025-01-28 | Outpatient (CLI) | payer MEDICARE, SELFPAY ==
[2025-01-28 17:14] LABS: Albumin, Serum 4.0 g/dL (3.4-4.8); Anion Gap 13 (5-15); BUN 46 mg/dL (4-19); BUN/Creat Ratio 20.4 RATIO (10-20); Calcium,Total 9.3 mg/dL (7.6-11.0); Carbon Dioxide 19.8 mmol/L (21.0-32.0); Chloride 106 mmol/L (98-108); Glucose 166 mg/dL (70-99); Potassium 4.7 mmol/L (3.3-5.1)
[2025-01-28 17:23] LABS: Creatinine, Urine (random) 30.10 mg/dL (39.00-259.00)
[2025-01-28 17:35] LABS: Protein, Urine (Random) 376.0 mg/dL (0.0-12.0); Protein:Creat Ratio 12492 mg/g CRE (0-200)
== END | disposition home or self-care (01) ==
LOC: LAB 14:56
PROVIDERS: PCP Family Medicine; Referring Provider Internal Medicine Nephrology; Visit Provider Internal Medicine Nephrology
DX: E11.22 Type 2 diabetes mellitus with diabetic chronic kidney disease (principal); Z79.4 Long term (current) use of insulin; N18.32 Chronic kidney disease, stage 3b
CPT/HCPCS: 36415; 80069; 82570; 84156